=== PATIENT | female | born 1955 | race American Indian/Alaskan Native ===

== ENCOUNTER 2016-09-05 12:46 | Emergency (ER) | payer MEDICARE, MEDICAID ==
[2016-09-05 13:01] VITALS: BP 170/72
[2016-09-05] MEDS ORDERED: Sodium Chloride 0.9% 10 ML Syringe FLUSH PRN (13:20)
--- NOTE | 2016-09-05 14:25 | EDM.PDOC ---
{null, ED HPI GENERAL MEDICAL PROBLEM - General Chief Complaint: General Stated Complaint: FELL, HURT LEFT ARM Time Seen by Provider: 09/05/16 13:20 Source of Information: Reports: Patient History Limitations: Reports: No Limitations - History of Present Illness INITIAL COMMENTS - FREE TEXT/NARRATIVE: patient comes emergency Department today with her family with complaints of a fall. Approximately one week ago she twisted her right ankle which has been bothering her ever since. She was never seen for this right ankle injury. Today she was ambulating about the house her right ankle gave out and she fell landing on her left arm. She has pain from the left proximal wrist up to the proximal left humerus. There is no numbness or tingling. It hurts to move her arm. She denies any pain in her head neck or back. She denies any pain in her left shoulder. She does complain of chest pain that has been going on intermittently this morning. She has a rather extensive cardiac history. As well as a seizure disorder. She relates that she's been taking her medications appropriately over the last couple of days and does not remember what her blood sugars have been. She denies any shortness of breath fever chills or cough. Denies abdominal pain does complain of some nausea without vomiting. She complains of right ankle pain she denies any right pain to the right tib/fib region. RIght knee or right hip. Generalized Pain Score (Numeric/FACES): 10 - Related Data Allergies Allergy/AdvReac Type Severity Reaction Status Date / Time vancomycin Allergy Rash Verified 09/05/16 12:52 Home Meds: Home Meds Atenolol [Tenormin] 50 mg PO DAILY 11/16/13 [History] Gabapentin 600 mg PO TID 11/16/13 [History] Insulin Aspart [NovoLOG] 15 unit SQ TID 11/16/13 [History] Insulin Detemir [Levemir] 30 units SQ BEDTIME 11/16/13 [History] Venlafaxine HCl [Venlafaxine ER] 150 mg PO DAILY 11/16/13 [History] metFORMIN [Glucophage] 500 mg PO DAILY 11/16/13 [History] Omeprazole 20 mg PO DAILY 01/17/14 [History] Multivitamin [Multi-Vitamin Daily] 1 tab PO DAILY 03/29/14 [History] Bumetanide 1 mg PO BID 06/25/15 [History] Potassium Chloride [K-Tab ER] 40 meq PO BID 06/25/15 [History] oxyCODONE HCl [oxyCODONE] 15 mg PO TID PRN 06/25/15 [History] Aspirin [Halfprin] 1 tab PO DAILY 07/05/15 [History] Clopidogrel [Plavix] 1 tab PO DAILY 07/05/15 [History] Formoterol [Perforomist] 2 ml INH BID 07/05/15 [History] atorvaSTATin [Lipitor] 10 mg PO BEDTIME 07/05/15 [History] Albuterol [Ventolin HFA] 2 puff INH Q6H PRN 10/23/15 [History] Budesonide [Pulmicort] 0.5 mg NEB BIDRT 10/23/15 [History] Lisinopril 2.5 mg PO DAILY 03/23/16 [History] Amiodarone HCl [Amiodarone HCl] 200 mg PO ASDIRECTED 09/05/16 [History] Past Medical History HEENT History: Reports: Impaired Vision Cardiovascular History: Reports: Bacterial Endocarditis, Heart Failure, Heart Murmur, Heart Valve Replacement, High Cholesterol, Hypertension, NM, Pacemaker Other Cardiovascular History: Aortic valve endocarditis; CAD; s/p AVR; paroxysmal atrial fibrillation; essential hypertension; cardiac pacemaker in situ; tachy-angelique syndrome - all per 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 1 C/S Musculoskeletal History: Reports: Arthritis, Back Pain, Chronic, Osteoarthritis Other Musculoskeletal History: arthritis to spine, carpal tunnel to wrists Neurological History: Reports: Neuropathy, Peripheral, TIA Psychiatric History: Reports: Depression Endocrine/Metabolic History: Reports: Diabetes, Type II Hematologic History: Reports: Other (See Below) Other Hematologic History: hx bacteremia, hyperkalemia, hyponatremia Dermatologic History: Reports: Other (See Below) Other Dermatologic History: hx impetigo, and pressure sore to buttocks - Infectious Disease History Infectious Disease History: Reports: Chicken Pox, Measles, MRSA, TB - Past Surgical History Cardiovascular Surgical History: Reports: Pacer, Valve Replacement GI Surgical History: Reports: Appendectomy, Cholecystectomy Musculoskeletal Surgical History: Reports: Amputation, Other (See Below) Social & Family History - Family History Family Medical History: Noncontributory Cardiac: Reports: Hypertension Respiratory: Reports: COPD Endocrine/Metabolic: Reports: Diabetes, type II - Tobacco Use Smoking Status *Q: Current Every Day Smoker Years of Tobacco use: 25 Packs/Tins Daily: 0.5 Used Tobacco, but Quit: No Month Tobacco Last Used: may Second Hand Smoke Exposure: Yes - Caffeine Use Caffeine Use: Reports: Soda - Alcohol Use Days Per Week of Alcohol Use: 1 Number of Drinks Per Day: 1 Total Drinks Per Week: 1 - Recreational Drug Use Recreational Drug Use: No - Living Situation & Occupation Living situation: Reports: with Family Occupation: Disabled ED ROS GENERAL - Review of Systems Review Of Systems: ROS reveals no pertinent complaints other than HPI. ED EXAM, GENERAL - Physical Exam Exam: See Below Exam Limited By: No Limitations General Appearance: Alert, WD/WN, No Apparent Distress Ears: Normal External Exam, Normal Canal, Normal TMs Nose: Normal Inspection, Normal Mucosa, No Blood Throat/Mouth: Normal Inspection, Normal Lips, Normal Oropharynx Head: Atraumatic, Normocephalic Neck: Normal Inspection, Supple Respiratory/Chest: No Respiratory Distress, Lungs Clear, Normal Breath Sounds, No Accessory Muscle Use Cardiovascular: Normal Peripheral Pulses, Regular Rate, Rhythm, No Murmur GI/Abdominal: Normal Bowel Sounds, Soft, Non-Tender (Female) Exam: Deferred Rectal (Female) Exam: Deferred Back Exam: Normal Inspection Extremities: Pedal Edema (1+ right lower ankle. ), Other (tenderness from mid left humerus down to the left wrist. There is no bony deformity swelling crepitus bruising ecchymosis or breaks in the skin. CMS is intact entirety of the left arm.) Neurological: Alert, CN II-XII Intact, Normal Cognition, Normal Reflexes, No Motor/Sensory Deficits Skin Exam: Intact, Cool, Diaphoretic Lymphatic: No Adenopathy EKG INTERPRETATION EKG Date: 09/05/16 Time: 12:53 Rhythm: NSR Rate (beats/min): 60 [place]: normal P-wave: present QRS: LBBB ST-T: normal QT: normal Comparison: no change Course - Vital Signs Last Recorded V/S: Last Vital Signs Temp 35.8 C 05/20/17 12:52 Pulse 60 09/05/16 12:52 Resp 19 09/05/16 12:52 BP 170/72 H 09/05/16 12:52 Pulse Ox 95 09/05/16 12:52 - Orders/Labs/Meds Orders: Active Orders 24 hr Category Date Time Status EKG 12 Lead [EKG Documentation Completion] [] URGENT Care 09/05/16 13:20 Active Peripheral IV Care [RC] . DIRECTED Care 09/05/16 13:20 Active Peripheral IV Insertion Adult [OM.PC] Stat Oth 09/05/16 13:20 Ordered Labs: Laboratory Tests 09/05/16 09/05/16 09/05/16 Range/Units 13:28 13:28 13:28 WBC 8.0 (5.0-10.0) 10^3/uL RBC 4.27 (4.2-5.4) 10^6/uL Hgb 13.4 (12.0-16.0) g/dL Hct 40.6 (37.0-47.0) % MCV 95.1 (80-100) fL MCH 31.4 (27.0-34.0) pg MCHC 33.0 (33.0-35.0) g/dL Plt Count 216 (150-450) 10^3/uL Neut % (Auto) 69.5 (42.2-75.2) % Lymph % (Auto) 19.0 L (20.5-50.1) % [place] % (Auto) 10.0 H (2-8) % Eos % (Auto) 1.1 (1.0-3.0) % Baso % (Auto) 0.4 (0.0-1.0) % Sodium 128 L (135-145) mmol/L Potassium 4.8 (3.6-5.0) mmol/L Chloride 91 L (101-111) mmol/L Carbon Dioxide 27.0 (21.0-31.0) mmol/L Anion Gap 14.8 BUN 17 (7-18) mg/dL Creatinine 1.1 (0.6-1.3) mg/dL Est Cr Clr Drug Dosing 58.55 mL/min Estimated GFR (MDRD) 51 BUN/Creatinine Ratio 15.45 Glucose 269 H (74-105) mg/dL Calcium 8.7 (8.4-10.2) mg/dl Total Bilirubin 0.7 (0.2-1.0) mg/dL AST 20 (10-42) IU/L ALT 19 (10-60) IU/L Alkaline Phosphatase 96 (42-121) IU/L Troponin I 0.03 H* (0.00-0.02) ng/ml B-Natriuretic Peptide 548 H (0-100) pg/ml Total Protein 7.5 (6.7-8.2) g/dl Albumin 3.6 (3.2-5.5) g/dl Globulin 3.9 Albumin/Globulin Ratio 0.92 Meds: Medications Discontinued Medications Generic Name Dose Route Start Last Admin Trade Name Freq PRN Reason Stop Dose Admin Morphine Sulfate 4 mg 09/05/16 14:30 09/05/16 14:38 Morphine IVPUSH 09/05/16 14:31 4 mg ONETIME ONE Administration Sodium Chloride 10 ml 09/05/16 13:20 Saline Flush FLUSH ASDIRECTED PRN Keep Vein Open - Radiology Interpretation Free Text/Narrative:: per radiology. Chest x-ray opacity in the right base may represent atelectasis pneumonia. Left wrist x-ray no acute findings per radiology. Right ankle x-ray. Minimally displaced distal fibula fracture. Slight contour abnormality along the lateral cortex of the distal fibula. Left humerous. Mildly impacted humeral neck and head fracture of the left humerus. Humeral neck is mildly impacted into the humeral head. Left elbow no acute findings. - Re-Assessments/Exams Free Text/Narrative Re-Assessment/Exam: 09/05/16 following the return of the x-rays I explained to the patient that she has a proximal humeral neck/head impacted fracture. Her arm is placed in a sling. Is also identified that she had a distal nondisplaced right fibular fracture and a right leg was placed in an air splint. Subsequently the rest of her labs are unremarkable other than a mildly elevated troponin. Patient had taken aspirin 324 this morning. She does not have any chest pain at this time in the emergency department. She was given 4 mg of morphine with improvement of her left arm and right leg pain. With her other comorbid state and her elevated troponin I feel that evaluation at a tertiary care centers most appropriate at this time. I spoke with at [facility] in [place] and he accepted this patient into his care at [facility]. No new orders and refused any heparin at this time. the plan for transfer was explained to the patient she was comfortable with this and her questions were answered. Departure - Departure Time of Disposition: 14:20 Disposition: DC/Tfer to Acute Hospital 02 Clinical Impression: Elevated troponin Fx humeral neck Qualifiers: Encounter type: initial encounter Fracture type: closed Laterality: left Qualified Code(s): S42.212A - Unspecified displaced fracture of surgical neck of left humerus, initial encounter for closed fracture Closed right fibular fracture Qualifiers: Encounter type: initial encounter Fibula location: distal Fracture morphology: other fracture Qualified Code(s): S82.831A - Other fracture of upper and lower end of right fibula, initial encounter for closed fracture - Discharge Information Forms: ED Department Discharge ED Communication - ED Communication Date/Time Date: 09/05/16 (I called and spoke with DR. Chappell and relayed the elevated Troponin and HPI and ER course. He accepted the patient in transfer under his care. No heparin at this time. ) Time Called: 14:20 - My Orders Last 24 Hours: My Active Orders 09/05/16 13:20 EKG 12 Lead [EKG Documentation Completion] [RC] URGENT Peripheral IV Care [RC] . DIRECTED Peripheral IV Insertion Adult [OM.PC] Stat - Assessment/Plan Last 24 Hours: My Active Orders 09/05/16 13:20 EKG 12 Lead [EKG Documentation Completion] [RC] URGENT Peripheral IV Care [RC] . DIRECTED Peripheral IV Insertion Adult [OM.PC] Stat Assessment:: elevated troponin. Chest pain. Right distal fibula minimally displaced fracture. Left mildly impacted humeral neck and head fracture. Plan: Transfer to [facility] under the care of Dr. Chappell for further care and evaluation. }
[2016-09-05] MEDS ORDERED: Morphine 4 MG/ML Syringe IVPUSH ONE (14:30)
--- NOTE | 2016-09-08 11:02 | EKG ---
{null, 09/05/2016 - TORY CONTI - A 12-lead EKG shows normal sinus rhythm. Significant left bundle-branch block noted. No significant ST elevation or ST depression noted on this 12-lead EKG. Nonspecific ST-T changes noted on lead V2, V3. [facility] /[id number] }
== END 2016-09-05 15:00 ==
LOC: DL.ED 12:46
DX: S82.831A Other fracture of upper and lower end of right fibula, initial encounter for closed fracture (principal); S42.212A Unspecified displaced fracture of surgical neck of left humerus, initial encounter for closed fracture; R79.89 Other specified abnormal findings of blood chemistry; I11.0 Hypertensive heart disease with heart failure; I50.9 Heart failure, unspecified; E78.00 Pure hypercholesterolemia, unspecified; I25.2 Old myocardial infarction; J44.9 Chronic obstructive pulmonary disease, unspecified; Z86.73 Personal history of transient ischemic attack (TIA), and cerebral infarction without residual deficits; E11.21 Type 2 diabetes mellitus with diabetic nephropathy; I25.10 Atherosclerotic heart disease of native coronary artery without angina pectoris; K21.9 Gastro-esophageal reflux disease without esophagitis; M19.90 Unspecified osteoarthritis, unspecified site; F17.210 Nicotine dependence, cigarettes, uncomplicated; Z79.4 Long term (current) use of insulin; Z79.84 Long term (current) use of oral hypoglycemic drugs; Z79.899 Other long term (current) drug therapy; Z79.82 Long term (current) use of aspirin; Z90.49 Acquired absence of other specified parts of digestive tract; Z88.1 Allergy status to other antibiotic agents; W19.XXXA Unspecified fall, initial encounter
CPT/HCPCS: 36415; 71020; 73060; 73070; 73110; 73610; 80053; 83880; 84484; 85025; 93005; 96374; 99284; J2270; 93010

== ENCOUNTER 2016-12-16 16:02 | Observation (INO) | payer MEDICARE, MEDICAID ==
[2016-12-16] MEDS ORDERED: Sodium Chloride 0.9% 10 ML Syringe FLUSH PRN (16:18)
--- NOTE | 2016-12-16 16:36 | EDM.PDOC ---
<Gabriella Hammer - Last Filed: 12/16/16 17:52> ED HPI GENERAL MEDICAL PROBLEM - General Chief Complaint: Chest Pain Stated Complaint: IN BY AMBULANCE Time Seen by Provider: 12/16/16 16:28 Source of Information: Reports: Patient History Limitations: Reports: No Limitations - History of Present Illness INITIAL COMMENTS - FREE TEXT/NARRATIVE: 61 yo female presents with chest pain. States that when she is moving she has a pressure pain to her left mid chest that is non radiating. Was given 3 nitroglycerin with relief of pain per EMS. Also given ASA. Pt states that she is having neck pain that radiates down both shoulders. Bruising noted to left arm and face s/p fall 1 week ago. C/o shortness of breath intermittently. denies n/v/d. Onset: Today, Sudden Duration: Intermittent Location: Reports: Neck, Chest, Upper Extremity, Left, Upper Extremity, Right Quality: Reports: Pressure, Sharp, Stabbing Severity: Moderate Improves with: Reports: Medication (nitro) Worsens with: Reports: Movement Context: Reports: Activity Associated Symptoms: Reports: No Other Symptoms Treatments MANAGER FUND: Reports: Aspirin, Nitroglycerin Arm Pain Score (Numeric/FACES): 6 - Related Data Allergies Allergy/AdvReac Type Severity Reaction Status Date / Time vancomycin Allergy Rash Verified 12/16/16 16:18 Home Meds: Home Meds Atenolol [Tenormin] 50 mg PO DAILY 11/16/13 [History] Gabapentin 600 mg PO TID 11/16/13 [History] Insulin Aspart [NovoLOG] 15 unit SQ TID 11/16/13 [History] Insulin Detemir [Levemir] 30 units SQ BEDTIME 11/16/13 [History] Venlafaxine HCl [Venlafaxine ER] 150 mg PO DAILY 11/16/13 [History] metFORMIN [Glucophage] 500 mg PO DAILY 11/16/13 [History] Omeprazole 20 mg PO DAILY 01/17/14 [History] Multivitamin [Multi-Vitamin Daily] 1 tab PO DAILY 03/29/14 [History] Bumetanide 1 mg PO BID 06/25/15 [History] Potassium Chloride [K-Tab ER] 40 meq PO BID 06/25/15 [History] oxyCODONE HCl [oxyCODONE] 15 mg PO TID PRN 06/25/15 [History] Aspirin [Halfprin] 1 tab PO DAILY 07/05/15 [History] Clopidogrel [Plavix] 1 tab PO DAILY 07/05/15 [History] Formoterol [Perforomist] 2 ml INH BID 07/05/15 [History] atorvaSTATin [Lipitor] 10 mg PO BEDTIME 07/05/15 [History] Albuterol [Ventolin HFA] 2 puff INH Q6H PRN 10/23/15 [History] Budesonide [Pulmicort] 0.5 mg NEB BIDRT 10/23/15 [History] Lisinopril 2.5 mg PO DAILY 03/23/16 [History] Amiodarone HCl [Amiodarone HCl] 200 mg PO ASDIRECTED 09/05/16 [History] Past Medical History HEENT History: Reports: Impaired Vision Cardiovascular History: Reports: Bacterial Endocarditis, Heart Failure, Heart Murmur, Heart Valve Replacement, High Cholesterol, Hypertension, CT, Pacemaker Other Cardiovascular History: Aortic valve endocarditis; CAD; s/p AVR; paroxysmal atrial fibrillation; essential hypertension; cardiac pacemaker in situ; tachy-angelique syndrome - all per [facility] records Respiratory History: Reports: COPD, Intubation, Previous, SOB, Other (See Below) Other Respiratory History: hx hypoxemia Gastrointestinal History: Reports: Cholelithiasis, GERD Genitourinary History: Reports: Diabetic Nephropathy HORSER UP History: Reports: Other OB/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 1 C/S Musculoskeletal History: Reports: Arthritis, Back Pain, Chronic, Osteoarthritis Other Musculoskeletal History: arthritis to spine, carpal tunnel to wrists Neurological History: Reports: Neuropathy, Peripheral, TIA Psychiatric History: Reports: Depression Endocrine/Metabolic History: Reports: Diabetes, Type II Hematologic History: Reports: Other (See Below) Other Hematologic History: hx bacteremia, hyperkalemia, hyponatremia Dermatologic History: Reports: Other (See Below) Other Dermatologic History: hx impetigo, and pressure sore to buttocks - Infectious Disease History Infectious Disease History: Reports: Chicken Pox, Measles, MRSA, TB - Past Surgical History Cardiovascular Surgical History: Reports: Pacer, Valve Replacement GI Surgical History: Reports: Appendectomy, Cholecystectomy Musculoskeletal Surgical History: Reports: Amputation, Other (See Below) Social & Family History - Family History Family Medical History: Noncontributory Cardiac: Reports: Hypertension Respiratory: Reports: COPD Endocrine/Metabolic: Reports: Diabetes, type II - Tobacco Use Smoking Status *Q: Current Every Day Smoker Years of Tobacco use: 25 Packs/Tins Daily: 0.5 Used Tobacco, but Quit: No Month Tobacco Last Used: may Second Hand Smoke Exposure: Yes - Caffeine Use Caffeine Use: Reports: Soda - Alcohol Use Days Per Week of Alcohol Use: 1 Number of Drinks Per Day: 1 Total Drinks Per Week: 1 - Recreational Drug Use Recreational Drug Use: No - Living Situation & Occupation Living situation: Reports: with Family Occupation: Disabled ED ROS GENERAL - Review of Systems Review Of Systems: ROS reveals no pertinent complaints other than HPI. ED EXAM, GENERAL - Physical Exam Exam: See Below Exam Limited By: No Limitations General Appearance: Alert, WD/WN, No Apparent Distress Eye Exam: Bilateral Eye: Normal Inspection, PERRL Ears: Normal External Exam, Normal Canal, Hearing Grossly Normal, Other ( scarred ears bilaterally) Ear Exam: Bilateral Ear: TM Dull Nose: Normal Inspection, Normal Mucosa, No Blood Throat/Mouth: Normal Inspection, Normal Lips, Normal Teeth, Normal Gums, Normal Oropharynx, Normal Voice, No Airway Compromise Head: Atraumatic, Normocephalic Neck: Normal Inspection, Supple, Full Range of Motion, Tender Lateral Respiratory/Chest: No Respiratory Distress, Lungs Clear, Normal Breath Sounds, No Accessory Muscle Use, Chest Non-Tender Cardiovascular: Normal Peripheral Pulses, Regular Rate, Rhythm, No Edema, No Gallop, No JVD, No Murmur, No Rub GI/Abdominal: Normal Bowel Sounds, Soft, Non-Tender, No Organomegaly, No Distention, No Abnormal Bruit, No Mass Extremities: Normal Inspection, Non-Tender, No Pedal Edema, Normal Capillary Refill, Arm Pain, Limited Range of Motion (left arm due to pain) Neurological: Alert, Oriented, CN II-XII Intact, Normal Cognition, No Motor/ Sensory Deficits Skin Exam: Warm, Dry, Intact, No Rash, Ecchymosis (left face, left upper extremity) Course - Vital Signs Last Recorded V/S: Last Vital Signs Temp 37.1 C 12/17/16 00:48 Pulse 78 12/17/16 00:48 Resp 16 12/17/16 00:48 BP 150/80 H 12/17/16 00:48 Pulse Ox 97 12/17/16 00:48 - Orders/Labs/Meds Orders: Active Orders 24 hr Category Date Time Status Cardiac Monitoring [RC] . DIRECTED Care 12/16/16 16:18 Active EKG 12 Lead [EKG Documentation Completion] [RC] STAT Care 12/16/16 20:50 Active EKG Documentation Completion [RC] STAT Care 12/16/16 16:19 Active Sodium Chloride 0.9% [Saline Flush] Med 12/16/16 16:18 Active 10 ml FLUSH ASDIRECTED PRN Saline Lock Insert [OM.PC] Stat Oth 12/16/16 16:18 Ordered Medication Orders Sodium Chloride (Saline Flush) 10 ml FLUSH ASDIRECTED PRN PRN Reason: Keep Vein Open Last Admin: 12/16/16 17:48 Dose: 10 ml Labs: Laboratory Tests 12/16/16 12/16/16 12/16/16 Range/Units 16:35 16:35 16:35 WBC 6.1 (5.0-10.0) 10^3/uL RBC 5.11 (4.2-5.4) 10^6/uL Hgb 14.2 (12.0-16.0) g/dL Hct 44.1 (37.0-47.0) % MCV 86.3 (80-100) fL MCH 27.8 (27.0-34.0) pg MCHC 32.2 L (33.0-35.0) g/dL Plt Count 153 (150-450) 10^3/uL Neut % (Auto) 52.6 (42.2-75.2) % Lymph % (Auto) 35.8 (20.5-50.1) % [place] % (Auto) 9.7 H (2-8) % Eos % (Auto) 1.7 (1.0-3.0) % Baso % (Auto) 0.2 (0.0-1.0) % PT 10.2 (9.0-12.0) SEC INR 1.0 (0.9-1.2) Sodium 138 (135-145) mmol/L Potassium 4.7 (3.6-5.0) mmol/L Chloride 102 (101-111) mmol/L Carbon Dioxide 24.0 (21.0-31.0) mmol/L Anion Gap 16.7 BUN 24 H (7-18) mg/dL Creatinine 1.0 (0.6-1.3) mg/dL Est Cr Clr Drug Dosing 64.40 mL/min Estimated GFR (MDRD) 57 BUN/Creatinine Ratio 24.00 Glucose 236 H (74-105) mg/dL Calcium 9.3 (8.4-10.2) mg/dl Phosphorus 4.3 (2.5-4.6) mg/dL Magnesium 1.6 L (1.8-2.5) mg/dL Total Bilirubin 0.5 (0.2-1.0) mg/dL AST 25 (10-42) IU/L ALT 25 (10-60) IU/L Alkaline Phosphatase 125 H (42-121) IU/L Creatine Kinase (26-174) IU/L Creatine Kinase Index (0-2.4) % CK-MB (CK-2) (0.4-4.7) ng/mL Troponin I 0.04 H* (0.00-0.02) ng/ml B-Natriuretic Peptide 463 H (0-100) pg/ml Total Protein 7.3 (6.7-8.2) g/dl Albumin 3.7 (3.2-5.5) g/dl Globulin 3.6 Albumin/Globulin Ratio 1.03 12/16/16 12/16/16 12/17/16 Range/Units 16:35 20:15 00:28 WBC (5.0-10.0) 10^3/uL RBC (4.2-5.4) 10^6/uL Hgb (12.0-16.0) g/dL Hct (37.0-47.0) % MCV (80-100) fL MCH (27.0-34.0) pg MCHC (33.0-35.0) g/dL Plt Count (150-450) 10^3/uL Neut % (Auto) (42.2-75.2) % Lymph % (Auto) (20.5-50.1) % [place] % (Auto) (2-8) % Eos % (Auto) (1.0-3.0) % Baso % (Auto) (0.0-1.0) % PT (9.0-12.0) SEC INR (0.9-1.2) Sodium (135-145) mmol/L Potassium (3.6-5.0) mmol/L Chloride (101-111) mmol/L Carbon Dioxide (21.0-31.0) mmol/L Anion Gap BUN (7-18) mg/dL Creatinine (0.6-1.3) mg/dL Est Cr Clr Drug Dosing mL/min Estimated GFR (MDRD) BUN/Creatinine Ratio Glucose (74-105) mg/dL Calcium (8.4-10.2) mg/dl Phosphorus (2.5-4.6) mg/dL Magnesium (1.8-2.5) mg/dL Total Bilirubin (0.2-1.0) mg/dL AST (10-42) IU/L ALT (10-60) IU/L Alkaline Phosphatase (42-121) IU/L Creatine Kinase 36 (26-174) IU/L Creatine Kinase Index 6.4 H (0-2.4) % CK-MB (CK-2) 2.30 (0.4-4.7) ng/mL Troponin I 0.03 H* 0.03 H* (0.00-0.02) ng/ml B-Natriuretic Peptide (0-100) pg/ml Total Protein (6.7-8.2) g/dl Albumin (3.2-5.5) g/dl Globulin Albumin/Globulin Ratio Meds: Medications Generic Name Dose Route Start Last Admin Trade Name Freq PRN Reason Stop Dose Admin Sodium Chloride 10 ml 12/16/16 16:18 12/16/16 17:48 Saline Flush FLUSH 10 ml ASDIRECTED PRN Administration Keep Vein Open Discontinued Medications Generic Name Dose Route Start Last Admin Trade Name Freq PRN Reason Stop Dose Admin Insulin Human Regular 5 unit 12/16/16 17:07 12/16/16 17:45 Humulin R SUBCUT 12/16/16 17:08 4 units ONETIME ONE Administration Protocol Morphine Sulfate 4 mg 12/16/16 17:10 12/16/16 17:48 Morphine IVPUSH 12/16/16 17:11 4 mg ONETIME ONE Administration Ondansetron HCl 4 mg 12/16/16 17:10 12/16/16 17:46 Zofran IV 12/16/16 17:11 4 mg ONETIME ONE Administration - Re-Assessments/Exams Free Text/Narrative Re-Assessment/Exam: 12/16/16 17:52 troponin mildly elevated. Will repeat troponin in 4 hours. Departure - Departure Disposition: Refer to Observation Clinical Impression: Angina effort Forms: ED Department Discharge - My Orders Last 24 Hours: My Active Orders 12/16/16 20:50 EKG 12 Lead [EKG Documentation Completion] [RC] STAT - Assessment/Plan Last 24 Hours: My Active Orders 12/16/16 20:50 EKG 12 Lead [EKG Documentation Completion] [RC] STAT <Bjorn Casanova - Last Filed: 12/17/16 01:46> Course - Re-Assessments/Exams Free Text/Narrative Re-Assessment/Exam: 12/17/16 01:44 repeat trop x2 @ 0.03 pt remains pain free except for left should from prior injury. case discussed with Dr Apple who kindly admitted pt to observation. Departure - Departure Time of Disposition: 01:45 Condition: Fair
[2016-12-16] MEDS ORDERED: Insulin Regular, Human 100 Units/ML 3 ML Vial SUBCUT ONE (17:07)
[2016-12-16] MEDS ORDERED: Morphine 4 MG/ML Syringe IVPUSH ONE (17:10)
[2016-12-16] MEDS ORDERED: Ondansetron 4 MG/2 ML SDV IV ONE (17:10)
[2016-12-17] MEDS ORDERED: Albuterol 6.7 GM Inhaler INH PRN (02:12)
[2016-12-17] MEDS ORDERED: Sodium Chloride 0.9% 10 ML Syringe FLUSH PRN (02:16)
[2016-12-17] MEDS ORDERED: Acetaminophen 325 MG Tab PO PRN (02:16)
[2016-12-17] MEDS ORDERED: Zolpidem 5 MG Tab PO PRN (02:16)
--- NOTE | 2016-12-17 02:29 | PCM.HP ---
H&P History of Present Illness - General Date of Service: 12/17/16 Admit Problem/Dx: Admission Diagnosis/Problem Admission Diagnosis/Problem Chest pain Source of Information: Patient - History of Present Illness Initial Comments - Free Text/Narative: 61-year-old lady with a history of diabetes, hypertension, chronic pain syndrome. The patient fell a few days ago and developed significant bruising and pain the left side of the face and arm. Presented with an episode of chest pain that started when she was getting up and was walking. The pain was sharp, lasted about 10-15 minutes. Resolved after aspirin and nitroglycerin. The patient has no pain now. No shortness of breath. Arm Pain Score (Numeric/FACES): 6 - Related Data Allergies/Adverse Reactions: Allergies Allergy/AdvReac Type Severity Reaction Status Date / Time vancomycin Allergy Rash Verified 12/16/16 16:18 Home Medications: Home Meds Atenolol [Tenormin] 50 mg PO DAILY 11/16/13 [History] Gabapentin 600 mg PO TID 11/16/13 [History] Insulin Aspart [NovoLOG] 15 unit SQ TID 11/16/13 [History] Insulin Detemir [Levemir] 30 units SQ BEDTIME 11/16/13 [History] Venlafaxine HCl [Venlafaxine ER] 150 mg PO DAILY 11/16/13 [History] metFORMIN [Glucophage] 500 mg PO DAILY 11/16/13 [History] Omeprazole 20 mg PO DAILY 01/17/14 [History] Multivitamin [Multi-Vitamin Daily] 1 tab PO DAILY 03/29/14 [History] Bumetanide 1 mg PO BID 06/25/15 [History] Potassium Chloride [K-Tab ER] 40 meq PO BID 06/25/15 [History] oxyCODONE HCl [oxyCODONE] 15 mg PO TID PRN 06/25/15 [History] Aspirin [Halfprin] 1 tab PO DAILY 07/05/15 [History] Clopidogrel [Plavix] 1 tab PO DAILY 07/05/15 [History] Formoterol [Perforomist] 2 ml INH BID 07/05/15 [History] atorvaSTATin [Lipitor] 10 mg PO BEDTIME 07/05/15 [History] Albuterol [Ventolin HFA] 2 puff INH Q6H PRN 10/23/15 [History] Budesonide [Pulmicort] 0.5 mg NEB BIDRT 10/23/15 [History] Lisinopril 2.5 mg PO DAILY 03/23/16 [History] Amiodarone HCl [Amiodarone HCl] 200 mg PO ASDIRECTED 09/05/16 [History] Past Medical History HEENT History: Reports: Impaired Vision Other HEENT History: wears glasses Cardiovascular History: Reports: Bacterial Endocarditis, Heart Failure, Heart Murmur, Heart Valve Replacement, High Cholesterol, Hypertension, NC, Pacemaker Other Cardiovascular History: Aortic valve endocarditis; CAD; s/p AVR; paroxysmal atrial fibrillation; essential hypertension; cardiac pacemaker in situ; tachy-angelique syndrome - all per [facility] records Respiratory History: Reports: COPD, Intubation, Previous, SOB, Other (See Below) Other Respiratory History: hx hypoxemia Gastrointestinal History: Reports: Cholelithiasis, GERD Genitourinary History: Reports: Diabetic Nephropathy [employer] History: Reports: Other OB/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 1 C/S Musculoskeletal History: Reports: Arthritis, Back Pain, Chronic, Osteoarthritis Other Musculoskeletal History: arthritis to spine, carpal tunnel to wrists Neurological History: Reports: Neuropathy, Peripheral, TIA Psychiatric History: Reports: Depression Endocrine/Metabolic History: Reports: Diabetes, Type II Hematologic History: Reports: Other (See Below) Other Hematologic History: hx bacteremia, hyperkalemia, hyponatremia Oncologic (Cancer) History: Reports: None Dermatologic History: Reports: Other (See Below) Other Dermatologic History: hx impetigo, and pressure sore to buttocks - Infectious Disease History Infectious Disease History: Reports: Chicken Pox, Measles, MRSA, TB - Past Surgical History Cardiovascular Surgical History: Reports: Pacer, Valve Replacement GI Surgical History: Reports: Appendectomy, Cholecystectomy Musculoskeletal Surgical History: Reports: Amputation, Other (See Below) Social & Family History - Family History Family Medical History: Noncontributory Cardiac: Reports: Hypertension Respiratory: Reports: COPD Endocrine/Metabolic: Reports: Diabetes, type II - Tobacco Use Smoking Status *Q: Current Every Day Smoker Years of Tobacco use: 25 Packs/Tins Daily: 0.5 Used Tobacco, but Quit: No Month Tobacco Last Used: may Second Hand Smoke Exposure: Yes - Caffeine Use Caffeine Use: Reports: Soda - Alcohol Use Days Per Week of Alcohol Use: 1 Number of Drinks Per Day: 1 Total Drinks Per Week: 1 - Recreational Drug Use Recreational Drug Use: No - Living Situation & Occupation Living situation: Reports: with Family Occupation: Disabled H&P Review of Systems - Review of Systems: Review Of Systems: See Below General: Denies: Fever HEENT: Reports: Other (Left facial bruises) Pulmonary: Denies: Shortness of Breath Cardiovascular: Denies: Chest Pain (Resolved) Gastrointestinal: Denies: Abdominal Pain Musculoskeletal: Reports: Shoulder Pain (Left sided) Psychiatric: Denies: Confusion Exam - Exam Exam: See Below - Vital Signs Vital Signs: Last Vital Signs Temp 37.1 C 12/17/16 00:48 Pulse 78 12/17/16 00:48 Resp 16 12/17/16 00:48 BP 150/80 H 12/17/16 00:48 Pulse Ox 97 12/17/16 00:48 Weight: 95.708 kg - Exam General: Alert, Oriented HEENT: Other (Left-sided facial bruises) Neck: Supple Lungs: Clear to Auscultation Cardiovascular: Regular Rate, Regular Rhythm GI/Abdominal Exam: Normal Bowel Sounds, Soft, Non-Tender Extremities: No Pedal Edema Skin: Warm, Dry, Other (Left facial and upper arm bruises) Neuro Extensive - Mental Status: Alert, Oriented x3, Normal Mood/Affect Psychiatric: Alert, Normal Affect, Normal Mood - Patient Data Result Diagrams: 12/16/16 16:35 12/16/16 16:35 EKG INTERPRETATION EKG Interpretation Comments: Atrial paced rhythm *Q Meaningful Use (ADM) - VTE *Q VTE Criteria *Q: - Stroke *Q Stroke Criteria *Q: - AMI *Q AMI Criteria *Q: - Problem List (1) Chest pain SNOMED Code(s): 29406657 ICD Code: R07.9 - CHEST PAIN, UNSPECIFIED Status: Acute Current Visit: Yes (2) COPD, moderate SNOMED Code(s): 712303396 ICD Code: J44.9 - CHRONIC OBSTRUCTIVE PULMONARY DISEASE, UNSPECIFIED Status : Chronic Current Visit: No Onset Date: 06/25/15 (3) Diabetes mellitus type 2 SNOMED Code(s): 89065013 ICD Code: E11.9 - TYPE 2 DIABETES MELLITUS WITHOUT COMPLICATIONS Status: Chronic Priority: Medium Current Visit: No (4) Diabetic neuropathy SNOMED Code(s): 351568440 ICD Code: E11.40 - TYPE 2 DIABETES MELLITUS WITH DIABETIC NEUROPATHY, UNSP Status: Chronic Priority: Low Current Visit: No Problem List Initiated/Reviewed/Updated: Yes Orders Last 24hrs: Active Orders 24 hr Category Date Time Status Patient Status [ADT] Routine ADT 12/17/16 02:16 Ordered Antiembolic Devices [RC] PER UNIT ROUTINE Care 12/17/16 02:18 Ordered Glucose [Blood Glucose Check, Bedside] [RC] QIDACANDBED Care 12/17/16 02:12 Ordered Oxygen Therapy [RC] PRN Care 12/17/16 02:16 Ordered Peripheral IV Care [RC] . DIRECTED Care 12/17/16 02:18 Ordered Up With Assistance [RC] ASDIRECTED Care 12/17/16 02:16 Ordered VTE/DVT Education [RC] PER UNIT ROUTINE Care 12/17/16 02:16 Ordered Vital Signs [RC] Q4H Care 12/17/16 02:16 Ordered Consistent Carbohydrate Diet [DIET] Diet 12/17/16 Breakfast Ordered BASIC METABOLIC PANEL,BMP [CHEM] AM Lab 12/17/16 05:11 Ordered BASIC METABOLIC PANEL,BMP [CHEM] AM Lab 12/18/16 05:11 Ordered CBC WITH AUTO DIFF [HEME] AM Lab 12/17/16 05:11 Ordered CBC WITH AUTO DIFF [HEME] AM Lab 12/18/16 05:11 Ordered TROPONIN I [CHEM] AM Lab 12/17/16 05:11 Ordered Acetaminophen [Tylenol] Med 12/17/16 02:16 Ordered 650 mg PO Q4H PRN Albuterol [Proventil HFA] Med 12/17/16 02:12 Ordered 2 puff INH Q6H PRN Amiodarone [Cordarone] Med 12/17/16 09:00 Ordered 200 mg PO DAILY Aspirin [Halfprin] Med 12/17/16 09:00 Ordered 1 tab PO DAILY Atenolol [Tenormin] Med 12/17/16 09:00 Ordered 50 mg PO DAILY Budesonide [Pulmicort] Med 12/17/16 07:00 Ordered 0.5 mg NEB BIDRT Bumetanide [Bumex] Med 12/17/16 09:00 Ordered 1 mg PO BID Clopidogrel [Plavix] Med 12/17/16 09:00 Ordered 1 tab PO DAILY Formoterol [Perforomist] Med 12/17/16 09:00 Ordered 2 ml INH BID Gabapentin [Neurontin] Med 12/17/16 09:00 Ordered 600 mg PO TID Heparin Sodium Med 12/17/16 06:00 Ordered 5,000 units SUBCUT Q8HR Ibuprofen [Motrin] Med 12/17/16 02:16 Ordered 400 mg PO Q6H PRN Insulin Aspart [NovoLOG] Med 12/17/16 09:00 Ordered 15 unit SUBCUT TID Insulin Aspart [NovoLOG] Med 12/17/16 08:00 Ordered See Protocol SUBCUT TIDAC Insulin Detemir [Levemir] Med 12/17/16 21:00 Ordered 30 unit SUBCUT BEDTIME Lisinopril [Lisinopril] Med 12/17/16 09:00 Ordered 2.5 mg PO DAILY Magnesium Oxide Med 12/17/16 08:00 Ordered 250 mg PO BIDM Multivitamin [Multi-Vitamin Daily] Med 12/17/16 09:00 Ordered 1 tab PO DAILY Omeprazole Med 12/17/16 09:00 Ordered 20 mg PO DAILY Potassium Chloride [K-Tab ER] Med 12/17/16 09:00 Ordered 40 meq PO BID Sodium Chloride 0.9% [Saline Flush] Med 12/17/16 02:16 Ordered 10 ml FLUSH ASDIRECTED PRN Venlafaxine [Venlafaxine HCl ER] Med 12/17/16 09:00 Ordered 150 mg PO DAILY Zolpidem [Ambien] Med 12/17/16 02:16 Ordered 5 mg PO BEDTIME PRN atorvaSTATin [Lipitor] Med 12/17/16 21:00 Ordered 10 mg PO BEDTIME oxyCODONE HCl [oxyCODONE] Med 12/17/16 02:12 Ordered 15 mg PO Q6HR PRN Antiembolic Hose [OM.PC] Per Unit Routine Oth 12/17/16 02:17 Ordered Peripheral IV Insertion Adult [OM.PC] Routine Oth 12/17/16 02:16 Ordered Resuscitation Status Routine Resus Stat 12/17/16 02:16 Ordered Medication Orders Acetaminophen (Tylenol) 650 mg PO Q4H PRN PRN Reason: Pain (Mild 1-3)/fever Albuterol (Proventil Hfa) gm INH Q6H PRN PRN Reason: Wheezing Amiodarone HCl (Cordarone) 200 mg PO DAILY [facility] Aspirin (Halfprin) mg PO DAILY [facility] Atenolol (Tenormin) 50 mg PO DAILY [facility] Atorvastatin Calcium (Lipitor) 10 mg PO BEDTIME [facility] Budesonide (Pulmicort) 0.5 mg NEB BIDRT [facility] Bumetanide (Bumex) 1 mg PO BID [facility] Clopidogrel Bisulfate (Plavix) mg PO DAILY [facility] Gabapentin (Neurontin) 600 mg PO TID [facility] Heparin Sodium (Porcine) (Heparin Sodium) 5,000 units SUBCUT Q8HR [facility] Ibuprofen (Motrin) 400 mg PO Q6H PRN PRN Reason: Pain (mild 1-3) Insulin Aspart (Novolog) 0 unit SUBCUT TIDAC [facility]ITA PRN Reason: Protocol Insulin Aspart (Novolog) 15 unit SUBCUT TID [facility] Insulin Detemir (Levemir) 30 unit SUBCUT BEDTIME [facility] Magnesium Oxide (Magnesium Oxide) 250 mg PO BIDM [facility] Stop: 12/17/16 18:01 Non-Formulary Medication (Formoterol [Perforomist]) 2 ml INH BID [facility] Non-Formulary Medication (Lisinopril [Lisinopril]) 2.5 mg PO DAILY [facility] Non-Formulary Medication (Multivitamin [Multi-Vitamin Daily]) 1 tab PO DAILY [facility] Non-Formulary Medication (Oxycodone Hcl [Oxycodone]) 15 mg PO Q6HR PRN PRN Reason: Pain Non-Formulary Medication (Potassium Chloride [K-Tab Er]) 40 meq PO BID [facility] Omeprazole (Omeprazole) 20 mg PO DAILY [facility] Sodium Chloride (Saline Flush) 10 ml FLUSH ASDIRECTED PRN PRN Reason: Keep Vein Open Last Admin: 12/16/16 17:48 Dose: 10 ml Sodium Chloride (Saline Flush) 10 ml FLUSH ASDIRECTED PRN PRN Reason: Keep Vein Open Venlafaxine HCl (Venlafaxine Hcl Er) 150 mg PO DAILY [facility] Zolpidem Tartrate (Ambien) 5 mg PO BEDTIME PRN PRN Reason: Sleep Assessment/Plan Comment:: #1 chest pain The patients troponin is minimally elevated. She is on maximum medical therapy with aspirin, Plavix, beta lissy, statin. Well recheck another troponin in a few hours. Monitor on telemetry. Continue treatment for coronary artery disease. #2 fall With bruises on the face and left arm. The chest pain might relate to bruises and trauma as well. Continue pain medications including Neurontin and OxyContin. #3 diabetes Treat with Levemir and mealtime NovoLog combination. Follow blood sugars use supplemental insulin as needed #4 COPD No acute exacerbation Continue Pulmicort #5 history of aortic endocarditis status post aortic valve replacement, bioprosthetic valve Status post pacemaker placement November 2013 Tachy-bradycardia syndrome on amiodarone with paroxysmal atrial fibrillation No anticoagulation, recently 100% paced Last echocardiogram 2016 showed an ejection fraction of 50-55%, grade 2 diastolic dysfunction. Costume Director is Dr. Greenberg On his last note (10/19/2016)Dr. Greenberg was recommending to stop amiodarone #6 DVT prophylaxis will be with subcutaneous heparin
[2016-12-17] MEDS: oxyCODONE 5 MG Tab PO PRN ×2 (03:03→09:16)
[2016-12-17] MEDS: Ibuprofen 400 MG Tab PO PRN ×2 (06:20→12:03)
[2016-12-17] MEDS: Heparin Sodium 5,000 Units/ML Vial SUBCUT SCH ×2 (06:20→14:08)
[2016-12-17] MEDS ORDERED: Budesonide 0.5 MG/2 ML Neb Susp NEB SCH (07:00)
[2016-12-17] MEDS: Gabapentin 300 MG Cap PO SCH ×2 (08:41→14:07)
[2016-12-17] MEDS: Insulin Aspart 100 Units/ML 3 ML Pen SUBCUT SCH ×2 (08:48→12:10)
[2016-12-17] MEDS ORDERED: Omeprazole 20 MG Cap.CR PO SCH (09:00)
[2016-12-17] MEDS ORDERED: Insulin Aspart 100 Units/ML 3 ML Pen SUBCUT SCH ×2 (09:00→12:15)
[2016-12-17] MEDS ORDERED: Non-Formulary Medication 1 Each (Formoterol [Perforomist] 2 ML) INH SCH (09:00)
[2016-12-17] MEDS ORDERED: Atenolol 25 MG Tab PO SCH (09:00)
[2016-12-17] MEDS ORDERED: Potassium Chloride 10 MEQ Tab.ER PO SCH (09:00)
[2016-12-17] MEDS ORDERED: Multivitamins,Therapeutic Tab PO SCH (09:00)
[2016-12-17] MEDS ORDERED: Clopidogrel 75 MG Tab PO SCH (09:00)
[2016-12-17] MEDS ORDERED: Amiodarone 200 MG Tab PO SCH (09:00)
[2016-12-17] MEDS ORDERED: Bumetanide 1 MG Tab PO SCH (09:00)
[2016-12-17] MEDS ORDERED: Aspirin 81 MG Tab.EC PO SCH (09:00)
[2016-12-17] MEDS ORDERED: Venlafaxine 150 MG CAP.ER PO SCH (09:00)
[2016-12-17] MEDS ORDERED: Lisinopril 5 MG Tab PO SCH (09:00)
[2016-12-17 12:33] VITALS: BP 168/85
[2016-12-17] MEDS ORDERED: atorvaSTATin 10 MG Tab PO SCH (21:00)
[2016-12-17] MEDS ORDERED: Insulin Detemir 100 Units/ML 3 ML Pen SUBCUT SCH (21:00)
--- NOTE | 2016-12-22 07:20 | EKG ---
12/16/2016- TORY CONTI - DATE AND TIME OF EKG: Time: 1624 hours. This is the first of two 12-lead EKGs performed approximately 4 hours apart. First EKG shows a sinus rhythm with a ventricular rate of 66. There is a left bundle-branch block. No further comments are made. [facility] /[id number]
--- NOTE | 2016-12-22 07:23 | EKG ---
12/16/2016- TORY CONTI - This is the second of two 12-lead EKGs performed on this 61-year-old female. This EKG shows a sinus rhythm with a ventricular rate of 70. First-degree AV block. Intraventricular conduction defect. No acute changes. [facility] /[id number]
--- NOTE | 2017-02-15 08:47 | DISCH ---
FINAL DIAGNOSES: 1. Status post fall at home. 2. Bruising of left side of face and arm without underlying fractures. 3. Chest pain, resolved, no evidence for acute cardiac syndrome. 4. Type 2 diabetes by history. 5. Hypertension by history. 6. Pacemaker by history. 7. Past history of aortic endocarditis with bioprosthetic aortic valve replacement. BRIEF HISTORY OF PRESENT ILLNESS: Swati Valerio is a 61-year-old female, who presented to the Emergency Department complaining of pain in the left side of face and left arm. She states that she fell at home several days ago. She claims that there are holes in the floor where she is living. She fell in one of these holes and sustained these injuries. The patient was questioned several times regarding how these bruises came about, but her answers were always vague, and she insisted that these were from a fall. It should be noted that she has presented multiple times with multiple bruises. She also stated that she had some chest pain after the fall, which lasted about 10 to 15 minutes, resolved with the use of aspirin and nitroglycerin. She was evaluated in the Emergency Department and was admitted for further observation. PERTINENT LABS AND X-RAYS: A single-view chest x-ray was taken at the time of admission, showed no acute cardiopulmonary findings. There is a permanent pacemaker in place; wires appear intact. Two 12-lead EKGs were performed. The first EKG showed a normal sinus rhythm with a ventricular rate of 66, and a left bundle-branch block. The followup EKG, showed a sinus rhythm with a ventricular rate of 70, first-degree AV block, an intraventricular conduction defect, and no acute changes. Labs: CBC showed a hemoglobin and hematocrit of 14 and 44, normal white count and platelets. INR was 1.0. Chemistry showed normal electrolytes, BUN and creatinine of 24 and 1.0, with a GFR of 57. LFTs were unremarkable. Troponin on admission was 0.04. A total of four troponins were taken during this admission: 0.04, 0.03, 0.03, and 0.03. BNP was slightly elevated at 463. Blood sugars were monitored during the admission and ran between 179 and 236. HOSPITAL COURSE: Mrs. Valerio was admitted under observation. Her usual medications for her diabetes and COPD were continued. She does have chronic pain syndrome, and she was given her usual dose of oxycodone 15 mg every 6 hours p.r.n. for pain. Review of her clinical data showed that she remained hemodynamically stable with no further episodes of chest pain. She was taking adequate fluids. She was voiding and moving her bowels. She was tolerating her diet. On the day of discharge, she was seen in her room. She was seated comfortably. She voiced no concerns or complaints. I know Mrs. Valerio from previous admissions to the hospital and to the alf. She voiced no new concerns or complaints. She was eager to be discharged to home, and she felt that she needed no further care. PHYSICAL EXAMINATION: Vital Signs: Blood pressure 144/81, pulse 90, respiratory rate 20, oxygen saturation 99% on room air. She was afebrile. Weight 208 pounds, height 5 feet 9-1/2 inches. HEENT: Remarkable for extensive bruising over the left side of the face. The bruising appeared to be several days old, as it was dark purple/black in color. She again insisted this was done because she fell through a hole of the floor of her trailer. Neck: Supple, nontender. No adenopathy. No JVDs or bruits. ENT was otherwise clear. Chest: Showed clear bilateral breath sounds. Heart: Showed regular rate and rhythm. Abdomen: Obese, soft, benign. Extremities: Showed minimal lower extremity edema. She was moving all 4 limbs. Neurological: She was intact. IMPRESSION: A 61-year-old lady, who once again presents with bruising of the left upper extremity and face from a fall at home. She states that she feels well. She remained hemodynamically stable overnight, and will be discharged home. She will follow up with her usual care provider. DISCHARGE MEDICATIONS: See [facility] for complete dosing and schedule. Medications include: 1. Amiodarone. 2. Albuterol inhaler. 3. Pulmicort neb treatment. 4. Atenolol. 5. Aspirin. 6. Formoterol nebulizer treatment. 7. Plavix. 8. Bumetanide. 9. Levemir insulin at bedtime. 10.NovoLog insulin 3 times a day with meals. 11.Gabapentin. 12.Lisinopril. 13.Multivitamin. 14.Potassium chloride. 15.Omeprazole. 16.Metformin. 17.Atorvastatin. 18.Venlafaxine. 19.Oxycodone 15 mg t.i.d. p.r.n. ALLERGIES: Vancomycin. CONDITION AT THE TIME OF DISCHARGE: Hemodynamically and neurologically stable. CODE STATUS: Code status during this admission: Full code. [facility] /[id number] MTDD
== END 2016-12-17 14:25 | disposition home or self-care (01) ==
LOC: DL.ED 16:02 → DL.MS 12-17 01:54 → UNDOADMOB 12-17 01:54 → DL.MS 12-17 02:16 → EEVIPCON 12-17 02:16
PROVIDERS: ADMIT Internal Medicine; ATTEND Internal Medicine
DX: R07.9 Chest pain, unspecified (principal); I10 Essential (primary) hypertension; E11.42 Type 2 diabetes mellitus with diabetic polyneuropathy; J44.9 Chronic obstructive pulmonary disease, unspecified; E87.5 Hyperkalemia; E87.1 Hypo-osmolality and hyponatremia; F32.9 Major depressive disorder, single episode, unspecified; K21.9 Gastro-esophageal reflux disease without esophagitis; Z88.1 Allergy status to other antibiotic agents; Z79.82 Long term (current) use of aspirin; Z79.4 Long term (current) use of insulin; Z79.899 Other long term (current) drug therapy; Z95.0 Presence of cardiac pacemaker; Z95.2 Presence of prosthetic heart valve; Z90.49 Acquired absence of other specified parts of digestive tract; Z98.890 Other specified postprocedural states; F17.210 Nicotine dependence, cigarettes, uncomplicated; R06.02 Shortness of breath
CPT/HCPCS: 36415; 71010; 80048; 80053; 82550; 82553; 82962; 83735; 83880; 84100; 84484; 85025; 85610; 93005; 93010; 94640; 96372; 96374; 96375; 99284; 99285; A9270; G0378; J1644; J1815; J2270; J2405; J7050; 99236

== ENCOUNTER 2017-03-12 22:35 | Emergency (ER) | payer MEDICARE, MEDICAID ==
[2017-03-12 22:56] VITALS: BP 180/81
--- NOTE | 2017-03-12 23:03 | EDM.PDOC ---
ED HPI GENERAL MEDICAL PROBLEM - General Chief Complaint: Back Pain or Injury Stated Complaint: PAIN IN LEFT SIDE, THROUGH BACK [id number] Time Seen by Provider: 03/12/17 23:01 Source of Information: Reports: Patient History Limitations: Reports: No Limitations - History of Present Illness INITIAL COMMENTS - FREE TEXT/NARRATIVE: 2 weeks h/o left flank pain going to [facility]Q area. thinks had infection needing ABX. Left Flank Pain Score (Numeric/FACES): 10 Left Lower Abdomen Pain Score (Numeric/FACES): 10 - Related Data Allergies Allergy/AdvReac Type Severity Reaction Status Date / Time vancomycin Allergy Rash Verified 03/12/17 22:45 Home Meds: Home Meds Atenolol [Tenormin] 50 mg PO DAILY 11/16/13 [History] Gabapentin 600 mg PO TID 11/16/13 [History] Insulin Aspart [NovoLOG] 8 unit SQ TID 11/16/13 [History] Insulin Detemir [Levemir] 35 units SQ BEDTIME 11/16/13 [History] Venlafaxine HCl [Venlafaxine ER] 150 mg PO DAILY 11/16/13 [History] metFORMIN [Glucophage] 500 mg PO DAILY 11/16/13 [History] Omeprazole 20 mg PO DAILY 01/17/14 [History] Multivitamin [Multi-Vitamin Daily] 1 tab PO DAILY 03/29/14 [History] Bumetanide 1 mg PO BID 06/25/15 [History] Potassium Chloride [K-Tab ER] 40 meq PO BID 06/25/15 [History] oxyCODONE HCl [oxyCODONE] 20 mg PO TID PRN 06/25/15 [History] Aspirin [Halfprin] 1 tab PO DAILY 07/05/15 [History] Clopidogrel [Plavix] 1 tab PO DAILY 07/05/15 [History] Formoterol [Perforomist] 2 ml INH BID 07/05/15 [History] atorvaSTATin [Lipitor] 10 mg PO BEDTIME 07/05/15 [History] Albuterol [Ventolin HFA] 2 puff INH Q6H PRN 10/23/15 [History] Budesonide [Pulmicort] 0.5 mg NEB BIDRT 10/23/15 [History] Lisinopril 10 mg PO DAILY 03/23/16 [History] Lidocaine [Lidoderm] 1 each TP .Q24HR 03/12/17 [History] Sennosides/Docusate Sodium [Senna-Docusate Sodium] 1 tab PO BID 03/12/17 [ History] Past Medical History HEENT History: Reports: Impaired Vision Other HEENT History: wears glasses Cardiovascular History: Reports: Bacterial Endocarditis, Heart Failure, Heart Murmur, Heart Valve Replacement, High Cholesterol, Hypertension, [place], Pacemaker Other Cardiovascular History: Aortic valve endocarditis; CAD; s/p AVR; paroxysmal atrial fibrillation; essential hypertension; cardiac pacemaker in situ; tachy-angelique syndrome - all per [facility] Respiratory History: Reports: COPD, Intubation, Previous, SOB, Other (See Below) Other Respiratory History: hx hypoxemia Gastrointestinal History: Reports: Cholelithiasis, GERD Genitourinary History: Reports: Diabetic Nephropathy 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 1 C/S Musculoskeletal History: Reports: Arthritis, Back Pain, Chronic, Osteoarthritis Other Musculoskeletal History: arthritis to spine, carpal tunnel to wrists Neurological History: Reports: Neuropathy, Peripheral, TIA Psychiatric History: Reports: Depression Endocrine/Metabolic History: Reports: Diabetes, Type II Hematologic History: Reports: Other (See Below) Other Hematologic History: hx bacteremia, hyperkalemia, hyponatremia Oncologic (Cancer) History: Reports: None Dermatologic History: Reports: Other (See Below) Other Dermatologic History: hx impetigo, and pressure sore to buttocks - Infectious Disease History Infectious Disease History: Reports: Chicken Pox, Measles, MRSA, TB - Past Surgical History Cardiovascular Surgical History: Reports: Pacer, Valve Replacement GI Surgical History: Reports: Appendectomy, Cholecystectomy Musculoskeletal Surgical History: Reports: Amputation, Other (See Below) Social & Family History - Family History Family Medical History: Noncontributory Cardiac: Reports: Hypertension Respiratory: Reports: COPD Endocrine/Metabolic: Reports: Diabetes, type II - Tobacco Use Smoking Status *Q: Current Every Day Smoker Years of Tobacco use: 25 Packs/Tins Daily: 0.5 Used Tobacco, but Quit: No Month Tobacco Last Used: may Second Hand Smoke Exposure: Yes - Caffeine Use Caffeine Use: Reports: Soda - Alcohol Use Days Per Week of Alcohol Use: 1 Number of Drinks Per Day: 1 Total Drinks Per Week: 1 - Recreational Drug Use Recreational Drug Use: No - Living Situation & Occupation Living situation: Reports: with Family Occupation: Disabled ED ROS GENERAL - Review of Systems Review Of Systems: ROS reveals no pertinent complaints other than HPI. ED EXAM,LOWER BACK PAIN/INJURY - Physical Exam Exam: See Below Exam Limited By: No Limitations General Appearance: Alert, WD/WN, Mild Distress, Other (discomfort) Ears: Hearing Grossly Normal Throat/Mouth: Normal Voice, No Airway Compromise Head: Atraumatic Neck: Non-Tender, Full Range of Motion Respiratory/Chest: No Respiratory Distress Cardiovascular: Regular Rate, Rhythm GI/Abdominal: Soft, Non-Tender. No: Distended, Guarding, Rigid, Rebound Back Exam: CVA Tenderness (L) Neurological: Alert, No Motor/Sensory Deficits, Oriented x 3 Psychiatric: Flat Affect Skin Exam: Warm, Dry, Normal Color Lymphatic: No Adenopathy Course - Vital Signs Last Recorded V/S: Last Vital Signs Temp 36.1 C 03/12/17 22:53 Pulse 72 03/12/17 22:53 Resp 20 03/12/17 22:53 BP 180/81 H 03/12/17 22:53 Pulse Ox 100 03/12/17 22:53 - Orders/Labs/Meds Orders: Active Orders 24 hr Category Date Time Status Nitrofurantoin [place]/Macrocryst [Macrobid] Med 03/13/17 00:14 Once 100 mg PO ONETIME ONE Labs: Laboratory Tests 03/12/17 03/12/17 03/12/17 Range/Units 23:02 23:14 23:14 WBC 7.5 (5.0-10.0) 10^3/uL RBC 4.49 (4.2-5.4) 10^6/uL Hgb 13.9 (12.0-16.0) g/dL Hct 41.8 (37.0-47.0) % MCV 93.1 D (80-100) fL MCH 31.0 (27.0-34.0) pg MCHC 33.3 (33.0-35.0) g/dL Plt Count 189 (150-450) 10^3/uL Neut % (Auto) 61.4 (42.2-75.2) % Lymph % (Auto) 25.3 (20.5-50.1) % [place] % (Auto) 8.8 H (2-8) % Eos % (Auto) 4.0 H (1.0-3.0) % Baso % (Auto) 0.5 (0.0-1.0) % Sodium 139 (135-145) mmol/L Potassium 4.8 (3.6-5.0) mmol/L Chloride 102 (101-111) mmol/L Carbon Dioxide 26.0 (21.0-31.0) mmol/L Anion Gap 15.8 BUN 25 H (7-18) mg/dL Creatinine 1.2 (0.6-1.3) mg/dL Est Cr Clr Drug Dosing 52.75 mL/min Estimated GFR (MDRD) 46 BUN/Creatinine Ratio 20.83 Glucose 193 H (74-105) mg/dL Calcium 9.5 (8.4-10.2) mg/dl Total Bilirubin 0.4 (0.2-1.0) mg/dL AST 23 (10-42) IU/L ALT 23 (10-60) IU/L Alkaline Phosphatase 100 (42-121) IU/L Total Protein 7.8 (6.7-8.2) g/dl Albumin 4.0 (3.2-5.5) g/dl Globulin 3.8 Albumin/Globulin Ratio 1.05 Urine Color Light yellow (YELLOW) Urine Appearance Clear (CLEAR) Urine pH 5.5 (5.0-9.0) Ur Specific [place] 1.010 (1.005-1.030) Urine Protein 30 H (NEGATIVE) Urine Glucose (UA) Negative (NEGATIVE) Urine Ketones Negative (NEGATIVE) Urine Occult Blood Trace-lysed H (NEGATIVE) Urine Nitrite Negative (NEGATIVE) Urine Bilirubin Negative (NEGATIVE) Urine Urobilinogen 0.2 (0.2-1.0) mg/dL Ur Leukocyte Esterase Negative (NEGATIVE) Urine RBC 0-5 /HPF Urine WBC 0-5 (0-5/HPF) /HPF Ur Epithelial Cells Occasional /HPF Urine Bacteria Occasional (0-FEW/HPF) /HPF - Re-Assessments/Exams Free Text/Narrative Re-Assessment/Exam: 03/13/17 00:15 results discussed with pt. Departure - Departure Time of Disposition: 00:15 Disposition: Home, Self-Care 01 Condition: Good Clinical Impression: UTI (urinary tract infection) Qualifiers: Urinary tract infection type: acute cystitis Hematuria presence: without hematuria Qualified Code(s): N30.00 - Acute cystitis without hematuria - Discharge Information Instructions: Urinary Tract Infection, Adult, [id number] Forms: ED Department Discharge Additional Instructions: 1) drink lot of liquids 2) see family doctor Wednesday if not significantly better by then rx given; macrobid 100mg bid x 20 - My Orders Last 24 Hours: My Active Orders 03/13/17 00:14 Nitrofurantoin [place]/Macrocryst [Macrobid] 100 mg PO ONETIME ONE - Assessment/Plan Last 24 Hours: My Active Orders 03/13/17 00:14 Nitrofurantoin [place]/Macrocryst [Macrobid] 100 mg PO ONETIME ONE
[2017-03-13] MEDS ORDERED: Nitrofurantoin Monohydrate/Macrocrystalline 100 MG Cap PO ONE (00:14)
== END 2017-03-13 00:33 | disposition home or self-care (01) ==
LOC: DL.ED 22:35
DX: N30.00 Acute cystitis without hematuria (principal); I11.0 Hypertensive heart disease with heart failure; I50.9 Heart failure, unspecified; E11.21 Type 2 diabetes mellitus with diabetic nephropathy; F17.210 Nicotine dependence, cigarettes, uncomplicated; Z88.1 Allergy status to other antibiotic agents; Z79.899 Other long term (current) drug therapy; Z79.84 Long term (current) use of oral hypoglycemic drugs; Z79.82 Long term (current) use of aspirin
CPT/HCPCS: 36415; 80053; 81001; 85025; 99283; A9270

== ENCOUNTER 2017-04-29 16:12 | Emergency (ER) | payer MEDICARE, MEDICAID ==
--- NOTE | 2017-04-29 16:26 | EDM.PDOC ---
ED HPI GENERAL MEDICAL PROBLEM - General Chief Complaint: Lower Extremity Injury/Pain Stated Complaint: CAME BY AMBULANCE Time Seen by Provider: 04/29/17 17:05 Source of Information: Reports: Patient, RN, RN Notes Reviewed History Limitations: Reports: No Limitations - History of Present Illness INITIAL COMMENTS - FREE TEXT/NARRATIVE: Patient fell on right knee this morning. She felt as if her left leg gave out because of chronic pain in back. Patient is out of Percocet pain meds to control back pain. She was brought in by ambulance. Onset: Today Duration: Getting Worse Location: Reports: Lower Extremity, Right Quality: Reports: Ache Severity: Mild Improves with: Reports: None Worsens with: Reports: None Associated Symptoms: Reports: No Other Symptoms Right Knee Pain Score (Numeric/FACES): 7 - Related Data Allergies Allergy/AdvReac Type Severity Reaction Status Date / Time vancomycin Allergy Rash Verified 04/29/17 16:27 Home Meds: Home Meds Atenolol [Tenormin] 50 mg PO DAILY 11/16/13 [History] Gabapentin 600 mg PO TID 11/16/13 [History] Insulin Aspart [NovoLOG] 8 unit SQ TID 11/16/13 [History] Insulin Detemir [Levemir] 35 units SQ BEDTIME 11/16/13 [History] Venlafaxine HCl [Venlafaxine ER] 150 mg PO DAILY 11/16/13 [History] metFORMIN [Glucophage] 500 mg PO DAILY 11/16/13 [History] Omeprazole 20 mg PO DAILY 01/17/14 [History] Multivitamin [Multi-Vitamin Daily] 1 tab PO DAILY 03/29/14 [History] Bumetanide 1 mg PO BID 06/25/15 [History] Potassium Chloride [K-Tab ER] 40 meq PO BID 06/25/15 [History] oxyCODONE HCl [oxyCODONE] 20 mg PO TID PRN 06/25/15 [History] Aspirin [Halfprin] 1 tab PO DAILY 07/05/15 [History] Clopidogrel [Plavix] 1 tab PO DAILY 07/05/15 [History] Formoterol [Perforomist] 2 ml INH BID 07/05/15 [History] atorvaSTATin [Lipitor] 10 mg PO BEDTIME 07/05/15 [History] Albuterol [Ventolin HFA] 2 puff INH Q6H PRN 10/23/15 [History] Budesonide [Pulmicort] 0.5 mg NEB BIDRT 10/23/15 [History] Lisinopril 10 mg PO DAILY 03/23/16 [History] Past Medical History HEENT History: Reports: Impaired Vision Other HEENT History: wears glasses Cardiovascular History: Reports: Bacterial Endocarditis, Heart Failure, Heart Murmur, Heart Valve Replacement, High Cholesterol, Hypertension, [place], Pacemaker Other Cardiovascular History: Aortic valve endocarditis; CAD; s/p AVR; paroxysmal atrial fibrillation; essential hypertension; cardiac pacemaker in situ; tachy-angelique syndrome - all per [facility] records Respiratory History: Reports: COPD, Intubation, Previous, SOB, Other (See Below) Other Respiratory History: hx hypoxemia Gastrointestinal History: Reports: Cholelithiasis, GERD Genitourinary History: Reports: 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 1 C/S Musculoskeletal History: Reports: Arthritis, Back Pain, Chronic, Osteoarthritis Other Musculoskeletal History: arthritis to spine, carpal tunnel to wrists Neurological History: Reports: Neuropathy, Peripheral, TIA Psychiatric History: Reports: Depression Endocrine/Metabolic History: Reports: Diabetes, Type II Hematologic History: Reports: Other (See Below) Other Hematologic History: hx bacteremia, hyperkalemia, hyponatremia Oncologic (Cancer) History: Reports: None Dermatologic History: Reports: Other (See Below) Other Dermatologic History: hx impetigo, and pressure sore to buttocks - Infectious Disease History Infectious Disease History: Reports: Chicken Pox, Measles, MRSA, TB - Past Surgical History Cardiovascular Surgical History: Reports: Pacer, Valve Replacement GI Surgical History: Reports: Appendectomy, Cholecystectomy Musculoskeletal Surgical History: Reports: Amputation (left foot), Other (See Below) Social & Family History - Family History Family Medical History: Noncontributory Cardiac: Reports: Hypertension Respiratory: Reports: COPD Endocrine/Metabolic: Reports: Diabetes, type II - Tobacco Use Smoking Status *Q: Current Every Day Smoker Years of Tobacco use: 25 Packs/Tins Daily: 0.5 Used Tobacco, but Quit: No Month Tobacco Last Used: may Second Hand Smoke Exposure: Yes - Caffeine Use Caffeine Use: Reports: Soda - Alcohol Use Days Per Week of Alcohol Use: 1 Number of Drinks Per Day: 1 Total Drinks Per Week: 1 - Recreational Drug Use Recreational Drug Use: No - Living Situation & Occupation Living situation: Reports: with Family Occupation: Disabled Review of Systems - Review of Systems Review Of Systems: ROS reveals no pertinent complaints other than HPI. ED EXAM, GENERAL - Physical Exam Exam: See Below Exam Limited By: No Limitations General Appearance: Anxious (resting in bed.) Head: Atraumatic, Normocephalic Neck: Normal Inspection, Supple, Non-Tender, Full Range of Motion Respiratory/Chest: Lungs Clear (in all campos.). No: Rales, Rhonchi, Wheezing Cardiovascular: Normal Peripheral Pulses, Regular Rate, Rhythm (S1 and S2.), No Edema, No Gallop GI/Abdominal: Soft, Non-Tender, Other (bowel sounds hypoactive.) (Female) Exam: Deferred Rectal (Female) Exam: Deferred Back Exam: Normal Inspection, Other (tenderness with palpation over right iliac crest. ) Extremities: Leg Pain, Other (inconsistent response to passive range of motion and palpation. Pain elicited with palpation and range of motion on 1st inspection. Pain is not reproduced with repeated exams. ) Neurological: Alert, Oriented, CN II-XII Intact, Normal Cognition, Normal Gait, Normal Reflexes, No Motor/Sensory Deficits Psychiatric: Normal Affect, Normal Mood Skin Exam: Other (right knee abrasion 1cm x 1cm inferior to patella. Left knee has small bruises over patella. ) Course - Vital Signs Last Recorded V/S: Last Vital Signs Temp 35.8 C 04/29/17 16:17 Pulse 85 04/29/17 16:17 Resp 16 04/29/17 16:17 BP 195/85 H 04/29/17 16:17 Pulse Ox 98 04/29/17 16:17 - Orders/Labs/Meds Orders: Active Orders 24 hr Category Date Time Status Knee 3V Rt [CR] Urgent Exams 04/29/17 16:36 Taken Meds: Medications Discontinued Medications Generic Name Dose Route Start Last Admin Trade Name Samsonq PRN Reason Stop Dose Admin Bacitracin 1 dose 04/29/17 17:09 04/29/17 17:22 Bacitracin Oint 1 Gm TOP 04/29/17 17:10 1 dose ONETIME ONE Administration Oxycodone/Acetaminophen 2 tab 04/29/17 17:09 04/29/17 17:21 Percocet 325-5 Mg PO 04/29/17 17:10 2 tab ONETIME ONE Administration - Radiology Interpretation Free Text/Narrative:: Right knee x-ray: No acute fractures. See Rad report. Departure - Departure Time of Disposition: 17:22 Disposition: Home, Self-Care 01 Condition: Good Clinical Impression: Abrasion, right knee, initial encounter Right knee sprain Qualifiers: Encounter type: initial encounter Involved ligament of knee: unspecified ligament Qualified Code(s): S83.91XA - Sprain of unspecified site of right knee , initial encounter - Discharge Information Instructions: Knee Sprain, [id number], Abrasion, [id number] Forms: ED Department Discharge Additional Instructions: Rx: Bactroban Oint. 2% Rx: Tylenol No. 3 Follow up with your primary clinic for recheck and pain management. Activity as tolerated. - My Orders Last 24 Hours: My Active Orders 04/29/17 16:36 Knee 3V Rt [CR] Urgent - Assessment/Plan Last 24 Hours: My Active Orders 04/29/17 16:36 Knee 3V Rt [CR] Urgent
[2017-04-29 16:27] VITALS: BP 195/85
[2017-04-29] MEDS ORDERED: Acetaminophen/oxyCODONE 325-5 MG Tab PO ONE (17:09)
[2017-04-29] MEDS ORDERED: Bacitracin Oint 1 GM U/D Packet TOP ONE (17:09)
== END 2017-04-29 17:32 | disposition home or self-care (01) ==
LOC: DL.ED 16:12
DX: S83.91XA Sprain of unspecified site of right knee, initial encounter (principal); S80.02XA Contusion of left knee, initial encounter; E11.21 Type 2 diabetes mellitus with diabetic nephropathy; I11.0 Hypertensive heart disease with heart failure; I50.9 Heart failure, unspecified; E78.00 Pure hypercholesterolemia, unspecified; J44.9 Chronic obstructive pulmonary disease, unspecified; M19.90 Unspecified osteoarthritis, unspecified site; F17.210 Nicotine dependence, cigarettes, uncomplicated; Z79.4 Long term (current) use of insulin; Z79.899 Other long term (current) drug therapy; Z88.1 Allergy status to other antibiotic agents; W19.XXXA Unspecified fall, initial encounter
CPT/HCPCS: 73562; 99284; A9270; 99283

== ENCOUNTER 2017-06-17 20:40 | Emergency (ER) | payer MEDICARE, MEDICAID ==
[2017-06-17 20:47] VITALS: BP 156/72
[2017-06-17] MEDS ORDERED: HYDROmorphone 1 MG/ML Syringe SUBCUT ONE (21:04)
--- NOTE | 2017-06-17 23:11 | EDM.PDOC ---
ED HPI GENERAL MEDICAL PROBLEM - General Chief Complaint: Upper Extremity Injury/Pain Stated Complaint: BY AMBULANCE Time Seen by Provider: 06/17/17 20:40 Source of Information: Reports: Patient, EMS History Limitations: Reports: No Limitations - History of Present Illness INITIAL COMMENTS - FREE TEXT/NARRATIVE: ED with c/o severe pain to left ribs and left shoulder after tripping in kitchen over broom, required assistance up to bathroom. Increased pain to left side with movement. No loss of conscious, did not hit head. Arrives with shoulder immobilizer in [facility] Location: Reports: Chest (left lateral), Back (chronic), Upper Extremity, Left ( shoulder to wrist). Denies: Pelvis Quality: Reports: Ache Severity: Moderate Left Chest Pain Score (Numeric/FACES): 10 - Related Data Allergies Allergy/AdvReac Type Severity Reaction Status Date / Time vancomycin Allergy Rash Verified 06/17/17 20:41 Home Meds: Home Meds Atenolol [Tenormin] 50 mg PO DAILY 11/16/13 [History] Gabapentin 600 mg PO TID 11/16/13 [History] Insulin Aspart [NovoLOG] 8 unit SQ TID 11/16/13 [History] Insulin Detemir [Levemir] 35 units SQ BEDTIME 11/16/13 [History] Venlafaxine HCl [Venlafaxine ER] 150 mg PO DAILY 11/16/13 [History] metFORMIN [Glucophage] 500 mg PO DAILY 11/16/13 [History] Omeprazole 20 mg PO DAILY 01/17/14 [History] Multivitamin [Multi-Vitamin Daily] 1 tab PO DAILY 03/29/14 [History] Bumetanide 1 mg PO BID 06/25/15 [History] Potassium Chloride [K-Tab ER] 40 meq PO BID 06/25/15 [History] oxyCODONE HCl [oxyCODONE] 20 mg PO TID PRN 06/25/15 [History] Aspirin [Halfprin] 1 tab PO DAILY 07/05/15 [History] Clopidogrel [Plavix] 1 tab PO DAILY 07/05/15 [History] Formoterol [Perforomist] 2 ml INH BID 07/05/15 [History] atorvaSTATin [Lipitor] 10 mg PO BEDTIME 07/05/15 [History] Albuterol [Ventolin HFA] 2 puff INH Q6H PRN 10/23/15 [History] Budesonide [Pulmicort] 0.5 mg NEB BIDRT 10/23/15 [History] Lisinopril 10 mg PO DAILY 03/23/16 [History] Past Medical History HEENT History: Reports: Impaired Vision Other HEENT History: wears glasses Cardiovascular History: Reports: Bacterial Endocarditis, Heart Failure, Heart Murmur, Heart Valve Replacement, High Cholesterol, Hypertension, [place], Pacemaker Other Cardiovascular History: Aortic valve endocarditis; CAD; s/p AVR; paroxysmal atrial fibrillation; essential hypertension; cardiac pacemaker in situ; tachy-angelique syndrome - all per [facility] records Respiratory History: Reports: COPD, Intubation, Previous, SOB, Other (See Below) Other Respiratory History: hx hypoxemia Gastrointestinal History: Reports: Cholelithiasis, GERD Genitourinary History: Reports: 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 1 C/S Musculoskeletal History: Reports: Arthritis, Back Pain, Chronic, Osteoarthritis Other Musculoskeletal History: arthritis to spine, carpal tunnel to wrists Neurological History: Reports: Neuropathy, Peripheral, TIA Psychiatric History: Reports: Depression Endocrine/Metabolic History: Reports: Diabetes, Type II Hematologic History: Reports: Other (See Below) Other Hematologic History: hx bacteremia, hyperkalemia, hyponatremia Immunologic History: Reports: None Oncologic (Cancer) History: Reports: None Dermatologic History: Reports: Other (See Below) Other Dermatologic History: hx impetigo, and pressure sore to buttocks - Infectious Disease History Infectious Disease History: Reports: Chicken Pox, Measles, MRSA, TB - Past Surgical History Cardiovascular Surgical History: Reports: Pacer, Valve Replacement GI Surgical History: Reports: Appendectomy, Cholecystectomy Musculoskeletal Surgical History: Reports: Amputation, Other (See Below) Social & Family History - Family History Family Medical History: Noncontributory Cardiac: Reports: Hypertension Respiratory: Reports: COPD Endocrine/Metabolic: Reports: Diabetes, type II - Tobacco Use Smoking Status *Q: Light Tobacco Smoker Years of Tobacco use: 25 Packs/Tins Daily: 0.5 Used Tobacco, but Quit: No Month Tobacco Last Used: may Second Hand Smoke Exposure: Yes - Caffeine Use Caffeine Use: Reports: Soda - Alcohol Use Days Per Week of Alcohol Use: 1 Number of Drinks Per Day: 1 Total Drinks Per Week: 1 - Recreational Drug Use Recreational Drug Use: No - Living Situation & Occupation Living situation: Reports: with Family Occupation: Disabled Review of Systems - Review of Systems Review Of Systems: See Below Eyes: Reports: Glasses Ears: Reports: No Symptoms Nose: Reports: No Symptoms Mouth/Throat: Reports: No Symptoms Respiratory: Reports: Pleuritic Chest Pain Cardiovascular: Reports: No Symptoms GI/Abdominal: Reports: No Symptoms Genitourinary: Reports: No Symptoms Neurological: Reports: No Symptoms Psychiatric: Reports: No Symptoms ED EXAM, GENERAL - Physical Exam Exam: See Below Exam Limited By: No Limitations General Appearance: Alert, Mild Distress Eye Exam: Bilateral Eye: EOMI, PERRL Ears: Normal External Exam, Normal TMs Nose: Normal Inspection Throat/Mouth: Normal Inspection, Normal Oropharynx Head: Atraumatic, Normocephalic Respiratory/Chest: No Respiratory Distress, Lungs Clear, Normal Breath Sounds, Other (left lateral chest wall tenderness with palpation, no splinting noted. ) Cardiovascular: Normal Peripheral Pulses, Regular Rate, Rhythm GI/Abdominal: Normal Bowel Sounds, Soft Extremities: Arm Pain (left wrist), Limited Range of Motion (left arm). No: Normal Range of Motion, Joint Swelling Neurological: Alert, Oriented, Normal Cognition Psychiatric: Anxious Skin Exam: Warm, Dry, Intact, Normal Color Course - Vital Signs Last Recorded V/S: Last Vital Signs Temp 98.4 F 06/17/17 20:41 Pulse 84 06/17/17 20:41 Resp 20 06/17/17 20:41 BP 156/72 H 06/17/17 20:41 Pulse Ox 98 06/17/17 20:41 - Orders/Labs/Meds Orders: Active Orders 24 hr Category Date Time Status Glucose [Blood Glucose Check, Bedside] [RC] ONETIME Care 06/17/17 20:56 Active Labs: Laboratory Tests 06/17/17 06/17/17 06/17/17 Range/Units 21:02 21:02 21:02 WBC 10.4 H (5.0-10.0) 10^3/uL RBC 4.33 (4.2-5.4) 10^6/uL Hgb 13.4 (12.0-16.0) g/dL Hct 39.9 (37.0-47.0) % MCV 92.1 (80-100) fL MCH 30.9 (27.0-34.0) pg MCHC 33.6 (33.0-35.0) g/dL Plt Count 176 (150-450) 10^3/uL Neut % (Auto) 75.9 H (42.2-75.2) % Lymph % (Auto) 14.2 L (20.5-50.1) % [place] % (Auto) 8.9 H (2-8) % Eos % (Auto) 0.8 L (1.0-3.0) % Baso % (Auto) 0.2 (0.0-1.0) % Sodium 134 L (135-145) mmol/L Potassium 3.8 (3.6-5.0) mmol/L Chloride 100 L (101-111) mmol/L Carbon Dioxide 24.0 (21.0-31.0) mmol/L Anion Gap 13.8 BUN 21 H (7-18) mg/dL Creatinine 1.1 (0.6-1.3) mg/dL Est Cr Clr Drug Dosing 58.55 mL/min Estimated GFR (MDRD) 51 BUN/Creatinine Ratio 19.09 Glucose 150 H (74-105) mg/dL POC Glucose 154 H (70-105) mg/dl Calcium 8.7 (8.4-10.2) mg/dl Total Bilirubin 0.5 (0.2-1.0) mg/dL AST 21 (10-42) IU/L ALT 18 (10-60) IU/L Alkaline Phosphatase 91 (42-121) IU/L Total Protein 7.3 (6.7-8.2) g/dl Albumin 4.1 (3.2-5.5) g/dl Globulin 3.2 Albumin/Globulin Ratio 1.28 Meds: Medications Discontinued Medications Generic Name Dose Route Start Last Admin Trade Name Freq PRN Reason Stop Dose Admin Hydromorphone HCl 1 mg 06/17/17 21:04 06/17/17 21:11 Dilaudid SUBCUT 06/17/17 21:05 1 mg ONETIME ONE Administration - Re-Assessments/Exams Free Text/Narrative Re-Assessment/Exam: 06/18/17 06:16 patient wincing and moaning, informed of negative results of studies . Family in room, Patient almost immedialtely sitting up on edge of bed smiling , Discharged ambulatory with no sign of distress or guarding. Departure - Departure Time of Disposition: 23:08 Disposition: Home, Self-Care 01 Condition: Fair Clinical Impression: Generalized pain Fall in home Qualifiers: Encounter type: initial encounter Qualified Code(s): W19.XXXA - Unspecified fall, initial encounter - Discharge Information Instructions: Fall Prevention in the Home, [id number] Referrals: PCP,None [Primary Care Provider] - Forms: ED Department Discharge Additional Instructions: clear pathway at home to maintain independence continue home medications including same medications for chronic pain follow up in clinic for recheck tomorrow deep breathing exercises every hour while awake splint ribs with cough for comfort - My Orders Last 24 Hours: My Active Orders 06/17/17 20:56 Glucose [Blood Glucose Check, Bedside] [RC] ONETIME - Assessment/Plan Last 24 Hours: My Active Orders 06/17/17 20:56 Glucose [Blood Glucose Check, Bedside] [RC] ONETIME
== END 2017-06-17 23:19 | disposition home or self-care (01) ==
LOC: DL.ED 20:40
DX: M25.532 Pain in left wrist (principal); R07.89 Other chest pain; I11.0 Hypertensive heart disease with heart failure; I50.9 Heart failure, unspecified; E78.00 Pure hypercholesterolemia, unspecified; E11.42 Type 2 diabetes mellitus with diabetic polyneuropathy; F17.210 Nicotine dependence, cigarettes, uncomplicated; Z88.1 Allergy status to other antibiotic agents; Z79.899 Other long term (current) drug therapy; Z79.4 Long term (current) use of insulin; Z79.84 Long term (current) use of oral hypoglycemic drugs; W01.0XXA Fall on same level from slipping, tripping and stumbling without subsequent striking against object, initial encounter; Y92.000 Kitchen of unspecified non-institutional (private) residence as the place of occurrence of the external cause
CPT/HCPCS: 36415; 70450; 71250; 72125; 73060-LT; 73100-LT; 74176; 80053; 82962; 85025; 96372; 99283; 99284; J1170

== ENCOUNTER 2017-06-25 18:55 | Emergency (ER) | payer MEDICARE, MEDICAID ==
[2017-06-25 19:20] VITALS: BP 131/52
--- NOTE | 2017-06-25 21:36 | EDM.PDOC ---
ED HPI GENERAL MEDICAL PROBLEM - General Chief Complaint: Chest Pain Stated Complaint: BY AMBUALANCE Time Seen by Provider: 06/25/17 19:30 Source of Information: Reports: Patient, EMS History Limitations: Reports: No Limitations - History of Present Illness INITIAL COMMENTS - FREE TEXT/NARRATIVE: anterior chest pain ongoing one week since fall, pain worse with movement. Treatments BREAST TRIMMER: Reports: Aspirin, Nitroglycerin Left Anterior Chest Pain Score (Numeric/FACES): 6 - Related Data Allergies Allergy/AdvReac Type Severity Reaction Status Date / Time vancomycin Allergy Rash Verified 06/25/17 19:23 Home Meds: Home Meds Atenolol [Tenormin] 50 mg PO DAILY 11/16/13 [History] Gabapentin 600 mg PO TID 11/16/13 [History] Insulin Aspart [NovoLOG] 8 unit SQ TID 11/16/13 [History] Insulin Detemir [Levemir] 35 units SQ BEDTIME 11/16/13 [History] Venlafaxine HCl [Venlafaxine ER] 150 mg PO DAILY 11/16/13 [History] metFORMIN [Glucophage] 500 mg PO BID 11/16/13 [History] Omeprazole 20 mg PO DAILY 01/17/14 [History] Multivitamin [Multi-Vitamin Daily] 1 tab PO DAILY 03/29/14 [History] Bumetanide 1 mg PO BID 06/25/15 [History] Potassium Chloride [K-Tab ER] 40 meq PO DAILY 06/25/15 [History] oxyCODONE HCl [oxyCODONE] 20 mg PO TID PRN 06/25/15 [History] Aspirin [Halfprin] 1 tab PO DAILY 07/05/15 [History] Clopidogrel [Plavix] 1 tab PO DAILY 07/05/15 [History] Formoterol [Perforomist] 2 ml INH BID PRN 07/05/15 [History] atorvaSTATin [Lipitor] 10 mg PO BEDTIME 07/05/15 [History] Albuterol [Ventolin HFA] 2 puff INH Q6H PRN 10/23/15 [History] Budesonide [Pulmicort] 0.5 mg NEB BIDRT PRN 10/23/15 [History] Lisinopril 10 mg PO DAILY 03/23/16 [History] Past Medical History HEENT History: Reports: Impaired Vision Other HEENT History: wears glasses Cardiovascular History: Reports: Bacterial Endocarditis, Heart Failure, Heart Murmur, Heart Valve Replacement, High Cholesterol, Hypertension, OR, Pacemaker Other Cardiovascular History: Aortic valve endocarditis; CAD; s/p AVR; paroxysmal atrial fibrillation; essential hypertension; cardiac pacemaker in situ; tachy-angelique syndrome - all per [facility] records Respiratory History: Reports: COPD, Intubation, Previous, SOB, Other (See Below) Other Respiratory History: hx hypoxemia Gastrointestinal History: Reports: Cholelithiasis, GERD Genitourinary History: Reports: Diabetic Nephropathy 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 1 C/S Musculoskeletal History: Reports: Arthritis, Back Pain, Chronic, Osteoarthritis Other Musculoskeletal History: arthritis to spine, carpal tunnel to wrists Neurological History: Reports: Neuropathy, Peripheral, TIA Psychiatric History: Reports: Depression Endocrine/Metabolic History: Reports: Diabetes, Type II Hematologic History: Reports: Other (See Below) Other Hematologic History: hx bacteremia, hyperkalemia, hyponatremia Immunologic History: Reports: None Oncologic (Cancer) History: Reports: None Dermatologic History: Reports: Other (See Below) Other Dermatologic History: hx impetigo, and pressure sore to buttocks - Infectious Disease History Infectious Disease History: Reports: Chicken Pox, Measles, MRSA, TB - Past Surgical History Cardiovascular Surgical History: Reports: Pacer, Valve Replacement GI Surgical History: Reports: Appendectomy, Cholecystectomy Musculoskeletal Surgical History: Reports: Amputation, Other (See Below) Social & Family History - Family History Family Medical History: Noncontributory Cardiac: Reports: Hypertension Respiratory: Reports: COPD Endocrine/Metabolic: Reports: Diabetes, type II - Tobacco Use Smoking Status *Q: Current Every Day Smoker Years of Tobacco use: 26 Packs/Tins Daily: 10 Used Tobacco, but Quit: No Month Tobacco Last Used: may Second Hand Smoke Exposure: Yes - Caffeine Use Caffeine Use: Reports: Soda, Tea - Alcohol Use Days Per Week of Alcohol Use: 1 Number of Drinks Per Day: 1 Total Drinks Per Week: 1 Date of Last Drink: 06/24/17 - Recreational Drug Use Recreational Drug Use: No - Living Situation & Occupation Living situation: Reports: with Family Occupation: Disabled ED ROS GENERAL - Review of Systems Review Of Systems: See Below Constitutional: Reports: No Symptoms HEENT: Reports: No Symptoms ED EXAM, GENERAL - Physical Exam Exam: See Below Exam Limited By: No Limitations General Appearance: Alert, Anxious, Mild Distress Eye Exam: Bilateral Eye: EOMI Ears: Normal External Exam Ear Exam: Bilateral Ear: TM normal Nose: Normal Inspection Throat/Mouth: Normal Inspection Head: Atraumatic, Normocephalic Neck: Normal Inspection Respiratory/Chest: No Respiratory Distress, Lungs Clear, Decreased Breath Sounds (bases), Other (left anterior/lateral chest wall tenderness with palpation) Cardiovascular: Normal Peripheral Pulses, Regular Rate, Rhythm GI/Abdominal: Normal Bowel Sounds, Soft Back Exam: Normal Inspection, Full Range of Motion Extremities: Normal Inspection Neurological: Alert, Oriented, Normal Cognition Psychiatric: Anxious Skin Exam: Warm, Dry, Intact, Normal Color Course - Vital Signs Last Recorded V/S: Last Vital Signs Temp 97.8 F 06/25/17 19:08 Pulse 76 06/25/17 19:08 Resp 16 06/25/17 19:08 BP 131/52 L 06/25/17 19:08 Pulse Ox 100 06/25/17 19:08 - Orders/Labs/Meds Orders: Active Orders 24 hr Category Date Time Status EKG Documentation Completion [RC] URGENT Care 06/25/17 19:15 Active Labs: Laboratory Tests 06/25/17 06/25/17 06/25/17 Range/Units 19:25 19:25 19:25 WBC 7.3 (5.0-10.0) 10^3/uL RBC 4.20 (4.2-5.4) 10^6/uL Hgb 13.0 (12.0-16.0) g/dL Hct 38.4 (37.0-47.0) % MCV 91.4 (80-100) fL MCH 31.0 (27.0-34.0) pg MCHC 33.9 (33.0-35.0) g/dL Plt Count 219 (150-450) 10^3/uL Neut % (Auto) 60.5 (42.2-75.2) % Lymph % (Auto) 26.8 (20.5-50.1) % Amite % (Auto) 10.7 H (2-8) % Eos % (Auto) 1.9 (1.0-3.0) % Baso % (Auto) 0.1 (0.0-1.0) % Sodium 133 L (135-145) mmol/L Potassium 3.9 (3.6-5.0) mmol/L Chloride 100 L (101-111) mmol/L Carbon Dioxide 23.0 (21.0-31.0) mmol/L Anion Gap 13.9 BUN 20 H (7-18) mg/dL Creatinine 1.0 (0.6-1.3) mg/dL Est Cr Clr Drug Dosing 63.30 mL/min Estimated GFR (MDRD) 57 BUN/Creatinine Ratio 20.00 Glucose 206 H (74-105) mg/dL Calcium 8.8 (8.4-10.2) mg/dl Total Bilirubin 0.4 (0.2-1.0) mg/dL AST 17 (10-42) IU/L ALT 13 (10-60) IU/L Alkaline Phosphatase 101 (42-121) IU/L CK-MB (CK-2) 2.00 (0.4-4.7) ng/mL Troponin I 0.03 H* (0.00-0.02) ng/ml Total Protein 6.8 (6.7-8.2) g/dl Albumin 3.5 (3.2-5.5) g/dl Globulin 3.3 Albumin/Globulin Ratio 1.06 Amylase 35 (28-100) U/L Lipase 21 L (22-51) U/L Urine Color (YELLOW) Urine Appearance (CLEAR) Urine pH (5.0-9.0) Ur Specific Hunter (1.005-1.030) Urine Protein (NEGATIVE) Urine Glucose (UA) (NEGATIVE) Urine Ketones (NEGATIVE) Urine Occult Blood (NEGATIVE) Urine Nitrite (NEGATIVE) Urine Bilirubin (NEGATIVE) Urine Urobilinogen (0.2-1.0) mg/dL Ur Leukocyte Esterase (NEGATIVE) Urine RBC /HPF Urine WBC (0-5/HPF) /HPF Ur Epithelial Cells /HPF Urine Bacteria (0-FEW/HPF) /HPF Urine Opiates Screen (NEGATIVE) Ur Oxycodone Screen (NEGATIVE) Urine Methadone Screen (NEGATIVE) Ur Barbiturates Screen (NEGATIVE) U Tricyclic Antidepress (NEGATIVE) Ur Phencyclidine Scrn (NEGATIVE) Ur Amphetamine Screen (NEGATIVE) U Methamphetamines Scrn (NEGATIVE) Urine MDMA Screen (NEGATIVE) U Benzodiazepines Scrn (NEGATIVE) Urine Cocaine Screen (NEGATIVE) U Marijuana (THC) Screen (NEGATIVE) 06/25/17 06/25/17 Range/Units 19:47 19:47 WBC (5.0-10.0) 10^3/uL RBC (4.2-5.4) 10^6/uL Hgb (12.0-16.0) g/dL Hct (37.0-47.0) % MCV (80-100) fL MCH (27.0-34.0) pg MCHC (33.0-35.0) g/dL Plt Count (150-450) 10^3/uL Neut % (Auto) (42.2-75.2) % Lymph % (Auto) (20.5-50.1) % Amite % (Auto) (2-8) % Eos % (Auto) (1.0-3.0) % Baso % (Auto) (0.0-1.0) % Sodium (135-145) mmol/L Potassium (3.6-5.0) mmol/L Chloride (101-111) mmol/L Carbon Dioxide (21.0-31.0) mmol/L Anion Gap BUN (7-18) mg/dL Creatinine (0.6-1.3) mg/dL Est Cr Clr Drug Dosing mL/min Estimated GFR (MDRD) BUN/Creatinine Ratio Glucose (74-105) mg/dL Calcium (8.4-10.2) mg/dl Total Bilirubin (0.2-1.0) mg/dL AST (10-42) IU/L ALT (10-60) IU/L Alkaline Phosphatase (42-121) IU/L CK-MB (CK-2) (0.4-4.7) ng/mL Troponin I (0.00-0.02) ng/ml Total Protein (6.7-8.2) g/dl Albumin (3.2-5.5) g/dl Globulin Albumin/Globulin Ratio Amylase (28-100) U/L Lipase (22-51) U/L Urine Color Yellow (YELLOW) Urine Appearance Cloudy (CLEAR) Urine pH 5.0 (5.0-9.0) Ur Specific Hunter 1.020 (1.005-1.030) Urine Protein 100 H (NEGATIVE) Urine Glucose (UA) Negative (NEGATIVE) Urine Ketones Negative (NEGATIVE) Urine Occult Blood Negative (NEGATIVE) Urine Nitrite Negative (NEGATIVE) Urine Bilirubin Negative (NEGATIVE) Urine Urobilinogen 0.2 (0.2-1.0) mg/dL Ur Leukocyte Esterase Trace H (NEGATIVE) Urine RBC 0-5 /HPF Urine WBC 10-20 H (0-5/HPF) /HPF Ur Epithelial Cells Many H /HPF Urine Bacteria Many H (0-FEW/HPF) /HPF Urine Opiates Screen Negative (NEGATIVE) Ur Oxycodone Screen Negative (NEGATIVE) Urine Methadone Screen Negative (NEGATIVE) Ur Barbiturates Screen Negative (NEGATIVE) U Tricyclic Antidepress Positive H (NEGATIVE) Ur Phencyclidine Scrn Negative (NEGATIVE) Ur Amphetamine Screen Negative (NEGATIVE) U Methamphetamines Scrn Negative (NEGATIVE) Urine MDMA Screen Negative (NEGATIVE) U Benzodiazepines Scrn Negative (NEGATIVE) Urine Cocaine Screen Negative (NEGATIVE) U Marijuana (THC) Screen Negative (NEGATIVE) - Radiology Interpretation Free Text/Narrative:: CXR: Broad heart size Mediastinal contours are within normal limits. Bibasilar atelectasis or scarring. No focal infiltrate. No pneumothorax or free air. Visualized osseous structures are intact. Degenerative changes bilateral shoulders Departure - Departure Time of Disposition: 21:31 Disposition: Home, Self-Care 01 Condition: Good Clinical Impression: Chest wall pain, Hx of fall Instructions: Chest Wall Pain Referrals: PCP,None [Primary Care Provider] - Forms: ED Department Discharge Additional Instructions: Take medications as prescribed may use warm towel to chest area deep breathing exercises every hour while awake - My Orders Last 24 Hours: My Active Orders 06/25/17 19:15 EKG Documentation Completion [RC] URGENT - Assessment/Plan Last 24 Hours: My Active Orders 06/25/17 19:15 EKG Documentation Completion [RC] URGENT
== END 2017-06-25 21:47 | disposition home or self-care (01) ==
LOC: DL.ED 18:55
DX: R07.89 Other chest pain (principal); I11.0 Hypertensive heart disease with heart failure; I50.9 Heart failure, unspecified; E78.00 Pure hypercholesterolemia, unspecified; E11.21 Type 2 diabetes mellitus with diabetic nephropathy; E11.40 Type 2 diabetes mellitus with diabetic neuropathy, unspecified; F17.210 Nicotine dependence, cigarettes, uncomplicated; Z88.1 Allergy status to other antibiotic agents; Z79.4 Long term (current) use of insulin; Z79.84 Long term (current) use of oral hypoglycemic drugs; Z79.899 Other long term (current) drug therapy; Z79.82 Long term (current) use of aspirin; W19.XXXA Unspecified fall, initial encounter
CPT/HCPCS: 36415; 71045; 80053; 80305; 81001; 82150; 82553; 83690; 84484; 85025; 93005; 93010; 99285

== ENCOUNTER 2017-08-19 07:29 | Day surgery (SDC) | payer MEDICARE, MEDICAID ==
[~2017-08-19 07:29] MED LIST: Ampicillin 2 GM in Sodium Chloride 0.9% 100 ML IV ONE; Dextrose 5%-0.45% NaCl 1,000 ML IV SCH; Midazolam 1 MG/ML 2 ML SDV ONE; Sodium Chloride 0.9% 10 ML Syringe FLUSH PRN; fentaNYL 100 MCG/2 ML SDV ONE
[2017-08-19] MEDS ORDERED: fentaNYL 100 MCG/2 ML SDV IV ONE ×3 (07:30→08:15)
[2017-08-19] MEDS ORDERED: Midazolam 1 MG/ML 2 ML SDV IV ONE ×3 (07:30→08:16)
[2017-08-19] MEDS ORDERED: Dextrose 5%-0.45% NaCl 1,000 ML IV SCH (07:45)
[2017-08-19] MEDS ORDERED: Ampicillin 2 GM in Sodium Chloride 0.9% 100 ML IV ONE (08:15)
[2017-08-19] MEDS ORDERED: Sodium Chloride 0.9% 10 ML Syringe FLUSH ONE (08:15)
--- NOTE | 2017-08-19 09:42 | OR ---
DATE: 08/19/2017 PROCEDURES: Esophagogastroduodenoscopy, narrow-band imaging, magnification views, and multiple pinch biopsies. INSTRUMENT USED: GIF-H180 Olympus video panendoscope. PREMEDICATIONS: No oral topical anesthesia used. Fentanyl 100 mcg intravenous, Versed 1.5 mg intravenous. Nasal 2 L O2 cannula. The procedure was done under pulse oximetry, BP recording, and surveillance system monitor. INDICATION: The patient with previous gastric surgery with persistent high dysphagia unexplained and not responsive to medical measures, on PPI. DESCRIPTION OF PROCEDURE: Esophagogastroduodenoscopy is performed for detection of any active erosive lesions. Khan esophagus and/or malignancy also under consideration. Esophageal dilatations if indicated, endoscopic hemostasis therapy if needed. The scope was passed with ease. Adequate visualization of the esophagus was made from proximal to distal areas. No upper esophageal lesions identified. No distal esophageal stricture. No uphill or downhill esophageal varices. No Linda-Harp tear. No evidence of erosive esophagitis by [place] criteria. No esophageal polyp or tumor mass identified. Surgical deformity was noted in the proximal stomach with a sliding hiatal hernia. No proximal gastric varices noted. Gastric fundus examination by retroflexion showed no polypoid lesions. The tip of the scope was passed with ease through the surgically created loop. Visualized small bowel mucosa was normal. No gastric ulcer, malignant mass, or vascular ectasia identified. Duodenal bulb showed no ulcer. Visualized second part of the duodenum was unremarkable. Multiple pinch biopsies were taken from the gastric antrum and proximal body and sent for PyloriTek test for H. pylori and histopathology. White patchy area was noted in the proximal gastric body. NBI and magnification views were obtained. Photographs were taken. Multiple pinch biopsies were obtained and sent for histopathology. No bleeding was noted from any of the visualized areas at the completion of examination. Photographs were taken of the duodenal bulb, gastric antrum, fundus, area of surgical correction, as well as distal esophagus. IMPRESSION: 1. Status post gastric surgery. 2. Hiatal hernia. The patient tolerated the procedure well. [facility] /[id number]
[2017-08-19 10:50] VITALS: BP 166/69
--- NOTE | 2017-08-19 10:53 | LETTER ---
08/19/2017 Lu Lorenzo MD [facility] [address] [place] [address] RE: SWATI VALERIO CARMELITA : [address] Lorenzo: Ms. Swati Valerio had esophagogastroduodenoscopy done this morning and she tolerated the procedure well. I herewith send a copy of the endoscopy note and photographs for your review. She has been recommended to increase omeprazole to 20 mg p.o. b.i.d., response to be noted. Thank you. Sincerely, [facility] /[id number]
== END 2017-08-19 10:30 | disposition home or self-care (01) ==
LOC: DL.ENDO 07:29
PROVIDERS: ATTEND Internal Medicine Gastroenterology
DX: K29.50 Unspecified chronic gastritis without bleeding (principal); K44.9 Diaphragmatic hernia without obstruction or gangrene; Z98.84 Bariatric surgery status
CPT/HCPCS: 43239; 87077; J0290; J2250; J3010; J7042; J7050; 88305; 88342

== ENCOUNTER 2018-06-28 10:17 | Inpatient (IN) | payer MEDICARE, MEDICAID ==
[2018-06-28] MEDS ORDERED: Morphine 2 MG/ML Syringe IVPUSH PRN (17:41)
[2018-06-28] MEDS ORDERED: Magnesium Hydroxide 400 MG/5 ML Susp 30 ML Cup PO PRN (17:41)
[2018-06-28] MEDS ORDERED: Polyethylene Glycol 3350 Powder 17 GM Packet PO PRN (17:41)
[2018-06-28] MEDS ORDERED: Ondansetron 4 MG Tab.DIS PO PRN (17:41)
[2018-06-28] MEDS ORDERED: Nitroglycerin 0.4 MG Tab.SL SL PRN (17:45)
[2018-06-28] MEDS ORDERED: Albuterol 6.7 GM Inhaler INH PRN (17:45)
[2018-06-28] MEDS ORDERED: Ibuprofen 800 MG Tab PO PRN (17:45)
[2018-06-28] MEDS ORDERED: Budesonide 0.5 MG/2 ML Neb Susp NEB PRN (17:45)
[2018-06-28] MEDS ORDERED: 50% Dextrose in Water 50 ML Syringe IVPUSH PRN (17:49)
[2018-06-28] MEDS ORDERED: Insulin Lispro 100 Units/ML 3 ML Vial SUBCUT SCH (18:00)
[2018-06-28] MEDS: Potassium Chloride 10 MEQ Tab.ER PO SCH (19:15)
[2018-06-28] MEDS: Insulin Lispro 100 Units/ML 3 ML Vial SUBCUT SCH ×2 (19:16→21:35)
--- NOTE | 2018-06-28 20:39 | HP ---
CHIEF COMPLAINT: Left intertrochanteric femur fracture requiring swing bed for continued Physical Therapy, Occupational Therapy, and pain control. HISTORY OF PRESENTING ILLNESS: Mrs. 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 Initially was admitted to [facility] on 06/19/2018, after she had a fall at her home and was noted to have left hip fracture. The patient underwent left intertrochanteric femur fracture with subtrochanteric extension requiring left long gamma nail fixation. She had an estimated blood loss of 100 mL during the surgical procedure and she had the procedure under general anesthesia. Postprocedure, the patient continued to have pain and continued to have inability to ambulate, so she is requiring Physical Therapy and Occupational Therapy and pain control and hence to the swing bed. At this time, the patient complains of pain to the left hip. She grades the pain as 5 to 6/10 in intensity, aggravated on movement and ambulation, relieved partially with pain medication. Nonradiating type of pain, dull in nature to sharp in nature, not associated with any nausea or vomiting. Denies any chest pain. No shortness of breath. No abdominal pain. No fevers. No chills. The patient denied any history of chest pains on exertion. Mild dyspnea on exertion. No history of orthopnea or paroxysmal nocturnal dyspnea. The patient denied any history of hematemesis, hematochezia, or melenic stools. Normal bowel and bladder habits otherwise. REVIEW OF SYSTEMS: A complete review of system including skin, ear, nose, and throat, cardiovascular system, respiratory system, gastrointestinal system, genitourinary system, hematology, oncology, neurology, allergy, immunology, constitutional were all evaluated and were negative except for the above-said notes. PAST MEDICAL HISTORY: Significant for hypertension; hyperlipidemia; type 2 diabetes mellitus; diabetes complicated with nephropathy, neuropathy, vasculopathy; chronic obstructive pulmonary airway disease; chronic pain syndrome; history of arthritis; paresthesias. PAST SURGICAL HISTORY: Significant for transmetatarsal amputation, bronchoscopy, chest tube placement, cholecystectomy, upper endoscopy and colonoscopy, gastrostomy tube placement, laparotomy with appendicectomy, laparoscopic gastric bypass surgery in the past, partial hysterectomy, tracheostomy, and tube placement in the past. FAMILY HISTORY: Significant for diabetes, cerebrovascular accident, and esophageal cancer in her mother. Diabetes in her maternal grandmother. Cancer in her paternal grandmother. coronary artery disease in her maternal aunt. SOCIAL HISTORY: The patient had history of smoking tobacco and last attempt to quit was in February 2018. No history of alcohol intake. ALLERGIES: The patient noted to have allergies to vancomycin. HOME MEDICATIONS: Include: 1. Venlafaxine 37.5 mg daily. 2. Lidoderm transdermal patch daily. 3. Valcyte 1 tablet daily. 4. Albuterol inhalation 4 times a day as needed. 5. Renvela 800 mg 3 times a day. 6. Senokot 1 tablet twice a day. 7. Metolazone 2.5 mg daily. 8. Albuterol 2 puffs inhalation every 6 hours as needed. 9. Nitroglycerin 0.4 mg as needed. 10.Multivitamin 1 tablet daily. 11.Omeprazole 20 mg daily. 12.Potassium chloride 20 mEq twice a day. 13.Insulin Humalog 20 units subcu 3 times a day. 14.Levemir 20 units subcutaneous daily. 15.Ibuprofen 800 mg every 8 hours as needed. 16.Neurontin 300 mg 3 times a day. 17.Perforomist 2 mL inhalation twice a day as needed. 18.Flexeril 10 mg every 8 hours as needed. 19.Coreg 6.25 mg twice a day. 20.Lipitor 10 mg at bedtime. 21.Bumetanide 2 mg twice a day. 22.Pulmicort nebulizer twice a day as needed. 23.Aspirin 325 mg daily. 24.Eliquis 5 mg twice a day. 25.Tylenol Extra Strength 1000 mg every 8 hours as needed. PHYSICAL EXAMINATION: General: The patient is well oriented to time, place, and person. Follows commands spontaneously. Cardiovascular System: S1 and S2 heard with normal intensity. No gallops. Respiratory System: Clear to auscultation bilaterally. No wheeze. No crepitations. Abdomen: Soft. Bowel sounds positive. Nontender. No rigidity. Extremities: Mild edema bilateral lower extremities, more so to the left side. Neurology: No gross focal neurological deficit. LABORATORY DATA: Labs reviewed from [facility] shows sodium 134, potassium 4.4, chloride 99, bicarb 21, creatinine 2.2, blood glucose 494. Hemoglobin A1c was 6.6 from 06/27/2018. ASSESSMENT: 1. Left hip fracture status post left gamma nail fixation. 2. Chronic pain syndrome. 3. Hypertension. 4. Hyperlipidemia. 5. Type 2 diabetes mellitus. 6. Diabetes complicated with nephropathy and neuropathy. 7. Chronic obstructive pulmonary airway disease. 8. Paresthesias. PLAN: 1. Left hip fracture. The patient is status post left long gamma nail fixation on 06/20/2018. She continues to have pain in the postoperative period. We will have her on pain medications. Be cautious regarding opiate pain medications in this patient. We will have her on IV and oral pain medications. We will have her on Lidoderm transdermal patch. We will treat her symptomatically with hot and cold therapies. We will have Physical Therapy and Occupational Therapy evaluate and treat the patient. We will closely follow. Continue with Eliquis for DVT prophylaxis. 2. Hypertension. The patient's blood pressure seems to be in acceptable range. Continue with current treatment plan. We will try to avoid any hypotensive episodes. 3. Type 2 diabetes mellitus, uncontrolled. The patient was noted to have elevated blood sugars in [facility]. She is currently on insulin regimen, continue the same. Check her fingersticks with each meals. Have her on supplemental scale insulin as needed for additional coverage of her blood glucose. 4. Code status. The patient wants to be full code. [facility] /[id number] MTDD
[2018-06-28] MEDS: Bumetanide 1 MG Tab PO SCH (20:41)
[2018-06-28] MEDS: Acetaminophen/oxyCODONE 325-5 MG Tab PO PRN (20:42)
[2018-06-28] MEDS: atorvaSTATin 10 MG Tab PO SCH (20:42)
[2018-06-28] MEDS: Gabapentin 300 MG Cap PO SCH (20:42)
[2018-06-28] MEDS: Carvedilol 6.25 MG Tab PO SCH (20:47)
[2018-06-28] MEDS ORDERED: Albuterol 0.083% 2.5 MG/3 ML Neb Soln INH PRN (21:00)
[2018-06-28] MEDS ORDERED: Insulin Lispro 100 Units/ML 3 ML Vial SUBCUT ONE (21:34)
[2018-06-28] MEDS: Remove Patch-LIDODERM TRDERM SCH (22:01)
[2018-06-28] MEDS: Acetaminophen 500 MG Tab PO SCH (22:15)
[2018-06-28] MEDS: SEVELAMER CARBONATE 800 MG PO SCH (22:15)
[2018-06-28] MEDS: APIXABAN 5 MG PO SCH (22:15)
[2018-06-29] MEDS: Acetaminophen 500 MG Tab PO SCH ×3 (05:38→21:02)
[2018-06-29] MEDS: Omeprazole 20 MG Cap.CR PO SCH (05:38)
[2018-06-29] MEDS: Acetaminophen/oxyCODONE 325-5 MG Tab PO PRN (05:39)
[2018-06-29 07:08] LABS: ANION GAP 17.4
[2018-06-29] MEDS ORDERED: Metolazone 2.5 MG Tab PO SCH (09:00)
[2018-06-29] MEDS ORDERED: Insulin Glarg,Human.Rec.Analog 100 UNIT/ML ML SUBCUT SCH (09:00)
[2018-06-29] MEDS: Insulin Lispro 100 Units/ML 3 ML Vial SUBCUT SCH ×7 (09:11→21:27)
[2018-06-29] MEDS: Venlafaxine 37.5 MG Cap.ER PO SCH (09:13)
[2018-06-29] MEDS: Aspirin 325 MG Tab.EC PO SCH (09:13)
[2018-06-29] MEDS: Bumetanide 1 MG Tab PO SCH ×2 (09:13→21:02)
[2018-06-29] MEDS: Carvedilol 6.25 MG Tab PO SCH ×2 (09:14→21:05)
[2018-06-29] MEDS: Potassium Chloride 10 MEQ Tab.ER PO SCH (09:14)
[2018-06-29] MEDS: Multivitamins, Therapeutic with Minerals Tab PO SCH (09:14)
[2018-06-29] MEDS: Lidocaine 5% 700 MG Patch TRDERM SCH (09:15)
[2018-06-29] MEDS: Gabapentin 300 MG Cap PO SCH ×3 (09:15→21:02)
[2018-06-29] MEDS: SEVELAMER CARBONATE 800 MG PO SCH ×3 (09:17→17:32)
[2018-06-29] MEDS: APIXABAN 5 MG PO SCH ×2 (09:18→21:11)
[2018-06-29] MEDS: FORMOTEROL INH PRN (10:02)
[2018-06-29] MEDS ORDERED: Insulin Glarg,Human.Rec.Analog 100 UNIT/ML ML SUBCUT ONE (10:30)
[2018-06-29] MEDS: oxyCODONE 5 MG Tab PO PRN (15:57)
[2018-06-29] MEDS: Morphine 2 MG/ML Syringe IVPUSH PRN (18:44)
[2018-06-29] MEDS: atorvaSTATin 10 MG Tab PO SCH (21:05)
[2018-06-29] MEDS: Remove Patch-LIDODERM TRDERM SCH (21:11)
[2018-06-30] MEDS: Omeprazole 20 MG Cap.CR PO SCH (06:31)
[2018-06-30] MEDS: Acetaminophen 500 MG Tab PO SCH ×3 (06:32→21:05)
[2018-06-30] MEDS: Lidocaine 5% 700 MG Patch TRDERM SCH ×2 (09:00→09:18)
[2018-06-30] MEDS: FORMOTEROL INH PRN (09:07)
[2018-06-30] MEDS: Insulin Lispro 100 Units/ML 3 ML Vial SUBCUT SCH ×7 (09:16→22:02)
[2018-06-30] MEDS: Insulin Glarg,Human.Rec.Analog 100 UNIT/ML ML SUBCUT SCH (09:17)
[2018-06-30] MEDS: Bumetanide 1 MG Tab PO SCH ×2 (09:19→21:02)
[2018-06-30] MEDS: Potassium Chloride 10 MEQ Tab.ER PO SCH (09:21)
[2018-06-30] MEDS: Multivitamins, Therapeutic with Minerals Tab PO SCH (09:21)
[2018-06-30] MEDS: Venlafaxine 37.5 MG Cap.ER PO SCH (09:21)
[2018-06-30] MEDS: Aspirin 325 MG Tab.EC PO SCH (09:23)
[2018-06-30] MEDS: Gabapentin 300 MG Cap PO SCH ×3 (09:23→21:02)
[2018-06-30] MEDS: Carvedilol 6.25 MG Tab PO SCH ×2 (09:24→21:06)
[2018-06-30] MEDS: SEVELAMER CARBONATE 800 MG PO SCH ×3 (09:26→19:48)
[2018-06-30] MEDS: APIXABAN 5 MG PO SCH ×2 (09:27→21:12)
[2018-06-30] MEDS: Morphine 2 MG/ML Syringe IVPUSH PRN ×4 (09:51→20:08)
[2018-06-30] MEDS: oxyCODONE 5 MG Tab PO PRN (12:33)
[2018-06-30] MEDS: Cyclobenzaprine 10 MG Tab PO PRN (12:33)
--- NOTE | 2018-06-30 16:18 | CT ---
Clinical history 62-year-old afebrile female complaining of extreme (severe) postoperative pain left lower extremity (surgery performed on 21 June 2018). TECHNIQUE: Volume acquisition of data unenhanced CT scan of the upper left lower extremity (hip femur and thigh) obtained without IV contrast while patient was lying supine on the Siemens multi slice scanner [place], [place]. All data archived in the PACS system for storage, reformatting axial/sagittal/coronal planes and study. Interpretation: Long intramedullary orthopedic shanice anchored by proximal "nail" and 2 horizontally placed screws, distally, that is stabilizing a proximal left femoral shaft fracture. Note: No hip dislocation however the proximal left femur is tipped backward with a sharp saberlike fragment overlapping and projecting, anteriorly, into the soft tissues at the fracture site. Significance? *Scattered collections of air (postop? Compound fracture?).....present in the soft tissues immediately lateral to the fracture mid thigh. No soft tissue hematoma or abscess. No abnormal inflammatory periostitis. No other foreign bodies in the soft tissues. Arteriovascular calcifications identified in the soft tissues of the groin and thigh proximal left lower extremity. No left hip fracture or joint dislocation.
--- NOTE | 2018-06-30 17:08 | PCM.SN ---
- Free Text/Narrative Note: Patient complained of increasing pain in the left hip. She is afebrile, not tachycardic and not features of sepsis. Xray and CT of the left hip was done. I called Dr. Hanks and discussed the findings with him He recommended monitoring for now, pain control and outpatient follow up in the Ortho clinic next week.
[2018-06-30] MEDS: atorvaSTATin 10 MG Tab PO SCH (21:05)
[2018-06-30] MEDS: Remove Patch-LIDODERM TRDERM SCH (21:15)
[2018-07-01] MEDS: Acetaminophen 500 MG Tab PO SCH ×3 (07:04→21:52)
[2018-07-01] MEDS: Omeprazole 20 MG Cap.CR PO SCH (07:05)
[2018-07-01] MEDS: Potassium Chloride 10 MEQ Tab.ER PO SCH (08:15)
[2018-07-01] MEDS: Multivitamins, Therapeutic with Minerals Tab PO SCH (08:16)
[2018-07-01] MEDS: oxyCODONE 5 MG Tab PO PRN ×2 (08:17→21:54)
[2018-07-01] MEDS: Carvedilol 6.25 MG Tab PO SCH ×2 (08:17→17:09)
[2018-07-01] MEDS: Gabapentin 300 MG Cap PO SCH ×3 (08:17→20:49)
[2018-07-01] MEDS: Venlafaxine 37.5 MG Cap.ER PO SCH (08:18)
[2018-07-01] MEDS: APIXABAN 5 MG PO SCH ×2 (08:19→20:47)
[2018-07-01] MEDS: Bumetanide 1 MG Tab PO SCH ×2 (08:19→20:47)
[2018-07-01] MEDS: SEVELAMER CARBONATE 800 MG PO SCH ×3 (08:20→17:47)
[2018-07-01] MEDS: Insulin Glarg,Human.Rec.Analog 100 UNIT/ML ML SUBCUT SCH (08:21)
[2018-07-01] MEDS: Insulin Lispro 100 Units/ML 3 ML Vial SUBCUT SCH ×7 (08:22→20:48)
[2018-07-01] MEDS: Aspirin 325 MG Tab.EC PO SCH (08:23)
[2018-07-01] MEDS: Lidocaine 5% 700 MG Patch TRDERM SCH (08:23)
[2018-07-01] MEDS: Morphine 2 MG/ML Syringe IVPUSH PRN ×2 (11:40→16:24)
[2018-07-01] MEDS: traMADol 50 MG Tab PO SCH ×2 (11:43→17:09)
[2018-07-01] MEDS: atorvaSTATin 10 MG Tab PO SCH (20:48)
[2018-07-01] MEDS: Remove Patch-LIDODERM TRDERM SCH (20:49)
[2018-07-02] MEDS: traMADol 50 MG Tab PO SCH ×5 (00:03→23:46)
[2018-07-02] MEDS: Omeprazole 20 MG Cap.CR PO SCH (06:00)
[2018-07-02] MEDS: Acetaminophen 500 MG Tab PO SCH ×3 (06:01→22:05)
[2018-07-02] MEDS: APIXABAN 5 MG PO SCH ×2 (08:48→20:46)
[2018-07-02] MEDS: Bumetanide 1 MG Tab PO SCH ×2 (08:49→20:46)
[2018-07-02] MEDS: SEVELAMER CARBONATE 800 MG PO SCH ×3 (08:49→17:37)
[2018-07-02] MEDS: Multivitamins, Therapeutic with Minerals Tab PO SCH (08:50)
[2018-07-02] MEDS: Potassium Chloride 10 MEQ Tab.ER PO SCH (08:50)
[2018-07-02] MEDS: Carvedilol 6.25 MG Tab PO SCH ×2 (08:50→17:38)
[2018-07-02] MEDS: Venlafaxine 37.5 MG Cap.ER PO SCH (08:50)
[2018-07-02] MEDS: Gabapentin 300 MG Cap PO SCH ×3 (08:50→20:47)
[2018-07-02] MEDS: Aspirin 325 MG Tab.EC PO SCH (08:50)
[2018-07-02] MEDS: Lidocaine 5% 700 MG Patch TRDERM SCH (08:51)
[2018-07-02] MEDS: Insulin Glarg,Human.Rec.Analog 100 UNIT/ML ML SUBCUT SCH (08:53)
[2018-07-02] MEDS: Insulin Lispro 100 Units/ML 3 ML Vial SUBCUT SCH ×7 (08:54→20:51)
[2018-07-02] MEDS: Remove Patch-LIDODERM TRDERM SCH (20:47)
[2018-07-02] MEDS: atorvaSTATin 10 MG Tab PO SCH (20:47)
[2018-07-03] MEDS: Acetaminophen 500 MG Tab PO SCH ×4 (06:00→21:14)
[2018-07-03] MEDS: Omeprazole 20 MG Cap.CR PO SCH (06:00)
[2018-07-03] MEDS: traMADol 50 MG Tab PO SCH ×3 (06:02→18:00)
[2018-07-03] MEDS: Carvedilol 6.25 MG Tab PO SCH ×2 (08:30→18:00)
[2018-07-03] MEDS: Bumetanide 1 MG Tab PO SCH ×2 (08:30→20:49)
[2018-07-03] MEDS: Multivitamins, Therapeutic with Minerals Tab PO SCH (08:31)
[2018-07-03] MEDS: Gabapentin 300 MG Cap PO SCH ×3 (08:31→20:49)
[2018-07-03] MEDS: Potassium Chloride 10 MEQ Tab.ER PO SCH (08:31)
[2018-07-03] MEDS: Venlafaxine 37.5 MG Cap.ER PO SCH (08:31)
[2018-07-03] MEDS: Aspirin 325 MG Tab.EC PO SCH (08:31)
[2018-07-03] MEDS: APIXABAN 5 MG PO SCH ×2 (08:32→20:49)
[2018-07-03] MEDS: Insulin Glarg,Human.Rec.Analog 100 UNIT/ML ML SUBCUT SCH (08:34)
[2018-07-03] MEDS: Insulin Lispro 100 Units/ML 3 ML Vial SUBCUT SCH ×7 (08:35→20:51)
[2018-07-03] MEDS: Lidocaine 5% 700 MG Patch TRDERM SCH (08:38)
[2018-07-03] MEDS: atorvaSTATin 10 MG Tab PO SCH (20:48)
[2018-07-03] MEDS: oxyCODONE 5 MG Tab PO PRN (21:02)
[2018-07-03] MEDS: Remove Patch-LIDODERM TRDERM SCH (21:14)
[2018-07-04] MEDS: traMADol 50 MG Tab PO SCH ×4 (01:21→17:29)
[2018-07-04] MEDS: Omeprazole 20 MG Cap.CR PO SCH (05:35)
[2018-07-04] MEDS: Acetaminophen 500 MG Tab PO SCH ×3 (05:35→21:21)
[2018-07-04] MEDS: Insulin Lispro 100 Units/ML 3 ML Vial SUBCUT SCH ×7 (08:09→21:22)
[2018-07-04] MEDS: Venlafaxine 37.5 MG Cap.ER PO SCH (08:11)
[2018-07-04] MEDS: Carvedilol 6.25 MG Tab PO SCH ×2 (08:11→17:29)
[2018-07-04] MEDS: Bumetanide 1 MG Tab PO SCH ×2 (08:11→21:21)
[2018-07-04] MEDS: Gabapentin 300 MG Cap PO SCH ×3 (08:12→21:21)
[2018-07-04] MEDS: Potassium Chloride 10 MEQ Tab.ER PO SCH (08:12)
[2018-07-04] MEDS: Multivitamins, Therapeutic with Minerals Tab PO SCH (08:12)
[2018-07-04] MEDS: APIXABAN 5 MG PO SCH ×2 (08:15→21:23)
[2018-07-04] MEDS: Aspirin 325 MG Tab.EC PO SCH (08:16)
[2018-07-04] MEDS: Insulin Glarg,Human.Rec.Analog 100 UNIT/ML ML SUBCUT SCH (08:18)
[2018-07-04] MEDS: Lidocaine 5% 700 MG Patch TRDERM SCH (09:48)
[2018-07-04] MEDS: oxyCODONE 5 MG Tab PO PRN (09:49)
[2018-07-04] MEDS: Docusate Sodium 100 MG Cap PO PRN ×2 (09:50→21:21)
--- NOTE | 2018-07-04 12:15 | PN ---
DATE: 07/01/[address] Sai Hanks, Orthopedics at [facility], regarding Swati's ongoing complaint of pain to the left leg. Swati fell on 06/21/2018 and sustained comminuted left inter and subtrochanteric hip fractures. She was transferred to [facility] and underwent placement of a Gamma nail. She returned to Swing-Bed to work with Physical and Occupational Therapy. Since her return to Swing-Bed, she has been reluctant to participate with therapy and has been refusing. Nursing staff states it is difficult to even get her out of bed. She screams quite a bit. Based on these complaints, a CT scan of the left femur was obtained yesterday and shows no hip dislocation. It does show the fragments from the fractures with hardware in place. There is no tissue hematoma or abscess. No inflammatory periostitis. Dr. Hanks did see the images and spoke with Dr. Churchill. I called Dr. Hanks this morning and we re-discussed the case and the pain issues. Dr. Hanks did not feel that the pain was related to any postsurgical issues. He agreed to see Swati on Wednesday, 07/04, by Telemedicine in [place] to address these issues. Swati was also told that if she really cannot participate in therapy and begin to progress in her ambulation, weightbearing, that we will need to look for SNF placement. She has been at [facility] in [place] before, although a bed is not available at this time. She reportedly had no objection to going back to the [facility], but we continued to encourage her to participate and begin ambulating. One of her daughters was here today and apparently was very medina with her mother about getting up and out of bed and getting going. We will see what this leads to. It should also be noted that when she was at the [facility] in the recent past, also for fractures, Swati did not participate in active therapy. We did make minor adjustment in her pain medications today. We added tramadol 50 mg every 6 hours scheduled. We will also add a K-pad on warm mode. She already has orders for p.r.n. oxycodone as well as p.r.n. IV morphine sulfate. Review of her MAR shows that she is taking intermittent doses of both. No other changes are made in her care today. She will see Dr. Hanks by Telemedicine on Wednesday. [facility] /[id number] MTDSavage
[2018-07-04] MEDS: Cyclobenzaprine 10 MG Tab PO PRN (16:18)
[2018-07-04] MEDS: atorvaSTATin 10 MG Tab PO SCH (21:21)
[2018-07-04] MEDS: Remove Patch-LIDODERM TRDERM SCH (21:23)
[2018-07-05] MEDS: traMADol 50 MG Tab PO SCH ×3 (01:05→13:11)
[2018-07-05] MEDS: Acetaminophen 500 MG Tab PO SCH ×3 (06:04→21:11)
[2018-07-05] MEDS: Omeprazole 20 MG Cap.CR PO SCH (06:04)
[2018-07-05] MEDS: Insulin Lispro 100 Units/ML 3 ML Vial SUBCUT SCH ×7 (08:26→21:21)
--- NOTE | 2018-07-05 08:30 | CR ---
Clinical history: 62-year-old female complaining of severe postoperative pain left lower extremity (open orthopedic correction proximal left femur fracture 21 June [address] CT exam and June revealed "sharp fragment overlapping and projecting anteriorly in sagittal plane with small collections of air in the soft tissues... no abscess or inflammatory periostitis". Interpretation: 3 AP and 3 crosstable lateral views of the left femur confirm satisfactory apposition and anatomic alignment of the spiral proximal femoral fracture on AP projection, however, on lateral projection sharp proximal fragment projecting anteriorly into the soft tissues. Significance? Satisfactory midline position of the intramedullary shanice anchored proximally by nail in the left femoral neck and head (2 horizontally placed screws anchoring the intramedullary shanice distally in the left femur. No acute new fracture of the left femur and no dislocation of the left hip or knee joints. No inflammatory periostitis.
[2018-07-05] MEDS: Venlafaxine 37.5 MG Cap.ER PO SCH (08:43)
[2018-07-05] MEDS: Multivitamins, Therapeutic with Minerals Tab PO SCH (08:43)
[2018-07-05] MEDS: Aspirin 325 MG Tab.EC PO SCH (08:43)
[2018-07-05] MEDS: Bumetanide 1 MG Tab PO SCH ×2 (08:43→21:11)
[2018-07-05] MEDS: Potassium Chloride 10 MEQ Tab.ER PO SCH (08:44)
[2018-07-05] MEDS: Gabapentin 300 MG Cap PO SCH ×3 (08:44→21:11)
[2018-07-05] MEDS: Carvedilol 6.25 MG Tab PO SCH ×2 (08:44→17:34)
[2018-07-05] MEDS: Insulin Glarg,Human.Rec.Analog 100 UNIT/ML ML SUBCUT SCH (08:45)
[2018-07-05] MEDS: APIXABAN 5 MG PO SCH ×2 (08:48→21:09)
[2018-07-05] MEDS: Lidocaine 5% 700 MG Patch TRDERM SCH (08:48)
[2018-07-05] MEDS: oxyCODONE 5 MG Tab PO PRN ×2 (10:29→19:05)
[2018-07-05] MEDS: atorvaSTATin 10 MG Tab PO SCH (21:11)
[2018-07-05] MEDS: Remove Patch-LIDODERM TRDERM SCH (21:14)
[2018-07-06] MEDS: Acetaminophen 500 MG Tab PO SCH ×3 (05:53→21:23)
[2018-07-06] MEDS: Omeprazole 20 MG Cap.CR PO SCH (05:53)
[2018-07-06] MEDS: oxyCODONE 5 MG Tab PO PRN ×2 (05:54→14:25)
[2018-07-06] MEDS: Multivitamins, Therapeutic with Minerals Tab PO SCH (09:15)
[2018-07-06] MEDS: Venlafaxine 37.5 MG Cap.ER PO SCH (09:15)
[2018-07-06] MEDS: Gabapentin 300 MG Cap PO SCH ×3 (09:15→21:23)
[2018-07-06] MEDS: Bumetanide 1 MG Tab PO SCH ×2 (09:15→21:23)
[2018-07-06] MEDS: Potassium Chloride 10 MEQ Tab.ER PO SCH (09:16)
[2018-07-06] MEDS: Insulin Glarg,Human.Rec.Analog 100 UNIT/ML ML SUBCUT SCH (09:28)
[2018-07-06] MEDS: Insulin Lispro 100 Units/ML 3 ML Vial SUBCUT SCH ×7 (09:29→21:37)
[2018-07-06] MEDS: traMADol 50 MG Tab PO PRN ×2 (09:30→21:33)
[2018-07-06] MEDS: Lidocaine 5% 700 MG Patch TRDERM SCH (09:31)
[2018-07-06] MEDS: Carvedilol 6.25 MG Tab PO SCH ×2 (09:32→18:04)
[2018-07-06] MEDS: Aspirin 325 MG Tab.EC PO SCH (09:32)
[2018-07-06] MEDS: APIXABAN 5 MG PO SCH ×2 (12:53→21:20)
[2018-07-06] MEDS: atorvaSTATin 10 MG Tab PO SCH (21:22)
[2018-07-06] MEDS: Remove Patch-LIDODERM TRDERM SCH (21:41)
[2018-07-07] MEDS: Omeprazole 20 MG Cap.CR PO SCH (05:56)
[2018-07-07] MEDS: Acetaminophen 500 MG Tab PO SCH (05:57)
[2018-07-07] MEDS: oxyCODONE 5 MG Tab PO PRN (06:00)
[2018-07-07] MEDS: APIXABAN 5 MG PO SCH ×2 (09:11→20:45)
[2018-07-07] MEDS: Potassium Chloride 10 MEQ Tab.ER PO SCH (09:12)
[2018-07-07] MEDS: Bumetanide 1 MG Tab PO SCH ×2 (09:13→20:47)
[2018-07-07] MEDS: Multivitamins, Therapeutic with Minerals Tab PO SCH (09:14)
[2018-07-07] MEDS: Venlafaxine 37.5 MG Cap.ER PO SCH (09:14)
[2018-07-07] MEDS: Carvedilol 6.25 MG Tab PO SCH ×2 (09:17→17:04)
[2018-07-07] MEDS: Gabapentin 300 MG Cap PO SCH ×3 (09:17→20:48)
[2018-07-07] MEDS: Aspirin 325 MG Tab.EC PO SCH (09:18)
[2018-07-07] MEDS: Lidocaine 5% 700 MG Patch TRDERM SCH (09:19)
[2018-07-07] MEDS: Insulin Lispro 100 Units/ML 3 ML Vial SUBCUT SCH ×7 (09:20→21:06)
[2018-07-07] MEDS: Insulin Glarg,Human.Rec.Analog 100 UNIT/ML ML SUBCUT SCH (09:22)
--- NOTE | 2018-07-07 10:57 | PCM.PN ---
- General Info Date of Service: 07/07/18 Subjective Update: Seen at bedside today. No acute overnight event. Functional Status: Reports: Pain Controlled - Review of Systems General: Reports: No Symptoms HEENT: Reports: No Symptoms Pulmonary: Reports: No Symptoms Cardiovascular: Reports: No Symptoms Gastrointestinal: Reports: No Symptoms Genitourinary: Reports: No Symptoms Musculoskeletal: Reports: No Symptoms Skin: Reports: No Symptoms Neurological: Reports: No Symptoms Psychiatric: Reports: No Symptoms - Patient Data Vitals - Most Recent: Last Vital Signs Temp 98.3 F 07/07/18 08:00 Pulse 64 07/07/18 09:17 Resp 18 07/07/18 08:00 BP 151/62 H 07/07/18 09:17 Pulse Ox 96 07/07/18 08:00 Weight - Most Recent: 214 lb I&O - Last 24 Hours: Intake & Output 07/06/18 07/07/18 07/07/18 22:59 06:59 14:59 Intake Total 720 700 Balance 720 700 Lab Results Last 24 Hours: Laboratory Results - last 24 hr 07/06/18 07/06/18 07/06/18 Range/Units 11:21 16:27 20:11 POC Glucose 201 H 93 149 H (70-105) mg/dl 07/07/18 Range/Units 08:02 POC Glucose 128 H (70-105) mg/dl Med Orders - Current: Current Medications Acetaminophen (Tylenol Extra Strength) 1,000 mg PO Q8HR [facility] Last Admin: 07/07/18 05:57 Dose: 1,000 mg Albuterol (Proventil Neb Soln) 2.5 mg INH QIDRT PRN PRN Reason: Shortness of Breath Albuterol (Proventil Hfa) 0 gm INH Q6H PRN PRN Reason: Wheezing Aspirin (Ecotrin) 325 mg PO DAILY [facility] Last Admin: 07/07/18 09:18 Dose: 325 mg Atorvastatin Calcium (Lipitor) 10 mg PO BEDTIME [facility] Last Admin: 07/06/18 21:22 Dose: 10 mg Budesonide (Pulmicort) 0.5 mg NEB BID PRN PRN Reason: Shortness of Breath Bumetanide (Bumex) 2 mg PO BID [facility] Last Admin: 07/07/18 09:13 Dose: 2 mg Carvedilol (Coreg) 6.25 mg PO BIDMEALS [facility] Last Admin: 07/07/18 09:17 Dose: 6.25 mg Dextrose/Water (Dextrose 50% In Water) 50 ml IVPUSH ONETIME PRN PRN Reason: Hypoglycemia Docusate Sodium (Colace) 100 mg PO BID PRN PRN Reason: Constipation Last Admin: 07/04/18 21:21 Dose: 100 mg Gabapentin (Neurontin) 300 mg PO TID [facility] Last Admin: 07/07/18 09:17 Dose: 300 mg Insulin Glargine (Lantus) 40 unit SUBCUT DAILY [facility] Last Admin: 07/07/18 09:22 Dose: 40 units Insulin Human Lispro (Humalog) 0 unit SUBCUT QIDACANDBED [facility]; Protocol Last Admin: 07/07/18 09:26 Dose: Not Given Insulin Human Lispro (Humalog) 15 unit SUBCUT TIDAC [facility] Last Admin: 07/07/18 09:20 Dose: 15 units Lidocaine (Lidoderm 5%) 700 mg TRDERM DAILY [facility] Last Admin: 07/07/18 09:19 Dose: 700 mg Magnesium Hydroxide (Milk Of Magnesia) 30 ml PO Q12H PRN PRN Reason: Constipation Miscellaneous Information (Remove Patch) 1 ea TRDERM BEDTIME [facility] Last Admin: 07/06/18 21:41 Dose: Not Given Multivitamins/Minerals (Vitamins And Minerals) 1 tab PO DAILY [facility] Last Admin: 07/07/18 09:14 Dose: 1 tab Nitroglycerin (Nitrostat) 0.4 mg SL ASDIRECTED PRN PRN Reason: ANGINA Apixaban [Eliquis] 5 (Mg Tab Own Med) 5 mg PO BID [facility] Last Admin: 07/07/18 09:11 Dose: 5 mg Formoterol [ Perforomist] 2 Ml Own Med 2 ml INH BID PRN PRN Reason: Shortness of Breath Last Admin: 06/30/18 09:07 Dose: 2 ml (Sevelamer Carbonate [Renvela] 1,600 Mg) Own Med 1,600 mg PO TIDMEALS [facility] Last Admin: 07/07/18 09:12 Dose: 1,600 mg Omeprazole (Omeprazole) 20 mg PO ACBREAKFAST [facility] Last Admin: 07/07/18 05:56 Dose: 20 mg Ondansetron HCl (Zofran Odt) 4 mg PO Q4H PRN PRN Reason: nausea, able to take PO Last Admin: 06/30/18 09:51 Dose: 4 mg Oxycodone HCl (Oxycodone) 5 mg PO Q8HR PRN PRN Reason: Pain (severe 7-10) Last Admin: 07/07/18 06:00 Dose: 5 mg Polyethylene Glycol (Miralax) 17 gm PO DAILY PRN PRN Reason: Constipation Potassium Chloride (Klor-Con 10) 20 meq PO DAILY [facility] Last Admin: 07/07/18 09:12 Dose: 20 meq Senna/Docusate Sodium (Senna Plus) 1 tab PO BID [facility] Last Admin: 07/07/18 09:15 Dose: 1 tab Tramadol HCl (Ultram) 50 mg PO Q6HR PRN PRN Reason: Pain (moderate 4-6) Last Admin: 07/06/18 21:33 Dose: 50 mg Valsartan (Diovan) 80 mg PO DAILY [facility] Last Admin: 07/07/18 09:15 Dose: 80 mg Venlafaxine HCl (Effexor Xr) 37.5 mg PO DAILY [facility] Last Admin: 07/07/18 09:14 Dose: 37.5 mg Discontinued Medications Carvedilol (Coreg) 6.25 mg PO BID [facility] Last Admin: 07/01/18 08:17 Dose: 6.25 mg Cyclobenzaprine HCl (Flexeril) 10 mg PO Q8HR PRN PRN Reason: Spasms Last Admin: 07/04/18 16:18 Dose: 10 mg Ibuprofen (Motrin) 800 mg PO Q8HR PRN PRN Reason: Pain Influenza Virus Vaccine (Fluzone Quad [id number] Syringe) 60 mcg IM .ONCE ONE Stop: 06/28/18 19:01 Last Admin: 06/28/18 20:29 Dose: Not Given Insulin Glargine (Lantus) 20 unit SUBCUT DAILY [facility] Last Admin: 06/29/18 09:12 Dose: 20 unit Insulin Glargine (Lantus) 20 unit SUBCUT ONETIME ONE Stop: 06/29/18 10:31 Last Admin: 06/29/18 12:18 Dose: 20 unit Insulin Human Lispro (Humalog) 20 unit SUBCUT TIDAC [facility] Last Admin: 07/03/18 12:31 Dose: 20 units Insulin Human Lispro (Humalog) 15 unit SUBCUT ONETIME ONE Stop: 06/28/18 21:35 Last Admin: 06/28/18 22:13 Dose: 15 units Metolazone (Zaroxolyn) 2.5 mg PO DAILY [facility] Last Admin: 06/29/18 09:14 Dose: 2.5 mg Morphine Sulfate (Morphine) 2 mg IVPUSH Q2H PRN PRN Reason: Pain (severe 7-10) Last Admin: 06/29/18 09:32 Dose: 2 mg Morphine Sulfate (Morphine) 2 mg IVPUSH Q4HR PRN PRN Reason: Pain (severe 7-10) Last Admin: 07/01/18 16:24 Dose: 2 mg Sevelamer Carb [ Renvela] 800 Mg Tab Own Med 800 mg PO TIDMEALS [facility] Last Admin: 07/02/18 17:37 Dose: 800 mg Oxycodone/Acetaminophen (Percocet 325-5 Mg) 1 tab PO Q4H PRN PRN Reason: Pain (moderate 4-6) Last Admin: 06/29/18 05:39 Dose: 1 tab Potassium Chloride (Klor-Con 10) 20 meq PO BIDMEALS [facility] Last Admin: 06/29/18 09:14 Dose: 20 meq Tramadol HCl (Ultram) 50 mg PO Q6H [facility] Last Admin: 07/05/18 13:11 Dose: 50 mg - Exam General: Alert, Oriented HEENT: Pupils Equal, Pupils Reactive, EOMI, Mucous Membr. Moist/[place] Neck: Supple Lungs: Clear to Auscultation, Normal Respiratory Effort Cardiovascular: Regular Rate, Regular Rhythm GI/Abdominal Exam: Normal Bowel Sounds, Soft, Non-Tender, No Organomegaly, No Distention, No Abnormal Bruit, No Mass, Pelvis Stable (Female) Exam: Normal External Exam, Normal Speculum Exam, Normal Bimanual Exam Back Exam: Normal Inspection, Full Range of Motion Extremities: Normal Inspection, Normal Range of Motion, Non-Tender, No Pedal Edema, Normal Capillary Refill Skin: Warm, Dry, Intact Wound/Incisions: Healing Well Neurological: No New Focal Deficit Psy/Mental Status: Alert, Normal Affect, Normal Mood - Problem List & Annotations (1) Intertrochanteric fracture, hip SNOMED Code(s): 832236413 Code(s): S72.143A - DISPLACED INTERTROCHANTERIC FRACTURE OF UNSP FEMUR, INIT Status: Acute Current Visit: No (2) COPD, moderate SNOMED Code(s): 796912483 Code(s): J44.9 - CHRONIC OBSTRUCTIVE PULMONARY DISEASE, UNSPECIFIED Status : Chronic Current Visit: No Onset Date: 06/25/15 (3) Diabetes mellitus type 2 SNOMED Code(s): 70139916 Code(s): E11.9 - TYPE 2 DIABETES MELLITUS WITHOUT COMPLICATIONS Status: Chronic Priority: Medium Current Visit: No - Problem List Review Problem List Initiated/Reviewed/Updated: Yes - Plan Plan:: S/p Left hip fracture repair with gamma nail. Continue PT/OT. Review by ortho via telemedicine on 07/05. Recommendation, continue conservative management with pain control with oxycodone, tramadol and Tylenol
[2018-07-07] MEDS: Acetaminophen 325 MG Tab PO SCH ×2 (14:12→21:53)
[2018-07-07] MEDS: oxyCODONE 5 MG Tab PO SCH ×2 (14:13→21:52)
[2018-07-07] MEDS: traMADol 50 MG Tab PO PRN (17:17)
[2018-07-07] MEDS: atorvaSTATin 10 MG Tab PO SCH (20:47)
[2018-07-07] MEDS: Remove Patch-LIDODERM TRDERM SCH (20:49)
[2018-07-08] MEDS: Acetaminophen 325 MG Tab PO SCH ×3 (06:06→22:39)
[2018-07-08] MEDS: oxyCODONE 5 MG Tab PO SCH ×3 (06:11→22:38)
[2018-07-08] MEDS: Omeprazole 20 MG Cap.CR PO SCH (06:12)
[2018-07-08] MEDS: Insulin Lispro 100 Units/ML 3 ML Vial SUBCUT SCH ×6 (08:49→17:24)
[2018-07-08] MEDS: APIXABAN 5 MG PO SCH ×2 (08:51→22:35)
[2018-07-08] MEDS: Bumetanide 1 MG Tab PO SCH ×2 (08:57→13:37)
[2018-07-08] MEDS: Multivitamins, Therapeutic with Minerals Tab PO SCH (08:58)
[2018-07-08] MEDS: Gabapentin 300 MG Cap PO SCH ×3 (08:58→22:36)
[2018-07-08] MEDS: Potassium Chloride 10 MEQ Tab.ER PO SCH (08:58)
[2018-07-08] MEDS: Carvedilol 6.25 MG Tab PO SCH ×2 (08:59→17:25)
[2018-07-08] MEDS: Venlafaxine 37.5 MG Cap.ER PO SCH (08:59)
[2018-07-08] MEDS: Aspirin 325 MG Tab.EC PO SCH (09:00)
[2018-07-08] MEDS: Insulin Glarg,Human.Rec.Analog 100 UNIT/ML ML SUBCUT SCH (09:01)
[2018-07-08] MEDS: Lidocaine 5% 700 MG Patch TRDERM SCH (09:03)
[2018-07-08] MEDS: traMADol 50 MG Tab PO PRN (18:18)
[2018-07-08] MEDS: NOVOLOG SS SUBCUT SCH (22:32)
[2018-07-08] MEDS: atorvaSTATin 10 MG Tab PO SCH (22:35)
[2018-07-08] MEDS: Remove Patch-LIDODERM TRDERM SCH (22:37)
[2018-07-09] MEDS: Acetaminophen 325 MG Tab PO SCH ×3 (05:10→21:40)
[2018-07-09] MEDS: Omeprazole 20 MG Cap.CR PO SCH (05:10)
[2018-07-09] MEDS: oxyCODONE 5 MG Tab PO SCH ×3 (05:11→21:39)
[2018-07-09] MEDS: NOVOLOG SS SUBCUT SCH ×4 (08:47→21:42)
[2018-07-09] MEDS: NOVOLOG FLEXPEN **OWN MED SUBCUT SCH ×3 (09:05→17:31)
[2018-07-09] MEDS: LEVEMIR SUBCUT SCH (09:06)
[2018-07-09] MEDS: Carvedilol 6.25 MG Tab PO SCH ×2 (09:14→17:29)
[2018-07-09] MEDS: Multivitamins, Therapeutic with Minerals Tab PO SCH (09:15)
[2018-07-09] MEDS: Potassium Chloride 10 MEQ Tab.ER PO SCH (09:16)
[2018-07-09] MEDS: Gabapentin 300 MG Cap PO SCH ×3 (09:16→21:38)
[2018-07-09] MEDS: Bumetanide 1 MG Tab PO SCH ×2 (09:16→13:01)
[2018-07-09] MEDS: APIXABAN 5 MG PO SCH ×2 (09:19→21:37)
[2018-07-09] MEDS: Aspirin 325 MG Tab.EC PO SCH (09:19)
[2018-07-09] MEDS: Venlafaxine 37.5 MG Cap.ER PO SCH (09:24)
[2018-07-09] MEDS: Lidocaine 5% 700 MG Patch TRDERM SCH (09:26)
[2018-07-09] MEDS: traMADol 50 MG Tab PO PRN (17:46)
[2018-07-09] MEDS: atorvaSTATin 10 MG Tab PO SCH (21:38)
[2018-07-09] MEDS: Remove Patch-LIDODERM TRDERM SCH (21:38)
[2018-07-10] MEDS: oxyCODONE 5 MG Tab PO SCH ×3 (05:42→22:17)
[2018-07-10] MEDS: Omeprazole 20 MG Cap.CR PO SCH (05:42)
[2018-07-10] MEDS: Acetaminophen 325 MG Tab PO SCH ×3 (05:43→22:20)
[2018-07-10] MEDS: NOVOLOG FLEXPEN **OWN MED SUBCUT SCH ×3 (08:41→17:27)
[2018-07-10] MEDS: LEVEMIR SUBCUT SCH (08:42)
[2018-07-10] MEDS: NOVOLOG SS SUBCUT SCH ×4 (08:42→21:03)
[2018-07-10] MEDS: Carvedilol 6.25 MG Tab PO SCH ×2 (10:37→17:30)
[2018-07-10] MEDS: Bumetanide 1 MG Tab PO SCH ×2 (10:38→13:24)
[2018-07-10] MEDS: APIXABAN 5 MG PO SCH ×2 (10:38→21:02)
[2018-07-10] MEDS: Aspirin 325 MG Tab.EC PO SCH (10:38)
[2018-07-10] MEDS: Venlafaxine 37.5 MG Cap.ER PO SCH (10:39)
[2018-07-10] MEDS: Potassium Chloride 10 MEQ Tab.ER PO SCH (10:39)
[2018-07-10] MEDS: Gabapentin 300 MG Cap PO SCH ×3 (10:39→21:02)
[2018-07-10] MEDS: Lidocaine 5% 700 MG Patch TRDERM SCH (10:39)
[2018-07-10] MEDS: Multivitamins, Therapeutic with Minerals Tab PO SCH (10:39)
[2018-07-10] MEDS: traMADol 50 MG Tab PO PRN (17:31)
[2018-07-10] MEDS: atorvaSTATin 10 MG Tab PO SCH (21:02)
[2018-07-10] MEDS: Remove Patch-LIDODERM TRDERM SCH (21:04)
[2018-07-11] MEDS: Omeprazole 20 MG Cap.CR PO SCH (06:17)
[2018-07-11] MEDS: oxyCODONE 5 MG Tab PO SCH ×3 (06:17→21:12)
[2018-07-11] MEDS: Acetaminophen 325 MG Tab PO SCH ×3 (06:19→21:12)
[2018-07-11] MEDS: NOVOLOG SS SUBCUT SCH ×4 (07:57→21:02)
[2018-07-11] MEDS: Lidocaine 5% 700 MG Patch TRDERM SCH (07:59)
[2018-07-11] MEDS: Potassium Chloride 10 MEQ Tab.ER PO SCH (08:01)
[2018-07-11] MEDS: Bumetanide 1 MG Tab PO SCH ×2 (08:01→14:01)
[2018-07-11] MEDS: Carvedilol 6.25 MG Tab PO SCH ×2 (08:02→17:19)
[2018-07-11] MEDS: Venlafaxine 37.5 MG Cap.ER PO SCH (08:03)
[2018-07-11] MEDS: Aspirin 325 MG Tab.EC PO SCH (08:04)
[2018-07-11] MEDS: Multivitamins, Therapeutic with Minerals Tab PO SCH (08:04)
[2018-07-11] MEDS: Gabapentin 300 MG Cap PO SCH ×3 (08:04→21:06)
[2018-07-11] MEDS: NOVOLOG FLEXPEN **OWN MED SUBCUT SCH ×3 (08:12→17:15)
[2018-07-11] MEDS: traMADol 50 MG Tab PO PRN ×2 (09:04→17:25)
[2018-07-11] MEDS: APIXABAN 5 MG PO SCH ×2 (09:06→21:07)
[2018-07-11] MEDS: LEVEMIR SUBCUT SCH (09:24)
[2018-07-11] MEDS: atorvaSTATin 10 MG Tab PO SCH (21:06)
[2018-07-11] MEDS: Remove Patch-LIDODERM TRDERM SCH (21:09)
[2018-07-12] MEDS: traMADol 50 MG Tab PO PRN (02:57)
[2018-07-12] MEDS: Omeprazole 20 MG Cap.CR PO SCH (06:09)
[2018-07-12] MEDS: Acetaminophen 325 MG Tab PO SCH ×3 (06:09→23:07)
[2018-07-12] MEDS: oxyCODONE 5 MG Tab PO SCH ×3 (06:10→23:04)
[2018-07-12] MEDS: Venlafaxine 37.5 MG Cap.ER PO SCH (09:00)
[2018-07-12] MEDS: Bumetanide 1 MG Tab PO SCH ×2 (09:00→14:01)
[2018-07-12] MEDS: Gabapentin 300 MG Cap PO SCH ×3 (09:01→22:57)
[2018-07-12] MEDS: Multivitamins, Therapeutic with Minerals Tab PO SCH (09:01)
[2018-07-12] MEDS: Carvedilol 6.25 MG Tab PO SCH ×2 (09:01→17:26)
[2018-07-12] MEDS: Potassium Chloride 10 MEQ Tab.ER PO SCH (09:01)
[2018-07-12] MEDS: Aspirin 325 MG Tab.EC PO SCH (09:01)
[2018-07-12] MEDS: LEVEMIR SUBCUT SCH (09:02)
[2018-07-12] MEDS: NOVOLOG FLEXPEN **OWN MED SUBCUT SCH ×3 (09:03→17:28)
[2018-07-12] MEDS: NOVOLOG SS SUBCUT SCH ×4 (09:03→23:04)
[2018-07-12] MEDS: APIXABAN 5 MG PO SCH ×2 (09:04→22:57)
[2018-07-12] MEDS: Lidocaine 5% 700 MG Patch TRDERM SCH (10:18)
--- NOTE | 2018-07-12 11:05 | PCM.PN ---
- General Info Date of Service: 07/12/18 Subjective Update: Seen at bedside today. C/o increasing pain to the left hip. Redness noted around surgical scar on the lateral aspect of the left knee. No fever or chills. Functional Status: Reports: Pain Controlled - Review of Systems General: Reports: No Symptoms HEENT: Reports: No Symptoms Pulmonary: Reports: No Symptoms Cardiovascular: Reports: No Symptoms Gastrointestinal: Reports: No Symptoms Genitourinary: Reports: No Symptoms Musculoskeletal: Reports: No Symptoms Skin: Reports: No Symptoms Neurological: Reports: No Symptoms Psychiatric: Reports: No Symptoms - Patient Data Vitals - Most Recent: Last Vital Signs Temp 97.9 F 07/12/18 07:49 Pulse 85 07/12/18 09:01 Resp 20 07/12/18 07:49 BP 159/57 H 07/12/18 09:01 Pulse Ox 95 07/12/18 07:49 Weight - Most Recent: 214 lb I&O - Last 24 Hours: Intake & Output 07/11/18 07/12/18 07/12/18 22:59 06:59 14:59 Intake Total 400 260 Balance 400 260 Lab Results Last 24 Hours: Laboratory Results - last 24 hr 07/11/18 07/11/18 07/11/18 Range/Units 11:22 17:05 20:55 POC Glucose 206 H 89 148 H (70-105) mg/dl 07/12/18 Range/Units 07:26 POC Glucose 158 H (70-105) mg/dl Med Orders - Current: Current Medications Acetaminophen (Tylenol) 650 mg PO Q8HR [facility] Last Admin: 07/12/18 06:09 Dose: 650 mg Albuterol (Proventil Neb Soln) 2.5 mg INH QIDRT PRN PRN Reason: Shortness of Breath Albuterol (Proventil Hfa) 0 gm INH Q6H PRN PRN Reason: Wheezing Aspirin (Ecotrin) 325 mg PO DAILY [facility] Last Admin: 07/12/18 09:01 Dose: 325 mg Atorvastatin Calcium (Lipitor) 10 mg PO BEDTIME [facility] Last Admin: 07/11/18 21:06 Dose: 10 mg Budesonide (Pulmicort) 0.5 mg NEB BID PRN PRN Reason: Shortness of Breath Bumetanide (Bumex) 2 mg PO 0900,1400 [facility] Last Admin: 07/12/18 09:00 Dose: 2 mg Carvedilol (Coreg) 6.25 mg PO BIDMEALS [facility] Last Admin: 07/12/18 09:01 Dose: 6.25 mg Dextrose/Water (Dextrose 50% In Water) 50 ml IVPUSH ONETIME PRN PRN Reason: Hypoglycemia Docusate Sodium (Colace) 100 mg PO BID PRN PRN Reason: Constipation Last Admin: 07/04/18 21:21 Dose: 100 mg Gabapentin (Neurontin) 300 mg PO TID [facility] Last Admin: 07/12/18 09:01 Dose: 300 mg Lidocaine (Lidoderm 5%) 700 mg TRDERM DAILY [facility] Last Admin: 07/12/18 10:18 Dose: Not Given Magnesium Hydroxide (Milk Of Magnesia) 30 ml PO Q12H PRN PRN Reason: Constipation Miscellaneous Information (Remove Patch) 1 ea TRDERM BEDTIME [facility] Last Admin: 07/11/18 21:09 Dose: 1 ea Multivitamins/Minerals (Vitamins And Minerals) 1 tab PO DAILY [facility] Last Admin: 07/12/18 09:01 Dose: 1 tab Nitroglycerin (Nitrostat) 0.4 mg SL ASDIRECTED PRN PRN Reason: ANGINA Apixaban [Eliquis] 5 (Mg Tab Own Med) 5 mg PO BID [facility] Last Admin: 07/12/18 09:04 Dose: 5 mg Formoterol [ Perforomist] 2 Ml Own Med 2 ml INH BID PRN PRN Reason: Shortness of Breath Last Admin: 06/30/18 09:07 Dose: 2 ml (Sevelamer Carbonate [Renvela] 1,600 Mg) Own Med 1,600 mg PO TIDMEALS [facility] Last Admin: 07/12/18 09:05 Dose: 1,600 mg Levemir Flextouch (Own Med) 0 each SUBCUT DAILY [facility] Last Admin: 07/12/18 09:02 Dose: 1 each Novolog Flexpen (Own Med) 0 each SUBCUT TIDAC [facility] Last Admin: 07/12/18 09:03 Dose: 1 each Novolog Flexpen Ss (Own Med) 0 each SUBCUT QIDACANDBED [facility] Last Admin: 07/12/18 09:03 Dose: 1 each Omeprazole (Omeprazole) 20 mg PO ACBREAKFAST [facility] Last Admin: 07/12/18 06:09 Dose: 20 mg Ondansetron HCl (Zofran Odt) 4 mg PO Q4H PRN PRN Reason: nausea, able to take PO Last Admin: 06/30/18 09:51 Dose: 4 mg Oxycodone HCl (Oxycodone) 5 mg PO Q8HR [facility] Last Admin: 07/12/18 06:10 Dose: 5 mg Polyethylene Glycol (Miralax) 17 gm PO DAILY PRN PRN Reason: Constipation Potassium Chloride (Klor-Con 10) 20 meq PO DAILY [facility] Last Admin: 07/12/18 09:01 Dose: 20 meq Senna/Docusate Sodium (Senna Plus) 1 tab PO BID [facility] Last Admin: 07/12/18 09:02 Dose: 1 tab Tramadol HCl (Ultram) 50 mg PO Q6HR PRN PRN Reason: Pain (moderate 4-6) Last Admin: 07/12/18 02:57 Dose: 50 mg Valsartan (Diovan) 80 mg PO DAILY [facility] Last Admin: 07/12/18 09:00 Dose: 80 mg Venlafaxine HCl (Effexor Xr) 37.5 mg PO DAILY [facility] Last Admin: 07/12/18 09:00 Dose: 37.5 mg Discontinued Medications Acetaminophen (Tylenol Extra Strength) 1,000 mg PO Q8HR [facility] Last Admin: 07/07/18 05:57 Dose: 1,000 mg Bumetanide (Bumex) 2 mg PO BID [facility] Last Admin: 07/07/18 20:47 Dose: 2 mg Carvedilol (Coreg) 6.25 mg PO BID [facility] Last Admin: 07/01/18 08:17 Dose: 6.25 mg Cyclobenzaprine HCl (Flexeril) 10 mg PO Q8HR PRN PRN Reason: Spasms Last Admin: 07/04/18 16:18 Dose: 10 mg Ibuprofen (Motrin) 800 mg PO Q8HR PRN PRN Reason: Pain Influenza Virus Vaccine (Fluzone Quad [id number] Syringe) 60 mcg IM .ONCE ONE Stop: 06/28/18 19:01 Last Admin: 06/28/18 20:29 Dose: Not Given Insulin Glargine (Lantus) 20 unit SUBCUT DAILY [facility] Last Admin: 06/29/18 09:12 Dose: 20 unit Insulin Glargine (Lantus) 40 unit SUBCUT DAILY [facility] Last Admin: 07/08/18 09:01 Dose: 40 units Insulin Glargine (Lantus) 20 unit SUBCUT ONETIME ONE Stop: 06/29/18 10:31 Last Admin: 06/29/18 12:18 Dose: 20 unit Insulin Human Lispro (Humalog) 20 unit SUBCUT TIDAC [facility] Last Admin: 07/03/18 12:31 Dose: 20 units Insulin Human Lispro (Humalog) 0 unit SUBCUT QIDACANDBED [facility]; Protocol Last Admin: 07/08/18 16:57 Dose: Not Given Insulin Human Lispro (Humalog) 15 unit SUBCUT ONETIME ONE Stop: 06/28/18 21:35 Last Admin: 06/28/18 22:13 Dose: 15 units Insulin Human Lispro (Humalog) 15 unit SUBCUT TIDAC [facility] Last Admin: 07/08/18 17:24 Dose: 15 units Metolazone (Zaroxolyn) 2.5 mg PO DAILY [facility] Last Admin: 06/29/18 09:14 Dose: 2.5 mg Morphine Sulfate (Morphine) 2 mg IVPUSH Q2H PRN PRN Reason: Pain (severe 7-10) Last Admin: 06/29/18 09:32 Dose: 2 mg Morphine Sulfate (Morphine) 2 mg IVPUSH Q4HR PRN PRN Reason: Pain (severe 7-10) Last Admin: 07/01/18 16:24 Dose: 2 mg Sevelamer Carb [ Renvela] 800 Mg Tab Own Med 800 mg PO TIDMEALS [facility] Last Admin: 07/02/18 17:37 Dose: 800 mg Oxycodone HCl (Oxycodone) 5 mg PO Q8HR PRN PRN Reason: Pain (severe 7-10) Last Admin: 07/07/18 06:00 Dose: 5 mg Oxycodone/Acetaminophen (Percocet 325-5 Mg) 1 tab PO Q4H PRN PRN Reason: Pain (moderate 4-6) Last Admin: 06/29/18 05:39 Dose: 1 tab Potassium Chloride (Klor-Con 10) 20 meq PO BIDMEALS [facility] Last Admin: 06/29/18 09:14 Dose: 20 meq Tramadol HCl (Ultram) 50 mg PO Q6H [facility] Last Admin: 07/05/18 13:11 Dose: 50 mg - Exam Quality Assessment: DVT Prophylaxis General: Alert, Oriented HEENT: Pupils Equal, Pupils Reactive, EOMI, Mucous Membr. Moist/[place] Neck: Supple Lungs: Clear to Auscultation, Normal Respiratory Effort Cardiovascular: Regular Rate, Regular Rhythm GI/Abdominal Exam: Normal Bowel Sounds, Soft, Non-Tender, No Organomegaly, No Distention, No Abnormal Bruit, No Mass, Pelvis Stable (Female) Exam: Normal External Exam, Normal Speculum Exam, Normal Bimanual Exam Back Exam: Normal Inspection, Full Range of Motion Extremities: Normal Inspection, Normal Range of Motion, Non-Tender, No Pedal Edema, Normal Capillary Refill Skin: Warm, Dry, Intact Wound/Incisions: Healing Well Neurological: No New Focal Deficit Psy/Mental Status: Alert, Normal Affect, Normal Mood - Problem List & Annotations (1) Intertrochanteric fracture, hip SNOMED Code(s): 096642397 Code(s): S72.143A - DISPLACED INTERTROCHANTERIC FRACTURE OF UNSP FEMUR, INIT Status: Acute Current Visit: No (2) COPD, moderate SNOMED Code(s): 906145742 Code(s): J44.9 - CHRONIC OBSTRUCTIVE PULMONARY DISEASE, UNSPECIFIED Status : Chronic Current Visit: No Onset Date: 06/25/15 (3) Diabetes mellitus type 2 SNOMED Code(s): 94136858 Code(s): E11.9 - TYPE 2 DIABETES MELLITUS WITHOUT COMPLICATIONS Status: Chronic Priority: Medium Current Visit: No - Problem List Review Problem List Initiated/Reviewed/Updated: Yes - Plan Plan:: Cellulitis to lateral aspect of left knee. Will start her on Keflex today. S/p Left hip fracture repair with gamma nail. Continue PT/OT Review by ortho via telemedicine on 07/05. Recommendation, continue conservative management with pain control with oxycodone, tramadol and Tylenol
[2018-07-12] MEDS: Cephalexin 500 MG Cap PO SCH ×2 (14:01→22:57)
[2018-07-12] MEDS: atorvaSTATin 10 MG Tab PO SCH (22:56)
[2018-07-12] MEDS: Remove Patch-LIDODERM TRDERM SCH (23:07)
[2018-07-13] MEDS: traMADol 50 MG Tab PO PRN ×4 (01:17→23:39)
[2018-07-13] MEDS: Cephalexin 500 MG Cap PO SCH ×3 (06:41→21:27)
[2018-07-13] MEDS: Omeprazole 20 MG Cap.CR PO SCH (06:41)
[2018-07-13] MEDS: Acetaminophen 325 MG Tab PO SCH ×3 (06:42→21:29)
[2018-07-13] MEDS: oxyCODONE 5 MG Tab PO SCH ×3 (06:42→21:28)
[2018-07-13] MEDS: NOVOLOG SS SUBCUT SCH ×4 (09:03→21:22)
[2018-07-13] MEDS: Multivitamins, Therapeutic with Minerals Tab PO SCH (09:12)
[2018-07-13] MEDS: Venlafaxine 37.5 MG Cap.ER PO SCH (09:12)
[2018-07-13] MEDS: Bumetanide 1 MG Tab PO SCH ×2 (09:13→14:40)
[2018-07-13] MEDS: Potassium Chloride 10 MEQ Tab.ER PO SCH (09:13)
[2018-07-13] MEDS: Gabapentin 300 MG Cap PO SCH ×3 (09:13→21:27)
[2018-07-13] MEDS: Aspirin 325 MG Tab.EC PO SCH (09:14)
[2018-07-13] MEDS: APIXABAN 5 MG PO SCH ×2 (09:15→21:26)
[2018-07-13] MEDS: NOVOLOG FLEXPEN **OWN MED SUBCUT SCH ×3 (09:15→17:23)
[2018-07-13] MEDS: LEVEMIR SUBCUT SCH (09:16)
[2018-07-13] MEDS: Lidocaine 5% 700 MG Patch TRDERM SCH (09:17)
[2018-07-13] MEDS: Carvedilol 6.25 MG Tab PO SCH ×2 (09:21→17:21)
[2018-07-13] MEDS: atorvaSTATin 10 MG Tab PO SCH (21:27)
[2018-07-13] MEDS: Remove Patch-LIDODERM TRDERM SCH (21:30)
[2018-07-14] MEDS: Cephalexin 500 MG Cap PO SCH ×3 (06:30→21:58)
[2018-07-14] MEDS: Omeprazole 20 MG Cap.CR PO SCH (06:30)
[2018-07-14] MEDS: Acetaminophen 325 MG Tab PO SCH ×3 (06:30→21:59)
[2018-07-14] MEDS: oxyCODONE 5 MG Tab PO SCH ×3 (06:31→22:00)
[2018-07-14] MEDS: NOVOLOG FLEXPEN **OWN MED SUBCUT SCH ×3 (08:26→17:29)
[2018-07-14] MEDS: NOVOLOG SS SUBCUT SCH ×4 (08:27→22:01)
[2018-07-14] MEDS: APIXABAN 5 MG PO SCH ×2 (08:32→22:02)
[2018-07-14] MEDS: Bumetanide 1 MG Tab PO SCH ×2 (08:34→14:05)
[2018-07-14] MEDS: Gabapentin 300 MG Cap PO SCH ×3 (08:34→21:59)
[2018-07-14] MEDS: Multivitamins, Therapeutic with Minerals Tab PO SCH (08:34)
[2018-07-14] MEDS: Potassium Chloride 10 MEQ Tab.ER PO SCH (08:34)
[2018-07-14] MEDS: Carvedilol 6.25 MG Tab PO SCH ×2 (08:35→17:28)
[2018-07-14] MEDS: Venlafaxine 37.5 MG Cap.ER PO SCH (08:36)
[2018-07-14] MEDS: traMADol 50 MG Tab PO PRN (08:36)
[2018-07-14] MEDS: Aspirin 325 MG Tab.EC PO SCH (08:36)
[2018-07-14] MEDS: Lidocaine 5% 700 MG Patch TRDERM SCH (08:38)
[2018-07-14] MEDS: LEVEMIR SUBCUT SCH (08:38)
[2018-07-14] MEDS: atorvaSTATin 10 MG Tab PO SCH (21:59)
[2018-07-14] MEDS: Remove Patch-LIDODERM TRDERM SCH (22:02)
[2018-07-15] MEDS: traMADol 50 MG Tab PO PRN ×2 (01:03→12:03)
[2018-07-15] MEDS: Cephalexin 500 MG Cap PO SCH ×2 (06:03→13:02)
[2018-07-15] MEDS: Omeprazole 20 MG Cap.CR PO SCH (06:03)
[2018-07-15] MEDS: oxyCODONE 5 MG Tab PO SCH ×2 (06:04→13:02)
[2018-07-15] MEDS: Acetaminophen 325 MG Tab PO SCH ×2 (06:05→13:02)
[2018-07-15] MEDS: LEVEMIR SUBCUT SCH (08:33)
[2018-07-15] MEDS: NOVOLOG FLEXPEN **OWN MED SUBCUT SCH ×2 (08:36→11:57)
[2018-07-15] MEDS: Multivitamins, Therapeutic with Minerals Tab PO SCH (08:56)
[2018-07-15] MEDS: Bumetanide 1 MG Tab PO SCH ×2 (08:56→13:02)
[2018-07-15] MEDS: Venlafaxine 37.5 MG Cap.ER PO SCH (08:56)
[2018-07-15] MEDS: Carvedilol 6.25 MG Tab PO SCH (08:57)
[2018-07-15] MEDS: Gabapentin 300 MG Cap PO SCH ×2 (08:58→13:02)
[2018-07-15] MEDS: Potassium Chloride 10 MEQ Tab.ER PO SCH (08:58)
[2018-07-15] MEDS: APIXABAN 5 MG PO SCH (08:59)
[2018-07-15] MEDS: Lidocaine 5% 700 MG Patch TRDERM SCH (09:00)
[2018-07-15] MEDS: Aspirin 325 MG Tab.EC PO SCH (09:00)
[2018-07-15] MEDS: NOVOLOG SS SUBCUT SCH ×2 (09:11→11:58)
--- NOTE | 2018-07-15 12:00 | PCM.DCSUM1 ---
Discharge Summary - Hospital Course Free Text/Narrative:: Swati Valerio is a 62-year old female with medical history significant fro HTN, HLP, DM II complicated with neuropathy, nephropathy, and vasculopathy, COPD , PAF on chronic anticoagulation with Eliquis, cellulitis, transmetatarsal amputation of the left foot, and chronic tobacco use who was admitted to [facility] for physical therapy after undergoing left long gamma nail fixation for left intertrochanteric femur fracture with subtroncanteric extension. Patient has been tolerating therapies. She was noted to have cellulitis of the left lateral knee around the surgical scar on 07/12. On 07/05, she was noted to have pathology of the surgical sites and was reviewed by orthopedic surgery via telemedicine, at which time conservative management was recommended. Today, patient has purulent drainage from the surgical site at the hip and the left lateral knee. She is being referred to orthopedic surgery for further review and management. Diagnosis: Stroke: No - Discharge Data Discharge Date: 07/15/18 Discharge Disposition: Refer to Observation Condition: Good - Discharge Diagnosis/Problem(s) (1) Diabetes mellitus type 2 SNOMED Code(s): 27031165 ICD Code: E11.9 - TYPE 2 DIABETES MELLITUS WITHOUT COMPLICATIONS Status: Chronic Priority: Medium Current Visit: No (2) Diabetic neuropathy SNOMED Code(s): 032828004 ICD Code: E11.40 - TYPE 2 DIABETES MELLITUS WITH DIABETIC NEUROPATHY, UNSP Status: Chronic Priority: Low Current Visit: No (3) Heart failure SNOMED Code(s): 47881074 ICD Code: I50.9 - HEART FAILURE, UNSPECIFIED Status: Chronic Priority: High Current Visit: No Qualifiers: Heart failure type: diastolic Heart failure chronicity: acute on chronic Qualified Code(s): I50.33 - Acute on chronic diastolic (congestive) heart failure (4) COPD, moderate SNOMED Code(s): 128273084 ICD Code: J44.9 - CHRONIC OBSTRUCTIVE PULMONARY DISEASE, UNSPECIFIED Status : Chronic Current Visit: No Onset Date: 06/25/15 (5) Fall in home SNOMED Code(s): 72890307 ICD Code: W19.XXXA - UNSPECIFIED FALL, INITIAL ENCOUNTER; Y92.009 - UNSP PLACE IN UNSP NON-[facility] (PRIVATE[facility] RESIDENCE PLACE Status: Acute Current Visit: No Qualifiers: Encounter type: initial encounter Qualified Code(s): W19.XXXA - Unspecified fall, initial encounter; Y92.009 - Unspecified place in unspecified non-institutional (private) residence as the place of occurrence of the external cause; Y92.009 - Unspecified place in unspecified non-institutional ( private) residence as the place of occurrence of the external cause (6) Intertrochanteric fracture, hip SNOMED Code(s): 083976872 ICD Code: S72.143A - DISPLACED INTERTROCHANTERIC FRACTURE OF UNSP FEMUR, INIT Status: Acute Current Visit: No - Patient Summary/Data Consults: Consultations 06/28/18 17:41 OT Evaluation and Treatment [CONS] Routine PT Evaluation and Treatment [CONS] Routine - Discharge Plan *PRESCRIPTION DRUG MONITORING PROGRAM REVIEWED*: Not Applicable *COPY OF PRESCRIPTION DRUG MONITORING REPORT IN PATIENT XOCHILT: Not Applicable Home Medications: Home Meds Gabapentin 300 mg PO TID 11/16/13 [History] Insulin Detemir [Levemir] 20 units SQ DAILY 11/16/13 [History] Venlafaxine HCl [Venlafaxine ER] 37.5 mg PO DAILY 11/16/13 [History] Omeprazole 20 mg PO DAILY 01/17/14 [History] Multivitamin [Multi-Vitamin Daily] 1 tab PO DAILY 03/29/14 [History] Bumetanide 2 mg PO BID 06/25/15 [History] Potassium Chloride [K-Tab ER] 20 meq PO BID 06/25/15 [History] Formoterol [Perforomist] 2 ml INH BID PRN 07/05/15 [History] atorvaSTATin [Lipitor] 10 mg PO BEDTIME 07/05/15 [History] Albuterol [Ventolin HFA] 2 puff INH Q6H PRN 10/23/15 [History] Budesonide [Pulmicort] 0.5 mg NEB BID PRN 10/23/15 [History] Albuterol [Proventil Neb Soln] 1 vial INH QID PRN 08/12/17 [History] Lidocaine [Lidocaine 5% Paraben-Free] 1 patch PO Q24H 08/12/17 [History] Nitroglycerin [Nitrostat] 0.4 mg PO ASDIRECTED PRN 08/12/17 [History] Acetaminophen [Tylenol Extra Strength] 1,000 mg PO Q8HR 06/28/18 [History] Apixaban [Eliquis] 5 mg PO BID 06/28/18 [History] Aspirin [Aspirin EC] 325 mg PO DAILY 06/28/18 [History] Carvedilol [Coreg] 6.25 mg PO BID 06/28/18 [History] Cyclobenzaprine [Flexeril] 10 mg PO Q8HR PRN 06/28/18 [History] Ibuprofen 800 mg PO Q8HR PRN 06/28/18 [History] Insulin Lispro [Humalog] 20 units SQ TID 06/28/18 [History] Sennosides/Docusate Sodium [Senna-S] 1 tab PO BID 06/28/18 [History] Sevelamer Carbonate [Renvela] 1,600 mg PO TID 06/28/18 [History] Valsartan 0.5 tab PO DAILY 06/28/18 [History] metOLazone [Metolazone] 2.5 mg PO DAILY 06/28/18 [History] Polyethylene Glycol 3350 [MiraLAX] 17 gm PO DAILY PRN packet 07/15/18 [Rx] oxyCODONE 5 mg PO Q8HR tablet 07/15/18 [Rx] traMADol [Ultram] 50 mg PO Q6HR PRN tablet 07/15/18 [Rx] Oxygen Therapy Mode: Room Air - Discharge Summary/Plan Comment DC Time >30 min.: Yes - General Info Date of Service: 07/15/18 Admission Dx/Problem (Free Text: Admitted to swing bed for PT/OT after undergoing Left long gamma nail Subjective Update: Seen at bedside today. C/o increasing pain to the left hip. Purulent discharge noted from left lateral hip and left lateral knee surgical sites. Denies fever or chills. - Review of Systems General: Reports: No Symptoms Pulmonary: Reports: No Symptoms Cardiovascular: Reports: No Symptoms Gastrointestinal: Reports: No Symptoms Genitourinary: Reports: No Symptoms Musculoskeletal: Reports: Joint Pain Skin: Reports: No Symptoms Neurological: Reports: No Symptoms Psychiatric: Reports: No Symptoms - Patient Data Vitals - Most Recent: Last Vital Signs Temp 98.6 F 07/15/18 08:00 Pulse 65 07/15/18 08:57 Resp 20 07/15/18 08:00 BP 148/48 H 07/15/18 08:58 Pulse Ox 96 07/15/18 08:00 Weight - Most Recent: 221 lb 3.2 oz I&O - Last 24 hours: Intake & Output 07/14/18 07/15/18 07/15/18 22:59 06:59 14:59 Intake Total 1240 50 Balance 1240 50 Lab Results - Last 24 hrs: Laboratory Results - last 24 hr 07/14/18 07/14/18 07/14/18 Range/Units 11:56 17:02 21:08 POC Glucose 156 H 122 H 192 H (70-105) mg/dl 07/15/18 07/15/18 Range/Units 07:35 10:55 POC Glucose 150 H 204 H (70-105) mg/dl Med Orders - Current: Current Medications Acetaminophen (Tylenol) 650 mg PO Q8HR [facility] Last Admin: 07/15/18 06:05 Dose: 650 mg Albuterol (Proventil Neb Soln) 2.5 mg INH QIDRT PRN PRN Reason: Shortness of Breath Albuterol (Proventil Hfa) 0 gm INH Q6H PRN PRN Reason: Wheezing Aspirin (Ecotrin) 325 mg PO DAILY [facility] Last Admin: 07/15/18 09:00 Dose: 325 mg Atorvastatin Calcium (Lipitor) 10 mg PO BEDTIME [facility] Last Admin: 07/14/18 21:59 Dose: 10 mg Budesonide (Pulmicort) 0.5 mg NEB BID PRN PRN Reason: Shortness of Breath Bumetanide (Bumex) 2 mg PO 0900,1400 [facility] Last Admin: 07/15/18 08:56 Dose: 2 mg Carvedilol (Coreg) 6.25 mg PO BIDMEALS [facility] Last Admin: 07/15/18 08:57 Dose: 6.25 mg Cephalexin (Keflex) 500 mg PO Q8HR [facility] Stop: 07/17/18 14:01 Last Admin: 07/15/18 06:03 Dose: 500 mg Dextrose/Water (Dextrose 50% In Water) 50 ml IVPUSH ONETIME PRN PRN Reason: Hypoglycemia Docusate Sodium (Colace) 100 mg PO BID PRN PRN Reason: Constipation Last Admin: 07/04/18 21:21 Dose: 100 mg Gabapentin (Neurontin) 300 mg PO TID [facility] Last Admin: 07/15/18 08:58 Dose: 300 mg Lidocaine (Lidoderm 5%) 700 mg TRDERM DAILY [facility] Last Admin: 07/14/18 08:38 Dose: 700 mg Magnesium Hydroxide (Milk Of Magnesia) 30 ml PO Q12H PRN PRN Reason: Constipation Miscellaneous Information (Remove Patch) 1 ea TRDERM BEDTIME [facility] Last Admin: 07/14/18 22:02 Dose: 1 ea Multivitamins/Minerals (Vitamins And Minerals) 1 tab PO DAILY [facility] Last Admin: 07/15/18 08:56 Dose: 1 tab Nitroglycerin (Nitrostat) 0.4 mg SL ASDIRECTED PRN PRN Reason: ANGINA Apixaban [Eliquis] 5 (Mg Tab Own Med) 5 mg PO BID [facility] Last Admin: 07/15/18 08:59 Dose: 5 mg Formoterol [ Perforomist] 2 Ml Own Med 2 ml INH BID PRN PRN Reason: Shortness of Breath Last Admin: 06/30/18 09:07 Dose: 2 ml (Sevelamer Carbonate [Renvela] 1,600 Mg) Own Med 1,600 mg PO TIDMEALS [facility] Last Admin: 07/15/18 09:00 Dose: 1,600 mg Levemir Flextouch (Own Med) 0 each SUBCUT DAILY [facility] Last Admin: 07/15/18 08:33 Dose: 1 each Novolog Flexpen (Own Med) 0 each SUBCUT TIDAC [facility] Last Admin: 07/15/18 08:36 Dose: 2 each Novolog Flexpen Ss (Own Med) 0 each SUBCUT QIDACANDBED [facility] Last Admin: 07/15/18 09:11 Dose: 2 each Omeprazole (Omeprazole) 20 mg PO ACBREAKFAST [facility] Last Admin: 07/15/18 06:03 Dose: 20 mg Ondansetron HCl (Zofran Odt) 4 mg PO Q4H PRN PRN Reason: nausea, able to take PO Last Admin: 06/30/18 09:51 Dose: 4 mg Oxycodone HCl (Oxycodone) 5 mg PO Q8HR [facility] Last Admin: 07/15/18 06:04 Dose: 5 mg Polyethylene Glycol (Miralax) 17 gm PO DAILY PRN PRN Reason: Constipation Potassium Chloride (Klor-Con 10) 20 meq PO DAILY [facility] Last Admin: 07/15/18 08:58 Dose: 20 meq Senna/Docusate Sodium (Senna Plus) 1 tab PO BID [facility] Last Admin: 07/15/18 08:56 Dose: 1 tab Tramadol HCl (Ultram) 50 mg PO Q6HR PRN PRN Reason: Pain (moderate 4-6) Last Admin: 07/15/18 01:03 Dose: 50 mg Valsartan (Diovan) 80 mg PO DAILY [facility] Last Admin: 07/15/18 08:58 Dose: 80 mg Venlafaxine HCl (Effexor Xr) 37.5 mg PO DAILY [facility] Last Admin: 07/15/18 08:56 Dose: 37.5 mg Discontinued Medications Acetaminophen (Tylenol Extra Strength) 1,000 mg PO Q8HR [facility] Last Admin: 07/07/18 05:57 Dose: 1,000 mg Bumetanide (Bumex) 2 mg PO BID [facility] Last Admin: 07/07/18 20:47 Dose: 2 mg Carvedilol (Coreg) 6.25 mg PO BID [facility] Last Admin: 07/01/18 08:17 Dose: 6.25 mg Cyclobenzaprine HCl (Flexeril) 10 mg PO Q8HR PRN PRN Reason: Spasms Last Admin: 07/04/18 16:18 Dose: 10 mg Ibuprofen (Motrin) 800 mg PO Q8HR PRN PRN Reason: Pain Influenza Virus Vaccine (Fluzone Quad [id number] Syringe) 60 mcg IM .ONCE ONE Stop: 06/28/18 19:01 Last Admin: 06/28/18 20:29 Dose: Not Given Insulin Glargine (Lantus) 20 unit SUBCUT DAILY [facility] Last Admin: 06/29/18 09:12 Dose: 20 unit Insulin Glargine (Lantus) 40 unit SUBCUT DAILY [facility] Last Admin: 07/08/18 09:01 Dose: 40 units Insulin Glargine (Lantus) 20 unit SUBCUT ONETIME ONE Stop: 06/29/18 10:31 Last Admin: 06/29/18 12:18 Dose: 20 unit Insulin Human Lispro (Humalog) 20 unit SUBCUT TIDAC [facility] Last Admin: 07/03/18 12:31 Dose: 20 units Insulin Human Lispro (Humalog) 0 unit SUBCUT QIDACANDBED [facility]; Protocol Last Admin: 07/08/18 16:57 Dose: Not Given Insulin Human Lispro (Humalog) 15 unit SUBCUT ONETIME ONE Stop: 06/28/18 21:35 Last Admin: 06/28/18 22:13 Dose: 15 units Insulin Human Lispro (Humalog) 15 unit SUBCUT TIDAC [facility] Last Admin: 07/08/18 17:24 Dose: 15 units Metolazone (Zaroxolyn) 2.5 mg PO DAILY [facility] Last Admin: 06/29/18 09:14 Dose: 2.5 mg Morphine Sulfate (Morphine) 2 mg IVPUSH Q2H PRN PRN Reason: Pain (severe 7-10) Last Admin: 06/29/18 09:32 Dose: 2 mg Morphine Sulfate (Morphine) 2 mg IVPUSH Q4HR PRN PRN Reason: Pain (severe 7-10) Last Admin: 07/01/18 16:24 Dose: 2 mg Sevelamer Carb [ Renvela] 800 Mg Tab Own Med 800 mg PO TIDMEALS [facility] Last Admin: 07/02/18 17:37 Dose: 800 mg Oxycodone HCl (Oxycodone) 5 mg PO Q8HR PRN PRN Reason: Pain (severe 7-10) Last Admin: 07/07/18 06:00 Dose: 5 mg Oxycodone/Acetaminophen (Percocet 325-5 Mg) 1 tab PO Q4H PRN PRN Reason: Pain (moderate 4-6) Last Admin: 06/29/18 05:39 Dose: 1 tab Potassium Chloride (Klor-Con 10) 20 meq PO BIDMEALS [facility] Last Admin: 06/29/18 09:14 Dose: 20 meq Tramadol HCl (Ultram) 50 mg PO Q6H [facility] Last Admin: 07/05/18 13:11 Dose: 50 mg - Exam General: Reports: Alert, Oriented HEENT: Reports: Pupils Equal, Pupils Reactive, EOMI Lungs: Reports: Clear to Auscultation, Normal Respiratory Effort Cardiovascular: Reports: Regular Rate, Regular Rhythm GI/Abdominal Exam: Normal Bowel Sounds, Soft, Non-Tender Extremities: Normal Inspection, Redness (Purulent discharge from left lateral hip and left lateral knee surgical sites. Tender to palpation. Probable abscess of the left lateral hip.) Wound/Incisions: Reports: Drainage (Purulent discharge from left lateral hip and left lateral knee surgical sites. Tender to palpation. Probable abscess of the left lateral hip.) Neurological: Reports: No New Focal Deficit Psy/Mental Status: Reports: Alert, Normal Affect, Normal Mood
[2018-07-15 12:52] VITALS: BP 151/56
== END 2018-07-15 13:10 | disposition still patient (30) | DRG 559 ==
LOC: DL.MS 15:13 → UNDOADMIN 15:13 → DL.MS 17:42
PROVIDERS: ADMIT Internal Medicine; ATTEND Internal Medicine
PROC: F08Z4ZZ Home Management Treatment (ICD-10-PCS; 2018-06-29)
PROC: F07Z5ZZ Bed Mobility Treatment (ICD-10-PCS; principal; 2018-06-30)
PROC: F07M6ZZ Therapeutic Exercise Treatment of Musculoskeletal System - Whole Body (ICD-10-PCS; 2018-06-30)
PROC: F07Z9ZZ Gait Training/Functional Ambulation Treatment (ICD-10-PCS; 2018-06-30)
PROC: F07Z8ZZ Transfer Training Treatment (ICD-10-PCS; 2018-06-30)
DX: Z47.89 Encounter for other orthopedic aftercare (principal); I50.33 Acute on chronic diastolic (congestive) heart failure; L03.116 Cellulitis of left lower limb; T81.41XA Infection following a procedure, superficial incisional surgical site, initial encounter; E11.42 Type 2 diabetes mellitus with diabetic polyneuropathy; E11.21 Type 2 diabetes mellitus with diabetic nephropathy; E78.5 Hyperlipidemia, unspecified; J44.9 Chronic obstructive pulmonary disease, unspecified; I48.0 Paroxysmal atrial fibrillation; F17.200 Nicotine dependence, unspecified, uncomplicated; I11.0 Hypertensive heart disease with heart failure; G89.4 Chronic pain syndrome; M19.90 Unspecified osteoarthritis, unspecified site; Z79.01 Long term (current) use of anticoagulants; Z89.432 Acquired absence of left foot; Z90.49 Acquired absence of other specified parts of digestive tract; Z90.710 Acquired absence of both cervix and uterus; Z79.4 Long term (current) use of insulin; Z79.82 Long term (current) use of aspirin; Z79.899 Other long term (current) drug therapy
CPT/HCPCS: 36415; 73700-LT; 80048; 82962; 83735; 84100; 85027; 94640; 97110-GO; 97116-GP; 97163-GP; 97167-GO; 97530-GO; 97530-GP; 97535-GO; A9270-GY; J1815; J1815-GY; J2270

== ENCOUNTER 2018-09-14 16:38 | Observation (INO) | payer MEDICARE, MEDICAID ==
[2018-09-14] MEDS: Sodium Chloride 0.9% 10 ML Syringe FLUSH PRN (17:23)
[2018-09-14 17:26] LABS: ANION GAP 15.6; CHLORIDE,CL 100 mmol/L (101-111); SODIUM,NA 135 mmol/L (135-145)
[2018-09-14] MEDS ORDERED: Acetaminophen 325 MG Tab PO PRN (18:15)
[2018-09-14] MEDS ORDERED: Levofloxacin/Dextrose 5%-Water 750 MG in Premix Bag 1 BAG IV SCH (18:15)
[2018-09-14] MEDS ORDERED: Sodium Chloride 0.9% 1,000 ML IV SCH (18:15)
[2018-09-14] MEDS ORDERED: Nitroglycerin 0.4 MG Tab.SL SL PRN (18:21)
[2018-09-14] MEDS ORDERED: Polyethylene Glycol 3350 Powder 17 GM Packet PO PRN (18:21)
[2018-09-14] MEDS ORDERED: Albuterol 6.7 GM Inhaler INH PRN (18:21)
[2018-09-14] MEDS ORDERED: Cyclobenzaprine 10 MG Tab PO PRN (18:21)
[2018-09-14] MEDS ORDERED: Albuterol 0.083% 2.5 MG/3 ML Neb Soln INH PRN (18:21)
[2018-09-14] MEDS ORDERED: Venlafaxine 150 MG CAP.ER PO SCH (18:30)
[2018-09-14] MEDS ORDERED: Enoxaparin 40 MG/0.4 ML Syringe SUBCUT SCH (18:30)
--- NOTE | 2018-09-14 18:36 | PCM.HP ---
H&P History of Present Illness - General Date of Service: 09/14/18 Admit Problem/Dx: Admission Diagnosis/Problem Admission Diagnosis/Problem Weakness Source of Information: Patient - History of Present Illness Initial Comments - Free Text/Narative: The patient is a 63-year-old female with complex medical history including diabetes mellitus, chronic kidney disease, hypertension, atrial fibrillation on chronic anticoagulations. The patient presented to the emergency room with complaint of weakness that started yesterday. Describes it as severe. She also has associated nausea and generalized body malaise. Denies having chest pain at this point. Does have cough which has been going on for couple of days. The cough is mostly unproductive. Has not had fever. Does sometimes have shortness of breath. Patient also complains of generalized aches and pains which is increased compared to her baseline. She does have chronic pain syndrome. Has not had fever or chills. Denies dysuria or frequency or micturition Back Pain Score (Numeric/FACES): 10 - Related Data Allergies/Adverse Reactions: Allergies Allergy/AdvReac Type Severity Reaction Status Date / Time vancomycin Allergy Rash Verified 06/28/18 13:18 Home Medications: Home Meds Gabapentin 300 mg PO TID 11/16/13 [History] Insulin Detemir [Levemir] 20 units SQ DAILY 11/16/13 [History] Venlafaxine HCl [Venlafaxine ER] 37.5 mg PO DAILY 11/16/13 [History] Omeprazole 20 mg PO DAILY 01/17/14 [History] Multivitamin [Multi-Vitamin Daily] 1 tab PO DAILY 03/29/14 [History] Bumetanide 2 mg PO DAILY 06/25/15 [History] Potassium Chloride [K-Tab ER] 20 meq PO BID 06/25/15 [History] Formoterol [Perforomist] 2 ml INH BID PRN 07/05/15 [History] atorvaSTATin [Lipitor] 10 mg PO BEDTIME 07/05/15 [History] Albuterol [Ventolin HFA] 2 puff INH Q6H PRN 10/23/15 [History] Budesonide [Pulmicort] 0.5 mg NEB BID PRN 10/23/15 [History] Albuterol [Proventil Neb Soln] 1 vial INH QID PRN 08/12/17 [History] Lidocaine [Lidocaine 5% Paraben-Free] 1 patch PO Q24H 08/12/17 [History] Nitroglycerin [Nitrostat] 0.4 mg PO ASDIRECTED PRN 08/12/17 [History] Acetaminophen [Tylenol Extra Strength] 1,000 mg PO Q8HR 06/28/18 [History] Apixaban [Eliquis] 5 mg PO BID 06/28/18 [History] Aspirin [Aspirin EC] 325 mg PO DAILY 06/28/18 [History] Carvedilol [Coreg] 12.5 mg PO BID 06/28/18 [History] Cyclobenzaprine [Flexeril] 10 mg PO Q8HR PRN 06/28/18 [History] Ibuprofen 800 mg PO Q8HR PRN 06/28/18 [History] Insulin Lispro [Humalog] 10 units SQ TID 06/28/18 [History] Sennosides/Docusate Sodium [Senna-S] 1 tab PO BID 06/28/18 [History] Sevelamer Carbonate [Renvela] 1,600 mg PO TID 06/28/18 [History] Valsartan 160 mg PO DAILY 06/28/18 [History] metOLazone [Metolazone] 2.5 mg PO DAILY 06/28/18 [History] Polyethylene Glycol 3350 [MiraLAX] 17 gm PO DAILY PRN packet 07/15/18 [Rx] oxyCODONE 5 mg PO Q8HR tablet 07/15/18 [Rx] traMADol [Ultram] 50 mg PO Q6HR PRN tablet 07/15/18 [Rx] Past Medical History HEENT History: Reports: Impaired Vision Other HEENT History: wears glasses Cardiovascular History: Reports: Afib, Bacterial Endocarditis, CAD, Heart Failure, Heart Murmur, Heart Valve Replacement, High Cholesterol, Hypertension, DE, Pacemaker, Other (See Below) Other Cardiovascular History: Aortic valve endocarditis; CAD; s/p AVR; paroxysmal atrial fibrillation; essential hypertension; cardiac pacemaker in situ; tachy-angelique syndrome - all per [facility] records Respiratory History: Reports: COPD, Intubation, Previous, Pneumonia, Recurrent, SOB, Other (See Below) Other Respiratory History: hx hypoxemia Gastrointestinal History: Reports: Cholelithiasis, GERD Genitourinary History: Reports: Chronic Renal Insuffiency, Diabetic Nephropathy , Other (See Below) Other Genitourinary History: STAGE III CKD 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 1 C/S Musculoskeletal History: Reports: Arthritis, Back Pain, Chronic, Fracture, Osteoarthritis Other Musculoskeletal History: arthritis to spine, carpal tunnel to wrists. HX OF PROXIMAL HUMERS FRACTURE RIGHT Neurological History: Reports: Neuropathy, Diabetic, TIA, Other (See Below) Other Neuro History: CHRONIC PAIN SYNDROME Psychiatric History: Reports: Depression Endocrine/Metabolic History: Reports: Diabetes, Type II, Obesity/BMI 30+ Hematologic History: Reports: Other (See Below) Other Hematologic History: hx bacteremia, hyperkalemia, hyponatremia Immunologic History: Reports: None Oncologic (Cancer) History: Reports: None Dermatologic History: Reports: Other (See Below) Other Dermatologic History: hx impetigo, and pressure sore to buttocks - Infectious Disease History Infectious Disease History: Reports: Chicken Pox, Measles, MRSA, TB - Past Surgical History HEENT Surgical History: Reports: Tonsillectomy Cardiovascular Surgical History: Reports: Coronary Artery Bypass, Pacer, Valve Replacement Other Cardiovascular Surgeries/Procedures: Pacemaker placed 11/10/2013 Respiratory Surgical History: Reports: Other (See Below) Other Respiratory Surgeries/Procedures: BRONCHOSCOPY GI Surgical History: Reports: Appendectomy, Cholecystectomy, Colonoscopy Female Surgical History: Reports: Hysterectomy Endocrine Surgical History: Reports: None Neurological Surgical History: Reports: None Musculoskeletal Surgical History: Reports: Amputation, Other (See Below) Other Musculoskeletal Surgeries/Procedures:: left 1/2 foot. Social & Family History - Family History Family Medical History: Noncontributory Cardiac: Reports: Hypertension Respiratory: Reports: COPD Endocrine/Metabolic: Reports: Diabetes, type II - Tobacco Use Smoking Status *Q: Current Every Day Smoker Years of Tobacco use: 40 Packs/Tins Daily: 0.5 Used Tobacco, but Quit: Yes Month/Year Tobacco Last Used: 05 - Caffeine Use Caffeine Use: Reports: Coffee - Recreational Drug Use Recreational Drug Use: No - Living Situation & Occupation Living situation: Reports: with Family Occupation: Disabled H&P Review of Systems - Review of Systems: Review Of Systems: See Below General: Reports: Malaise, Weakness HEENT: Reports: No Symptoms Pulmonary: Reports: No Symptoms Cardiovascular: Reports: No Symptoms Gastrointestinal: Reports: Nausea Genitourinary: Reports: No Symptoms Musculoskeletal: Reports: No Symptoms Skin: Reports: No Symptoms Neurological: Reports: Weakness Hematologic/Lymphatic: Reports: No Symptoms Immunologic: Reports: No Symptoms Exam - Exam Exam: See Below - Vital Signs Vital Signs: Last Vital Signs Temp 37.0 C 09/14/18 16:41 Pulse 87 09/14/18 16:41 Resp 15 09/14/18 16:41 BP 125/57 L 09/14/18 16:48 Pulse Ox 96 09/14/18 16:41 Weight: 106.594 kg - Exam General: Alert, Oriented, Cooperative Lungs: Clear to Auscultation, Normal Respiratory Effort Cardiovascular: Regular Rate, Regular Rhythm GI/Abdominal Exam: Normal Bowel Sounds, Soft, Non-Tender, No Organomegaly, No Distention, No Abnormal Bruit, No Mass, Pelvis Stable Extremities: Normal Range of Motion, Non-Tender, No Pedal Edema, Normal Capillary Refill, Other (Status post amputation left lower extremity) Skin: Warm, Dry, Intact - Patient Data Lab Results Last 24 hrs: Laboratory Results - last 24 hr 09/14/18 09/14/18 09/14/18 Range/Units 16:49 16:49 16:49 WBC 6.6 (5.0-10.0) 10^3/uL RBC 4.52 (4.2-5.4) 10^6/uL Hgb 13.3 D (12.0-16.0) g/dL Hct 40.0 (37.0-47.0) % MCV 88.5 D (80-100) fL MCH 29.4 (27.0-34.0) pg MCHC 33.3 (33.0-35.0) g/dL Plt Count 170 D (150-450) 10^3/uL Neut % (Auto) 67.4 (42.2-75.2) % Lymph % (Auto) 22.3 (20.5-50.1) % Slope % (Auto) 8.6 H (2-8) % Eos % (Auto) 1.2 (1.0-3.0) % Baso % (Auto) 0.5 (0.0-1.0) % ESR (0-20) mm/hr PT (9.0-12.0) SEC INR (0.9-1.2) Sodium 135 (135-145) mmol/L Potassium 3.6 (3.6-5.0) mmol/L Chloride 100 L (101-111) mmol/L Carbon Dioxide 23.0 (21.0-31.0) mmol/L Anion Gap 15.6 BUN 39 H D (7-18) mg/dL Creatinine 1.2 (0.6-1.3) mg/dL Est Cr Clr Drug Dosing 51.45 mL/min Estimated GFR (MDRD) 46 BUN/Creatinine Ratio 32.50 Glucose 149 H (74-105) mg/dL Calcium 9.1 (8.4-10.2) mg/dl Total Bilirubin 0.6 (0.2-1.0) mg/dL AST 37 (10-42) IU/L ALT 32 (10-60) IU/L Alkaline Phosphatase 110 (42-121) IU/L Troponin I 0.05 H* (0.00-0.02) ng/ml C-Reactive Protein 0.6 (0.0-1.3) mg/dL B-Natriuretic Peptide 546 H (0-100) pg/ml Total Protein 7.8 (6.7-8.2) g/dl Albumin 3.9 (3.2-5.5) g/dl Globulin 3.9 Albumin/Globulin Ratio 1.00 Ethyl Alcohol < 5 mg/dL 09/14/18 09/14/18 Range/Units 16:49 16:49 WBC (5.0-10.0) 10^3/uL RBC (4.2-5.4) 10^6/uL Hgb (12.0-16.0) g/dL Hct (37.0-47.0) % MCV (80-100) fL MCH (27.0-34.0) pg MCHC (33.0-35.0) g/dL Plt Count (150-450) 10^3/uL Neut % (Auto) (42.2-75.2) % Lymph % (Auto) (20.5-50.1) % Slope % (Auto) (2-8) % Eos % (Auto) (1.0-3.0) % Baso % (Auto) (0.0-1.0) % ESR 21 H (0-20) mm/hr PT 10.1 (9.0-12.0) SEC INR 1.0 (0.9-1.2) Sodium (135-145) mmol/L Potassium (3.6-5.0) mmol/L Chloride (101-111) mmol/L Carbon Dioxide (21.0-31.0) mmol/L Anion Gap BUN (7-18) mg/dL Creatinine (0.6-1.3) mg/dL Est Cr Clr Drug Dosing mL/min Estimated GFR (MDRD) BUN/Creatinine Ratio Glucose (74-105) mg/dL Calcium (8.4-10.2) mg/dl Total Bilirubin (0.2-1.0) mg/dL AST (10-42) IU/L ALT (10-60) IU/L Alkaline Phosphatase (42-121) IU/L Troponin I (0.00-0.02) ng/ml C-Reactive Protein (0.0-1.3) mg/dL B-Natriuretic Peptide (0-100) pg/ml Total Protein (6.7-8.2) g/dl Albumin (3.2-5.5) g/dl Globulin Albumin/Globulin Ratio Ethyl Alcohol mg/dL Result Diagrams: 09/14/18 16:49 09/14/18 16:49 Problem List Initiated/Reviewed/Updated: Yes Orders Last 24hrs: Active Orders 24 hr Category Date Time Status Patient Status [ADT] Routine ADT 09/14/18 18:15 Ordered Blood Glucose Check, Bedside [RC] QIDACANDBED Care 09/14/18 18:26 Ordered Cardiac Monitoring [RC] CONTINUOUS Care 09/14/18 18:17 Ordered EKG Documentation Completion [RC] STAT Care 09/14/18 16:46 Active Intake and Output [RC] QSHIFT Care 09/14/18 18:17 Ordered Oxygen Therapy [RC] PRN Care 09/14/18 18:15 Ordered Peripheral IV Care [RC] . DIRECTED Care 09/14/18 16:47 Active Up ad [place] [RC] ASDIRECTED Care 09/14/18 18:15 Ordered VTE/DVT Education [RC] PER UNIT ROUTINE Care 09/14/18 18:15 Ordered Vital Signs [RC] Q4H Care 09/14/18 18:15 Ordered PT Evaluation and Treatment [CONS] Routine Cons 09/14/18 18:15 Ordered Consistent Carbohydrate Diet [DIET] Diet 09/14/18 Dinner Ordered CULTURE SPUTUM + SMEAR [RM] Stat Lab 09/14/18 18:15 Ordered DRUG SCREEN URINE BIORAD [URCHEM] Stat Lab 09/14/18 16:47 Ordered TROPONIN I [CHEM] Q6H Lab 09/14/18 18:15 Ordered TROPONIN I [CHEM] Q6H Lab 09/15/18 00:15 Ordered UA RFX NA AND CULT IF INDIC [URIN] Stat Lab 09/14/18 16:47 Ordered Acetaminophen [Tylenol] Med 09/14/18 18:15 Ordered 650 mg PO Q4H PRN Albuterol Med 09/14/18 18:21 Ordered 1 vial INH QID PRN Albuterol [Proventil HFA] Med 09/14/18 18:21 Ordered 2 puff INH Q6H PRN Apixaban [Eliquis] Med 09/14/18 21:00 Ordered 5 mg PO BID Aspirin [Ecotrin] Med 09/15/18 09:00 Ordered 325 mg PO DAILY Carvedilol [Coreg] Med 09/14/18 21:00 Ordered 12.5 mg PO BID Cyclobenzaprine [Flexeril] Med 09/14/18 18:21 Ordered 10 mg PO Q8HR PRN Formoterol [Perforomist] Med 09/14/18 18:21 Ordered 2 ml INH BID PRN Gabapentin [Neurontin] Med 09/14/18 21:00 Ordered 300 mg PO TID Insulin Detemir [Levemir] Med 09/14/18 18:30 Ordered 20 units SQ DAILY Insulin Lispro Med 09/14/18 21:00 Ordered 10 units SQ TID Levofloxacin/Dextrose 5%-Water [Levaquin in D5W 750 MG/ Med 09/14/18 18:15 Ordered 150 ML] 750 mg Premix Bag 1 bag IV Q24H Lidocaine 5% [Lidoderm 5%] Med 09/14/18 18:30 Ordered 1 patch TOP Q24H Morphine Med 09/14/18 18:15 Ordered 2 mg IVPUSH Q2H PRN Nitroglycerin [Nitrostat] Med 09/14/18 18:21 Ordered 0.4 mg SL ASDIRECTED PRN Omeprazole Med 09/14/18 18:30 Ordered 20 mg PO DAILY Ondansetron [Zofran] Med 09/14/18 18:15 Ordered 4 mg IVPUSH Q6H PRN Polyethylene Glycol 3350 [MiraLAX] Med 09/14/18 18:21 Ordered 17 gm PO DAILY PRN Potassium Chloride [K-Tab ER] Med 09/14/18 21:00 Ordered 20 meq PO BID Sodium Chloride 0.9% [Normal Saline] 1,000 ml Med 09/14/18 18:15 Ordered IV ASDIRECTED Sodium Chloride 0.9% [Saline Flush] Med 09/14/18 16:46 Active 10 ml FLUSH ASDIRECTED PRN Valsartan [Valsartan] Med 09/15/18 09:00 Ordered 160 mg PO DAILY Venlafaxine [Venlafaxine HCl ER] Med 09/14/18 18:30 Ordered 37.5 mg PO DAILY atorvaSTATin [Lipitor] Med 09/14/18 21:00 Ordered 10 mg PO BEDTIME oxyCODONE Med 09/14/18 22:00 Ordered 5 mg PO Q8HR Peripheral IV Insertion Adult [OM.PC] Stat Oth 09/14/18 16:46 Ordered Resuscitation Status Routine Resus Stat 09/14/18 18:15 Ordered Medication Orders Acetaminophen (Tylenol) 650 mg PO Q4H PRN PRN Reason: Pain (Mild 1-3)/fever Albuterol (Proventil Hfa) gm INH Q6H PRN PRN Reason: Wheezing Aspirin (Ecotrin) 325 mg PO DAILY MARGARITA Atorvastatin Calcium (Lipitor) 10 mg PO BEDTIME MARGARITA Carvedilol (Coreg) 12.5 mg PO BID MARGARITA Cyclobenzaprine HCl (Flexeril) 10 mg PO Q8HR PRN PRN Reason: Spasms Gabapentin (Neurontin) 300 mg PO TID MARGARITA Levofloxacin/Dextrose 750 mg/ (Premix) 150 mls @ 100 mls/hr IV Q24H MRAGARITA Sodium Chloride (Normal Saline) 1,000 mls @ 100 mls/hr IV ASDIRECTED MARGARITA Lidocaine (Lidoderm 5%) mg TOP Q24H MARGARITA Morphine Sulfate (Morphine) 2 mg IVPUSH Q2H PRN PRN Reason: Pain (severe 7-10) Nitroglycerin (Nitrostat) 0.4 mg SL ASDIRECTED PRN PRN Reason: ANGINA Non-Formulary Medication (Albuterol) 1 vial INH QID PRN PRN Reason: SHORTNESS OF BREATH Non-Formulary Medication (Apixaban [Eliquis]) 5 mg PO BID [facility] Non-Formulary Medication (Formoterol [Perforomist]) 2 ml INH BID PRN PRN Reason: Shortness of Breath Non-Formulary Medication (Insulin Detemir [Levemir]) 20 units SQ DAILY MARGARITA Non-Formulary Medication (Insulin Lispro) 10 units SQ TID [facility] Non-Formulary Medication (Potassium Chloride [K-Tab Er]) 20 meq PO BID [facility] Non-Formulary Medication (Valsartan [Valsartan]) 160 mg PO DAILY MARGARITA Omeprazole (Omeprazole) 20 mg PO DAILY [facility] Ondansetron HCl (Zofran) 4 mg IVPUSH Q6H PRN PRN Reason: Nausea/Vomiting Oxycodone HCl (Oxycodone) 5 mg PO Q8HR MARGARITA Polyethylene Glycol (Miralax) 17 gm PO DAILY PRN PRN Reason: Constipation Sodium Chloride (Saline Flush) 10 ml FLUSH ASDIRECTED PRN PRN Reason: Keep Vein Open Last Admin: 09/14/18 17:23 Dose: 10 ml Venlafaxine HCl (Venlafaxine Hcl Er) 37.5 mg PO DAILY [facility] Assessment/Plan Comment:: Assessment/plan: #. Generalized weakness/aches and pains The cause of this is not obvious It could be due to acute viral illness. Has not had fever. Does have mild cough that is mostly unproductive Chest x-ray does not show an obvious infiltrate #. Acute bronchitis versus early pneumonia Again, chest x-ray does not show infiltrate White cell count is normal She does have mild cough and sometimes has been short of breath #. Diabetes mellitus type 2 On insulin therapy #. Atrial fibrillation/chronic anticoagulation Patient has been on apixaban #. Chronic pain syndrome #. History of aortic valve endocarditis Patient is status post previous aortic valve replacement #. Chronic kidney disease stage III Serum creatinine is at her baseline Plan: Admit patient to medical floor Obtain troponin every 62 Monitor blood sugar before meals and at bedtime Intravenous fluid for rehydration Hold diuretics for now Consult physical therapy Send sputum for Gram stain and cultures Empiric antibiotics for possible early pneumonia. Start patient on levofloxacin
[2018-09-14] MEDS: Insulin Glarg,Human.Rec.Analog 100 Unit/ML SUBCUT SCH (19:59)
[2018-09-14] MEDS: atorvaSTATin 10 MG Tab PO SCH (21:54)
[2018-09-14] MEDS: Carvedilol 6.25 MG Tab PO SCH (21:54)
[2018-09-14] MEDS: Gabapentin 300 MG Cap PO SCH (21:54)
[2018-09-14] MEDS: oxyCODONE 5 MG Tab PO SCH (21:55)
[2018-09-14] MEDS: Potassium Chloride 10 MEQ Tab.ER PO SCH (21:55)
[2018-09-15] MEDS: Morphine 2 MG/ML Syringe IVPUSH PRN ×2 (05:04→11:06)
[2018-09-15] MEDS: Omeprazole 20 MG Cap.CR PO SCH (06:12)
[2018-09-15] MEDS: oxyCODONE 5 MG Tab PO SCH ×3 (06:12→22:35)
[2018-09-15] MEDS: Insulin Lispro 100 Units/ML 3 ML Vial SUBCUT SCH ×3 (08:37→17:10)
[2018-09-15] MEDS: Insulin Glarg,Human.Rec.Analog 100 Unit/ML SUBCUT SCH (08:45)
[2018-09-15] MEDS: Carvedilol 6.25 MG Tab PO SCH ×2 (08:46→22:32)
[2018-09-15] MEDS: Gabapentin 300 MG Cap PO SCH ×3 (08:46→22:32)
[2018-09-15] MEDS: Venlafaxine 37.5 MG Cap.ER PO SCH (08:46)
[2018-09-15] MEDS: Aspirin 325 MG Tab.EC PO SCH (08:46)
[2018-09-15] MEDS: Potassium Chloride 10 MEQ Tab.ER PO SCH ×2 (08:47→22:32)
[2018-09-15] MEDS: Ondansetron 4 MG/2 ML SDV IVPUSH PRN (11:07)
[2018-09-15] MEDS: APIXABAN 5 MG PO SCH ×3 (12:28→22:31)
[2018-09-15] MEDS: Levofloxacin 250 MG Tab PO SCH (12:40)
[2018-09-15] MEDS: LIDOCAINE TOP SCH (12:42)
--- NOTE | 2018-09-15 12:43 | PCM.PN ---
- General Info Date of Service: 09/15/18 Admission Dx/Problem (Free Text): Admission Diagnosis/Problem Admission Diagnosis/Problem Weakness Functional Status: Reports: Pain Controlled - Review of Systems General: Reports: Weakness HEENT: Reports: No Symptoms Pulmonary: Reports: No Symptoms Cardiovascular: Reports: No Symptoms Gastrointestinal: Reports: Abdominal Pain Genitourinary: Reports: No Symptoms Musculoskeletal: Reports: Shoulder Pain Skin: Reports: No Symptoms Neurological: Reports: No Symptoms Psychiatric: Reports: Agitation - Patient Data Vitals - Most Recent: Last Vital Signs Temp 96.8 F 09/15/18 08:41 Pulse 65 09/15/18 08:46 Resp 20 09/15/18 08:41 BP 161/61 H 09/15/18 08:46 Pulse Ox 99 09/15/18 08:41 Weight - Most Recent: 205 lb 4 oz I&O - Last 24 Hours: Intake & Output 09/14/18 09/15/18 09/15/18 22:59 06:59 14:59 Intake Total 2024 Output Total 1050 700 Balance 975 -700 Lab Results Last 24 Hours: Laboratory Results - last 24 hr 09/14/18 09/14/18 09/14/18 Range/Units 16:49 16:49 16:49 WBC 6.6 (5.0-10.0) 10^3/uL RBC 4.52 (4.2-5.4) 10^6/uL Hgb 13.3 D (12.0-16.0) g/dL Hct 40.0 (37.0-47.0) % MCV 88.5 D (80-100) fL MCH 29.4 (27.0-34.0) pg MCHC 33.3 (33.0-35.0) g/dL Plt Count 170 D (150-450) 10^3/uL Neut % (Auto) 67.4 (42.2-75.2) % Lymph % (Auto) 22.3 (20.5-50.1) % [place] % (Auto) 8.6 H (2-8) % Eos % (Auto) 1.2 (1.0-3.0) % Baso % (Auto) 0.5 (0.0-1.0) % ESR (0-20) mm/hr PT (9.0-12.0) SEC INR (0.9-1.2) Sodium 135 (135-145) mmol/L Potassium 3.6 (3.6-5.0) mmol/L Chloride 100 L (101-111) mmol/L Carbon Dioxide 23.0 (21.0-31.0) mmol/L Anion Gap 15.6 BUN 39 H D (7-18) mg/dL Creatinine 1.2 (0.6-1.3) mg/dL Est Cr Clr Drug Dosing 51.45 mL/min Estimated GFR (MDRD) 46 BUN/Creatinine Ratio 32.50 Glucose 149 H (74-105) mg/dL POC Glucose (70-105) mg/dl Calcium 9.1 (8.4-10.2) mg/dl Total Bilirubin 0.6 (0.2-1.0) mg/dL AST 37 (10-42) IU/L ALT 32 (10-60) IU/L Alkaline Phosphatase 110 (42-121) IU/L Troponin I 0.05 H* (0.00-0.02) ng/ml C-Reactive Protein 0.6 (0.0-1.3) mg/dL B-Natriuretic Peptide 546 H (0-100) pg/ml Total Protein 7.8 (6.7-8.2) g/dl Albumin 3.9 (3.2-5.5) g/dl Globulin 3.9 Albumin/Globulin Ratio 1.00 Urine Color (YELLOW) Urine Appearance (CLEAR) Urine pH (5.0-9.0) Ur Specific [place] (1.005-1.030) Urine Protein (NEGATIVE) Urine Glucose (UA) (NEGATIVE) Urine Ketones (NEGATIVE) Urine Occult Blood (NEGATIVE) Urine Nitrite (NEGATIVE) Urine Bilirubin (NEGATIVE) Urine Urobilinogen (0.2-1.0) mg/dL Ur Leukocyte Esterase (NEGATIVE) Urine RBC /HPF Urine WBC (0-5/HPF) /HPF Ur Epithelial Cells (NOT SEEN) /HPF Amorphous Sediment (NOT SEEN) /HPF Urine Bacteria (0-FEW/HPF) /HPF Urine Mucus (NOT SEEN) /LPF Urine Opiates Screen (NEGATIVE) Ur Oxycodone Screen (NEGATIVE) Urine Methadone Screen (NEGATIVE) Ur Barbiturates Screen (NEGATIVE) U Tricyclic Antidepress (NEGATIVE) Ur Phencyclidine Scrn (NEGATIVE) Ur Amphetamine Screen (NEGATIVE) U Methamphetamines Scrn (NEGATIVE) Urine MDMA Screen (NEGATIVE) U Benzodiazepines Scrn (NEGATIVE) Urine Cocaine Screen (NEGATIVE) U Marijuana (THC) Screen (NEGATIVE) Ethyl Alcohol < 5 mg/dL 09/14/18 09/14/18 09/14/18 Range/Units 16:49 16:49 18:47 WBC (5.0-10.0) 10^3/uL RBC (4.2-5.4) 10^6/uL Hgb (12.0-16.0) g/dL Hct (37.0-47.0) % MCV (80-100) fL MCH (27.0-34.0) pg MCHC (33.0-35.0) g/dL Plt Count (150-450) 10^3/uL Neut % (Auto) (42.2-75.2) % Lymph % (Auto) (20.5-50.1) % [place]cd[place] % (Auto) (2-8) % Eos % (Auto) (1.0-3.0) % Baso % (Auto) (0.0-1.0) % ESR 21 H (0-20) mm/hr PT 10.1 (9.0-12.0) SEC INR 1.0 (0.9-1.2) Sodium (135-145) mmol/L Potassium (3.6-5.0) mmol/L Chloride (101-111) mmol/L Carbon Dioxide (21.0-31.0) mmol/L Anion Gap BUN (7-18) mg/dL Creatinine (0.6-1.3) mg/dL Est Cr Clr Drug Dosing mL/min Estimated GFR (MDRD) BUN/Creatinine Ratio Glucose (74-105) mg/dL POC Glucose (70-105) mg/dl Calcium (8.4-10.2) mg/dl Total Bilirubin (0.2-1.0) mg/dL AST (10-42) IU/L ALT (10-60) IU/L Alkaline Phosphatase (42-121) IU/L Troponin I 0.05 H* (0.00-0.02) ng/ml C-Reactive Protein (0.0-1.3) mg/dL B-Natriuretic Peptide (0-100) pg/ml Total Protein (6.7-8.2) g/dl Albumin (3.2-5.5) g/dl Globulin Albumin/Globulin Ratio Urine Color (YELLOW) Urine Appearance (CLEAR) Urine pH (5.0-9.0) Ur Specific [place] (1.005-1.030) Urine Protein (NEGATIVE) Urine Glucose (UA) (NEGATIVE) Urine Ketones (NEGATIVE) Urine Occult Blood (NEGATIVE) Urine Nitrite (NEGATIVE) Urine Bilirubin (NEGATIVE) Urine Urobilinogen (0.2-1.0) mg/dL Ur Leukocyte Esterase (NEGATIVE) Urine RBC /HPF Urine WBC (0-5/HPF) /HPF Ur Epithelial Cells (NOT SEEN) /HPF Amorphous Sediment (NOT SEEN) /HPF Urine Bacteria (0-FEW/HPF) /HPF Urine Mucus (NOT SEEN) /LPF Urine Opiates Screen (NEGATIVE) Ur Oxycodone Screen (NEGATIVE) Urine Methadone Screen (NEGATIVE) Ur Barbiturates Screen (NEGATIVE) U Tricyclic Antidepress (NEGATIVE) Ur Phencyclidine Scrn (NEGATIVE) Ur Amphetamine Screen (NEGATIVE) U Methamphetamines Scrn (NEGATIVE) Urine MDMA Screen (NEGATIVE) U Benzodiazepines Scrn (NEGATIVE) Urine Cocaine Screen (NEGATIVE) U Marijuana (THC) Screen (NEGATIVE) Ethyl Alcohol mg/dL 09/14/18 09/14/18 09/15/18 Range/Units 19:30 19:30 00:20 WBC (5.0-10.0) 10^3/uL RBC (4.2-5.4) 10^6/uL Hgb (12.0-16.0) g/dL Hct (37.0-47.0) % MCV (80-100) fL MCH (27.0-34.0) pg MCHC (33.0-35.0) g/dL Plt Count (150-450) 10^3/uL Neut % (Auto) (42.2-75.2) % Lymph % (Auto) (20.5-50.1) % [place]ough % (Auto) (2-8) % Eos % (Auto) (1.0-3.0) % Baso % (Auto) (0.0-1.0) % ESR (0-20) mm/hr PT (9.0-12.0) SEC INR (0.9-1.2) Sodium (135-145) mmol/L Potassium (3.6-5.0) mmol/L Chloride (101-111) mmol/L Carbon Dioxide (21.0-31.0) mmol/L Anion Gap BUN (7-18) mg/dL Creatinine (0.6-1.3) mg/dL Est Cr Clr Drug Dosing mL/min Estimated GFR (MDRD) BUN/Creatinine Ratio Glucose (74-105) mg/dL POC Glucose (70-105) mg/dl Calcium (8.4-10.2) mg/dl Total Bilirubin (0.2-1.0) mg/dL AST (10-42) IU/L ALT (10-60) IU/L Alkaline Phosphatase (42-121) IU/L Troponin I 0.05 H* (0.00-0.02) ng/ml C-Reactive Protein (0.0-1.3) mg/dL B-Natriuretic Peptide (0-100) pg/ml Total Protein (6.7-8.2) g/dl Albumin (3.2-5.5) g/dl Globulin Albumin/Globulin Ratio Urine Color Yellow (YELLOW) Urine Appearance Slightly cloudy (CLEAR) Urine pH 5.0 (5.0-9.0) Ur Specific [place] 1.015 (1.005-1.030) Urine Protein 100 H (NEGATIVE) Urine Glucose (UA) Negative (NEGATIVE) Urine Ketones Negative (NEGATIVE) Urine Occult Blood Trace-lysed H (NEGATIVE) Urine Nitrite Negative (NEGATIVE) Urine Bilirubin Negative (NEGATIVE) Urine Urobilinogen 0.2 (0.2-1.0) mg/dL Ur Leukocyte Esterase Trace H (NEGATIVE) Urine RBC 0-5 /HPF Urine WBC 0-5 (0-5/HPF) /HPF Ur Epithelial Cells Rare (NOT SEEN) /HPF Amorphous Sediment Rare (NOT SEEN) /HPF Urine Bacteria Rare (0-FEW/HPF) /HPF Urine Mucus Rare (NOT SEEN) /LPF Urine Opiates Screen Negative (NEGATIVE) Ur Oxycodone Screen Negative (NEGATIVE) Urine Methadone Screen Negative (NEGATIVE) Ur Barbiturates Screen Negative (NEGATIVE) U Tricyclic Antidepress Negative (NEGATIVE) Ur Phencyclidine Scrn Negative (NEGATIVE) Ur Amphetamine Screen Negative (NEGATIVE) U Methamphetamines Scrn Negative (NEGATIVE) Urine MDMA Screen Negative (NEGATIVE) U Benzodiazepines Scrn Negative (NEGATIVE) Urine Cocaine Screen Negative (NEGATIVE) U Marijuana (THC) Screen Negative (NEGATIVE) Ethyl Alcohol mg/dL 05/30/19 05/30/19 Range/Units 08:13 11:14 WBC (5.0-10.0) 10^3/uL RBC (4.2-5.4) 10^6/uL Hgb (12.0-16.0) g/dL Hct (37.0-47.0) % MCV (80-100) fL MCH (27.0-34.0) pg MCHC (33.0-35.0) g/dL Plt Count (150-450) 10^3/uL Neut % (Auto) (42.2-75.2) % Lymph % (Auto) (20.5-50.1) % Mcdonough % (Auto) (2-8) % Eos % (Auto) (1.0-3.0) % Baso % (Auto) (0.0-1.0) % ESR (0-20) mm/hr PT (9.0-12.0) SEC INR (0.9-1.2) Sodium (135-145) mmol/L Potassium (3.6-5.0) mmol/L Chloride (101-111) mmol/L Carbon Dioxide (21.0-31.0) mmol/L Anion Gap BUN (7-18) mg/dL Creatinine (0.6-1.3) mg/dL Est Cr Clr Drug Dosing mL/min Estimated GFR (MDRD) BUN/Creatinine Ratio Glucose (74-105) mg/dL POC Glucose 94 142 H (70-105) mg/dl Calcium (8.4-10.2) mg/dl Total Bilirubin (0.2-1.0) mg/dL AST (10-42) IU/L ALT (10-60) IU/L Alkaline Phosphatase (42-121) IU/L Troponin I (0.00-0.02) ng/ml C-Reactive Protein (0.0-1.3) mg/dL B-Natriuretic Peptide (0-100) pg/ml Total Protein (6.7-8.2) g/dl Albumin (3.2-5.5) g/dl Globulin Albumin/Globulin Ratio Urine Color (YELLOW) Urine Appearance (CLEAR) Urine pH (5.0-9.0) Ur Specific [place] (1.005-1.030) Urine Protein (NEGATIVE) Urine Glucose (UA) (NEGATIVE) Urine Ketones (NEGATIVE) Urine Occult Blood (NEGATIVE) Urine Nitrite (NEGATIVE) Urine Bilirubin (NEGATIVE) Urine Urobilinogen (0.2-1.0) mg/dL Ur Leukocyte Esterase (NEGATIVE) Urine RBC /HPF Urine WBC (0-5/HPF) /HPF Ur Epithelial Cells (NOT SEEN) /HPF Amorphous Sediment (NOT SEEN) /HPF Urine Bacteria (0-FEW/HPF) /HPF Urine Mucus (NOT SEEN) /LPF Urine Opiates Screen (NEGATIVE) Ur Oxycodone Screen (NEGATIVE) Urine Methadone Screen (NEGATIVE) Ur Barbiturates Screen (NEGATIVE) U Tricyclic Antidepress (NEGATIVE) Ur Phencyclidine Scrn (NEGATIVE) Ur Amphetamine Screen (NEGATIVE) U Methamphetamines Scrn (NEGATIVE) Urine MDMA Screen (NEGATIVE) U Benzodiazepines Scrn (NEGATIVE) Urine Cocaine Screen (NEGATIVE) U Marijuana (THC) Screen (NEGATIVE) Ethyl Alcohol mg/dL Med Orders - Current: Current Medications Acetaminophen (Tylenol) 650 mg PO Q4H PRN PRN Reason: Pain (Mild 1-3)/fever Albuterol (Proventil Hfa) 0 gm INH Q6H PRN PRN Reason: Wheezing Albuterol (Proventil Neb Soln) 2.5 mg INH QID PRN PRN Reason: SHORTNESS OF BREATH Aspirin (Ecotrin) 325 mg PO DAILY [facility] Last Admin: 09/15/18 08:46 Dose: 325 mg Atorvastatin Calcium (Lipitor) 10 mg PO BEDTIME [facility] Last Admin: 09/14/18 21:54 Dose: 10 mg Carvedilol (Coreg) 12.5 mg PO BID [facility] Last Admin: 09/15/18 08:46 Dose: 12.5 mg Cyclobenzaprine HCl (Flexeril) 10 mg PO Q8HR PRN PRN Reason: Spasms Gabapentin (Neurontin) 300 mg PO TID [facility] Last Admin: 09/15/18 08:46 Dose: 300 mg Insulin Glargine (Lantus) 20 unit SUBCUT DAILY [facility] Last Admin: 09/15/18 08:45 Dose: 20 units Insulin Human Lispro (Humalog) 10 unit SUBCUT TIDMEALS [facility] Last Admin: 09/15/18 08:37 Dose: Not Given Levofloxacin (Levaquin) 750 mg PO Q24H [facility] Lidocaine (Lidoderm 5%) 0 mg TOP DAILY@0900 [facility] Miscellaneous Information (Remove Patch) 0 ea TRDERM BEDTIME [facility] Nitroglycerin (Nitrostat) 0.4 mg SL ASDIRECTED PRN PRN Reason: ANGINA Apixaban [Eliquis] 5 (Mg Tab Own Med) 0 mg PO BID [facility] Last Admin: 09/15/18 12:28 Dose: Not Given Formoterol [ Perforomist] 2 Ml Neb Own Med 0 ml INH BIDRT [facility] Omeprazole (Omeprazole) 20 mg PO ACBRK [facility] Last Admin: 09/15/18 06:12 Dose: 20 mg Ondansetron HCl (Zofran) 4 mg IVPUSH Q6H PRN PRN Reason: Nausea/Vomiting Last Admin: 09/15/18 11:07 Dose: 4 mg Oxycodone HCl (Oxycodone) 5 mg PO Q8HR [facility] Last Admin: 09/15/18 06:12 Dose: 5 mg Polyethylene Glycol (Miralax) 17 gm PO DAILY PRN PRN Reason: Constipation Potassium Chloride (Klor-Con 10) 20 meq PO BID [facility] Last Admin: 09/15/18 08:47 Dose: 20 meq Sodium Chloride (Saline Flush) 10 ml FLUSH ASDIRECTED PRN PRN Reason: Keep Vein Open Last Admin: 09/14/18 17:23 Dose: 10 ml Valsartan (Diovan) 160 mg PO DAILY [facility] Last Admin: 09/15/18 08:46 Dose: 160 mg Venlafaxine HCl (Effexor Xr) 37.5 mg PO WITHBREAKFAST [facility] Last Admin: 09/15/18 08:46 Dose: 37.5 mg Discontinued Medications Enoxaparin Sodium (Lovenox) 40 mg SUBCUT DAILY [facility] Levofloxacin/Dextrose 750 mg/ (Premix) 150 mls @ 100 mls/hr IV Q24H [facility] Last Admin: 09/14/18 19:58 Dose: 100 mls/hr Sodium Chloride (Normal Saline) 1,000 mls @ 100 mls/hr IV ASDIRECTED [facility] Last Admin: 09/14/18 19:58 Dose: 100 mls/hr Morphine Sulfate (Morphine) 2 mg IVPUSH Q2H PRN PRN Reason: Pain (severe 7-10) Last Admin: 09/15/18 11:06 Dose: 2 mg - Exam General: Alert, Oriented HEENT: Pupils Equal, Pupils Reactive, Mucous Membr. Moist/[place] Neck: Supple Lungs: Clear to Auscultation, Normal Respiratory Effort Cardiovascular: Regular Rate, Regular Rhythm GI/Abdominal Exam: Normal Bowel Sounds, Soft, Tender Extremities: Normal Inspection, No Pedal Edema, Other (Right shoulder tenderness ) Skin: Warm, Dry, Intact Neurological: No New Focal Deficit Psy/Mental Status: Alert, Normal Affect, Normal Mood - Problem List & Annotations (1) Abdominal pain SNOMED Code(s): 37084875 Code(s): R10.9 - UNSPECIFIED ABDOMINAL PAIN Status: Acute Priority: High Current Visit: No Onset Date: 10/23/15 Qualifiers: Abdominal location: left lower quadrant Qualified Code(s): R10.32 - Left lower quadrant pain - Problem List Review Problem List Initiated/Reviewed/Updated: Yes - My Orders Last 24 Hours: My Active Orders 09/15/18 12:00 levoFLOXacin [Levaquin] 750 mg PO Q24H 09/15/18 12:20 TROPONIN I [CHEM] Routine - Plan Plan:: Assessment/plan: #. Generalized weakness/aches and pains The cause of this is not obvious It could be due to acute viral illness. Has not had fever. Does have mild cough that is mostly unproductive Chest x-ray does not show an obvious infiltrate #. Acute bronchitis versus early pneumonia Again, chest x-ray does not show infiltrate White cell count is normal She does have mild cough and sometimes has been short of breath #. Diabetes mellitus type 2 On insulin therapy #. Atrial fibrillation/chronic anticoagulation Patient has been on apixaban #. Chronic pain syndrome #. History of aortic valve endocarditis Patient is status post previous aortic valve replacement #. Chronic kidney disease stage III Serum creatinine is at her baseline Plan: Admit patient to medical floor Repeat troponin x1, if unchanged or trending down, will pursue outpatient stress test. Monitor blood sugar before meals and at bedtime Discontinue IV fluids Hold diuretics for now Continue physical therapy Send sputum for Gram stain and cultures Empiric antibiotics for possible early pneumonia. Continue patient on levofloxacin, changed to oral
[2018-09-15] MEDS: FORMOTEROL INH SCH (18:14)
[2018-09-15] MEDS: atorvaSTATin 10 MG Tab PO SCH (22:33)
[2018-09-16] MEDS: Omeprazole 20 MG Cap.CR PO SCH (06:34)
[2018-09-16] MEDS: oxyCODONE 5 MG Tab PO SCH (06:34)
[2018-09-16] MEDS: FORMOTEROL INH SCH (07:36)
[2018-09-16 08:07] VITALS: BP 182/72; PULSE 79
[2018-09-16] MEDS: Carvedilol 6.25 MG Tab PO SCH (09:13)
[2018-09-16] MEDS: Potassium Chloride 10 MEQ Tab.ER PO SCH (09:13)
[2018-09-16] MEDS: Gabapentin 300 MG Cap PO SCH (09:14)
[2018-09-16] MEDS: Aspirin 325 MG Tab.EC PO SCH (09:14)
[2018-09-16] MEDS: Insulin Glarg,Human.Rec.Analog 100 Unit/ML SUBCUT SCH (09:16)
[2018-09-16] MEDS: APIXABAN 5 MG PO SCH (09:16)
[2018-09-16] MEDS: Insulin Lispro 100 Units/ML 3 ML Vial SUBCUT SCH ×2 (09:17→12:30)
[2018-09-16] MEDS: LIDOCAINE TOP SCH (09:18)
[2018-09-16] MEDS: Ondansetron 4 MG/2 ML SDV IVPUSH PRN (09:27)
[2018-09-16] MEDS: Sodium Chloride 0.9% 10 ML Syringe FLUSH PRN (09:28)
[2018-09-16] MEDS: Venlafaxine 37.5 MG Cap.ER PO SCH (09:30)
--- NOTE | 2018-09-16 11:18 | PCM.DCSUM1 ---
Discharge Summary - Hospital Course Free Text/Narrative:: Patient presented with generalized weakness and body aches. Was found to have infiltrate on CXR concerning for pneumonia. She was started on Levaquin IV. She was transitioned to oral and did well on room air. She reported nausea which responded to Zofran. She was discharged home to complete Levaquin for total fo 7 days of antibiotics. Diagnosis: Stroke: No - Discharge Data Discharge Date: 09/16/18 Discharge Disposition: Home, Self-Care 01 Condition: Stable - Discharge Diagnosis/Problem(s) (1) Abdominal pain SNOMED Code(s): 03733377 ICD Code: R10.9 - UNSPECIFIED ABDOMINAL PAIN Status: Acute Priority: High Current Visit: No Onset Date: 10/23/15 Qualifiers: Abdominal location: left lower quadrant Qualified Code(s): R10.32 - Left lower quadrant pain - Patient Summary/Data Consults: Consultations 09/14/18 18:15 PT Evaluation and Treatment [CONS] Routine - Discharge Plan *PRESCRIPTION DRUG MONITORING PROGRAM REVIEWED*: No *COPY OF PRESCRIPTION DRUG MONITORING REPORT IN PATIENT XOCHILT: Not Applicable Prescriptions/Med Rec: levoFLOXacin [Levaquin] 750 mg PO Q24H 5 Days tablet Ondansetron [Zofran ODT] 4 mg PO Q6H PRN #6 tab.dis PRN Reason: Nausea Home Medications: Home Meds Insulin Detemir [Levemir] 20 units SQ DAILY 11/16/13 [History] Venlafaxine HCl [Venlafaxine ER] 37.5 mg PO DAILY 11/16/13 [History] Omeprazole 20 mg PO DAILY 01/17/14 [History] Multivitamin [Multi-Vitamin Daily] 1 tab PO DAILY 03/29/14 [History] Potassium Chloride [K-Tab ER] 20 meq PO BID 06/25/15 [History] Formoterol [Perforomist] 2 ml INH BID 07/05/15 [History] atorvaSTATin [Lipitor] 10 mg PO BEDTIME 07/05/15 [History] Budesonide [Pulmicort] 0.5 mg NEB BID PRN 10/23/15 [History] Lidocaine [Lidocaine 5% Paraben-Free] 3 patch TOP Q12HR PRN 08/12/17 [History] Nitroglycerin [Nitrostat] 0.4 mg PO ASDIRECTED PRN 08/12/17 [History] Acetaminophen [Tylenol Extra Strength] 1,000 mg PO Q8HR PRN 06/28/18 [History] Apixaban [Eliquis] 5 mg PO BID 06/28/18 [History] Aspirin [Aspirin EC] 325 mg PO DAILY 06/28/18 [History] Carvedilol [Coreg] 12.5 mg PO BID 06/28/18 [History] Cyclobenzaprine [Flexeril] 10 mg PO Q8HR PRN 06/28/18 [History] Ibuprofen 800 mg PO Q8HR PRN 06/28/18 [History] Sennosides/Docusate Sodium [Senna-S] 1 tab PO BID PRN 06/28/18 [History] Sevelamer Carbonate [Renvela] 1,600 mg PO TIDMEALS 06/28/18 [History] Valsartan 160 mg PO DAILY 06/28/18 [History] metOLazone [Metolazone] 2.5 mg PO DAILY 06/28/18 [History] Polyethylene Glycol 3350 [MiraLAX] 17 gm PO DAILY PRN packet 07/15/18 [Rx] oxyCODONE 5 mg PO Q8HR tablet 07/15/18 [Rx] traMADol [Ultram] 50 mg PO Q6HR PRN tablet 07/15/18 [Rx] Albuterol Sulfate 3 ml INH QID PRN 09/15/18 [History] Albuterol Sulfate [Proair Hfa] 2 puff INH Q6H PRN 09/15/18 [History] Bumetanide 2 mg PO DAILY 09/15/18 [History] Gabapentin [Neurontin] 300 mg PO TID 09/15/18 [History] Insulin Aspart [NovoLOG] 0 - 16 unit SQ TIDMEALS 09/15/18 [History] NIFEdipine [Nifedipine ER] 30 mg PO DAILY 09/15/18 [History] Ondansetron [Zofran ODT] 4 mg PO Q6H PRN #6 tab.dis 09/16/18 [Rx] levoFLOXacin [Levaquin] 750 mg PO Q24H 5 Days tablet 09/16/18 [Rx] Oxygen Therapy Mode: Room Air Patient Handouts: Nausea, Adult, [id number], Levofloxacin tablets Referrals: Carla Morgan NP [Ordering Only Provider] - - Discharge Summary/Plan Comment DC Time >30 min.: Yes - General Info Date of Service: 09/16/18 Admission Dx/Problem (Free Text: Admission Diagnosis/Problem Admission Diagnosis/Problem Weakness Subjective Update: No acute events overnight. Reports that she is doing okay. States that she still has nausea but improved with Zofran. Otherwise no fevers, chills, chest pain, shortness of breath, vomiting, d/c, or any acute issues. - Review of Systems Systems Review Comment: As per subjective above. - Patient Data Vitals - Most Recent: Last Vital Signs Temp 98.5 F 09/16/18 08:00 Pulse 79 09/16/18 09:13 Resp 16 09/16/18 08:00 BP 182/72 H 09/16/18 09:14 Pulse Ox 98 09/16/18 08:00 Weight - Most Recent: 206 lb 2 oz I&O - Last 24 hours: Intake & Output 09/15/18 09/16/18 09/16/18 22:59 06:59 14:59 Intake Total 435 260 Balance 435 260 Lab Results - Last 24 hrs: Laboratory Results - last 24 hr 09/15/18 09/15/18 09/15/18 Range/Units 11:14 12:20 16:47 POC Glucose 142 H 151 H (70-105) mg/dl Troponin I 0.05 H* (0.00-0.02) ng/ml 09/15/18 09/16/18 Range/Units 20:49 07:53 POC Glucose 141 H 125 H (70-105) mg/dl Troponin I (0.00-0.02) ng/ml NA Results - Last 24 hrs: Microbiology 09/14/18 19:30 Urine Culture - Preliminary Urine, Voided MIXED POSITIVE [facility] DAY 1 Med Orders - Current: Current Medications Acetaminophen (Tylenol) 650 mg PO Q4H PRN PRN Reason: Pain (Mild 1-3)/fever Albuterol (Proventil Hfa) 0 gm INH Q6H PRN PRN Reason: Wheezing Albuterol (Proventil Neb Soln) 2.5 mg INH QID PRN PRN Reason: SHORTNESS OF BREATH Aspirin (Ecotrin) 325 mg PO DAILY [facility] Last Admin: 09/16/18 09:14 Dose: 325 mg Atorvastatin Calcium (Lipitor) 10 mg PO BEDTIME [facility] Last Admin: 09/15/18 22:33 Dose: 10 mg Carvedilol (Coreg) 12.5 mg PO BID [facility] Last Admin: 09/16/18 09:13 Dose: 12.5 mg Cyclobenzaprine HCl (Flexeril) 10 mg PO Q8HR PRN PRN Reason: Spasms Gabapentin (Neurontin) 300 mg PO TID [facility] Last Admin: 09/16/18 09:14 Dose: 300 mg Insulin Glargine (Lantus) 20 unit SUBCUT DAILY [facility] Last Admin: 09/16/18 09:16 Dose: 20 units Insulin Human Lispro (Humalog) 10 unit SUBCUT TIDMEALS [facility] Last Admin: 09/16/18 09:17 Dose: 10 units Levofloxacin (Levaquin) 750 mg PO Q24H [facility] Last Admin: 09/15/18 12:40 Dose: 750 mg Lidocaine (Lidoderm 5%) 0 mg TOP DAILY@0900 [facility] Last Admin: 09/16/18 09:18 Dose: 700 mg Miscellaneous Information (Remove Patch) 0 ea TRDERM BEDTIME [facility] Last Admin: 09/15/18 22:34 Dose: Not Given Nitroglycerin (Nitrostat) 0.4 mg SL ASDIRECTED PRN PRN Reason: ANGINA Apixaban [Eliquis] 5 (Mg Tab Own Med) 0 mg PO BID [facility] Last Admin: 09/16/18 09:16 Dose: 1 mg Formoterol [ Perforomist] 2 Ml Neb Own Med 0 ml INH BIDRT [facility] Last Admin: 09/16/18 07:36 Dose: 2 ml Omeprazole (Omeprazole) 20 mg PO ACBRK [facility] Last Admin: 09/16/18 06:34 Dose: 20 mg Ondansetron HCl (Zofran) 4 mg IVPUSH Q6H PRN PRN Reason: Nausea/Vomiting Last Admin: 09/16/18 09:27 Dose: 4 mg Oxycodone HCl (Oxycodone) 5 mg PO Q8HR [facility] Last Admin: 09/16/18 06:34 Dose: 5 mg Polyethylene Glycol (Miralax) 17 gm PO DAILY PRN PRN Reason: Constipation Potassium Chloride (Klor-Con 10) 20 meq PO BID [facility] Last Admin: 09/16/18 09:13 Dose: 20 meq Sodium Chloride (Saline Flush) 10 ml FLUSH ASDIRECTED PRN PRN Reason: Keep Vein Open Last Admin: 09/16/18 09:28 Dose: 10 ml Valsartan (Diovan) 160 mg PO DAILY [facility] Last Admin: 09/16/18 09:14 Dose: 160 mg Venlafaxine HCl (Effexor Xr) 37.5 mg PO WITHBREAKFAST [facility] Last Admin: 09/15/18 08:46 Dose: 37.5 mg Discontinued Medications Enoxaparin Sodium (Lovenox) 40 mg SUBCUT DAILY [facility] Levofloxacin/Dextrose 750 mg/ (Premix) 150 mls @ 100 mls/hr IV Q24H [facility] Last Admin: 09/14/18 19:58 Dose: 100 mls/hr Sodium Chloride (Normal Saline) 1,000 mls @ 100 mls/hr IV ASDIRECTED [facility] Last Admin: 09/14/18 19:58 Dose: 100 mls/hr Morphine Sulfate (Morphine) 2 mg IVPUSH Q2H PRN PRN Reason: Pain (severe 7-10) Last Admin: 09/15/18 11:06 Dose: 2 mg - Exam General: Reports: Alert, Oriented, Cooperative, No Acute Distress HEENT: Reports: Pupils Equal, Pupils Reactive, Mucous Membr. Moist/Iantha Neck: Reports: Supple Lungs: Reports: Clear to Auscultation, Normal Respiratory Effort Cardiovascular: Reports: Regular Rate, Regular Rhythm GI/Abdominal Exam: Normal Bowel Sounds, Soft, Non-Tender Extremities: Normal Inspection, No Pedal Edema, Arm Pain Skin: Reports: Warm, Dry, Intact Neurological: Reports: No New Focal Deficit, Sensation Intact Psy/Mental Status: Reports: Alert, Normal Affect
[2018-09-16] MEDS: Levofloxacin 250 MG Tab PO SCH (12:33)
--- NOTE | 2018-09-21 03:41 | EDM.PDOC ---
Scribed by Jodie Black 09/14/18 [id number] for Emily Marshall NP ED HPI GENERAL MEDICAL PROBLEM - General Chief Complaint: General Stated Complaint: AMBULNACE Time Seen by Provider: 09/14/18 17:01 Source of Information: Reports: Patient, EMS, EMS Notes Reviewed, RN, RN Notes Reviewed History Limitations: Reports: No Limitations - History of Present Illness INITIAL COMMENTS - FREE TEXT/NARRATIVE: Patient presents to ER per [facility] with complaint of dizziness, headache and weakness. Her generalized chronic pain is worse. She has had shortness of breath and nausea. No chest pain, vomiting, diarrhea, fever or chills. 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, IV/IO Back Pain Score (Numeric/FACES): 10 - Related Data Allergies Allergy/AdvReac Type Severity Reaction Status Date / Time vancomycin Allergy Rash Verified 09/14/18 18:45 Home Meds: Home Meds Insulin Detemir [Levemir] 20 units SQ DAILY 11/16/13 [History] Venlafaxine HCl [Venlafaxine ER] 37.5 mg PO DAILY 11/16/13 [History] Omeprazole 20 mg PO DAILY 01/17/14 [History] Multivitamin [Multi-Vitamin Daily] 1 tab PO DAILY 03/29/14 [History] Potassium Chloride [K-Tab ER] 20 meq PO BID 06/25/15 [History] Formoterol [Perforomist] 2 ml INH BID 07/05/15 [History] atorvaSTATin [Lipitor] 10 mg PO BEDTIME 07/05/15 [History] Budesonide [Pulmicort] 0.5 mg NEB BID PRN 10/23/15 [History] Lidocaine [Lidocaine 5% Paraben-Free] 3 patch TOP Q12HR PRN 08/12/17 [History] Nitroglycerin [Nitrostat] 0.4 mg PO ASDIRECTED PRN 08/12/17 [History] Acetaminophen [Tylenol Extra Strength] 1,000 mg PO Q8HR PRN 06/28/18 [History] Apixaban [Eliquis] 5 mg PO BID 06/28/18 [History] Aspirin [Aspirin EC] 325 mg PO DAILY 06/28/18 [History] Carvedilol [Coreg] 12.5 mg PO BID 06/28/18 [History] Cyclobenzaprine [Flexeril] 10 mg PO Q8HR PRN 06/28/18 [History] Ibuprofen 800 mg PO Q8HR PRN 06/28/18 [History] Sennosides/Docusate Sodium [Senna-S] 1 tab PO BID PRN 06/28/18 [History] Sevelamer Carbonate [Renvela] 1,600 mg PO TIDMEALS 06/28/18 [History] Valsartan 160 mg PO DAILY 06/28/18 [History] metOLazone [Metolazone] 2.5 mg PO DAILY 06/28/18 [History] Polyethylene Glycol 3350 [MiraLAX] 17 gm PO DAILY PRN packet 07/15/18 [Rx] oxyCODONE 5 mg PO Q8HR tablet 07/15/18 [Rx] traMADol [Ultram] 50 mg PO Q6HR PRN tablet 07/15/18 [Rx] Albuterol Sulfate 3 ml INH QID PRN 09/15/18 [History] Albuterol Sulfate [Proair Hfa] 2 puff INH Q6H PRN 09/15/18 [History] Bumetanide 2 mg PO DAILY 09/15/18 [History] Gabapentin [Neurontin] 300 mg PO TID 09/15/18 [History] Insulin Aspart [NovoLOG] 0 - 16 unit SQ TIDMEALS 09/15/18 [History] NIFEdipine [Nifedipine ER] 30 mg PO DAILY 09/15/18 [History] Ondansetron [Zofran ODT] 4 mg PO Q6H PRN #6 tab.dis 09/16/18 [Rx] levoFLOXacin [Levaquin] 750 mg PO Q24H 5 Days tablet 09/16/18 [Rx] Past Medical History HEENT History: Reports: Impaired Vision Other HEENT History: wears glasses Cardiovascular History: Reports: Afib, Bacterial Endocarditis, CAD, Heart Failure, Heart Murmur, Heart Valve Replacement, High Cholesterol, Hypertension, [place], Pacemaker, Other (See Below) Other Cardiovascular History: Aortic valve endocarditis; CAD; s/p AVR; paroxysmal atrial fibrillation; essential hypertension; cardiac pacemaker in situ; tachy-angelique syndrome - all per [facility] records Respiratory History: Reports: COPD, Intubation, Previous, Pneumonia, Recurrent, SOB, Other (See Below) Other Respiratory History: hx hypoxemia Gastrointestinal History: Reports: Cholelithiasis, GERD Genitourinary History: Reports: Chronic Renal Insuffiency, Diabetic Nephropathy , Other (See Below) Other Genitourinary History: STAGE III CKD MASS SPEC History: Reports: Other MASS SPEC 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 1 C/S Musculoskeletal History: Reports: Arthritis, Back Pain, Chronic, Fracture, Osteoarthritis Other Musculoskeletal History: arthritis to spine, carpal tunnel to wrists. HX OF PROXIMAL HUMERS FRACTURE RIGHT Neurological History: Reports: Neuropathy, Diabetic, TIA, Other (See Below) Other Neuro History: CHRONIC PAIN SYNDROME Psychiatric History: Reports: Depression Endocrine/Metabolic History: Reports: Diabetes, Type II, Obesity/BMI 30+ Hematologic History: Reports: Other (See Below) Other Hematologic History: hx bacteremia, hyperkalemia, hyponatremia Immunologic History: Reports: None Oncologic (Cancer) History: Reports: None Dermatologic History: Reports: Other (See Below) Other Dermatologic History: hx impetigo, and pressure sore to buttocks - Infectious Disease History Infectious Disease History: Reports: Chicken Pox, Measles, MRSA, TB - Past Surgical History HEENT Surgical History: Reports: Tonsillectomy Cardiovascular Surgical History: Reports: Coronary Artery Bypass, Pacer, Valve Replacement Other Cardiovascular Surgeries/Procedures: Pacemaker placed 11/10/2013 Respiratory Surgical History: Reports: Other (See Below) Other Respiratory Surgeries/Procedures: BRONCHOSCOPY GI Surgical History: Reports: Appendectomy, Cholecystectomy, Colonoscopy Female Surgical History: Reports: Hysterectomy Endocrine Surgical History: Reports: None Neurological Surgical History: Reports: None Musculoskeletal Surgical History: Reports: Amputation, Other (See Below) Other Musculoskeletal Surgeries/Procedures:: left 1/2 foot. Social & Family History - Family History Family Medical History: Noncontributory Cardiac: Reports: Hypertension Respiratory: Reports: COPD Endocrine/Metabolic: Reports: Diabetes, type II - Tobacco Use Smoking Status *Q: Current Every Day Smoker Years of Tobacco use: 40 Packs/Tins Daily: 0.5 Used Tobacco, but Quit: Yes Month/Year Tobacco Last Used: 05 - Caffeine Use Caffeine Use: Reports: Coffee - Recreational Drug Use Recreational Drug Use: No - Living Situation & Occupation Living situation: Reports: with Family Occupation: Disabled ED ROS GENERAL - Review of Systems Review Of Systems: ROS reveals no pertinent complaints other than HPI. ED EXAM, GENERAL - Physical Exam Exam: See Below Exam Limited By: No Limitations General Appearance: Other (disheveled) Eye Exam: Bilateral Eye: EOMI, Normal Inspection, PERRL Ears: Normal External Exam, Normal Canal, Hearing Grossly Normal, Normal TMs Nose: Normal Inspection, Normal Mucosa, No Blood Throat/Mouth: Normal Inspection, Normal Lips, Normal Teeth, Normal Gums, Normal Oropharynx, Normal Voice, No Airway Compromise Head: Atraumatic, Normocephalic Neck: Normal Inspection, Supple, Non-Tender, Full Range of Motion Respiratory/Chest: Crackles (throughout) Cardiovascular: Other (murmur regular) GI/Abdominal: Normal Bowel Sounds, Soft, Non-Tender, No Organomegaly, No Distention, No Abnormal Bruit, No Mass (Female) Exam: Deferred Rectal (Female) Exam: Deferred Back Exam: Normal Inspection, Full Range of Motion, NT Extremities: Other (generalized weakness) Neurological: Alert, Oriented, CN II-XII Intact, Normal Cognition, Normal Gait, Normal Reflexes, No Motor/Sensory Deficits Psychiatric: Anxious, Tearful Skin Exam: Warm, Dry, Intact, Normal Color, No Rash Lymphatic: No Adenopathy Course - Vital Signs Last Recorded V/S: Last Vital Signs Temp 98.5 F 09/16/18 08:00 Pulse 79 09/16/18 09:13 Resp 16 09/16/18 08:00 BP 182/72 H 09/16/18 09:14 Pulse Ox 98 09/16/18 08:00 - Orders/Labs/Meds Labs: Laboratory Tests 09/14/18 09/14/18 09/14/18 Range/Units 16:49 16:49 16:49 WBC 6.6 (5.0-10.0) 10^3/uL RBC 4.52 (4.2-5.4) 10^6/uL Hgb 13.3 D (12.0-16.0) g/dL Hct 40.0 (37.0-47.0) % MCV 88.5 D (80-100) fL MCH 29.4 (27.0-34.0) pg MCHC 33.3 (33.0-35.0) g/dL Plt Count 170 D (150-450) 10^3/uL Neut % (Auto) 67.4 (42.2-75.2) % Lymph % (Auto) 22.3 (20.5-50.1) % Laurens % (Auto) 8.6 H (2-8) % Eos % (Auto) 1.2 (1.0-3.0) % Baso % (Auto) 0.5 (0.0-1.0) % ESR (0-20) mm/hr PT (9.0-12.0) SEC INR (0.9-1.2) Sodium 135 (135-145) mmol/L Potassium 3.6 (3.6-5.0) mmol/L Chloride 100 L (101-111) mmol/L Carbon Dioxide 23.0 (21.0-31.0) mmol/L Anion Gap 15.6 BUN 39 H D (7-18) mg/dL Creatinine 1.2 (0.6-1.3) mg/dL Est Cr Clr Drug Dosing 51.45 mL/min Estimated GFR (MDRD) 46 BUN/Creatinine Ratio 32.50 Glucose 149 H (74-105) mg/dL Calcium 9.1 (8.4-10.2) mg/dl Total Bilirubin 0.6 (0.2-1.0) mg/dL AST 37 (10-42) IU/L ALT 32 (10-60) IU/L Alkaline Phosphatase 110 (42-121) IU/L Troponin I 0.05 H* (0.00-0.02) ng/ml C-Reactive Protein 0.6 (0.0-1.3) mg/dL B-Natriuretic Peptide 546 H (0-100) pg/ml Total Protein 7.8 (6.7-8.2) g/dl Albumin 3.9 (3.2-5.5) g/dl Globulin 3.9 Albumin/Globulin Ratio 1.00 Ethyl Alcohol < 5 mg/dL 09/14/18 09/14/18 Range/Units 16:49 16:49 WBC (5.0-10.0) 10^3/uL RBC (4.2-5.4) 10^6/uL Hgb (12.0-16.0) g/dL Hct (37.0-47.0) % MCV (80-100) fL MCH (27.0-34.0) pg MCHC (33.0-35.0) g/dL Plt Count (150-450) 10^3/uL Neut % (Auto) (42.2-75.2) % Lymph % (Auto) (20.5-50.1) % Laurens % (Auto) (2-8) % Eos % (Auto) (1.0-3.0) % Baso % (Auto) (0.0-1.0) % ESR 21 H (0-20) mm/hr PT 10.1 (9.0-12.0) SEC INR 1.0 (0.9-1.2) Sodium (135-145) mmol/L Potassium (3.6-5.0) mmol/L Chloride (101-111) mmol/L Carbon Dioxide (21.0-31.0) mmol/L Anion Gap BUN (7-18) mg/dL Creatinine (0.6-1.3) mg/dL Est Cr Clr Drug Dosing mL/min Estimated GFR (MDRD) BUN/Creatinine Ratio Glucose (74-105) mg/dL Calcium (8.4-10.2) mg/dl Total Bilirubin (0.2-1.0) mg/dL AST (10-42) IU/L ALT (10-60) IU/L Alkaline Phosphatase (42-121) IU/L Troponin I (0.00-0.02) ng/ml C-Reactive Protein (0.0-1.3) mg/dL B-Natriuretic Peptide (0-100) pg/ml Total Protein (6.7-8.2) g/dl Albumin (3.2-5.5) g/dl Globulin Albumin/Globulin Ratio Ethyl Alcohol mg/dL Meds: Medications Discontinued Medications Generic Name Dose Route Start Last Admin Trade Name Freq PRN Reason Stop Dose Admin Acetaminophen 650 mg 09/14/18 18:15 Tylenol PO Q4H PRN Pain (Mild 1-3)/fever Albuterol 0 gm 09/14/18 18:21 Proventil Hfa INH Q6H PRN Wheezing Albuterol 2.5 mg 09/14/18 18:21 Proventil Neb Soln INH QID PRN SHORTNESS OF BREATH Aspirin 325 mg 09/15/18 09:00 09/16/18 09:14 Ecotrin PO 325 mg DAILY MARGARITA Administration Atorvastatin Calcium 10 mg 09/14/18 21:00 09/15/18 22:33 Lipitor PO 10 mg BEDTIME MARGARITA Administration Carvedilol 12.5 mg 09/14/18 21:00 09/16/18 09:13 Coreg PO 12.5 mg BID MARGARITA Administration Cyclobenzaprine HCl 10 mg 09/14/18 18:21 Flexeril PO Q8HR PRN Spasms Enoxaparin Sodium 40 mg 09/14/18 18:30 Lovenox SUBCUT DAILY [facility] Gabapentin 300 mg 09/14/18 21:00 09/16/18 09:14 Neurontin PO 300 mg TID MARGARITA Administration Levofloxacin/Dextrose 750 mg/ 150 mls @ 100 mls/hr 09/14/18 18:15 09/14/18 19 :58 Premix IV 100 mls/hr Q24H MARGARITA Administration Sodium Chloride 1,000 mls @ 100 mls/hr 09/14/18 18:15 09/14/18 19:58 Normal Saline IV 100 mls/hr ASDIRECTED MARGARITA Administration Insulin Glargine 20 unit 09/14/18 18:30 09/16/18 09:16 Lantus SUBCUT 20 units DAILY [facility] Administration Insulin Human Lispro 10 unit 09/15/18 08:00 09/16/18 12:30 Humalog SUBCUT 10 units TIDMEALS MARGARITA Administration Levofloxacin 750 mg 09/15/18 12:00 09/16/18 12:33 Levaquin PO 750 mg Q24H MARGARITA Administration Lidocaine 0 mg 09/15/18 12:00 09/16/18 09:18 Lidoderm 5% TOP 700 mg DAILY@0900 MARGARITA Administration Miscellaneous Information 0 ea 09/15/18 21:00 09/15/18 22:34 Remove Patch TRDERM Not Given BEDTIME [facility] Morphine Sulfate 2 mg 09/14/18 18:15 09/15/18 11:06 Morphine IVPUSH 2 mg Q2H PRN Administration Pain (severe 7-10) Nitroglycerin 0.4 mg 09/14/18 18:21 Nitrostat SL ASDIRECTED PRN ANGINA Apixaban [Eliquis] 5 0 mg 09/14/18 21:00 09/16/18 09:16 Mg Tab Own Med PO 1 mg BID MARGARITA Administration Formoterol [ 0 ml 09/15/18 18:00 09/16/18 07:36 Perforomist] 2 Ml INH 2 ml Neb Own Med BIDRT MARGARITA Administration Omeprazole 20 mg 09/15/18 06:00 09/16/18 06:34 Omeprazole PO 20 mg ACBRK MARGARITA Administration Ondansetron HCl 4 mg 09/14/18 18:15 09/16/18 09:27 Zofran IVPUSH 4 mg Q6H PRN Administration Nausea/Vomiting Oxycodone HCl 5 mg 09/14/18 22:00 09/16/18 06:34 Oxycodone PO 5 mg Q8HR MARGARITA Administration Polyethylene Glycol 17 gm 09/14/18 18:21 Miralax PO DAILY PRN Constipation Potassium Chloride 20 meq 09/14/18 21:00 09/16/18 09:13 Klor-Con 10 PO 20 meq BID MARGARITA Administration Sodium Chloride 10 ml 09/14/18 16:46 09/16/18 09:28 Saline Flush FLUSH 10 ml ASDIRECTED PRN Administration Keep Vein Open Valsartan 160 mg 09/15/18 09:00 09/16/18 09:14 Diovan PO 160 mg DAILY MRAGARITA Administration Venlafaxine HCl 37.5 mg 09/15/18 08:00 09/16/18 09:30 Effexor Xr PO 37.5 mg WITHBREAKFAST MARGARITA Administration - Radiology Interpretation Free Text/Narrative:: Chest xray: FINDINGS: Tubes, catheters and devices: A pacemaker device is present, and its leads are in appropriate position. Lungs: Nonspecific bibasilar consolidation is present, consistent with atelectasis, edema, or pneumonia. Pleural space: Small right pleural effusion. No pneumothorax. Heart/Mediastinum: The heart demonstrates mild diffuse enlargement. Diaphragm: There is nonspecific elevation of the right hemidiaphragm. Bones/joints: There are sternal wires consistent with previous sternotomy incision. Chronic changes in the proximal right humerus noted. IMPRESSION: 1. The heart demonstrates mild diffuse enlargement. 2. Nonspecific bibasilar consolidation is present, consistent with atelectasis, edema, or pneumonia. See rad report - Re-Assessments/Exams Free Text/Narrative Re-Assessment/Exam: 09/21/18 03:[address] Martinez who agreed to accept the patient for observation Departure - Departure Time of Disposition: 19:00 Disposition: Refer to Observation Condition: Fair Clinical Impression: Pneumonia Qualifiers: Pneumonia type: due to unspecified organism Laterality: right Lung location: lower lobe of lung Qualified Code(s): J18.9 - Pneumonia, unspecified organism - Discharge Information *PRESCRIPTION DRUG MONITORING PROGRAM REVIEWED*: No *COPY OF PRESCRIPTION DRUG MONITORING REPORT IN PATIENT XOCHILT: No I have read and agree with the documentation that has been completed regarding this visit. By signing this record, I attest that the documentation was completed in my physical presence and is an accurate record of the encounter.
== END 2018-09-16 13:30 | disposition home or self-care (01) ==
LOC: DL.ED 16:38 → DL.MS 18:15 → EEVIPCON 18:15
PROVIDERS: ADMIT Hospitalist; ATTEND Internal Medicine
DX: R53.1 Weakness (principal); R10.32 Left lower quadrant pain; R11.0 Nausea; I13.0 Hypertensive heart and chronic kidney disease with heart failure and stage 1 through stage 4 chronic kidney disease, or unspecified chronic kidney disease; E11.22 Type 2 diabetes mellitus with diabetic chronic kidney disease; I50.9 Heart failure, unspecified; N18.3 Chronic kidney disease, stage 3 (moderate); I25.10 Atherosclerotic heart disease of native coronary artery without angina pectoris; I48.0 Paroxysmal atrial fibrillation; I25.2 Old myocardial infarction; E11.21 Type 2 diabetes mellitus with diabetic nephropathy; J44.9 Chronic obstructive pulmonary disease, unspecified; F17.200 Nicotine dependence, unspecified, uncomplicated; G89.4 Chronic pain syndrome; Z88.1 Allergy status to other antibiotic agents; Z95.0 Presence of cardiac pacemaker; Z95.2 Presence of prosthetic heart valve; Z79.01 Long term (current) use of anticoagulants; Z79.4 Long term (current) use of insulin; Z79.82 Long term (current) use of aspirin; Z79.899 Other long term (current) drug therapy
CPT/HCPCS: 36415; 71045; 80053; 80305; 81001; 82962; 83880; 84484; 85025; 85610; 85651; 86140; 87086; 93005; 94640; 96361; 96365; 96375; 96376; 97161; 99217; 99218; 99225; 99284; 99285; A4217; A9270; G0378; G0480; J1815; J1956; J2270; J2405; J7030

== ENCOUNTER 2019-02-07 18:31 | Emergency (ER) | payer MEDICARE, MEDICAID ==
[2019-02-07] MEDS: traMADol 50 MG Tab PO ONE (20:28)
[2019-02-07 20:55] LABS: ANION GAP 16.3
--- NOTE | 2019-02-07 22:40 | EDM.PDOC ---
ED HPI GENERAL MEDICAL PROBLEM - General Chief Complaint: General Stated Complaint: PAIN THROUGHOUT BODY Time Seen by Provider: 02/07/19 20:25 Source of Information: Reports: Patient, Family, RN, RN Notes Reviewed History Limitations: Reports: No Limitations - History of Present Illness INITIAL COMMENTS - FREE TEXT/NARRATIVE: Swati is a 63 year old female whoc present to the ER generalized pain. States her pain has been getting worst in the past one week and she was scheduled to see her PCP but she forgot about the appointment. She states she had has multiple surgeries (right shoulder, back and abdomen) and she was taken off her pain medications. She states she has Neurontin 600 mg TID daily and it does not help.She rates pain as a 10/10 and and described it as throbbing. She denies any recent injury, fall or trauma. Patient has a significant PMH. She also has a gangrene second right toe. She states she does not know her toe was black. Denies fever or chills at home. Generalized Pain Score (Numeric/FACES): 10 - Related Data Allergies Allergy/AdvReac Type Severity Reaction Status Date / Time vancomycin Allergy Rash Verified 09/14/18 18:45 Home Meds: Home Meds Insulin Detemir [Levemir] 20 units SQ DAILY 11/16/13 [History] Venlafaxine HCl [Venlafaxine ER] 37.5 mg PO DAILY 11/16/13 [History] Omeprazole 20 mg PO DAILY 01/17/14 [History] Multivitamin [Multi-Vitamin Daily] 1 tab PO DAILY 03/29/14 [History] Potassium Chloride [K-Tab ER] 20 meq PO BID 06/25/15 [History] Formoterol [Perforomist] 2 ml INH BID 07/05/15 [History] atorvaSTATin [Lipitor] 10 mg PO BEDTIME 07/05/15 [History] Budesonide [Pulmicort] 0.5 mg NEB BID PRN 10/23/15 [History] Lidocaine [Lidocaine 5% Paraben-Free] 3 patch TOP Q12HR PRN 08/12/17 [History] Nitroglycerin [Nitrostat] 0.4 mg PO ASDIRECTED PRN 08/12/17 [History] Acetaminophen [Tylenol Extra Strength] 1,000 mg PO Q8HR PRN 06/28/18 [History] Apixaban [Eliquis] 5 mg PO BID 06/28/18 [History] Aspirin [Aspirin EC] 325 mg PO DAILY 06/28/18 [History] Carvedilol [Coreg] 12.5 mg PO BID 06/28/18 [History] Cyclobenzaprine [Flexeril] 10 mg PO Q8HR PRN 06/28/18 [History] Ibuprofen 800 mg PO Q8HR PRN 06/28/18 [History] Sennosides/Docusate Sodium [Senna-S] 1 tab PO BID PRN 06/28/18 [History] Sevelamer Carbonate [Renvela] 1,600 mg PO TIDMEALS 06/28/18 [History] Valsartan 160 mg PO DAILY 06/28/18 [History] metOLazone [Metolazone] 2.5 mg PO DAILY 06/28/18 [History] Polyethylene Glycol 3350 [MiraLAX] 17 gm PO DAILY PRN packet 07/15/18 [Rx] oxyCODONE 5 mg PO Q8HR tablet 07/15/18 [Rx] traMADol [Ultram] 50 mg PO Q6HR PRN tablet 07/15/18 [Rx] Albuterol Sulfate 3 ml INH QID PRN 09/15/18 [History] Albuterol Sulfate [Proair Hfa] 2 puff INH Q6H PRN 09/15/18 [History] Bumetanide 2 mg PO DAILY 09/15/18 [History] Gabapentin [Neurontin] 300 mg PO TID 09/15/18 [History] Insulin Aspart [NovoLOG] 0 - 16 unit SQ TIDMEALS 09/15/18 [History] NIFEdipine [Nifedipine ER] 30 mg PO DAILY 09/15/18 [History] Ondansetron [Zofran ODT] 4 mg PO Q6H PRN #6 tab.dis 09/16/18 [Rx] levoFLOXacin [Levaquin] 750 mg PO Q24H 5 Days tablet 09/16/18 [Rx] Past Medical History HEENT History: Reports: Impaired Vision Other HEENT History: wears glasses Cardiovascular History: Reports: Afib, Bacterial Endocarditis, CAD, Heart Failure, Heart Murmur, Heart Valve Replacement, High Cholesterol, Hypertension, [place], Pacemaker, Other (See Below) Other Cardiovascular History: Aortic valve endocarditis; CAD; s/p AVR; paroxysmal atrial fibrillation; essential hypertension; cardiac pacemaker in situ; tachy-angelique syndrome - all per [facility] Respiratory History: Reports: COPD, Intubation, Previous, Pneumonia, Recurrent, SOB, Other (See Below) Other Respiratory History: hx hypoxemia Gastrointestinal History: Reports: Cholelithiasis, GERD Genitourinary History: Reports: Chronic Renal Insuffiency, Diabetic Nephropathy , Other (See Below) Other Genitourinary History: STAGE III CKD 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 1 C/S Musculoskeletal History: Reports: Arthritis, Back Pain, Chronic, Fracture, Osteoarthritis Other Musculoskeletal History: arthritis to spine, carpal tunnel to wrists. HX OF PROXIMAL HUMERS FRACTURE RIGHT Neurological History: Reports: Neuropathy, Diabetic, TIA, Other (See Below) Other Neuro History: CHRONIC PAIN SYNDROME Psychiatric History: Reports: Depression Endocrine/Metabolic History: Reports: Diabetes, Type II, Obesity/BMI 30+ Hematologic History: Reports: Other (See Below) Other Hematologic History: hx bacteremia, hyperkalemia, hyponatremia Immunologic History: Reports: None Oncologic (Cancer) History: Reports: None Dermatologic History: Reports: Other (See Below) Other Dermatologic History: hx impetigo, and pressure sore to buttocks - Infectious Disease History Infectious Disease History: Reports: Chicken Pox, Measles, MRSA, TB - Past Surgical History HEENT Surgical History: Reports: Tonsillectomy Cardiovascular Surgical History: Reports: Coronary Artery Bypass, Pacer, Valve Replacement Other Cardiovascular Surgeries/Procedures: Pacemaker placed 11/10/2013 Respiratory Surgical History: Reports: Other (See Below) Other Respiratory Surgeries/Procedures: BRONCHOSCOPY GI Surgical History: Reports: Appendectomy, Cholecystectomy, Colonoscopy Female Surgical History: Reports: Hysterectomy Endocrine Surgical History: Reports: None Neurological Surgical History: Reports: None Musculoskeletal Surgical History: Reports: Amputation, Other (See Below) Other Musculoskeletal Surgeries/Procedures:: left 1/2 foot. Social & Family History - Family History Family Medical History: Noncontributory Cardiac: Reports: Hypertension Respiratory: Reports: COPD Endocrine/Metabolic: Reports: Diabetes, type II - Tobacco Use Smoking Status *Q: Current Every Day Smoker Years of Tobacco use: 30 Packs/Tins Daily: 0.5 - Caffeine Use Caffeine Use: Reports: Tea Caffeine Use Comment: "a lot" - Recreational Drug Use Recreational Drug Use: No - Living Situation & Occupation Living situation: Reports: with Family Occupation: Disabled ED ROS GENERAL - Review of Systems Review Of Systems: ROS reveals no pertinent complaints other than HPI. Constitutional: Reports: Malaise ED EXAM, GENERAL - Physical Exam Exam: See Below Exam Limited By: No Limitations General Appearance: Alert, WD/WN, No Apparent Distress Eye Exam: Bilateral Eye: Normal Inspection, PERRL Ears: Normal External Exam, Normal Canal, Hearing Grossly Normal, Normal TMs Nose: Normal Inspection, Normal Mucosa, No Blood Throat/Mouth: Normal Inspection, Normal Lips, Normal Teeth, Normal Gums, Normal Oropharynx, Normal Voice, No Airway Compromise Head: Atraumatic, Normocephalic Neck: Normal Inspection, Supple, Non-Tender, Full Range of Motion Respiratory/Chest: No Respiratory Distress, Lungs Clear, Normal Breath Sounds, No Accessory Muscle Use, Chest Non-Tender Cardiovascular: Normal Peripheral Pulses, Regular Rate, Rhythm, No Edema, No Gallop, No JVD, No Murmur, No Rub Peripheral Pulses: 3+: Posterior Tibial (L), Posterior Tibial (R), Dorsalis Pedis (L), Dorsalis Pedis (R) GI/Abdominal: Normal Bowel Sounds, Soft, Non-Tender, No Organomegaly, No Distention, No Abnormal Bruit, No Mass Extremities: No Pedal Edema, Other (Eschar tissue noted on the right second with mild erytherma. ) Neurological: Alert, Oriented, CN II-XII Intact, Normal Cognition, Normal Gait, Normal Reflexes, No Motor/Sensory Deficits Psychiatric: Anxious, Tearful Skin Exam: Warm, Dry, Intact, Normal Color, No Rash Lymphatic: No Adenopathy Course - Vital Signs Last Recorded V/S: Last Vital Signs Temp 97.0 F 02/08/19 07:43 Pulse 66 02/08/19 07:43 Resp 20 02/08/19 07:43 BP 124/49 L 02/08/19 07:43 Pulse Ox 82 L 02/08/19 07:43 - Orders/Labs/Meds Labs: Laboratory Tests 02/07/19 02/07/19 02/07/19 Range/Units 20:29 20:29 20:41 WBC 6.3 (5.0-10.0) 10^3/uL RBC 3.47 L (4.2-5.4) 10^6/uL Hgb 10.7 L D (12.0-16.0) g/dL Hct 31.7 L (37.0-47.0) % MCV 91.4 (80-100) fL MCH 30.8 (27.0-34.0) pg MCHC 33.8 (33.0-35.0) g/dL Plt Count 140 L (150-450) 10^3/uL Neut % (Auto) 89.0 H (42.2-75.2) % Lymph % (Auto) 6.2 L (20.5-50.1) % [place] % (Auto) 4.6 (2-8) % Eos % (Auto) 0.0 L (1.0-3.0) % Baso % (Auto) 0.2 (0.0-1.0) % Sodium 127 L (135-145) mmol/L Potassium 3.3 L (3.6-5.0) mmol/L Chloride 92 L (101-111) mmol/L Carbon Dioxide 22.0 (21.0-31.0) mmol/L Anion Gap 16.3 BUN 33 H (7-18) mg/dL Creatinine 1.7 H (0.6-1.3) mg/dL Est Cr Clr Drug Dosing 37.58 mL/min Estimated GFR (MDRD) 31 Glucose 312 H (74-105) mg/dL Calcium 8.4 (8.4-10.2) mg/dl Urine Color Yellow (YELLOW) Urine Appearance Slightly cloudy (CLEAR) Urine pH 5.5 (5.0-9.0) Ur Specific [place] 1.020 (1.005-1.030) Urine Protein >=300 H (NEGATIVE) Urine Glucose (UA) Negative (NEGATIVE) Urine Ketones Negative (NEGATIVE) Urine Occult Blood Small H (NEGATIVE) Urine Nitrite Negative (NEGATIVE) Urine Bilirubin Negative (NEGATIVE) Urine Urobilinogen 0.2 (0.2-1.0) mg/dL Ur Leukocyte Esterase Negative (NEGATIVE) Urine RBC 10-20 H /HPF Urine WBC 0-5 (0-5/HPF) /HPF Ur Epithelial Cells Rare (NOT SEEN) /HPF Amorphous Sediment Few (NOT SEEN) /HPF Urine Bacteria Rare (0-FEW/HPF) /HPF Urine Mucus Few H (NOT SEEN) /LPF Urine Opiates Screen (NEGATIVE) Ur Oxycodone Screen (NEGATIVE) Urine Methadone Screen (NEGATIVE) Ur Barbiturates Screen (NEGATIVE) U Tricyclic Antidepress (NEGATIVE) Ur Phencyclidine Scrn (NEGATIVE) Ur Amphetamine Screen (NEGATIVE) U Methamphetamines Scrn (NEGATIVE) Urine MDMA Screen (NEGATIVE) U Benzodiazepines Scrn (NEGATIVE) Urine Cocaine Screen (NEGATIVE) U Marijuana (THC) Screen (NEGATIVE) 02/07/19 Range/Units 20:42 WBC (5.0-10.0) 10^3/uL RBC (4.2-5.4) 10^6/uL Hgb (12.0-16.0) g/dL Hct (37.0-47.0) % MCV (80-100) fL MCH (27.0-34.0) pg MCHC (33.0-35.0) g/dL Plt Count (150-450) 10^3/uL Neut % (Auto) (42.2-75.2) % Lymph % (Auto) (20.5-50.1) % [place] % (Auto) (2-8) % Eos % (Auto) (1.0-3.0) % Baso % (Auto) (0.0-1.0) % Sodium (135-145) mmol/L Potassium (3.6-5.0) mmol/L Chloride (101-111) mmol/L Carbon Dioxide (21.0-31.0) mmol/L Anion Gap BUN (7-18) mg/dL Creatinine (0.6-1.3) mg/dL Est Cr Clr Drug Dosing mL/min Estimated GFR (MDRD) Glucose (74-105) mg/dL Calcium (8.4-10.2) mg/dl Urine Color (YELLOW) Urine Appearance (CLEAR) Urine pH (5.0-9.0) Ur Specific [place] (1.005-1.030) Urine Protein (NEGATIVE) Urine Glucose (UA) (NEGATIVE) Urine Ketones (NEGATIVE) Urine Occult Blood (NEGATIVE) Urine Nitrite (NEGATIVE) Urine Bilirubin (NEGATIVE) Urine Urobilinogen (0.2-1.0) mg/dL Ur Leukocyte Esterase (NEGATIVE) Urine RBC /HPF Urine WBC (0-5/HPF) /HPF Ur Epithelial Cells (NOT SEEN) /HPF Amorphous Sediment (NOT SEEN) /HPF Urine Bacteria (0-FEW/HPF) /HPF Urine Mucus (NOT SEEN) /LPF Urine Opiates Screen Negative (NEGATIVE) Ur Oxycodone Screen Negative (NEGATIVE) Urine Methadone Screen Negative (NEGATIVE) Ur Barbiturates Screen Negative (NEGATIVE) U Tricyclic Antidepress Negative (NEGATIVE) Ur Phencyclidine Scrn Negative (NEGATIVE) Ur Amphetamine Screen Negative (NEGATIVE) U Methamphetamines Scrn Negative (NEGATIVE) Urine MDMA Screen Negative (NEGATIVE) U Benzodiazepines Scrn Negative (NEGATIVE) Urine Cocaine Screen Negative (NEGATIVE) U Marijuana (THC) Screen Negative (NEGATIVE) Meds: Medications Discontinued Medications Generic Name Dose Route Start Last Admin Trade Name Freq PRN Reason Stop Dose Admin Piperacillin Sod/Tazobactam 100 mls @ 200 mls/hr 02/07/19 22:16 02/07/19 23: 11 Sod 3.375 gm/ Sodium Chloride IV 02/07/19 22:45 200 mls/hr ONETIME ONE Administration Tramadol HCl 100 mg 02/07/19 20:21 02/07/19 20:28 Ultram PO 02/07/19 20:22 100 mg ONETIME ONE Administration Departure - Departure Time of Disposition: 07:45 Disposition: DC/Tfer to Acute Hospital 02 Condition: Fair Clinical Impression: Hypokalemia, Hyponatremia Diabetic ulcer of toe Qualifiers: Diabetes mellitus type: type 2 Laterality: right Non-pressure ulcer stage: unspecified non-pressure ulcer stage Qualified Code(s): E11.621 - Type 2 diabetes mellitus with foot ulcer; L97.519 - Non-pressure chronic ulcer of other part of right foot with unspecified severity Anemia Qualifiers: Anemia type: unspecified type Qualified Code(s): D64.9 - Anemia, unspecified - Discharge Information Referrals: PCP,Unobtain [Primary Care Provider] - Forms: Interfacility Transfer EMTALA Care Plan Goals: Labs results reviewed with patient. Reviewed case with Dr. Doherty at [facility] who accepted patient for transfer. Zosyn 3.375 mg administered. 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
[2019-02-07] MEDS: Piperacillin/Tazobactam 3.375 GM in Sodium Chloride 0.9% 100 ML IV ONE (23:11)
[2019-02-08 07:45] VITALS: BP 124/49; PULSE 66
== END 2019-02-08 07:42 ==
LOC: DL.ED 18:31
DX: E11.621 Type 2 diabetes mellitus with foot ulcer (principal); L97.519 Non-pressure chronic ulcer of other part of right foot with unspecified severity; E87.6 Hypokalemia; E87.1 Hypo-osmolality and hyponatremia; D64.9 Anemia, unspecified; E11.22 Type 2 diabetes mellitus with diabetic chronic kidney disease; I13.0 Hypertensive heart and chronic kidney disease with heart failure and stage 1 through stage 4 chronic kidney disease, or unspecified chronic kidney disease; N18.3 Chronic kidney disease, stage 3 (moderate); I50.9 Heart failure, unspecified; F17.210 Nicotine dependence, cigarettes, uncomplicated; E66.9 Obesity, unspecified; K21.9 Gastro-esophageal reflux disease without esophagitis; E78.00 Pure hypercholesterolemia, unspecified; J44.9 Chronic obstructive pulmonary disease, unspecified; I25.2 Old myocardial infarction; Z79.899 Other long term (current) drug therapy; Z79.82 Long term (current) use of aspirin; Z79.4 Long term (current) use of insulin; Z79.51 Long term (current) use of inhaled steroids; Z88.1 Allergy status to other antibiotic agents; Z68.30 Body mass index [BMI] 30.0-30.9, adult
CPT/HCPCS: 36415; 80048; 80305-QW; 81001; 85025; 96365; 99283-25; A9270-GY; J2543; J7050

== ENCOUNTER 2019-02-22 00:08 | Emergency (ER) | payer MEDICARE, MEDICAID ==
[2019-02-22 00:52] VITALS: BP 146/79; PULSE 68
[2019-02-22] MEDS ORDERED: DAPTOmycin 600 MG in Sodium Chloride 0.9% 50 ML IV ONE (01:24)
[2019-02-22 01:45] LABS: ANION GAP 11.8; CHLORIDE,CL 103 mmol/L (101-111); SODIUM,NA 136 mmol/L (135-145)
--- NOTE | 2019-02-22 02:36 | EDM.PDOC ---
ED HPI GENERAL MEDICAL PROBLEM - General Chief Complaint: Lower Extremity Injury/Pain Stated Complaint: PORT IS BLOODY AND AMPUTATED TOE AREA HURTS Time Seen by Provider: 02/22/19 00:20 Source of Information: Reports: Patient, RN History Limitations: Reports: No Limitations - History of Present Illness INITIAL COMMENTS - FREE TEXT/NARRATIVE: ED per w/c with c/o pain to PICC site. Recently placed 2 days ago and has been painful since. Bleeding under dressing with some increase since start of line. Was to have OP IV antibiotic today for osteomyelitis but ride did not show up. Recent amputation of 2nd toe on right foot 8 days ago. Right Foot Pain Score (Numeric/FACES): 8 - Related Data Allergies Allergy/AdvReac Type Severity Reaction Status Date / Time vancomycin Allergy Swelling Verified 02/22/19 00:18 Home Meds: Home Meds Insulin Detemir [Levemir] 20 units SQ DAILY 11/16/13 [History] Venlafaxine HCl [Venlafaxine ER] 37.5 mg PO DAILY 11/16/13 [History] Omeprazole 20 mg PO DAILY 01/17/14 [History] Multivitamin [Multi-Vitamin Daily] 1 tab PO DAILY 03/29/14 [History] Potassium Chloride [K-Tab ER] 20 meq PO BID 06/25/15 [History] Formoterol [Perforomist] 2 ml INH BID 07/05/15 [History] atorvaSTATin [Lipitor] 10 mg PO BEDTIME 07/05/15 [History] Budesonide [Pulmicort] 0.5 mg NEB BID PRN 10/23/15 [History] Lidocaine [Lidocaine 5% Paraben-Free] 3 patch TOP Q12HR PRN 08/12/17 [History] Nitroglycerin [Nitrostat] 0.4 mg PO ASDIRECTED PRN 08/12/17 [History] Acetaminophen [Tylenol Extra Strength] 1,000 mg PO Q8HR PRN 06/28/18 [History] Apixaban [Eliquis] 5 mg PO BID 06/28/18 [History] Aspirin [Aspirin EC] 325 mg PO DAILY 06/28/18 [History] Carvedilol [Coreg] 12.5 mg PO BID 06/28/18 [History] Cyclobenzaprine [Flexeril] 10 mg PO Q8HR PRN 06/28/18 [History] Ibuprofen 800 mg PO Q8HR PRN 06/28/18 [History] Sennosides/Docusate Sodium [Senna-S] 1 tab PO BID PRN 06/28/18 [History] Sevelamer Carbonate [Renvela] 1,600 mg PO TIDMEALS 06/28/18 [History] Valsartan 160 mg PO DAILY 06/28/18 [History] metOLazone [Metolazone] 2.5 mg PO DAILY 06/28/18 [History] Polyethylene Glycol 3350 [MiraLAX] 17 gm PO DAILY PRN packet 07/15/18 [Rx] oxyCODONE 5 mg PO Q8HR tablet 07/15/18 [Rx] traMADol [Ultram] 50 mg PO Q6HR PRN tablet 07/15/18 [Rx] Albuterol Sulfate 3 ml INH QID PRN 09/15/18 [History] Albuterol Sulfate [Proair Hfa] 2 puff INH Q6H PRN 09/15/18 [History] Bumetanide 2 mg PO DAILY 09/15/18 [History] Gabapentin [Neurontin] 300 mg PO TID 09/15/18 [History] Insulin Aspart [NovoLOG] 0 - 16 unit SQ TIDMEALS 09/15/18 [History] NIFEdipine [Nifedipine ER] 30 mg PO DAILY 09/15/18 [History] Ondansetron [Zofran ODT] 4 mg PO Q6H PRN #6 tab.dis 09/16/18 [Rx] levoFLOXacin [Levaquin] 750 mg PO Q24H 5 Days tablet 09/16/18 [Rx] Past Medical History HEENT History: Reports: Impaired Vision Other HEENT History: wears glasses Cardiovascular History: Reports: Afib, Bacterial Endocarditis, CAD, Heart Failure, Heart Murmur, Heart Valve Replacement, High Cholesterol, Hypertension, [place], Pacemaker, Other (See Below) Other Cardiovascular History: Aortic valve endocarditis; CAD; s/p AVR; paroxysmal atrial fibrillation; essential hypertension; cardiac pacemaker in situ; tachy-angelique syndrome - all per 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 1 C/S Musculoskeletal History: Reports: Arthritis, Back Pain, Chronic, Fracture, Osteoarthritis Other Musculoskeletal History: arthritis to spine, carpal tunnel to wrists. HX OF PROXIMAL HUMERS FRACTURE RIGHT Neurological History: Reports: Neuropathy, Diabetic, TIA, Other (See Below) Other Neuro History: CHRONIC PAIN SYNDROME Psychiatric History: Reports: Depression Endocrine/Metabolic History: Reports: Diabetes, Type II, Obesity/BMI 30+ Hematologic History: Reports: Other (See Below) Other Hematologic History: hx bacteremia, hyperkalemia, hyponatremia Immunologic History: Reports: None Oncologic (Cancer) History: Reports: None Dermatologic History: Reports: Other (See Below) Other Dermatologic History: hx impetigo, and pressure sore to buttocks - Infectious Disease History Infectious Disease History: Reports: Chicken Pox, Measles, MRSA, TB - Past Surgical History HEENT Surgical History: Reports: Tonsillectomy Cardiovascular Surgical History: Reports: Coronary Artery Bypass, Pacer, Valve Replacement Other Cardiovascular Surgeries/Procedures: Pacemaker placed 11/10/2013 Respiratory Surgical History: Reports: Other (See Below) Other Respiratory Surgeries/Procedures: BRONCHOSCOPY GI Surgical History: Reports: Appendectomy, Cholecystectomy, Colonoscopy Female Surgical History: Reports: Hysterectomy Endocrine Surgical History: Reports: None Neurological Surgical History: Reports: None Musculoskeletal Surgical History: Reports: Amputation, Other (See Below) Other Musculoskeletal Surgeries/Procedures:: left 1/2 foot. Distal portion of 2nd digit on right foot. Social & Family History - Family History Family Medical History: Noncontributory Cardiac: Reports: Hypertension Respiratory: Reports: COPD Endocrine/Metabolic: Reports: Diabetes, type II - Tobacco Use Smoking Status *Q: Current Some Day Smoker Years of Tobacco use: 30 Packs/Tins Daily: 0.5 - Caffeine Use Caffeine Use: Reports: Tea Caffeine Use Comment: Pt reports daily tea intake. - Recreational Drug Use Recreational Drug Use: No - Living Situation & Occupation Living situation: Reports: with Family Occupation: Disabled Review of Systems - Review of Systems Review Of Systems: ROS reveals no pertinent complaints other than HPI. ED EXAM, GENERAL - Physical Exam Exam: See Below Exam Limited By: No Limitations General Appearance: Alert, No Apparent Distress Eye Exam: Bilateral Eye: EOMI Ears: Normal External Exam Nose: Normal Inspection Throat/Mouth: Normal Inspection Head: Atraumatic, Normocephalic Neck: Normal Inspection Respiratory/Chest: No Respiratory Distress, Lungs Clear, Normal Breath Sounds Cardiovascular: Normal Peripheral Pulses, Regular Rate, Rhythm GI/Abdominal: Normal Bowel Sounds Extremities: Other (recent surgical amputation of right 2nd toe. Sutures intact. No drainage. ) Neurological: Alert, Oriented Skin Exam: Warm, Dry, Pallor, Other (PICC line left upper inner arm, Dressing intact scant blood under dressing. No redness or swelling. ) Course - Vital Signs Last Recorded V/S: Last Vital Signs Temp 98.4 F 02/22/19 00:19 Pulse 68 02/22/19 00:30 Resp 22 H 02/22/19 00:30 BP 146/79 H 02/22/19 00:30 Pulse Ox 94 L 02/22/19 00:30 - Orders/Labs/Meds Orders: Active Orders 24 hr Category Date Time Status Communication Order [RC] ROUTINE Care 02/22/19 01:56 Active Labs: Laboratory Tests 02/22/19 02/22/19 02/22/19 Range/Units 01:19 01:19 01:19 WBC 9.1 (5.0-10.0) 10^3/uL RBC 3.01 L (4.2-5.4) 10^6/uL Hgb 8.9 L D (12.0-16.0) g/dL Hct 28.2 L (37.0-47.0) % MCV 93.7 (80-100) fL MCH 29.6 (27.0-34.0) pg MCHC 31.6 L (33.0-35.0) g/dL Plt Count 238 D (150-450) 10^3/uL Neut % (Auto) 62.5 (42.2-75.2) % Lymph % (Auto) 17.3 L (20.5-50.1) % [place] % (Auto) 8.5 H (2-8) % Eos % (Auto) 11.0 H (1.0-3.0) % Baso % (Auto) 0.7 (0.0-1.0) % Add Manual Diff Yes Neutrophils % (Manual) 73 (42-75) % Lymphocytes % (Manual) 10 L (20-50) % Monocytes % (Manual) 8 (2-8) % Eosinophils % (Manual) 9 H (1-3) % Sodium 136 (135-145) mmol/L Potassium 3.8 (3.6-5.0) mmol/L Chloride 103 (101-111) mmol/L Carbon Dioxide 25.0 (21.0-31.0) mmol/L Anion Gap 11.8 BUN 30 H (7-18) mg/dL Creatinine 1.3 (0.6-1.3) mg/dL Est Cr Clr Drug Dosing 49.14 mL/min Estimated GFR (MDRD) 42 BUN/Creatinine Ratio 23.07 Glucose 132 H (74-105) mg/dL Lactic Acid 1.0 (0.5-2.2) mmol/L Calcium 8.5 (8.4-10.2) mg/dl Total Bilirubin 0.6 (0.2-1.0) mg/dL AST 14 (10-42) IU/L ALT < 5 L (10-60) IU/L Alkaline Phosphatase 75 (42-121) IU/L Total Protein 6.8 (6.7-8.2) g/dl Albumin 2.9 L (3.2-5.5) g/dl Globulin 3.9 Albumin/Globulin Ratio 0.74 Meds: Medications Discontinued Medications Generic Name Dose Route Start Last Admin Trade Name Freq PRN Reason Stop Dose Admin Daptomycin 600 mg/ Sodium 50 mls @ 100 mls/hr 02/22/19 01:24 02/22/19 01:46 Chloride IV 02/22/19 01:53 100 mls/hr ONETIME ONE Administration Departure - Departure Time of Disposition: 02:37 Disposition: Home, Self-Care 01 Condition: Good Clinical Impression: IDDM (insulin dependent diabetes mellitus) Osteomyelitis Qualifiers: Osteomyelitis type: unspecified type Osteomyelitis location: other site Qualified Code(s): M86.9 - Osteomyelitis, unspecified - Discharge Information *PRESCRIPTION DRUG MONITORING PROGRAM REVIEWED*: No *COPY OF PRESCRIPTION DRUG MONITORING REPORT IN PATIENT XOCHILT: No Instructions: Bone and Joint Infections, Adult Referrals: PCP,None [Primary Care Provider] - Forms: ED Department Discharge Additional Instructions: Continue home medications IV antibiotic as ordered. Wednesday dose at 7pm then resume previous schedule - My Orders Last 24 Hours: My Active Orders 02/22/19 01:56 Communication Order [RC] ROUTINE - Assessment/Plan Last 24 Hours: My Active Orders 02/22/19 01:56 Communication Order [RC] ROUTINE
== END 2019-02-22 02:51 | disposition home or self-care (01) ==
LOC: DL.ED 00:08
DX: E11.22 Type 2 diabetes mellitus with diabetic chronic kidney disease (principal); I12.9 Hypertensive chronic kidney disease with stage 1 through stage 4 chronic kidney disease, or unspecified chronic kidney disease; N18.3 Chronic kidney disease, stage 3 (moderate); M86.9 Osteomyelitis, unspecified; I25.10 Atherosclerotic heart disease of native coronary artery without angina pectoris; E78.00 Pure hypercholesterolemia, unspecified; I25.2 Old myocardial infarction; I48.0 Paroxysmal atrial fibrillation; J44.9 Chronic obstructive pulmonary disease, unspecified; K21.9 Gastro-esophageal reflux disease without esophagitis; E11.40 Type 2 diabetes mellitus with diabetic neuropathy, unspecified; F32.9 Major depressive disorder, single episode, unspecified; F17.210 Nicotine dependence, cigarettes, uncomplicated; E66.9 Obesity, unspecified; Z68.30 Body mass index [BMI] 30.0-30.9, adult; Z88.1 Allergy status to other antibiotic agents; Z79.01 Long term (current) use of anticoagulants; Z95.2 Presence of prosthetic heart valve; Z95.0 Presence of cardiac pacemaker; Z86.73 Personal history of transient ischemic attack (TIA), and cerebral infarction without residual deficits; Z79.4 Long term (current) use of insulin; Z79.899 Other long term (current) drug therapy; Z79.51 Long term (current) use of inhaled steroids; Z79.82 Long term (current) use of aspirin; I96 Gangrene, not elsewhere classified; I38 Endocarditis, valve unspecified
CPT/HCPCS: 36415; 80053; 83605; 85025; 96365; 99283; J0878; J7050

== ENCOUNTER 2019-05-18 14:01 | Observation (INO) | payer MEDICARE, MEDICAID ==
[2019-05-18] MEDS ORDERED: Ondansetron 4 MG/2 ML SDV IV ONE (14:12)
[2019-05-18] MEDS ORDERED: HYDROmorphone 1 MG/ML Syringe IVPUSH ONE ×2 (14:12→16:06)
[2019-05-18] MEDS: Sodium Chloride 0.9% 10 ML Syringe FLUSH PRN ×2 (14:17→14:22)
--- NOTE | 2019-05-18 14:22 | EDM.PDOC ---
ED HPI GENERAL MEDICAL PROBLEM - General Chief Complaint: Lower Extremity Injury/Pain Stated Complaint: AMBULANCE Time Seen by Provider: 05/18/19 14:05 Source of Information: Reports: Patient, EMS, Old Records, RN, RN Notes Reviewed History Limitations: Reports: No Limitations - History of Present Illness INITIAL COMMENTS - FREE TEXT/NARRATIVE: Pt arrives to ER from home by ambulance with c/o pain to the left elbow, left hip/pelvis sustained within the past 2 hours from a ground level fall. Pt states she tripped on her sock and fell to the floor. She had just fallen when her daughter found her and called 911. Denies hitting her head or face, LOC, neck pain, or any other injury. Pt is diabetic, s/p left forefoot amputation, and has a history of chronic non-healing skin ulcers. Pt rates the hip pain 10/ 10. Nothing alleviates the pain. Movement and palpation aggravate the pain. Onset: Today, Sudden Duration: Constant Location: Reports: Pelvis, Upper Extremity, Left, Lower Extremity, Left Quality: Reports: Ache Severity: Severe Context: Reports: Other (Ground level fall) Associated Symptoms: Reports: No Other Symptoms Left Hip Pain Score (Numeric/FACES): 8 - Related Data Allergies Allergy/AdvReac Type Severity Reaction Status Date / Time vancomycin Allergy Swelling Verified 05/18/19 14:12 Home Meds: Home Meds Insulin Detemir [Levemir] 25 units SQ DAILY 11/16/13 [History] Omeprazole 20 mg PO DAILY 01/17/14 [History] Multivitamin [Multi-Vitamin Daily] 1 tab PO DAILY 03/29/14 [History] Potassium Chloride [K-Tab ER] 20 meq PO BID 06/25/15 [History] Formoterol [Perforomist] 2 ml INH BID 07/05/15 [History] atorvaSTATin [Lipitor] 10 mg PO BEDTIME 07/05/15 [History] Budesonide [Pulmicort] 0.5 mg NEB BID PRN 10/23/15 [History] Nitroglycerin [Nitrostat] 0.4 mg PO ASDIRECTED PRN 08/12/17 [History] Acetaminophen [Tylenol Extra Strength] 1,000 mg PO Q8HR PRN 06/28/18 [History] Apixaban [Eliquis] 5 mg PO BID 06/28/18 [History] Aspirin [Aspirin EC] 325 mg PO DAILY 06/28/18 [History] Sennosides/Docusate Sodium [Senna-S] 1 tab PO BID PRN 06/28/18 [History] metOLazone [Metolazone] 2.5 mg PO Q48H 06/28/18 [History] polyethylene glycoL 3350 [MiraLAX] 17 gm PO DAILY PRN packet 07/15/18 [Rx] Albuterol Sulfate 3 ml INH QID PRN 09/15/18 [History] Albuterol Sulfate [Proair Hfa] 2 puff INH Q6H PRN 09/15/18 [History] Bumetanide 2 mg PO DAILY 09/15/18 [History] Insulin Aspart [NovoLOG] 0 - 16 unit SQ TIDMEALS 09/15/18 [History] NIFEdipine [Nifedipine ER] 30 mg PO DAILY 09/15/18 [History] Cyclobenzaprine [Flexeril] 10 mg PO TID PRN 03/09/19 [History] Docusate Sodium [Colace] 100 mg PO BID PRN 03/09/19 [History] Gabapentin [Neurontin] 400 mg PO TID 03/09/19 [History] Lidocaine [Lidoderm] 3 patch TRDERM .Q24HR 03/09/19 [History] Nicotine [Nicotine Patch] 14 mg TRDERM DAILY 03/09/19 [History] Sevelamer Carbonate [Renvela] 800 mg PO TIDMEALS 03/09/19 [History] Venlafaxine [Effexor XR] 150 mg PO DAILY 03/09/19 [History] carvediloL [Carvedilol] 6.25 mg PO BID 03/09/19 [History] Past Medical History HEENT History: Reports: Impaired Vision Other HEENT History: wears glasses Cardiovascular History: Reports: Afib, Bacterial Endocarditis, CAD, Heart Failure, Heart Murmur, Heart Valve Replacement, High Cholesterol, Hypertension, ID, Pacemaker, Other (See Below) Other Cardiovascular History: Aortic valve endocarditis; CAD; s/p AVR; paroxysmal atrial fibrillation; essential hypertension; cardiac pacemaker in situ; tachy-angelique syndrome - all per [facility] records Respiratory History: Reports: COPD, Intubation, Previous, Pneumonia, Recurrent, SOB, Other (See Below) Other Respiratory History: hx hypoxemia Gastrointestinal History: Reports: Cholelithiasis, GERD Genitourinary History: Reports: Chronic Renal Insuffiency, Diabetic Nephropathy , Other (See Below) Other Genitourinary History: STAGE III CKD 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 1 C/S Musculoskeletal History: Reports: Arthritis, Back Pain, Chronic, Fracture, Osteoarthritis Other Musculoskeletal History: arthritis to spine, carpal tunnel to wrists. HX OF PROXIMAL HUMERS FRACTURE RIGHT Neurological History: Reports: Neuropathy, Diabetic, TIA, Other (See Below) Other Neuro History: CHRONIC PAIN SYNDROME Psychiatric History: Reports: Depression Endocrine/Metabolic History: Reports: Diabetes, Type II, Obesity/BMI 30+ Hematologic History: Reports: Other (See Below) Other Hematologic History: hx bacteremia, hyperkalemia, hyponatremia Immunologic History: Reports: None Oncologic (Cancer) History: Reports: None Dermatologic History: Reports: Other (See Below) Other Dermatologic History: hx impetigo, and pressure sore to buttocks - Infectious Disease History Infectious Disease History: Reports: None - Past Surgical History HEENT Surgical History: Reports: Tonsillectomy Cardiovascular Surgical History: Reports: Coronary Artery Bypass, Pacer, Valve Replacement Other Cardiovascular Surgeries/Procedures: Pacemaker placed 11/10/2013 Respiratory Surgical History: Reports: Other (See Below) Other Respiratory Surgeries/Procedures: BRONCHOSCOPY GI Surgical History: Reports: Appendectomy, Cholecystectomy, Colonoscopy Female Surgical History: Reports: Hysterectomy Endocrine Surgical History: Reports: None Neurological Surgical History: Reports: None Musculoskeletal Surgical History: Reports: Amputation, Hip Replacement, Other ( See Below) Other Musculoskeletal Surgeries/Procedures:: left 1/2 foot. Distal portion of 2nd digit on right foot. Social & Family History - Family History Family Medical History: Noncontributory Cardiac: Reports: Hypertension Respiratory: Reports: COPD Endocrine/Metabolic: Reports: Diabetes, type II - Tobacco Use Smoking Status *Q: Current Some Day Smoker Years of Tobacco use: 30 Packs/Tins Daily: 0.5 - Caffeine Use Caffeine Use: Reports: None, Tea Caffeine Use Comment: Pt reports daily tea intake. - Recreational Drug Use Recreational Drug Use: No - Living Situation & Occupation Living situation: Reports: with Family Occupation: Disabled Review of Systems - Review of Systems Review Of Systems: Comprehensive ROS is negative, except as noted in HPI. ED EXAM, GENERAL - Physical Exam Exam: See Below Exam Limited By: No Limitations General Appearance: Alert, Moderate Distress (due to pain) Eye Exam: Bilateral Eye: Normal Fundi Ears: Normal External Exam Nose: Normal Inspection, No Blood Throat/Mouth: Normal Inspection, Normal Lips, Normal Voice, No Airway Compromise Head: Atraumatic, Normocephalic Neck: Normal Inspection, Supple, Non-Tender, Full Range of Motion Respiratory/Chest: No Respiratory Distress, Lungs Clear, No Accessory Muscle Use , Chest Non-Tender, Decreased Breath Sounds Cardiovascular: Normal Peripheral Pulses, Regular Rate, Rhythm, No Edema GI/Abdominal: Normal Bowel Sounds, Soft, Non-Tender, No Organomegaly, No Distention, No Abnormal Bruit, No Mass Back Exam: Normal Inspection, Full Range of Motion. No: Vertebral Tenderness Extremities: No Pedal Edema, Limited Range of Motion (Left elbow and left hip with no visible bruising, swelling, or deformity, and skin is intact.), Other ( Chronic left forefoot amputation.). No: Joint Swelling Neurological: Alert, Oriented, CN II-XII Intact, Normal Cognition, No Motor/ Sensory Deficits Psychiatric: Anxious, Tearful Skin Exam: Warm, Dry, Normal Color Course - Vital Signs Last Recorded V/S: Last Vital Signs Temp 97.9 F 05/18/19 14:01 Pulse 97 05/18/19 14:01 Resp 20 05/18/19 14:01 BP 157/69 H 05/18/19 14:01 Pulse Ox 96 05/18/19 14:01 - Orders/Labs/Meds Orders: Active Orders 24 hr Category Date Time Status Peripheral IV Care [RC] . DIRECTED Care 05/18/19 14:13 Active Elbow Min 3V Lt [CR] Stat Exams 05/18/19 14:13 Taken Hip Min 2V or 3V w Pelvis Lt [CR] Stat Exams 05/18/19 14:14 Taken Sodium Chloride 0.9% [Saline Flush] Med 05/18/19 14:12 Active 10 ml FLUSH ASDIRECTED PRN Peripheral IV Insertion Adult [OM.PC] Stat Oth 05/18/19 14:12 Ordered Medication Orders Sodium Chloride (Saline Flush) 10 ml FLUSH ASDIRECTED PRN PRN Reason: Keep Vein Open Last Admin: 05/18/19 14:22 Dose: 10 ml Admin: 05/18/19 14:17 Dose: 10 ml Meds: Medications Generic Name Dose Route Start Last Admin Trade Name Freq PRN Reason Stop Dose Admin Sodium Chloride 10 ml 05/18/19 14:12 05/18/19 14:22 Saline Flush FLUSH 10 ml ASDIRECTED PRN Administration Keep Vein Open Discontinued Medications Generic Name Dose Route Start Last Admin Trade Name Freq PRN Reason Stop Dose Admin Hydromorphone HCl 1 mg 05/18/19 14:12 05/18/19 14:21 Dilaudid IVPUSH 05/18/19 14:13 1 mg ONETIME ONE Administration Ondansetron HCl 4 mg 05/18/19 14:12 05/18/19 14:21 Zofran IV 05/18/19 14:13 4 mg ONETIME ONE Administration - Radiology Interpretation Free Text/Narrative:: [facility] Final Radiology Report Call: [phone] assistance Online chat: [email or web address] Name: TORY CONTI Age: 63Years F Date: 05/18/2019 SSN: -- : 1955 Study: XR HIP 2 VIEW INCL AP PELVIS BILAT Requesting Physician: DEDE SAHA Images: 6 Addl Studies: Provided Clinical History: Contrast: Contrast Medium: Contrast Amount: Contrast Method: CONFIDENTIALITY STATEMENT This report is intended only for use by the referring physician, and only in accordance with law. If you received this in error, call [phone]. Page 1 of 1 PROCEDURE INFORMATION: Exam: XR Bilateral Hips with Pelvis when Performed Exam date and time: 05/18/2019 2:33 PM Age: 63 years old Clinical indication: Injury or trauma; Fall; Initial encounter; Blunt trauma ( contusions or hematomas); Left; Hip; Prior surgery TECHNIQUE: Imaging protocol: XR bilateral hips with pelvis when performed. Views: 2 views. COMPARISON: No relevant prior studies available. FINDINGS: Bones/joints: There is moderate diffuse osteopenia. There is no evidence of acute fracture. Soft tissues: The intramedullary shanice and compression skin are in place as expected. The old fracture deformity of the proximal femoral shaft is again demonstrated. No soft tissue swelling is identified. Vasculature: The vasculature demonstrates diffuse moderate atherosclerotic calcification. IMPRESSION: No acute abnormality. Thank you for allowing us to participate in the care of your patient. Dictated and Authenticated by: Victor Manuel Lizama MD 05/18/2019 2:58 PM Central Time ( & [place]) [facility] Final Radiology Report Call: [phone] assistance Online chat: [email or web address] Name: TORY CONTI Age: 63Years F Date: 05/18/2019 SSN: -- : 1955 Study: XR ELBOW COMPLETE MIN OF 3 VIEWS LEFT Requesting Physician: DEDE SAHA Images: 2 Addl Studies: Provided Clinical History: Contrast: Contrast Medium: Contrast Amount: Contrast Method: CONFIDENTIALITY STATEMENT This report is intended only for use by the referring physician, and only in accordance with law. If you received this in error, call [phone]. Page 1 of 1 PROCEDURE INFORMATION: Exam: XR Left Elbow Exam date and time: 05/18/2019 2:40 PM Age: 63 years old Clinical indication: Injury or trauma; Fall; Initial encounter; Blunt trauma ( contusions or hematomas; Elbow; Left TECHNIQUE: Imaging protocol: XR Left elbow. Views: 3 or more views. COMPARISON: No relevant prior studies available. FINDINGS: Bones/joints: The alignment of the joints is anatomic and the joint spaces are maintained. There is no evidence of acute fracture. There is no evidence of a joint effusion. Soft tissues: No soft tissue swelling is identified. No radiopaque foreign bodies are identified. IMPRESSION: Normal elbow. Thank you for allowing us to participate in the care of your patient. Dictated and Authenticated by: Victor Manuel Lizama MD 05/18/2019 3:00 PM Central Time ([place] & [place]) - Re-Assessments/Exams Free Text/Narrative Re-Assessment/Exam: 05/18/19 15:14 Pt able to get up and ambulate with a walker. She states she has a walker at home, but wasn't using it when she fell. Departure - Departure Time of Disposition: 15:14 Disposition: Home, Self-Care 01 Condition: Fair Clinical Impression: Left elbow contusion Qualifiers: Encounter type: initial encounter Qualified Code(s): S50.02XA - Contusion of left elbow, initial encounter Contusion of left hip Qualifiers: Encounter type: initial encounter Qualified Code(s): S70.02XA - Contusion of left hip, initial encounter Fall as cause of accidental injury at home as place of occurrence Qualifiers: Encounter type: initial encounter Qualified Code(s): W19.XXXA - Unspecified fall, initial encounter; Y92.009 - Unspecified place in unspecified non- institutional (private) residence as the place of occurrence of the external cause - Discharge Information *PRESCRIPTION DRUG MONITORING PROGRAM REVIEWED*: No *COPY OF PRESCRIPTION DRUG MONITORING REPORT IN PATIENT XOCHILT: No Instructions: Hip Pain, Elbow Contusion, Fall Prevention in the Home, Adult, [id number] Forms: ED Department Discharge Additional Instructions: Rx: Oxycodone APAP 5mg/325mg Use a walker to help prevent falls. Follow up in clinic next week for recheck. Sepsis Event Note - Evaluation Sepsis Screening Result: No Definite Risk - Focused Exam Vital Signs: Vital Signs Temp Pulse Resp BP Pulse Ox 05/18/19 14:01 97.9 F 97 20 157/69 H 96 Date Exam was Performed: 05/18/19 Time Exam was Performed: 15:14 - My Orders Last 24 Hours: My Active Orders 05/18/19 14:12 Sodium Chloride 0.9% [Saline Flush] 10 ml FLUSH ASDIRECTED PRN Peripheral IV Insertion Adult [OM.PC] Stat 05/18/19 14:13 Peripheral IV Care [RC] . DIRECTED Elbow Min 3V Lt [CR] Stat 05/18/19 14:14 Hip Min 2V or 3V w Pelvis Lt [CR] Stat - Assessment/Plan Last 24 Hours: My Active Orders 05/18/19 14:12 Sodium Chloride 0.9% [Saline Flush] 10 ml FLUSH ASDIRECTED PRN Peripheral IV Insertion Adult [OM.PC] Stat 05/18/19 14:13 Peripheral IV Care [RC] . DIRECTED Elbow Min 3V Lt [CR] Stat 05/18/19 14:14 Hip Min 2V or 3V w Pelvis Lt [CR] Stat
[2019-05-18] MEDS ORDERED: Albuterol 0.083% 2.5 MG/3 ML Neb Soln INH PRN (17:49)
[2019-05-18] MEDS ORDERED: Nitroglycerin 0.4 MG Tab.SL SL PRN (17:49)
[2019-05-18] MEDS ORDERED: Budesonide 0.5 MG/2 ML Neb Susp NEB PRN (17:49)
[2019-05-18] MEDS ORDERED: Docusate Sodium 100 MG Cap PO PRN (17:49)
[2019-05-18] MEDS ORDERED: Polyethylene Glycol 3350 Powder 17 GM Packet PO PRN (17:49)
[2019-05-18] MEDS ORDERED: Albuterol 6.7 GM Inhaler INH PRN (17:49)
[2019-05-18] MEDS ORDERED: 50% Dextrose in Water 50 ML Syringe IVPUSH PRN (18:03)
[2019-05-18] MEDS ORDERED: Ondansetron 4 MG Tab.DIS PO PRN (18:03)
[2019-05-18] MEDS ORDERED: Sodium Chloride 0.9% 10 ML Syringe FLUSH PRN (18:03)
[2019-05-18] MEDS ORDERED: Insulin Lispro 100 Units/ML 3 ML Vial SUBCUT SCH (18:15)
--- NOTE | 2019-05-18 18:16 | PCM.HP ---
H&P History of Present Illness - General Date of Service: 05/18/19 Admit Problem/Dx: Admission Diagnosis/Problem Admission Diagnosis/Problem Hip injury Source of Information: Patient History Limitations: Reports: No Limitations - History of Present Illness Initial Comments - Free Text/Narative: Swati Valerio is a 63F with a medical history of diastolic CHF, infective endocarditis s/p AVR with [place] Trifecta valve, Atrial fibrillation s/p permanent pacemaker, hypertension, diabetes type 2, COPD, depression, dyslipidemia, left foot TMA, right 2nd toe amputation, CKD who presented from home after a fall. Patient was walking to her door this afternoon to respond to what she though was a someone when she tripped on the sock of her left foot and fell on the ground with her left side. She did not loose consciousness or hit her head. She could not get up by herself and waited 1.5 hrs for her daughter and her boyfriend to come get her up. She complains of pain in her left hip and side rated at 10/10. Pain is worse with movement and relieved with rest. EMS was called and patient was brought to the ED. Her vitals were within normal limits. Her blood sugar was 280. X ray of her left elbow and bilateral hips/pelvis did not show any fractures or acute findings. Patient lives alone. She insisted on going home, however, when she tried but could not get herself up from the wheelchair, she agreed to be admitted for pain control. Left Hip Pain Score (Numeric/FACES): 8 - Related Data Allergies/Adverse Reactions: Allergies Allergy/AdvReac Type Severity Reaction Status Date / Time vancomycin Allergy Swelling Verified 05/18/19 18:06 Home Medications: Home Meds Insulin Detemir [Levemir] 20 units SQ DAILY 11/16/13 [History] Omeprazole 20 mg PO DAILY 01/17/14 [History] Multivitamin [Multi-Vitamin Daily] 1 tab PO DAILY 03/29/14 [History] Potassium Chloride [K-Tab ER] 10 meq PO BID 06/25/15 [History] Formoterol [Perforomist] 2 ml INH BID 07/05/15 [History] atorvaSTATin [Lipitor] 10 mg PO BEDTIME 07/05/15 [History] Budesonide [Pulmicort] 0.5 mg NEB BID PRN 10/23/15 [History] Nitroglycerin [Nitrostat] 0.4 mg PO ASDIRECTED PRN 08/12/17 [History] Acetaminophen [Tylenol Extra Strength] 1,000 mg PO Q8HR PRN 06/28/18 [History] Apixaban [Eliquis] 5 mg PO BID 06/28/18 [History] Aspirin [Aspirin EC] 325 mg PO DAILY 06/28/18 [History] Sennosides/Docusate Sodium [Senna-S] 1 tab PO BID PRN 06/28/18 [History] metOLazone [Metolazone] 2.5 mg PO Q48H 06/28/18 [History] polyethylene glycoL 3350 [MiraLAX] 17 gm PO DAILY PRN packet 07/15/18 [Rx] Albuterol Sulfate [Proair Hfa] 2 puff INH Q6H PRN 09/15/18 [History] Bumetanide 2 mg PO DAILY 09/15/18 [History] Insulin Aspart [NovoLOG] 0 - 16 unit SQ TIDMEALS 09/15/18 [History] NIFEdipine [Nifedipine ER] 30 mg PO DAILY 09/15/18 [History] Cyclobenzaprine [Flexeril] 10 mg PO TID PRN 03/09/19 [History] Docusate Sodium [Colace] 100 mg PO BID PRN 03/09/19 [History] Gabapentin [Neurontin] 400 mg PO TID 03/09/19 [History] Sevelamer Carbonate [Renvela] 1,600 mg PO TIDMEALS 03/09/19 [History] Venlafaxine [Effexor XR] 37.5 mg PO DAILY 03/09/19 [History] carvediloL [Carvedilol] 25 mg PO BID 03/09/19 [History] Spironolactone [Aldactone] 25 mg PO DAILY 05/18/19 [History] Past Medical History HEENT History: Reports: Impaired Vision Other HEENT History: wears glasses Cardiovascular History: Reports: Afib, Bacterial Endocarditis, CAD, Heart Failure, Heart Murmur, Heart Valve Replacement, High Cholesterol, Hypertension, CA, Pacemaker, Other (See Below) Other Cardiovascular History: Aortic valve endocarditis; CAD; s/p AVR; paroxysmal atrial fibrillation; essential hypertension; cardiac pacemaker in situ; tachy-angelique syndrome - all per [facility] records Respiratory History: Reports: COPD, Intubation, Previous, Pneumonia, Recurrent, SOB, Other (See Below) Other Respiratory History: hx hypoxemia Gastrointestinal History: Reports: Cholelithiasis, GERD Genitourinary History: Reports: Chronic Renal Insuffiency, Diabetic Nephropathy , Other (See Below) Other Genitourinary History: STAGE III CKD MONOTYPER History: Reports: Other OB/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 1 C/S Musculoskeletal History: Reports: Arthritis, Back Pain, Chronic, Fracture, Osteoarthritis Other Musculoskeletal History: arthritis to spine, carpal tunnel to wrists. HX OF PROXIMAL HUMERS FRACTURE RIGHT Neurological History: Reports: Neuropathy, Diabetic, TIA, Other (See Below) Other Neuro History: CHRONIC PAIN SYNDROME Psychiatric History: Reports: Depression Endocrine/Metabolic History: Reports: Diabetes, Type II, Obesity/BMI 30+ Hematologic History: Reports: Other (See Below) Other Hematologic History: hx bacteremia, hyperkalemia, hyponatremia Immunologic History: Reports: None Oncologic (Cancer) History: Reports: None Dermatologic History: Reports: Other (See Below) Other Dermatologic History: hx impetigo, and pressure sore to buttocks - Infectious Disease History Infectious Disease History: Reports: None - Past Surgical History HEENT Surgical History: Reports: Tonsillectomy Cardiovascular Surgical History: Reports: Coronary Artery Bypass, Pacer, Valve Replacement Other Cardiovascular Surgeries/Procedures: Pacemaker placed 11/10/2013 Respiratory Surgical History: Reports: Other (See Below) Other Respiratory Surgeries/Procedures: BRONCHOSCOPY GI Surgical History: Reports: Appendectomy, Cholecystectomy, Colonoscopy Female Surgical History: Reports: Hysterectomy Endocrine Surgical History: Reports: None Neurological Surgical History: Reports: None Musculoskeletal Surgical History: Reports: Amputation, Hip Replacement, Other ( See Below) Other Musculoskeletal Surgeries/Procedures:: left 1/2 foot. Distal portion of 2nd digit on right foot. Social & Family History - Family History Family Medical History: Noncontributory Cardiac: Reports: Hypertension Respiratory: Reports: COPD Endocrine/Metabolic: Reports: Diabetes, type II - Tobacco Use Smoking Status *Q: Current Some Day Smoker Years of Tobacco use: 30 Packs/Tins Daily: 0.5 - Caffeine Use Caffeine Use: Reports: None, Tea Caffeine Use Comment: Pt reports daily tea intake. - Recreational Drug Use Recreational Drug Use: No - Living Situation & Occupation Living situation: Reports: with Family Occupation: Disabled H&P Review of Systems - Review of Systems: Review Of Systems: See Below General: Reports: No Symptoms HEENT: Reports: No Symptoms Pulmonary: Reports: No Symptoms Cardiovascular: Reports: No Symptoms Gastrointestinal: Reports: No Symptoms Genitourinary: Reports: No Symptoms Musculoskeletal: Reports: Leg Pain (Left hip and left side pain), Joint Pain Skin: Reports: No Symptoms Psychiatric: Reports: No Symptoms Neurological: Reports: No Symptoms Hematologic/Lymphatic: Reports: No Symptoms Exam - Exam Exam: See Below - Vital Signs Vital Signs: Last Vital Signs Temp 97.9 F 05/18/19 14:01 Pulse 97 05/18/19 14:01 Resp 20 05/18/19 14:01 BP 157/69 H 05/18/19 14:01 Pulse Ox 96 05/18/19 14:01 Weight: 210 lb 4.8 oz - Exam General: Alert, Oriented, 4 HEENT: PERRLA, Hearing Intact, Mucosa Moist & [place], Nares Patent, Normal Nasal Septum, Posterior Pharynx Clear, Conjunctiva Clear, EOMI, EACs Clear, TMs Clear Neck: Supple, Trachea Midline, 2 Lungs: Clear to Auscultation, Normal Respiratory Effort Cardiovascular: Regular Rate, Regular Rhythm GI/Abdominal Exam: Normal Bowel Sounds, Soft, Non-Tender, No Organomegaly, No Distention, No Abnormal Bruit, No Mass, Pelvis Stable (Female) Exam: Deferred Rectal (Female) Exam: Deferred Back Exam: Normal Inspection, Full Range of Motion, Paraspinal Tenderness, Other (Left side and low back pain) Extremities: Normal Range of Motion, No Pedal Edema, Other (Left foot TMA and right 2nd toe amputation) Skin: Warm, Dry, Intact Neurological: Cranial Nerves Intact, Reflexes Equal Bilateral Neuro Extensive - Mental Status: Alert, Oriented x3, Normal Mood/Affect, Normal Cognition Neuro Extensive - Motor, Sensory, Reflexes: CN II-XII Intact, Normal Gait, Normal Reflexes Psychiatric: Alert, Normal Affect, Normal Mood - Patient Data Lab Results Last 24 hrs: Laboratory Results - last 24 hr 05/18/19 Range/Units 18:01 POC Glucose 210 H (70-105) mg/dl Problem List Initiated/Reviewed/Updated: Yes Orders Last 24hrs: Active Orders 24 hr Category Date Time Status Admission Status [Patient Status] [ADT] Routine ADT 05/18/19 17:12 Active Patient Status [ADT] Routine ADT 05/18/19 18:03 Ordered Bedrest Bathroom Privileges [RC] ASDIRECTED Care 05/18/19 18:03 Ordered Blood Glucose Check, Bedside [RC] QIDACANDBED Care 05/18/19 18:03 Ordered Communication Order [RC] Per Unit Routine Care 05/18/19 18:10 Ordered Diabetes Education [RC] Click to Edit Care 05/18/19 18:06 Ordered Intake and Output [RC] QSHIFT Care 05/18/19 18:06 Ordered Notify Provider Vital Signs [RC] ASDIRECTED Care 05/18/19 18:06 Ordered Oxygen Therapy [RC] PRN Care 05/18/19 18:03 Ordered Peripheral IV Care [RC] . DIRECTED Care 05/18/19 18:11 Ordered Peripheral IV Care [RC] 09,21 Care 05/18/19 14:13 Active Up With Assistance [RC] ASDIRECTED Care 05/18/19 18:03 Ordered VTE/DVT Education [RC] PER UNIT ROUTINE Care 05/18/19 18:03 Ordered Vital Signs [RC] Q8H Care 05/18/19 18:03 Ordered Consistent Carbohydrate Diet [DIET] Diet 05/18/19 Dinner Ordered Acetaminophen [Tylenol Extra Strength] Med 05/18/19 17:49 Ordered 1,000 mg PO Q8HR PRN Albuterol [Proventil HFA] Med 05/18/19 17:49 Ordered DOSE gm INH Q6H PRN Albuterol [Proventil Neb Soln] Med 05/18/19 17:49 Ordered 2.5 mg INH QID PRN Apixaban [Eliquis] Med 05/18/19 21:00 Ordered 5 mg PO BID Aspirin [Ecotrin] Med 05/19/19 09:00 Ordered 325 mg PO DAILY Budesonide [Pulmicort] Med 05/18/19 17:49 Ordered 0.5 mg NEB BID PRN Bumetanide [Bumetanide] Med 05/19/19 09:00 Ordered 2 mg PO DAILY Cyclobenzaprine [Flexeril] Med 05/18/19 17:49 Ordered 10 mg PO TID PRN Dextrose 50% in Water Med 05/18/19 18:03 Ordered 50 ml IVPUSH ONETIME PRN Docusate Sodium [Colace] Med 05/18/19 17:49 Ordered 100 mg PO BID PRN Docusate Sodium/Sennosides [Senna Plus] Med 05/18/19 17:49 Ordered 1 tab PO BID PRN Formoterol [Perforomist] Med 05/18/19 21:00 Ordered 2 ml INH BID Gabapentin Med 05/18/19 21:00 Ordered 400 mg PO TID Insulin Aspart [NovoLOG] Med 05/19/19 08:00 Ordered 10 unit SQ TIDMEALS Insulin Detemir [Levemir] Med 05/19/19 09:00 Ordered 25 units SQ DAILY Insulin Lispro [HumaLOG] Med 05/18/19 18:15 Ordered See Protocol SUBCUT ASDIRECTED Lidocaine 5% [Lidoderm 5%] Med 05/18/19 18:00 Ordered DOSE mg TRDERM .Q24HR Morphine Med 05/18/19 18:03 Ordered 2 mg IVPUSH Q2H PRN Multivitamin [Multi-Vitamin Daily] Med 05/19/19 09:00 Ordered 1 tab PO DAILY NIFEdipine [Nifedipine ER] Med 05/19/19 09:00 Ordered 30 mg PO DAILY Nicotine [Habitrol] Med 05/19/19 09:00 Ordered 14 mg TRDERM DAILY Nitroglycerin [Nitrostat] Med 05/18/19 17:49 Ordered 0.4 mg SL ASDIRECTED PRN Omeprazole Med 05/19/19 09:00 Ordered 20 mg PO DAILY Ondansetron [Zofran ODT] Med 05/18/19 18:03 Ordered 4 mg PO Q6H PRN Potassium Chloride [K-Tab ER] Med 05/18/19 21:00 Ordered 10 meq PO BID Sevelamer Carbonate [Renvela] Med 05/19/19 08:00 Ordered 800 mg PO TIDMEALS Sodium Chloride 0.9% [Saline Flush] Med 05/18/19 14:12 Active 10 ml FLUSH ASDIRECTED PRN Sodium Chloride 0.9% [Saline Flush] Med 05/18/19 18:03 Ordered 10 ml FLUSH ASDIRECTED PRN Spironolactone [Aldactone] Med 05/19/19 09:00 Ordered 25 mg PO DAILY Venlafaxine [Venlafaxine HCl ER] Med 05/19/19 09:00 Ordered 150 mg PO DAILY Zolpidem [Ambien] Med 05/18/19 18:03 Ordered 5 mg PO BEDTIME PRN atorvaSTATin [Lipitor] Med 05/18/19 21:00 Ordered 10 mg PO BEDTIME carvediloL [Coreg] Med 05/18/19 21:00 Ordered 6.25 mg PO BID metOLazone [Zaroxolyn] Med 05/18/19 18:00 Ordered 2.5 mg PO Q48H polyethylene glycoL 3350 [MiraLAX] Med 05/18/19 17:49 Ordered 17 gm PO DAILY PRN Glucose Management Sub Q Reflex [OM.PC] Click To Edit Oth 05/18/19 18:03 Ordered Peripheral IV Insertion Adult [OM.PC] Routine Oth 05/18/19 18:03 Ordered Peripheral IV Insertion Adult [OM.PC] Stat Ot 05/18/19 14:12 Ordered Saline Lock Insert [OM.PC] Routine Ot 05/18/19 18:03 Ordered Resuscitation Status Routine Resus Stat 05/18/19 18:03 Ordered Medication Orders Acetaminophen (Tylenol Extra Strength) 1,000 mg PO Q8HR PRN PRN Reason: Pain/Fever Albuterol (Proventil Neb Soln) 2.5 mg INH QID PRN PRN Reason: Shortness of Breath Albuterol (Proventil Hfa) gm INH Q6H PRN PRN Reason: Wheezing Apixaban (Eliquis) 5 mg PO BID MARGARITA Aspirin (Ecotrin) 325 mg PO DAILY MARGARITA Atorvastatin Calcium (Lipitor) 10 mg PO BEDTIME MARGARITA Budesonide (Pulmicort) 0.5 mg NEB BID PRN PRN Reason: Shortness of Breath Carvedilol (Coreg) 6.25 mg PO BID MARGARITA Cyclobenzaprine HCl (Flexeril) 10 mg PO TID PRN PRN Reason: Muscle Spasm Docusate Sodium (Colace) 100 mg PO BID PRN PRN Reason: Constipation Lidocaine (Lidoderm 5%) mg TRDERM .Q24HR MARGARITA Metolazone (Zaroxolyn) 2.5 mg PO Q48H MARGARITA Nicotine (Habitrol) 14 mg TRDERM DAILY MARGARITA Nitroglycerin (Nitrostat) 0.4 mg SL ASDIRECTED PRN PRN Reason: ANGINA Non-Formulary Medication (Bumetanide [Bumetanide]) 2 mg PO DAILY MARGARITA Non-Formulary Medication (Formoterol [Perforomist]) 2 ml INH BID MARGARITA Non-Formulary Medication (Gabapentin) 400 mg PO TID MARGARITA Non-Formulary Medication (Insulin Aspart [Novolog]) 10 unit SQ TIDMEALS MARGARITA Non-Formulary Medication (Insulin Detemir [Levemir]) 25 units SQ DAILY MARGARITA Non-Formulary Medication (Multivitamin [Multi-Vitamin Daily]) 1 tab PO DAILY MARGARITA Non-Formulary Medication (Nifedipine [Nifedipine Er]) 30 mg PO DAILY MARGARITA Non-Formulary Medication (Potassium Chloride [K-Tab Er]) 10 meq PO BID MARGARITA Non-Formulary Medication (Sevelamer Carbonate [Renvela]) 800 mg PO TIDMEALS MARGARITA Omeprazole (Omeprazole) 20 mg PO DAILY MARGARITA Polyethylene Glycol (Miralax) 17 gm PO DAILY PRN PRN Reason: Constipation Senna/Docusate Sodium (Senna Plus) 1 tab PO BID PRN PRN Reason: Constipation Sodium Chloride (Saline Flush) 10 ml FLUSH ASDIRECTED PRN PRN Reason: Keep Vein Open Last Admin: 05/18/19 14:22 Dose: 10 ml Admin: 05/18/19 14:17 Dose: 10 ml Spironolactone (Aldactone) 25 mg PO DAILY MARGARITA Venlafaxine HCl (Venlafaxine Hcl Er) 150 mg PO DAILY [facility] Assessment/Plan Comment:: Intractable left hip pain Low back pain Mechanical fall Patient had a fall today and developed worsening pain of her left hip, low back and left side. XR of left elbow and bilateral hips/pelvis did not show any fractures. Patient likely has musculoskeletal pain from the trauma of fall - Morphine 2mg 2H PRN - Resume other home pain regimen Chronic diastolic CHF - Resume home Carvedilol, bumex, potassium and metolazone H/o infective endocarditis s/p AVR with [place] Trifecta valve - No acute concerns Atrial fibrillation s/p permanent pacemaker - Resume home Eliquis - Resume home carvedilol Hypertension - Resume home spironolactone and carvedilol Diabetes type 2 - Resume home insulin regimen Detemir 25 units QD, Novolog 10 units TID) - QID BG checks - Hypoglycemia protocol - SSI COPD - Resume home inhalers and nebs Depression -Resume home Venlafaxine Dyslipidemia - Resume home Atorvastatin CKD - Has been stable. No acute concerns.
[2019-05-18] MEDS: Morphine 2 MG/ML Syringe IVPUSH PRN (19:50)
[2019-05-18] MEDS ORDERED: Lidocaine 5% 700 MG Patch TRDERM SCH (20:00)
[2019-05-18] MEDS: Metolazone 2.5 MG Tab PO SCH (20:16)
[2019-05-18] MEDS ORDERED: Carvedilol 6.25 MG Tab PO SCH (21:00)
[2019-05-18] MEDS ORDERED: Gabapentin 400 MG Cap PO SCH (21:00)
[2019-05-18] MEDS: Insulin Lispro 100 Units/ML 3 ML Vial SUBCUT SCH ×2 (21:10→21:11)
[2019-05-18] MEDS: Gabapentin 400 MG Cap PO SCH (21:14)
[2019-05-18] MEDS: Apixaban 5 MG Tab PO SCH (21:14)
[2019-05-18] MEDS: Potassium Chloride 10 MEQ Tab.ER PO SCH (21:14)
[2019-05-18] MEDS: Zolpidem 5 MG Tab PO PRN (21:15)
[2019-05-18] MEDS: atorvaSTATin 10 MG Tab PO SCH (21:15)
[2019-05-19] MEDS: Morphine 2 MG/ML Syringe IVPUSH PRN ×2 (02:39→17:36)
[2019-05-19] MEDS: Omeprazole 20 MG Cap.CR PO SCH (05:52)
[2019-05-19] MEDS ORDERED: Non-Formulary Medication 1 Each (Insulin Aspart [Novolog] 10 UNIT) SQ SCH (08:00)
[2019-05-19] MEDS: Insulin Lispro 100 Units/ML 3 ML Vial SUBCUT SCH ×8 (08:40→22:58)
[2019-05-19] MEDS: Multivitamins,Therapeutic Tab PO SCH (08:42)
[2019-05-19] MEDS: NIFEdipine 30 MG Tab.ER PO SCH (08:42)
[2019-05-19] MEDS: Gabapentin 400 MG Cap PO SCH ×4 (08:43→22:54)
[2019-05-19] MEDS: Carvedilol 25 MG Tab PO SCH ×2 (08:43→17:28)
[2019-05-19] MEDS: Apixaban 5 MG Tab PO SCH ×2 (08:43→22:54)
[2019-05-19] MEDS: Aspirin 325 MG Tab.EC PO SCH (08:43)
[2019-05-19] MEDS: Bumetanide 1 MG Tab PO SCH (08:44)
[2019-05-19] MEDS: Potassium Chloride 10 MEQ Tab.ER PO SCH ×2 (08:44→22:55)
[2019-05-19] MEDS: Acetaminophen 500 MG Tab PO PRN (08:44)
[2019-05-19] MEDS: Spironolactone 25 MG Tab PO SCH (08:44)
[2019-05-19] MEDS ORDERED: Nicotine 21 MG/24 Hr Patch TRDERM SCH (09:00)
[2019-05-19] MEDS ORDERED: Venlafaxine 150 MG CAP.ER PO SCH (09:00)
[2019-05-19] MEDS: Insulin Glarg,Human.Rec.Analog 100 Unit/ML SUBCUT SCH (09:12)
--- NOTE | 2019-05-19 10:06 | PCM.PN ---
- General Info Date of Service: 05/19/19 Admission Dx/Problem (Free Text): Admission Diagnosis/Problem Admission Diagnosis/Problem Hip injury Subjective Update: Patient seen and examined today. Left flank and hip pain same as yesterday. Also complaining of burning with urination. Afebrile overnight. Functional Status: Reports: Pain Controlled - Review of Systems General: Reports: No Symptoms HEENT: Reports: No Symptoms Pulmonary: Reports: No Symptoms Cardiovascular: Reports: No Symptoms Gastrointestinal: Reports: No Symptoms Genitourinary: Reports: Burning Musculoskeletal: Reports: Back Pain, Leg Pain Skin: Reports: No Symptoms Neurological: Reports: No Symptoms Psychiatric: Reports: No Symptoms - Patient Data Vitals - Most Recent: Last Vital Signs Temp 98.7 F 05/19/19 08:10 Pulse 62 05/19/19 08:43 Resp 18 05/19/19 08:10 BP 158/66 H 05/19/19 08:43 Pulse Ox 91 L 05/19/19 08:10 Weight - Most Recent: 200 lb 14.4 oz I&O - Last 24 Hours: Intake & Output 05/18/19 05/19/19 05/19/19 22:59 06:59 14:59 Intake Total 200 120 Output Total 350 Balance -150 120 Lab Results Last 24 Hours: Laboratory Results - last 24 hr 05/18/19 05/18/19 05/19/19 Range/Units 18:01 21:02 02:35 POC Glucose 210 H 208 H 111 H (70-105) mg/dl 05/19/19 Range/Units 07:55 POC Glucose 167 H (70-105) mg/dl Med Orders - Current: Current Medications Acetaminophen (Tylenol Extra Strength) 1,000 mg PO Q8HR PRN PRN Reason: Pain/Fever Last Admin: 05/19/19 08:44 Dose: 1,000 mg Albuterol (Proventil Neb Soln) 2.5 mg INH QID PRN PRN Reason: Shortness of Breath Albuterol (Proventil Hfa) 0 gm INH Q6H PRN PRN Reason: Wheezing Apixaban (Eliquis) 5 mg PO BID [facility] Last Admin: 05/19/19 08:43 Dose: 5 mg Aspirin (Ecotrin) 325 mg PO DAILY [facility] Last Admin: 05/19/19 08:43 Dose: 325 mg Atorvastatin Calcium (Lipitor) 10 mg PO BEDTIME [facility] Last Admin: 05/18/19 21:15 Dose: 10 mg Budesonide (Pulmicort) 0.5 mg NEB BID PRN PRN Reason: Shortness of Breath Bumetanide (Bumex) 2 mg PO DAILY [facility] Last Admin: 05/19/19 08:44 Dose: 2 mg Carvedilol (Coreg) 25 mg PO BIDMEALS [facility] Last Admin: 05/19/19 08:43 Dose: 25 mg Cyclobenzaprine HCl (Flexeril) 10 mg PO TID PRN PRN Reason: Muscle Spasm Dextrose/Water (Dextrose 50% In Water) 50 ml IVPUSH ONETIME PRN PRN Reason: Hypoglycemia Docusate Sodium (Colace) 100 mg PO BID PRN PRN Reason: Constipation Gabapentin (Neurontin) 800 mg PO TID [facility] Last Admin: 05/19/19 08:43 Dose: 800 mg Influenza Virus Vaccine (Pharmacy To Dose - Influenza Vaccine) 1 each IM ONETIME ONE Stop: 05/18/19 18:27 Insulin Glargine (Lantus) 25 unit SUBCUT DAILY [facility] Last Admin: 05/19/19 09:12 Dose: 25 units Insulin Human Lispro (Humalog) 10 unit SUBCUT QIDACANDBED [facility] Last Admin: 05/19/19 08:40 Dose: 10 units Insulin Human Lispro (Humalog) 0 unit SUBCUT WITHMEALSANDBED [facility]; Protocol Last Admin: 05/19/19 08:41 Dose: 1 units Metolazone (Zaroxolyn) 2.5 mg PO Q48H [facility] Last Admin: 05/18/19 20:16 Dose: 2.5 mg Miscellaneous Information (Remove Patch) 1 ea TRDERM Q24H [facility] Last Admin: 05/18/19 19:15 Dose: Not Given Morphine Sulfate (Morphine) 2 mg IVPUSH Q2H PRN PRN Reason: Pain (severe 7-10) Last Admin: 05/19/19 02:39 Dose: 2 mg Multivitamins (Thera) 1 each PO DAILY [facility] Last Admin: 05/19/19 08:42 Dose: 1 each Nicotine (Habitrol) 14 mg TRDERM DAILY [facility] Last Admin: 05/19/19 09:44 Dose: Not Given Nifedipine (Procardia Xl) 30 mg PO DAILY [facility] Last Admin: 05/19/19 08:42 Dose: 30 mg Nitroglycerin (Nitrostat) 0.4 mg SL ASDIRECTED PRN PRN Reason: ANGINA Non-Formulary Medication (Formoterol [Perforomist]) 2 ml INH BID [facility] Non-Formulary Medication (Sevelamer Carbonate [Renvela]) 800 mg PO TIDMEALS [facility] Omeprazole (Omeprazole) 20 mg PO ACBREAKFAST [facility] Last Admin: 05/19/19 05:52 Dose: 20 mg Ondansetron HCl (Zofran Odt) 4 mg PO Q6H PRN PRN Reason: nausea, able to take PO Polyethylene Glycol (Miralax) 17 gm PO DAILY PRN PRN Reason: Constipation Potassium Chloride (Klor-Con 10) 10 meq PO BID [facility] Last Admin: 05/19/19 08:44 Dose: 10 meq Senna/Docusate Sodium (Senna Plus) 1 tab PO BID PRN PRN Reason: Constipation Sodium Chloride (Saline Flush) 10 ml FLUSH ASDIRECTED PRN PRN Reason: Keep Vein Open Last Admin: 05/18/19 14:22 Dose: 10 ml Spironolactone (Aldactone) 25 mg PO DAILY [facility] Last Admin: 05/19/19 08:44 Dose: 25 mg Venlafaxine HCl (Venlafaxine Hcl Er) 150 mg PO DAILY [facility] Zolpidem Tartrate (Ambien) 5 mg PO BEDTIME PRN PRN Reason: Sleep Last Admin: 05/18/19 21:15 Dose: 5 mg Discontinued Medications Carvedilol (Coreg) 6.25 mg PO BID [facility] Gabapentin (Neurontin) 400 mg PO TID [facility] Hydromorphone HCl (Dilaudid) 1 mg IVPUSH ONETIME ONE Stop: 05/18/19 14:13 Last Admin: 05/18/19 14:21 Dose: 1 mg Hydromorphone HCl (Dilaudid) 1 mg IVPUSH ONETIME ONE Stop: 05/18/19 16:07 Last Admin: 05/18/19 16:34 Dose: 1 mg Insulin Human Lispro (Humalog) 0 unit SUBCUT ASDIRECTED [facility]; Protocol Lidocaine (Lidoderm 5%) 0 mg TRDERM Q24H [facility] Last Admin: 05/18/19 20:42 Dose: Not Given Non-Formulary Medication (Insulin Aspart [Novolog]) 10 unit SQ TIDMEALS [facility] Ondansetron HCl (Zofran) 4 mg IV ONETIME ONE Stop: 05/18/19 14:13 Last Admin: 05/18/19 14:21 Dose: 4 mg Sodium Chloride (Saline Flush) 10 ml FLUSH ASDIRECTED PRN PRN Reason: Keep Vein Open - Exam General: Alert, Oriented HEENT: Pupils Equal, Pupils Reactive, EOMI, Mucous Membr. Moist/[place] Neck: Supple Lungs: Clear to Auscultation, Normal Respiratory Effort Cardiovascular: Regular Rate, Regular Rhythm GI/Abdominal Exam: Normal Bowel Sounds, Soft, Non-Tender, No Organomegaly, No Distention, No Abnormal Bruit, No Mass, Pelvis Stable (Female) Exam: Deferred Back Exam: Normal Inspection, Full Range of Motion Extremities: Normal Range of Motion, No Pedal Edema Skin: Warm, Dry, Intact Wound/Incisions: Healing Well Neurological: No New Focal Deficit Psy/Mental Status: Alert, Normal Affect, Normal Mood Sepsis Event Note - Evaluation Sepsis Screening Result: No Definite Risk - Focused Exam Vital Signs: Vital Signs Temp Pulse Pulse Resp BP BP Pulse Ox 05/19/19 08:43 62 158/66 H 05/19/19 08:42 158/66 H 05/19/19 08:10 98.7 F 62 18 158/66 H 91 L Date Exam was Performed: 05/19/19 Time Exam was Performed: 12:20 - Problem List Review Problem List Initiated/Reviewed/Updated: Yes - My Orders Last 24 Hours: My Active Orders 05/18/19 17:49 Acetaminophen [Tylenol Extra Strength] 1,000 mg PO Q8HR PRN Albuterol [Proventil HFA] 0 gm INH Q6H PRN Albuterol [Proventil Neb Soln] 2.5 mg INH QID PRN Budesonide [Pulmicort] 0.5 mg NEB BID PRN Cyclobenzaprine [Flexeril] 10 mg PO TID PRN Docusate Sodium [Colace] 100 mg PO BID PRN Docusate Sodium/Sennosides [Senna Plus] 1 tab PO BID PRN Nitroglycerin [Nitrostat] 0.4 mg SL ASDIRECTED PRN polyethylene glycoL 3350 [MiraLAX] 17 gm PO DAILY PRN 05/18/19 18:03 Patient Status [ADT] Routine Bedrest Bathroom Privileges [RC] ASDIRECTED Blood Glucose Check, Bedside [RC] QIDACANDBED Oxygen Therapy [RC] PRN Up With Assistance [RC] ASDIRECTED VTE/DVT Education [RC] PER UNIT ROUTINE Vital Signs [RC] Q8H Dextrose 50% in Water 50 ml IVPUSH ONETIME PRN Morphine 2 mg IVPUSH Q2H PRN Ondansetron [Zofran ODT] 4 mg PO Q6H PRN Zolpidem [Ambien] 5 mg PO BEDTIME PRN Glucose Management Sub Q Reflex [OM.PC] Click To Edit Saline Lock Insert [OM.PC] Routine Resuscitation Status Routine 05/18/19 18:06 Diabetes Education [RC] Click to Edit Intake and Output [RC] QSHIFT Notify Provider Vital Signs [RC] ASDIRECTED 05/18/19 18:10 Communication Order [RC] Per Unit Routine 05/18/19 18:26 Influenza Vaccine Charge [RC] .DISCHARGE Pharmacy to Dose - InFluenza V [Pharmacy to Dose - InFluenza Vaccine] 1 each IM ONETIME ONE 05/18/19 19:00 metOLazone [Zaroxolyn] 2.5 mg PO Q48H 05/18/19 19:08 PT Evaluation and Treatment [CONS] Routine 05/18/19 19:09 OT Evaluation and Treatment [CONS] Routine 05/18/19 19:15 Remove Patch 1 ea TRDERM Q24H 05/18/19 21:00 Apixaban [Eliquis] 5 mg PO BID Formoterol [Perforomist] 2 ml INH BID Gabapentin [Neurontin] 800 mg PO TID Insulin Lispro [HumaLOG] 10 unit SUBCUT QIDACANDBED Insulin Lispro [HumaLOG] See Protocol SUBCUT WITHMEALSANDBED Potassium Chloride [Klor-Con 10] 10 meq PO BID atorvaSTATin [Lipitor] 10 mg PO BEDTIME 05/18/19 Dinner Consistent Carbohydrate Diet [DIET] 05/19/19 06:00 Omeprazole 20 mg PO ACBREAKFAST 05/19/19 08:00 Sevelamer Carbonate [Renvela] 800 mg PO TIDMEALS carvediloL [Coreg] 25 mg PO BIDMEALS 05/19/19 09:00 Aspirin [Ecotrin] 325 mg PO DAILY Bumetanide [Bumex] 2 mg PO DAILY Insulin Glarg,Human.Rec.Analog [LantUS] 25 unit SUBCUT DAILY Multivitamins,Therapeutic [Thera] 1 each PO DAILY NIFEdipine [Procardia XL] 30 mg PO DAILY Nicotine [Habitrol] 14 mg TRDERM DAILY Spironolactone [Aldactone] 25 mg PO DAILY Venlafaxine [Venlafaxine HCl ER] 150 mg PO DAILY 05/19/19 09:55 URINALYSIS W/MICROSCOPIC [UA W/MICROSCOPIC] [URIN] Routine - Plan Plan:: Intractable left hip pain Low back pain Mechanical fall Patient had a fall and developed worsening pain of her left hip, low back and left side. XR of left elbow and bilateral hips/pelvis did not show any fractures. Patient likely has musculoskeletal pain from the trauma of fall - Continue morphine 2mg 2H PRN - Continue other home pain regimen Dysuria Complaining of burning sensation with urination. 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 No acute concerns.
[2019-05-19] MEDS: Cyclobenzaprine 10 MG Tab PO PRN ×2 (12:22→23:00)
[2019-05-19] MEDS: Non-Formulary Medication 1 Each (Formoterol [Perforomist] 2 ML) INH SCH ×2 (14:52→14:53)
[2019-05-19] MEDS: SEVELAMER CARBONATE 800 MG PO SCH (14:52)
[2019-05-19] MEDS: atorvaSTATin 10 MG Tab PO SCH (22:54)
[2019-05-19] MEDS: Zolpidem 5 MG Tab PO PRN (23:00)
[2019-05-19] MEDS: Sodium Chloride 0.9% 10 ML Syringe FLUSH PRN (23:14)
[2019-05-20] MEDS: Omeprazole 20 MG Cap.CR PO SCH (06:34)
[2019-05-20] MEDS: Insulin Lispro 100 Units/ML 3 ML Vial SUBCUT SCH ×8 (09:29→23:06)
[2019-05-20] MEDS: NIFEdipine 30 MG Tab.ER PO SCH (09:31)
[2019-05-20] MEDS: Bumetanide 1 MG Tab PO SCH (09:31)
[2019-05-20] MEDS: Spironolactone 25 MG Tab PO SCH (09:31)
[2019-05-20] MEDS: Apixaban 5 MG Tab PO SCH ×2 (09:31→22:35)
[2019-05-20] MEDS: Carvedilol 25 MG Tab PO SCH ×2 (09:32→17:25)
[2019-05-20] MEDS: Multivitamins,Therapeutic Tab PO SCH (09:32)
[2019-05-20] MEDS: Potassium Chloride 10 MEQ Tab.ER PO SCH ×2 (09:32→22:35)
[2019-05-20] MEDS: Gabapentin 400 MG Cap PO SCH ×3 (09:32→22:35)
[2019-05-20] MEDS: Aspirin 325 MG Tab.EC PO SCH (09:33)
[2019-05-20] MEDS: Nicotine 14 MG/24 Hr Patch TRDERM SCH (09:33)
[2019-05-20] MEDS: Acetaminophen 500 MG Tab PO PRN ×2 (09:35→17:47)
[2019-05-20] MEDS: Cyclobenzaprine 10 MG Tab PO PRN ×2 (09:36→22:48)
[2019-05-20] MEDS: Insulin Glarg,Human.Rec.Analog 100 Unit/ML SUBCUT SCH (09:36)
[2019-05-20 10:39] LABS: ANION GAP 15.9
--- NOTE | 2019-05-20 20:20 | PCM.DCSUM1 ---
Discharge Summary - Hospital Course Free Text/Narrative:: Swati Valerio is a 63F with a medical history of diastolic CHF, infective endocarditis s/p AVR with [place] Trifecta valve, Atrial fibrillation s/p permanent pacemaker, hypertension, diabetes type 2, COPD, depression, dyslipidemia, left foot TMA, right 2nd toe amputation, CKD who presented from home after a mechanical fall. She complained of pain in her left hip and side. X ray of her left elbow and bilateral hips/pelvis did not show any fractures or acute findings. Patient's pain was managed with medications, PT and OT. 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 Atrial fibrillation s/p permanent pacemaker Hypertension Diabetes type 2 COPD Depression Dyslipidemia CKD - Discharge Data Discharge Date: 05/20/19 Discharge Disposition: Home, Self-Care 01 Condition: Good - Referral to Home Health Primary Care Physician: PCP None - Patient Summary/Data Consults: Consultations 05/18/19 19:08 PT Evaluation and Treatment [CONS] Routine 05/18/19 19:09 OT Evaluation and Treatment [CONS] Routine - Discharge Plan *PRESCRIPTION DRUG MONITORING PROGRAM REVIEWED*: Yes *COPY OF PRESCRIPTION DRUG MONITORING REPORT IN PATIENT XOCHILT: Yes Prescriptions/Med Rec: Nicotine [Habitrol] 14 mg TRDERM DAILY #7 patch Home Medications: Home Meds Insulin Detemir [Levemir] 25 units SQ DAILY 11/16/13 [History] Omeprazole 20 mg PO DAILY 01/17/14 [History] Multivitamin [Multi-Vitamin Daily] 1 tab PO DAILY 03/29/14 [History] Potassium Chloride [K-Tab ER] 10 meq PO BID 06/25/15 [History] Formoterol [Perforomist] 2 ml INH BID 07/05/15 [History] atorvaSTATin [Lipitor] 10 mg PO BEDTIME 07/05/15 [History] Budesonide [Pulmicort] 0.5 mg NEB BID PRN 10/23/15 [History] Nitroglycerin [Nitrostat] 0.4 mg PO ASDIRECTED PRN 08/12/17 [History] Acetaminophen [Tylenol Extra Strength] 1,000 mg PO Q8HR PRN 06/28/18 [History] Apixaban [Eliquis] 5 mg PO BID 06/28/18 [History] Aspirin [Aspirin EC] 325 mg PO DAILY 06/28/18 [History] Sennosides/Docusate Sodium [Senna-S] 1 tab PO BID PRN 06/28/18 [History] metOLazone [Metolazone] 2.5 mg PO Q48H 06/28/18 [History] polyethylene glycoL 3350 [MiraLAX] 17 gm PO DAILY PRN packet 07/15/18 [Rx] Albuterol Sulfate [Proair Hfa] 2 puff INH Q6H PRN 09/15/18 [History] Bumetanide 2 mg PO DAILY 09/15/18 [History] Insulin Aspart [NovoLOG] 0 - 16 unit SQ TIDMEALS 09/15/18 [History] NIFEdipine [Nifedipine ER] 30 mg PO DAILY 09/15/18 [History] Cyclobenzaprine [Flexeril] 10 mg PO TID PRN 03/09/19 [History] Docusate Sodium [Colace] 100 mg PO BID PRN 03/09/19 [History] Gabapentin [Neurontin] 800 mg PO TID 03/09/19 [History] Sevelamer Carbonate [Renvela] 1,600 mg PO TIDMEALS 03/09/19 [History] Venlafaxine [Effexor XR] 100 mg PO DAILY 03/09/19 [History] carvediloL [Carvedilol] 25 mg PO BID 03/09/19 [History] Spironolactone [Aldactone] 25 mg PO DAILY 05/18/19 [History] Gabapentin [Neurontin] 800 mg PO TID cap 05/20/19 [Rx] Nicotine [Habitrol] 14 mg TRDERM DAILY #7 patch 05/20/19 [Rx] Spironolactone [Aldactone] 25 mg PO DAILY tablet 05/20/19 [Rx] Venlafaxine [Effexor] 100 mg PO BEDTIME tablet 05/20/19 [Rx] carvediloL [Coreg] 25 mg PO BIDMEALS tablet 05/20/19 [Rx] Patient Handouts: Fall Prevention in the Home, Adult, [id number], Hip Pain, Elbow Contusion Forms: ED Department Discharge Referrals: PCP,None [Primary Care Provider] - - Discharge Summary/Plan Comment DC Time >30 min.: No - General Info Date of Service: 05/20/19 Admission Dx/Problem (Free Text: Admission Diagnosis/Problem Admission Diagnosis/Problem Hip injury Functional Status: Reports: Pain Controlled - Review of Systems General: Reports: No Symptoms HEENT: Reports: No Symptoms Pulmonary: Reports: No Symptoms Cardiovascular: Reports: No Symptoms Gastrointestinal: Reports: No Symptoms Genitourinary: Reports: No Symptoms Musculoskeletal: Reports: No Symptoms Skin: Reports: No Symptoms Neurological: Reports: No Symptoms Psychiatric: Reports: No Symptoms - Patient Data Vitals - Most Recent: Last Vital Signs Temp 98.2 F 05/20/19 16:00 Pulse 80 05/20/19 17:25 Resp 18 05/20/19 16:00 BP 142/60 H 05/20/19 17:25 Pulse Ox 95 05/20/19 18:00 Weight - Most Recent: 207 lb 6.4 oz I&O - Last 24 hours: Intake & Output 05/20/19 05/20/19 05/20/19 06:59 14:59 22:59 Intake Total 550 520 740 Output Total 600 Balance 550 520 140 Lab Results - Last 24 hrs: Laboratory Results - last 24 hr 05/19/19 05/20/19 05/20/19 Range/Units 20:59 08:06 10:10 WBC 6.8 (5.0-10.0) 10^3/uL RBC 3.93 L (4.2-5.4) 10^6/uL Hgb 11.0 L (12.0-16.0) g/dL Hct 33.4 L (37.0-47.0) % MCV 85.0 D (80-100) fL MCH 28.0 (27.0-34.0) pg MCHC 32.9 L (33.0-35.0) g/dL Plt Count 151 D (150-450) 10^3/uL Sodium (135-145) mmol/L Potassium (3.6-5.0) mmol/L Chloride (101-111) mmol/L Carbon Dioxide (21.0-31.0) mmol/L Anion Gap BUN (7-18) mg/dL Creatinine (0.6-1.3) mg/dL Est Cr Clr Drug Dosing mL/min Estimated GFR (MDRD) BUN/Creatinine Ratio Glucose (74-105) mg/dL POC Glucose 160 H 226 H (70-105) mg/dl Calcium (8.4-10.2) mg/dl Total Bilirubin (0.2-1.0) mg/dL AST (10-42) IU/L ALT (10-60) IU/L Alkaline Phosphatase (42-121) IU/L Total Protein (6.7-8.2) g/dl Albumin (3.2-5.5) g/dl Globulin Albumin/Globulin Ratio 05/20/19 05/20/19 05/20/19 Range/Units 10:10 11:51 17:08 WBC (5.0-10.0) 10^3/uL RBC (4.2-5.4) 10^6/uL Hgb (12.0-16.0) g/dL Hct (37.0-47.0) % MCV (80-100) fL MCH (27.0-34.0) pg MCHC (33.0-35.0) g/dL Plt Count (150-450) 10^3/uL Sodium 129 L (135-145) mmol/L Potassium 3.9 (3.6-5.0) mmol/L Chloride 96 L (101-111) mmol/L Carbon Dioxide 21.0 (21.0-31.0) mmol/L Anion Gap 15.9 BUN 44 H (7-18) mg/dL Creatinine 1.6 H (0.6-1.3) mg/dL Est Cr Clr Drug Dosing 39.93 mL/min Estimated GFR (MDRD) 33 BUN/Creatinine Ratio 27.50 Glucose 336 H (74-105) mg/dL POC Glucose 199 H 231 H (70-105) mg/dl Calcium 8.7 (8.4-10.2) mg/dl Total Bilirubin 0.7 (0.2-1.0) mg/dL AST 19 (10-42) IU/L ALT 18 (10-60) IU/L Alkaline Phosphatase 119 (42-121) IU/L Total Protein 7.5 (6.7-8.2) g/dl Albumin 3.6 (3.2-5.5) g/dl Globulin 3.9 Albumin/Globulin Ratio 0.92 Med Orders - Current: Current Medications Acetaminophen (Tylenol Extra Strength) 1,000 mg PO Q8HR PRN PRN Reason: Pain/Fever Last Admin: 05/20/19 17:47 Dose: 1,000 mg Albuterol (Proventil Neb Soln) 2.5 mg INH QID PRN PRN Reason: Shortness of Breath Albuterol (Proventil Hfa) 0 gm INH Q6H PRN PRN Reason: Wheezing Apixaban (Eliquis) 5 mg PO BID [facility] Last Admin: 05/20/19 09:31 Dose: 5 mg Aspirin (Ecotrin) 325 mg PO DAILY [facility] Last Admin: 05/20/19 09:33 Dose: 325 mg Atorvastatin Calcium (Lipitor) 10 mg PO BEDTIME [facility] Last Admin: 05/19/19 22:54 Dose: 10 mg Budesonide (Pulmicort) 0.5 mg NEB BID PRN PRN Reason: Shortness of Breath Bumetanide (Bumex) 2 mg PO DAILY [facility] Last Admin: 05/20/19 09:31 Dose: 2 mg Carvedilol (Coreg) 25 mg PO BIDMEALS [facility] Last Admin: 05/20/19 17:25 Dose: 25 mg Cyclobenzaprine HCl (Flexeril) 10 mg PO TID PRN PRN Reason: Muscle Spasm Last Admin: 05/20/19 09:36 Dose: 10 mg Dextrose/Water (Dextrose 50% In Water) 50 ml IVPUSH ONETIME PRN PRN Reason: Hypoglycemia Docusate Sodium (Colace) 100 mg PO BID PRN PRN Reason: Constipation Last Admin: 05/19/19 12:22 Dose: 100 mg Gabapentin (Neurontin) 800 mg PO TID [facility] Last Admin: 05/20/19 14:47 Dose: 800 mg Influenza Virus Vaccine (Pharmacy To Dose - Influenza Vaccine) 1 each IM ONETIME ONE Stop: 05/18/19 18:27 Insulin Glargine (Lantus) 25 unit SUBCUT DAILY [facility] Last Admin: 05/20/19 09:36 Dose: 25 units Insulin Human Lispro (Humalog) 10 unit SUBCUT QIDACANDBED [facility] Last Admin: 05/20/19 17:24 Dose: 10 units Insulin Human Lispro (Humalog) 0 unit SUBCUT WITHMEALSANDBED [facility]; Protocol Last Admin: 05/20/19 17:25 Dose: 2 units Metolazone (Zaroxolyn) 2.5 mg PO Q48H [facility] Last Admin: 05/18/19 20:16 Dose: 2.5 mg Miscellaneous Information (Remove Patch) 1 ea TRDERM Q24H [facility] Last Admin: 05/19/19 18:29 Dose: Not Given Morphine Sulfate (Morphine) 2 mg IVPUSH Q2H PRN PRN Reason: Pain (severe 7-10) Last Admin: 05/19/19 17:36 Dose: 2 mg Multivitamins (Thera) 1 each PO DAILY [facility] Last Admin: 05/20/19 09:32 Dose: 1 each Nicotine (Habitrol) 14 mg TRDERM DAILY [facility] Last Admin: 05/20/19 09:33 Dose: Not Given Nifedipine (Procardia Xl) 30 mg PO DAILY [facility] Last Admin: 05/20/19 09:31 Dose: 30 mg Nitroglycerin (Nitrostat) 0.4 mg SL ASDIRECTED PRN PRN Reason: ANGINA Omeprazole (Omeprazole) 20 mg PO ACBREAKFAST [facility] Last Admin: 05/20/19 06:34 Dose: 20 mg Ondansetron HCl (Zofran Odt) 4 mg PO Q6H PRN PRN Reason: nausea, able to take PO Polyethylene Glycol (Miralax) 17 gm PO DAILY PRN PRN Reason: Constipation Potassium Chloride (Klor-Con 10) 10 meq PO BID [facility] Last Admin: 05/20/19 09:32 Dose: 10 meq Senna/Docusate Sodium (Senna Plus) 1 tab PO BID PRN PRN Reason: Constipation Last Admin: 05/19/19 22:55 Dose: 1 tab Sodium Chloride (Saline Flush) 10 ml FLUSH ASDIRECTED PRN PRN Reason: Keep Vein Open Last Admin: 05/19/19 23:14 Dose: 10 ml Spironolactone (Aldactone) 25 mg PO DAILY [facility] Last Admin: 05/20/19 09:31 Dose: 25 mg Venlafaxine HCl (Effexor) 100 mg PO BEDTIME [facility] Last Admin: 05/19/19 22:55 Dose: 100 mg Zolpidem Tartrate (Ambien) 5 mg PO BEDTIME PRN PRN Reason: Sleep Last Admin: 05/19/19 23:00 Dose: 5 mg Discontinued Medications Carvedilol (Coreg) 6.25 mg PO BID [facility] Gabapentin (Neurontin) 400 mg PO TID [facility] Gabapentin (Neurontin) 800 mg PO TID [facility] Last Admin: 05/19/19 15:33 Dose: Not Given Hydromorphone HCl (Dilaudid) 1 mg IVPUSH ONETIME ONE Stop: 05/18/19 14:13 Last Admin: 05/18/19 14:21 Dose: 1 mg Hydromorphone HCl (Dilaudid) 1 mg IVPUSH ONETIME ONE Stop: 05/18/19 16:07 Last Admin: 05/18/19 16:34 Dose: 1 mg Insulin Human Lispro (Humalog) 0 unit SUBCUT ASDIRECTED [facility]; Protocol Lidocaine (Lidoderm 5%) 0 mg TRDERM Q24H [facility] Last Admin: 05/18/19 20:42 Dose: Not Given Nicotine (Habitrol) 14 mg TRDERM DAILY [facility] Last Admin: 05/19/19 09:44 Dose: Not Given Non-Formulary Medication (Formoterol [Perforomist]) 2 ml INH BID [facility] Last Admin: 05/19/19 14:53 Dose: Not Given Non-Formulary Medication (Insulin Aspart [Novolog]) 10 unit SQ TIDMEALS [facility] Non-Formulary Medication (Sevelamer Carbonate [Renvela]) 800 mg PO TIDMEALS [facility] Last Admin: 05/19/19 14:52 Dose: Not Given Ondansetron HCl (Zofran) 4 mg IV ONETIME ONE Stop: 05/18/19 14:13 Last Admin: 05/18/19 14:21 Dose: 4 mg Sodium Chloride (Saline Flush) 10 ml FLUSH ASDIRECTED PRN PRN Reason: Keep Vein Open Venlafaxine HCl (Venlafaxine Hcl Er) 150 mg PO DAILY [facility] Last Admin: 05/19/19 14:52 Dose: Not Given - Exam General: Reports: Alert, Oriented HEENT: Reports: Pupils Equal, Pupils Reactive, EOMI, Mucous Membr. Moist/[place] Neck: Reports: Supple Lungs: Reports: Clear to Auscultation, Normal Respiratory Effort Cardiovascular: Reports: Regular Rate, Regular Rhythm GI/Abdominal Exam: Normal Bowel Sounds, Soft, Non-Tender, No Organomegaly, No Distention, No Abnormal Bruit, No Mass, Pelvis Stable (Female) Exam: Deferred Rectal (Female) Exam: Deferred Back Exam: Reports: Normal Inspection, Full Range of Motion Extremities: Normal Range of Motion, Non-Tender, No Pedal Edema, Normal Capillary Refill Skin: Reports: Warm, Dry, Intact Wound/Incisions: Reports: Healing Well Neurological: Reports: No New Focal Deficit Psy/Mental Status: Reports: Alert, Normal Affect, Normal Mood
[2019-05-20] MEDS: atorvaSTATin 10 MG Tab PO SCH (22:35)
[2019-05-20] MEDS: Metolazone 2.5 MG Tab PO SCH (22:48)
[2019-05-20] MEDS: Zolpidem 5 MG Tab PO PRN (22:49)
[2019-05-21] MEDS: Omeprazole 20 MG Cap.CR PO SCH (06:09)
[2019-05-21 08:18] VITALS: BP 179/59; PULSE 63
[2019-05-21] MEDS: Insulin Lispro 100 Units/ML 3 ML Vial SUBCUT SCH ×4 (08:46→12:38)
[2019-05-21] MEDS: Bumetanide 1 MG Tab PO SCH (08:48)
[2019-05-21] MEDS: Gabapentin 400 MG Cap PO SCH (08:48)
[2019-05-21] MEDS: Multivitamins,Therapeutic Tab PO SCH (08:48)
[2019-05-21] MEDS: Spironolactone 25 MG Tab PO SCH (08:49)
[2019-05-21] MEDS: Aspirin 325 MG Tab.EC PO SCH (08:49)
[2019-05-21] MEDS: Carvedilol 25 MG Tab PO SCH (08:49)
[2019-05-21] MEDS: Potassium Chloride 10 MEQ Tab.ER PO SCH (08:49)
[2019-05-21] MEDS: Apixaban 5 MG Tab PO SCH (08:50)
[2019-05-21] MEDS: Cyclobenzaprine 10 MG Tab PO PRN (08:50)
[2019-05-21] MEDS: NIFEdipine 30 MG Tab.ER PO SCH (08:50)
[2019-05-21] MEDS: Insulin Glarg,Human.Rec.Analog 100 Unit/ML SUBCUT SCH (08:51)
[2019-05-21] MEDS: Acetaminophen 500 MG Tab PO PRN (08:51)
[2019-05-21] MEDS: Nicotine 14 MG/24 Hr Patch TRDERM SCH (09:05)
== END 2019-05-21 12:15 | disposition home or self-care (01) ==
LOC: DL.ED 14:01 → DL.MS 17:12 → DL.ED 17:19
PROVIDERS: ADMIT Internal Medicine; ATTEND Internal Medicine
DX: M25.552 Pain in left hip (principal); I13.0 Hypertensive heart and chronic kidney disease with heart failure and stage 1 through stage 4 chronic kidney disease, or unspecified chronic kidney disease; E11.22 Type 2 diabetes mellitus with diabetic chronic kidney disease; E11.40 Type 2 diabetes mellitus with diabetic neuropathy, unspecified; N18.3 Chronic kidney disease, stage 3 (moderate); I50.32 Chronic diastolic (congestive) heart failure; I48.91 Unspecified atrial fibrillation; J44.9 Chronic obstructive pulmonary disease, unspecified; F32.9 Major depressive disorder, single episode, unspecified; E78.5 Hyperlipidemia, unspecified; K21.9 Gastro-esophageal reflux disease without esophagitis; G89.29 Other chronic pain; M54.5 Low back pain; M19.90 Unspecified osteoarthritis, unspecified site; R30.0 Dysuria; F17.210 Nicotine dependence, cigarettes, uncomplicated; E66.9 Obesity, unspecified; Z68.29 Body mass index [BMI] 29.0-29.9, adult; W18.09XA Striking against other object with subsequent fall, initial encounter; Z88.1 Allergy status to other antibiotic agents; Z79.4 Long term (current) use of insulin; Z79.82 Long term (current) use of aspirin; Z79.01 Long term (current) use of anticoagulants; Z79.51 Long term (current) use of inhaled steroids; Z79.899 Other long term (current) drug therapy; Z95.0 Presence of cardiac pacemaker; Z86.73 Personal history of transient ischemic attack (TIA), and cerebral infarction without residual deficits; Z95.1 Presence of aortocoronary bypass graft; Z95.2 Presence of prosthetic heart valve; Z23 Encounter for immunization
CPT/HCPCS: 36415; 73070-LT; 80053; 81001; 82962; 85027; 90686; 96374; 96375; 96376; 97162-GP; 97166-GO; 99285-25; A9270-GY; G0008; G0378; J1170; J1815; J1815-GY; J2270; J2405

== ENCOUNTER 2019-07-25 17:41 | Emergency (ER) | payer MEDICARE, MEDICAID ==
[2019-07-25] MEDS ORDERED: Mupirocin Oint 22 GM Tube TOP ONE (17:42)
[2019-07-25] MEDS ORDERED: Sodium Chloride 0.9% 10 ML Syringe FLUSH PRN (17:57)
[2019-07-25 18:04] VITALS: BP 158/60; PULSE 75
[2019-07-25] MEDS ORDERED: cefTRIAXone 2 GM in Sodium Chloride 0.9% 100 ML IV ONE (18:04)
[2019-07-25] MEDS ORDERED: Sulfamethoxazole/Trimethoprim 800-160 MG Tab PO ONE ×2 (18:04→18:27)
--- NOTE | 2019-07-25 18:07 | EDM.PDOC ---
<Pamela Queen - Last Filed: 07/25/19 20:47> ED HPI GENERAL MEDICAL PROBLEM - General Chief Complaint: Skin Complaint Stated Complaint: ambulance Time Seen by Provider: 07/25/19 17:55 - Related Data Allergies Allergy/AdvReac Type Severity Reaction Status Date / Time vancomycin Allergy Swelling Verified 05/18/19 18:06 Home Meds: Home Meds Insulin Detemir [Levemir] 25 units SQ DAILY 11/16/13 [History] Omeprazole 20 mg PO DAILY 01/17/14 [History] Multivitamin [Multi-Vitamin Daily] 1 tab PO DAILY 03/29/14 [History] Potassium Chloride [K-Tab ER] 10 meq PO BID 06/25/15 [History] Formoterol [Perforomist] 2 ml INH BID 07/05/15 [History] atorvaSTATin [Lipitor] 10 mg PO BEDTIME 07/05/15 [History] Budesonide [Pulmicort] 0.5 mg NEB BID PRN 10/23/15 [History] Nitroglycerin [Nitrostat] 0.4 mg PO ASDIRECTED PRN 08/12/17 [History] Acetaminophen [Tylenol Extra Strength] 1,000 mg PO Q8HR PRN 06/28/18 [History] Apixaban [Eliquis] 5 mg PO BID 06/28/18 [History] Aspirin [Aspirin EC] 325 mg PO DAILY 06/28/18 [History] Sennosides/Docusate Sodium [Senna-S] 1 tab PO BID PRN 06/28/18 [History] metOLazone [Metolazone] 2.5 mg PO Q48H 06/28/18 [History] polyethylene glycoL 3350 [MiraLAX] 17 gm PO DAILY PRN packet 07/15/18 [Rx] Albuterol Sulfate [Proair Hfa] 2 puff INH Q6H PRN 09/15/18 [History] Bumetanide 2 mg PO DAILY 09/15/18 [History] Insulin Aspart [NovoLOG] 0 - 16 unit SQ TIDMEALS 09/15/18 [History] NIFEdipine [Nifedipine ER] 30 mg PO DAILY 09/15/18 [History] Cyclobenzaprine [Flexeril] 10 mg PO TID PRN 03/09/19 [History] Docusate Sodium [Colace] 100 mg PO BID PRN 03/09/19 [History] Gabapentin [Neurontin] 800 mg PO TID 03/09/19 [History] Sevelamer Carbonate [Renvela] 1,600 mg PO TIDMEALS 03/09/19 [History] Venlafaxine [Effexor XR] 100 mg PO DAILY 03/09/19 [History] carvediloL [Carvedilol] 25 mg PO BID 03/09/19 [History] Spironolactone [Aldactone] 25 mg PO DAILY 05/18/19 [History] Gabapentin [Neurontin] 800 mg PO TID cap 05/20/19 [Rx] Nicotine [Habitrol] 14 mg TRDERM DAILY #7 patch 05/20/19 [Rx] Spironolactone [Aldactone] 25 mg PO DAILY tablet 05/20/19 [Rx] Venlafaxine [Effexor] 100 mg PO BEDTIME tablet 05/20/19 [Rx] carvediloL [Coreg] 25 mg PO BIDMEALS tablet 05/20/19 [Rx] ED EXAM, SKIN/RASH Exam: See Below Course - Vital Signs Last Recorded V/S: Last Vital Signs Temp 36.7 C 07/25/19 17:42 Pulse 75 07/25/19 17:42 Resp 16 07/25/19 17:42 BP 158/60 H 07/25/19 17:42 Pulse Ox 96 07/25/19 17:42 - Orders/Labs/Meds Orders: Active Orders 24 hr Category Date Time Status Peripheral IV Care [RC] . DIRECTED Care 07/25/19 18:00 Active CULTURE BLOOD [BC] Stat Lab 07/25/19 18:13 Received CULTURE BLOOD [BC] Stat Lab 07/25/19 18:17 Received Blood Culture x2 Reflex Set [OM.PC] Stat Oth 07/25/19 17:57 Ordered Peripheral IV Insertion Adult [OM.PC] Stat Oth 07/25/19 17:57 Ordered Labs: Laboratory Tests 07/25/19 07/25/19 07/25/19 Range/Units 18:13 18:17 18:17 WBC 8.5 (5.0-10.0) 10^3/uL RBC 3.87 L (4.2-5.4) 10^6/uL Hgb 11.1 L (12.0-16.0) g/dL Hct 32.6 L (37.0-47.0) % MCV 84.2 (80-100) fL MCH 28.7 (27.0-34.0) pg MCHC 34.0 (33.0-35.0) g/dL Plt Count 250 D (150-450) 10^3/uL Neut % (Auto) 72.9 (42.2-75.2) % Lymph % (Auto) 16.2 L (20.5-50.1) % Sanders % (Auto) 9.6 H (2-8) % Eos % (Auto) 0.9 L (1.0-3.0) % Baso % (Auto) 0.4 (0.0-1.0) % Sodium 130 L (136-145) mmol/L Potassium 3.6 (3.5-5.1) mmol/L Chloride 94 L (98-107) mmol/L Carbon Dioxide 27 (21-32) mmol/L Anion Gap 12.6 (7-13) mEq/L BUN 37 H (7-18) mg/dL Creatinine 1.47 H (0.55-1.02) mg/dL Est Cr Clr Drug Dosing 39.08 mL/min Estimated GFR (MDRD) 36 BUN/Creatinine Ratio 25.2 (No establ ref range) Glucose 213 H (74-99) mg/dL Lactic Acid 1.3 (0.4-2.0) mmol/L Calcium 8.7 (8.5-10.1) mg/dL Total Bilirubin 0.3 (0.2-1.0) mg/dL AST 9 L (15-37) U/L ALT 13 L (14-59) U/L Alkaline Phosphatase 134 H (46-116) U/L C-Reactive Protein 14.7 H (0.0-0.9) mg/dL Total Protein 7.7 (6.4-8.2) g/dL Albumin 2.8 L (3.4-5.0) g/dL Globulin 4.9 Albumin/Globulin Ratio 0.57 Meds: Medications Discontinued Medications Generic Name Dose Route Start Last Admin Trade Name Freq PRN Reason Stop Dose Admin Bacitracin Confirm 07/25/19 19:47 Bacitracin Oint 1 Gm Administered 07/25/19 19:48 Dose 1 dose .ROUTE .STK-MED ONE Ceftriaxone Sodium 2 gm/ 100 mls @ 200 mls/hr 07/25/19 18:04 07/25/19 19:49 Sodium Chloride IV 07/25/19 18:33 Not Given ONETIME ONE Ampicillin Sodium/Sulbactam 100 mls @ 100 mls/hr 07/25/19 18:27 07/25/19 18: 56 Sodium 3 gm/ Sodium Chloride IV 07/25/19 19:26 100 mls/hr ONETIME ONE Administration Mupirocin Confirm 07/25/19 19:44 07/25/19 19:48 Bactroban Oint Administered 07/25/19 19:45 Not Given Dose 22 gm .ROUTE .STK-MED ONE Sodium Chloride 10 ml 07/25/19 17:57 07/25/19 18:16 Saline Flush FLUSH 10 ml ASDIRECTED PRN Administration Keep Vein Open Trimethoprim/Sulfamethoxazole 1 tab 07/25/19 18:04 07/25/19 19:48 Septra Ds PO 07/25/19 18:05 Not Given ONETIME ONE Trimethoprim/Sulfamethoxazole 1 tab 07/25/19 18:27 07/25/19 18:42 Septra Ds PO 07/25/19 18:28 1 tab ONETIME ONE Administration - Re-Assessments/Exams Free Text/Narrative Re-Assessment/Exam: 07/25/19 19:47 Agree with above assessment. CT results reviewed with patient. Instructed on need for close monitoring of wounds and infection. Oral doxycycline. Bertram wounds clean and dressed and instructed to make follow up clinic appointment. Post op shoe on right. Departure - Departure Time of Disposition: 19:34 Disposition: Home, Self-Care 01 Condition: Good Clinical Impression: Cellulitis and abscess of right leg Contusion of fourth toe of right foot Qualifiers: Encounter type: initial encounter Qualified Code(s): S90.121A - Contusion of right lesser toe(s) without damage to nail, initial encounter - Discharge Information *PRESCRIPTION DRUG MONITORING PROGRAM REVIEWED*: No *COPY OF PRESCRIPTION DRUG MONITORING REPORT IN PATIENT XOCHILT: No Instructions: Cellulitis, Adult, Aory-or-Yerb Referrals: PCP,None [Primary Care Provider] - Forms: ED Department Discharge Additional Instructions: doxycycline 100mgt one twice daily for 10 days clinic follow up recheck call in am to be scheduled tylenol 650mg every 6 hours as needed for discomfort elevate extremity keep area covered, change dressing twice daily Sepsis Event Note - Focused Exam Date Exam was Performed: 07/25/19 Time Exam was Performed: 20:47 - My Orders Last 24 Hours: My Active Orders 07/25/19 17:57 Blood Culture x2 Reflex Set [OM.PC] Stat Peripheral IV Insertion Adult [OM.PC] Stat 07/25/19 18:00 Peripheral IV Care [RC] . DIRECTED 07/25/19 18:13 CULTURE BLOOD [BC] Stat 07/25/19 18:17 CULTURE BLOOD [BC] Stat - Assessment/Plan Last 24 Hours: My Active Orders 07/25/19 17:57 Blood Culture x2 Reflex Set [OM.PC] Stat Peripheral IV Insertion Adult [OM.PC] Stat 07/25/19 18:00 Peripheral IV Care [RC] . DIRECTED 07/25/19 18:13 CULTURE BLOOD [BC] Stat 07/25/19 18:17 CULTURE BLOOD [BC] Stat <Giancarlo Chilel - Last Filed: 07/26/19 10:55> ED HPI GENERAL MEDICAL PROBLEM - General Source of Information: Reports: Patient, EMS History Limitations: Reports: No Limitations - History of Present Illness INITIAL COMMENTS - FREE TEXT/NARRATIVE: Patient comes emergency department today by ambulance from home. She has concerns for an infection in her right lower extremity. 2 days ago she dropped some hot noodles on her anterior distal granados. She also then ran over her right fourth toe with a wheelchair 2 days ago. Since that time she has had increasing pain and swelling to not only the tib-fib region on the distal aspect but also the right fourth toe that is become quite swollen and painful. She is a diabetic. She does not check her sugars that she has no machine. She does complain of some generalized malaise and fatigue. No fever no chills. 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 Past Medical History HEENT History: Reports: Impaired Vision Other HEENT History: wears glasses Cardiovascular History: Reports: Afib, Bacterial Endocarditis, CAD, Heart Failure, Heart Murmur, Heart Valve Replacement, High Cholesterol, Hypertension, SC, Pacemaker, Other (See Below) Other Cardiovascular History: Aortic valve endocarditis; CAD; s/p AVR; paroxysmal atrial fibrillation; essential hypertension; cardiac pacemaker in situ; tachy-angelique syndrome - all per [facility] records Respiratory History: Reports: COPD, Intubation, Previous, Pneumonia, Recurrent, SOB, Other (See Below) Other Respiratory History: hx hypoxemia Gastrointestinal History: Reports: Cholelithiasis, GERD Genitourinary History: Reports: Chronic Renal Insuffiency, Diabetic Nephropathy , Other (See Below) Other Genitourinary History: STAGE III CKD [employer] History: Reports: Other [employer] 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 1 C/S Musculoskeletal History: Reports: Arthritis, Back Pain, Chronic, Fracture, Osteoarthritis Other Musculoskeletal History: arthritis to spine, carpal tunnel to wrists. HX OF PROXIMAL HUMERS FRACTURE RIGHT Neurological History: Reports: Neuropathy, Diabetic, TIA, Other (See Below) Other Neuro History: CHRONIC PAIN SYNDROME Psychiatric History: Reports: Depression Endocrine/Metabolic History: Reports: Diabetes, Type II, Obesity/BMI 30+ Hematologic History: Reports: Other (See Below) Other Hematologic History: hx bacteremia, hyperkalemia, hyponatremia Immunologic History: Reports: None Oncologic (Cancer) History: Reports: None Dermatologic History: Reports: Other (See Below) Other Dermatologic History: hx impetigo, and pressure sore to buttocks - Infectious Disease History Infectious Disease History: Reports: None - Past Surgical History HEENT Surgical History: Reports: Tonsillectomy Cardiovascular Surgical History: Reports: Coronary Artery Bypass, Pacer, Valve Replacement Other Cardiovascular Surgeries/Procedures: Pacemaker placed 11/10/2013 Respiratory Surgical History: Reports: Other (See Below) Other Respiratory Surgeries/Procedures: BRONCHOSCOPY GI Surgical History: Reports: Appendectomy, Cholecystectomy, Colonoscopy Female Surgical History: Reports: Hysterectomy Endocrine Surgical History: Reports: None Neurological Surgical History: Reports: None Musculoskeletal Surgical History: Reports: Amputation, Hip Replacement, Other ( See Below) Other Musculoskeletal Surgeries/Procedures:: left 1/2 foot. Distal portion of 2nd digit on right foot. Social & Family History - Family History Family Medical History: Noncontributory Cardiac: Reports: Hypertension Respiratory: Reports: COPD Endocrine/Metabolic: Reports: Diabetes, type II - Caffeine Use Caffeine Use: Reports: None, Tea Caffeine Use Comment: Pt reports daily tea intake. - Living Situation & Occupation Living situation: Reports: with Family Occupation: Disabled ED ROS GENERAL - Review of Systems Review Of Systems: Comprehensive ROS is negative, except as noted in HPI. ED EXAM, SKIN/RASH Text/Narrative:: THis patient is well known to the ED and poor compliance at best for her chronic diseases. Exam Limited By: No Limitations General Appearance: Alert, WD/WN Eye Exam: Bilateral Eye: EOMI, Normal Inspection Ears: Normal External Exam, Normal Canal, Hearing Grossly Normal, Normal TMs Nose: Normal Inspection, Normal Mucosa Throat/Mouth: Normal Inspection, Normal Lips, Normal Teeth, Normal Oropharynx, Normal Voice Head: Atraumatic, Normocephalic Neck: Normal Inspection Respiratory/Chest: No Respiratory Distress, Lungs Clear Cardiovascular: Normal Peripheral Pulses, Regular Rate, Rhythm Peripheral Pulses: 1+: Posterior Tibial (L), Posterior Tibial (R), Dorsalis Pedis (L), Dorsalis Pedis (R) GI/Abdominal: Normal Bowel Sounds, Soft, Pelvis Stable (Female) Exam: Deferred Rectal (Female) Exam: Deferred Back Exam: Normal Inspection Extremities: Leg Pain (On the dorsal aspect of the right distal tib-fib there are 2 areas of a superficial ulcer. This is circumscribed with erythema warmth and tenderness. On the right fourth toe on the dorsal aspect of the distal toe there is quite a bit of maceration the toe is purple in color swollen. There is quite a bit of swelling throughout the right foot. The second toe on the right foot is healed well.), Increased Warmth Neurological: Alert, Oriented, Normal Cognition, No Motor/Sensory Deficits Psychiatric: Normal Affect, Normal Mood Course - Orders/Labs/Meds Labs: Laboratory Tests 07/25/19 07/25/19 07/25/19 Range/Units 18:13 18:17 18:17 WBC 8.5 (5.0-10.0) 10^3/uL RBC 3.87 L (4.2-5.4) 10^6/uL Hgb 11.1 L (12.0-16.0) g/dL Hct 32.6 L (37.0-47.0) % MCV 84.2 (80-100) fL MCH 28.7 (27.0-34.0) pg MCHC 34.0 (33.0-35.0) g/dL Plt Count 250 D (150-450) 10^3/uL Neut % (Auto) 72.9 (42.2-75.2) % Lymph % (Auto) 16.2 L (20.5-50.1) % Sanders % (Auto) 9.6 H (2-8) % Eos % (Auto) 0.9 L (1.0-3.0) % Baso % (Auto) 0.4 (0.0-1.0) % Sodium 130 L (136-145) mmol/L Potassium 3.6 (3.5-5.1) mmol/L Chloride 94 L (98-107) mmol/L Carbon Dioxide 27 (21-32) mmol/L Anion Gap 12.6 (7-13) mEq/L BUN 37 H (7-18) mg/dL Creatinine 1.47 H (0.55-1.02) mg/dL Est Cr Clr Drug Dosing 39.08 mL/min Estimated GFR (MDRD) 36 BUN/Creatinine Ratio 25.2 (No establ ref range) Glucose 213 H (74-99) mg/dL Lactic Acid 1.3 (0.4-2.0) mmol/L Calcium 8.7 (8.5-10.1) mg/dL Total Bilirubin 0.3 (0.2-1.0) mg/dL AST 9 L (15-37) U/L ALT 13 L (14-59) U/L Alkaline Phosphatase 134 H (46-116) U/L C-Reactive Protein 14.7 H (0.0-0.9) mg/dL Total Protein 7.7 (6.4-8.2) g/dL Albumin 2.8 L (3.4-5.0) g/dL Globulin 4.9 Albumin/Globulin Ratio 0.57 - Re-Assessments/Exams Free Text/Narrative Re-Assessment/Exam: 07/25/19 18:[address] for assessment of extent of her infection. Unasyn and Bactrim in the ED 07/25/19 18:48 Report to Pamela Deluca PA-C at shift change. Care transfered to Pamela. Sepsis Event Note - Evaluation Sepsis Screening Result: No Definite Risk - Focused Exam Date Exam was Performed: 07/26/19 Time Exam was Performed: 10:55
[2019-07-25] MEDS ORDERED: Ampicillin/Sulbactam Na 3 GM in Sodium Chloride 0.9% 100 ML IV ONE (18:27)
[2019-07-25 18:50] LABS: ANION GAP 12.6 mEq/L (7-13)
[2019-07-25] MEDS ORDERED: Mupirocin Oint 22 GM Tube ONE (19:44)
[2019-07-25] MEDS ORDERED: Bacitracin Oint 1 GM U/D Packet ONE (19:47)
== END 2019-07-25 20:08 | disposition home or self-care (01) ==
LOC: DL.ED 17:41
DX: S90.121A Contusion of right lesser toe(s) without damage to nail, initial encounter (principal); L03.115 Cellulitis of right lower limb; L02.415 Cutaneous abscess of right lower limb; I48.91 Unspecified atrial fibrillation; I13.0 Hypertensive heart and chronic kidney disease with heart failure and stage 1 through stage 4 chronic kidney disease, or unspecified chronic kidney disease; I50.9 Heart failure, unspecified; N18.3 Chronic kidney disease, stage 3 (moderate); J44.9 Chronic obstructive pulmonary disease, unspecified; K21.9 Gastro-esophageal reflux disease without esophagitis; M19.90 Unspecified osteoarthritis, unspecified site; E11.22 Type 2 diabetes mellitus with diabetic chronic kidney disease; E66.9 Obesity, unspecified; Z68.31 Body mass index [BMI] 31.0-31.9, adult; Z86.73 Personal history of transient ischemic attack (TIA), and cerebral infarction without residual deficits; E11.40 Type 2 diabetes mellitus with diabetic neuropathy, unspecified; Z79.82 Long term (current) use of aspirin; Z88.1 Allergy status to other antibiotic agents; Z79.4 Long term (current) use of insulin; Z79.899 Other long term (current) drug therapy; W20.8XXA Other cause of strike by thrown, projected or falling object, initial encounter
CPT/HCPCS: 36415; 73700; 80053; 83605; 85025; 86140; 87040; 96365; 99284; A9270; J0295; J7050

== ENCOUNTER 2019-08-16 21:05 | Emergency (ER) | payer MEDICARE, MEDICAID ==
[2019-08-16 21:24] VITALS: BP 126/98; PULSE 87
[2019-08-16 22:19] LABS: ANION GAP 15.3 mEq/L (7-13)
[2019-08-16] MEDS ORDERED: Piperacillin/Tazobactam 3.375 GM in Sodium Chloride 0.9% 100 ML IV ONE (23:24)
[2019-08-16] MEDS ORDERED: Sodium Chloride 0.9% 1,000 ML IV ONE (23:25)
--- NOTE | 2019-08-16 23:30 | EDM.PDOC ---
ED HPI GENERAL MEDICAL PROBLEM - General Chief Complaint: Skin Complaint Stated Complaint: AMBULANCE Time Seen by Provider: 08/16/19 21:15 Source of Information: Reports: Patient History Limitations: Reports: No Limitations - History of Present Illness INITIAL COMMENTS - FREE TEXT/NARRATIVE: ED with c/o pain to lower leg and toes, hx diabetic wounds, noted increased swelling and drainage to 4th toe past 2 days. Has had chills does not know if fever, Patient hospitalized one month ago for infection. has not followed up. States does not have primary provider, "just gets seen in ED". Unsure if she was to follow up. Increasing pain , harder to walk, Requires assistance with ADL 's. Right Toe-Middle Pain Score (Numeric/FACES): 7 - Related Data Allergies Allergy/AdvReac Type Severity Reaction Status Date / Time vancomycin Allergy Swelling Verified 08/16/19 21:26 Home Meds: Home Meds Insulin Detemir [Levemir] 25 units SQ DAILY 11/16/13 [History] Omeprazole 20 mg PO DAILY 01/17/14 [History] Multivitamin [Multi-Vitamin Daily] 1 tab PO DAILY 03/29/14 [History] Potassium Chloride [K-Tab ER] 10 meq PO BID 06/25/15 [History] Formoterol [Perforomist] 2 ml INH BID 07/05/15 [History] atorvaSTATin [Lipitor] 10 mg PO BEDTIME 07/05/15 [History] Budesonide [Pulmicort] 0.5 mg NEB BID PRN 10/23/15 [History] Nitroglycerin [Nitrostat] 0.4 mg PO ASDIRECTED PRN 08/12/17 [History] Acetaminophen [Tylenol Extra Strength] 1,000 mg PO Q8HR PRN 06/28/18 [History] Apixaban [Eliquis] 5 mg PO BID 06/28/18 [History] Aspirin [Aspirin EC] 325 mg PO DAILY 06/28/18 [History] Sennosides/Docusate Sodium [Senna-S] 1 tab PO BID PRN 06/28/18 [History] metOLazone [Metolazone] 2.5 mg PO Q48H 06/28/18 [History] polyethylene glycoL 3350 [MiraLAX] 17 gm PO DAILY PRN packet 07/15/18 [Rx] Albuterol Sulfate [Proair Hfa] 2 puff INH Q6H PRN 09/15/18 [History] Bumetanide 2 mg PO DAILY 09/15/18 [History] Insulin Aspart [NovoLOG] 0 - 16 unit SQ TIDMEALS 09/15/18 [History] NIFEdipine [Nifedipine ER] 30 mg PO DAILY 09/15/18 [History] Cyclobenzaprine [Flexeril] 10 mg PO TID PRN 03/09/19 [History] Docusate Sodium [Colace] 100 mg PO BID PRN 03/09/19 [History] Gabapentin [Neurontin] 800 mg PO TID 03/09/19 [History] Sevelamer Carbonate [Renvela] 1,600 mg PO TIDMEALS 03/09/19 [History] Venlafaxine [Effexor XR] 100 mg PO DAILY 03/09/19 [History] carvediloL [Carvedilol] 25 mg PO BID 03/09/19 [History] Spironolactone [Aldactone] 25 mg PO DAILY 05/18/19 [History] Gabapentin [Neurontin] 800 mg PO TID cap 05/20/19 [Rx] Nicotine [Habitrol] 14 mg TRDERM DAILY #7 patch 05/20/19 [Rx] Spironolactone [Aldactone] 25 mg PO DAILY tablet 05/20/19 [Rx] Venlafaxine [Effexor] 100 mg PO BEDTIME tablet 05/20/19 [Rx] carvediloL [Coreg] 25 mg PO BIDMEALS tablet 05/20/19 [Rx] Past Medical History HEENT History: Reports: Impaired Vision Other HEENT History: wears glasses Cardiovascular History: Reports: Afib, Bacterial Endocarditis, CAD, Heart Failure, Heart Murmur, Heart Valve Replacement, High Cholesterol, Hypertension, [place], Pacemaker, Other (See Below) Other Cardiovascular History: Aortic valve endocarditis; CAD; s/p AVR; paroxysmal atrial fibrillation; essential hypertension; cardiac pacemaker in situ; tachy-angelique syndrome - all per [facility] records Respiratory History: Reports: COPD, Intubation, Previous, Pneumonia, Recurrent, SOB, Other (See Below) Other Respiratory History: hx hypoxemia Gastrointestinal History: Reports: Cholelithiasis, GERD Genitourinary History: Reports: Chronic Renal Insuffiency, Diabetic Nephropathy , Other (See Below) Other Genitourinary History: STAGE III CKD [employer] History: Reports: Other [employer] 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 1 C/S Musculoskeletal History: Reports: Arthritis, Back Pain, Chronic, Fracture, Osteoarthritis Other Musculoskeletal History: arthritis to spine, carpal tunnel to wrists. HX OF PROXIMAL HUMERS FRACTURE RIGHT Neurological History: Reports: Neuropathy, Diabetic, TIA, Other (See Below) Other Neuro History: CHRONIC PAIN SYNDROME Psychiatric History: Reports: Depression Endocrine/Metabolic History: Reports: Diabetes, Type II, Obesity/BMI 30+ Hematologic History: Reports: Other (See Below) Other Hematologic History: hx bacteremia, hyperkalemia, hyponatremia Immunologic History: Reports: None Oncologic (Cancer) History: Reports: None Dermatologic History: Reports: Other (See Below) Other Dermatologic History: hx impetigo, and pressure sore to buttocks - Infectious Disease History Infectious Disease History: Reports: None - Past Surgical History HEENT Surgical History: Reports: Tonsillectomy Cardiovascular Surgical History: Reports: Coronary Artery Bypass, Pacer, Valve Replacement Other Cardiovascular Surgeries/Procedures: Pacemaker placed 11/10/2013 Respiratory Surgical History: Reports: Other (See Below) Other Respiratory Surgeries/Procedures: BRONCHOSCOPY GI Surgical History: Reports: Appendectomy, Cholecystectomy, Colonoscopy Female Surgical History: Reports: Hysterectomy Endocrine Surgical History: Reports: None Neurological Surgical History: Reports: None Musculoskeletal Surgical History: Reports: Amputation, Hip Replacement, Other ( See Below) Other Musculoskeletal Surgeries/Procedures:: left 1/2 foot. Distal portion of 2nd digit on right foot. Social & Family History - Family History Family Medical History: Noncontributory Cardiac: Reports: Hypertension Respiratory: Reports: COPD Endocrine/Metabolic: Reports: Diabetes, type II - Tobacco Use Smoking Status *Q: Current Every Day Smoker Years of Tobacco use: 29 Packs/Tins Daily: 0.5 - Caffeine Use Caffeine Use: Reports: Coffee, Soda Caffeine Use Comment: Pt reports daily tea intake. - Recreational Drug Use Recreational Drug Use: No - Living Situation & Occupation Living situation: Reports: with Family Occupation: Disabled ED ROS GENERAL - Review of Systems Review Of Systems: Comprehensive ROS is negative, except as noted in HPI. ED EXAM, SKIN/RASH Exam: See Below Exam Limited By: Language Barrier General Appearance: Alert, Mild Distress Eye Exam: Bilateral Eye: EOMI Ears: Normal External Exam, Hearing Grossly Normal Throat/Mouth: Normal Inspection Head: Atraumatic, Normocephalic Neck: Normal Inspection Respiratory/Chest: No Respiratory Distress, Lungs Clear, Normal Breath Sounds Cardiovascular: Regular Rate, Rhythm GI/Abdominal: Normal Bowel Sounds, Soft Extremities: Redness (right lower), Other ( 3rd and 4th toes swollen, greenish, serous drainage, base 3rd emacerated, pedal puses doppled) Neurological: Alert, Oriented, Normal Cognition Psychiatric: Flat Affect Skin: Wound/Incision Location, Skin: Lower Extremity, Right Associated features: Warmth, Tenderness, Swelling, Induration, Crusting, Weeping Course - Vital Signs Last Recorded V/S: Last Vital Signs Temp 96.4 F L 08/16/19 21:13 Pulse 87 08/16/19 21:13 Resp 19 08/16/19 21:13 BP 126/98 H 08/16/19 21:13 Pulse Ox 100 08/16/19 21:13 - Orders/Labs/Meds Orders: Active Orders 24 hr Category Date Time Status Lower Leg wo Cont Rt [CT] Urgent Exams 08/16/19 22:08 Ordered CULTURE BLOOD [BC] Stat Lab 08/16/19 21:44 Received CULTURE BLOOD [BC] Stat Lab 08/16/19 21:50 Results CULTURE WOUND [RM] Stat Lab 08/16/19 21:40 Received Blood Culture x2 Reflex Set [OM.PC] Stat Oth 08/16/19 21:31 Ordered Labs: Laboratory Tests 08/16/19 08/16/19 08/16/19 Range/Units 21:50 21:50 21:50 WBC 10.0 (5.0-10.0) 10^3/uL RBC 4.25 (4.2-5.4) 10^6/uL Hgb 12.1 (12.0-16.0) g/dL Hct 36.1 L (37.0-47.0) % MCV 84.9 (80-100) fL MCH 28.5 (27.0-34.0) pg MCHC 33.5 (33.0-35.0) g/dL Plt Count 206 (150-450) 10^3/uL Neut % (Auto) 74.3 (42.2-75.2) % Lymph % (Auto) 14.0 L (20.5-50.1) % [place] % (Auto) 10.6 H (2-8) % Eos % (Auto) 0.8 L (1.0-3.0) % Baso % (Auto) 0.3 (0.0-1.0) % Sodium 128 L (136-145) mmol/L Potassium 4.3 (3.5-5.1) mmol/L Chloride 94 L (98-107) mmol/L Carbon Dioxide 23 (21-32) mmol/L Anion Gap 15.3 H (7-13) mEq/L BUN 34 H (7-18) mg/dL Creatinine 1.81 H (0.55-1.02) mg/dL Est Cr Clr Drug Dosing 33.68 mL/min Estimated GFR (MDRD) 28 BUN/Creatinine Ratio 18.8 (No establ ref range) Glucose 295 H (74-99) mg/dL Lactic Acid 2.8 H* (0.4-2.0) mmol/L Calcium 8.8 (8.5-10.1) mg/dL Total Bilirubin 0.3 (0.2-1.0) mg/dL AST 9 L (15-37) U/L ALT 14 (14-59) U/L Alkaline Phosphatase 136 H (46-116) U/L C-Reactive Protein 7.2 H (0.0-0.9) mg/dL Total Protein 8.1 (6.4-8.2) g/dL Albumin 3.0 L (3.4-5.0) g/dL Globulin 5.1 Albumin/Globulin Ratio 0.59 - Radiology Interpretation Free Text/Narrative:: 08/16/19 23:[address] [facility] Final Radiology Report Call: [phone] assistance Online chat: [email or web address] Name: TORY CONTI Age: 64Years F Date: 08/16/2019 SSN: -- : [id number] Study: CT EXTREMITY LOWER WO RIGHT Requesting Physician: MICHELLE EDGE Images: [phone] Addl Studies: Provided Clinical History: Contrast: Without Contrast Medium: Contrast Amount: Contrast Method: Page 1 of 2 PROCEDURE INFORMATION: Exam: CT Right Lower Extremity Without Contrast; Lower Leg Exam date and time: 08/16/2019 10:33 PM Age: 64 years old Clinical indication: Other: Redness, pain, toe drainage; Lower leg and toes; Right TECHNIQUE: Imaging protocol: CT of the Right lower extremity without contrast was performed. Exam focused on the lower leg. Radiation optimization: All CT scans at this facility use at least one of these dose optimization techniques: automated exposure control; mA and/or kV adjustment per patient size (includes targeted exams where dose is matched to clinical indication); or iterative reconstruction. COMPARISON: CT Lower Leg wo Cont Rt 07/25/2019 6:30 PM FINDINGS: Bones/joints: Patchy osteopenia. No focal areas of cortical erosion to suggest osteomyelitis. Postoperative changes of resection of the middle and distal phalanges of the 2nd toe. Diffuse osteopenia. Soft tissues: Edema in the subcutaneous tissues of the right calf, ankle and foot. Ulceration of the skin of the tips of the 3rd and 4th toes. The skin defect of the 3rd toe extends to the cortex of the tip of the distal phalanx. No cortical irregularity identified. IMPRESSION: No abscess or drainable fluid collection. Soft tissue edema extending from the calf through the foot. TORY CONTI | Final Radiology Report CONFIDENTIALITY STATEMENT This report is intended only for use by the referring physician, and only in accordance with law. If you received this in error, call [phone]. Page 2 of 2 Skin ulceration of the distal 3rd and 4th toes, with the skin defect of the 3rd toe extending to the cortex of the tip of the distal phalanx. While no CT findings of osteomyelitis are identified, this finding indicates high risk of eventual osteomyelitis of the 3rd toe. Thank you for allowing us to participate in the care of your patient. Dictated and Authenticated by: Charlene Landry MD 08/16/2019 11:00 PM Central Time ([place] & [place]) 08/16/19 23:40 - Re-Assessments/Exams Free Text/Narrative Re-Assessment/Exam: No recent travel, No known exposure to COVID patients or high risk person, No c/ o cough of SOB, No eye discharge. TC Dr Mack, accepting patient . Tx via [facility] [employer] Departure - Departure Time of Disposition: 23:39 Disposition: DC/Tfer to Acute Hospital 02 Condition: Undetermined Clinical Impression: Diabetes mellitus type 2, Wound infection - Discharge Information *PRESCRIPTION DRUG MONITORING PROGRAM REVIEWED*: Yes *COPY OF PRESCRIPTION DRUG MONITORING REPORT IN PATIENT XOCHILT: No Sepsis Event Note - Evaluation Sepsis Screening Result: No Definite Risk - Focused Exam Vital Signs: Vital Signs Temp Pulse Resp BP Pulse Ox 08/16/19 21:13 96.4 F L 87 19 126/98 H 100 Date Exam was Performed: 08/16/19 Time Exam was Performed: 23:02 - My Orders Last 24 Hours: My Active Orders 08/16/19 21:31 Blood Culture x2 Reflex Set [OM.PC] Stat 08/16/19 21:40 CULTURE WOUND [RM] Stat 08/16/19 21:44 CULTURE BLOOD [BC] Stat 08/16/19 21:50 CULTURE BLOOD [BC] Stat 08/16/19 22:08 Lower Leg wo Cont Rt [CT] Urgent - Assessment/Plan Last 24 Hours: My Active Orders 08/16/19 21:31 Blood Culture x2 Reflex Set [OM.PC] Stat 08/16/19 21:40 CULTURE WOUND [RM] Stat 08/16/19 21:44 CULTURE BLOOD [BC] Stat 08/16/19 21:50 CULTURE BLOOD [BC] Stat 08/16/19 22:08 Lower Leg wo Cont Rt [CT] Urgent
== END 2019-08-17 00:04 ==
LOC: DL.ED 21:05
DX: E11.628 Type 2 diabetes mellitus with other skin complications (principal); F17.210 Nicotine dependence, cigarettes, uncomplicated; E66.9 Obesity, unspecified; Z68.29 Body mass index [BMI] 29.0-29.9, adult; I13.0 Hypertensive heart and chronic kidney disease with heart failure and stage 1 through stage 4 chronic kidney disease, or unspecified chronic kidney disease; I50.9 Heart failure, unspecified; N18.3 Chronic kidney disease, stage 3 (moderate); E11.40 Type 2 diabetes mellitus with diabetic neuropathy, unspecified; K21.9 Gastro-esophageal reflux disease without esophagitis; J44.9 Chronic obstructive pulmonary disease, unspecified; I48.91 Unspecified atrial fibrillation; I25.10 Atherosclerotic heart disease of native coronary artery without angina pectoris; E78.00 Pure hypercholesterolemia, unspecified; I25.2 Old myocardial infarction; E11.21 Type 2 diabetes mellitus with diabetic nephropathy; Z86.73 Personal history of transient ischemic attack (TIA), and cerebral infarction without residual deficits; Z79.4 Long term (current) use of insulin; Z79.899 Other long term (current) drug therapy; Z88.1 Allergy status to other antibiotic agents
CPT/HCPCS: 36415; 73700; 80053; 83605; 85025; 86140; 87040; 87070; 87077; 87186; 96365; 99285; J2543; J7030; J7050

== ENCOUNTER 2020-01-27 09:46 | Emergency (ER) | payer MEDICARE, MEDICAID ==
[2020-01-27] MEDS ORDERED: Lidocaine 5% Oint 35.44 GM Tube TOP ONE (09:54)
[2020-01-27] MEDS ORDERED: Acetaminophen/HYDROcodone 325-5 MG Tab PO ONE (09:55)
[2020-01-27 09:58] VITALS: BP 174/74; PULSE 90
--- NOTE | 2020-01-27 10:02 | EDM.PDOC ---
"ED HPI GENERAL MEDICAL PROBLEM - General Chief Complaint: Lower Extremity Injury/Pain Stated Complaint: AMBULANCE Time Seen by Provider: 01/27/20 09:58 Source of Information: Reports: Patient, RN, RN Notes Reviewed History Limitations: Reports: No Limitations - History of Present Illness INITIAL COMMENTS - FREE TEXT/NARRATIVE: Patient presents to the ED via EMS with complaints of pain to left toes. She relates the pain began last night at approximately 2300 and has maintained since that time, with no progression of pain. She denies any radiation of the pain into the foot, and states it is localized to the toes. She denies numbness, tingling, or decreased mobility to the area. She denies any mechanism of injury to the area. She has/has not taken any medications for this problem. Right Toe-Ring Pain Score (Numeric/FACES): 10 - Related Data Allergies Allergy/AdvReac Type Severity Reaction Status Date / Time vancomycin Allergy Swelling Verified 01/27/20 09:54 Home Meds: Home Meds Insulin Detemir [Levemir] 25 units SQ DAILY 11/16/13 [History] Omeprazole 20 mg PO DAILY 01/17/14 [History] Multivitamin [Multi-Vitamin Daily] 1 tab PO DAILY 03/29/14 [History] Potassium Chloride [K-Tab ER] 10 meq PO BID 06/25/15 [History] Formoterol [Perforomist] 2 ml INH BID 07/05/15 [History] atorvaSTATin [Lipitor] 10 mg PO BEDTIME 07/05/15 [History] Budesonide [Pulmicort] 0.5 mg NEB BID PRN 10/23/15 [History] Nitroglycerin [Nitrostat] 0.4 mg PO ASDIRECTED PRN 08/12/17 [History] Acetaminophen [Tylenol Extra Strength] 1,000 mg PO Q8HR PRN 06/28/18 [History] Apixaban [Eliquis] 5 mg PO BID 06/28/18 [History] Aspirin [Aspirin EC] 325 mg PO DAILY 06/28/18 [History] Sennosides/Docusate Sodium [Senna-S] 1 tab PO BID PRN 06/28/18 [History] metOLazone [Metolazone] 2.5 mg PO Q48H 06/28/18 [History] polyethylene glycoL 3350 [MiraLAX] 17 gm PO DAILY PRN packet 07/15/18 [Rx] Albuterol Sulfate [Proair Hfa] 2 puff INH Q6H PRN 09/15/18 [History] Bumetanide 2 mg PO DAILY 09/15/18 [History] Insulin Aspart [NovoLOG] 0 - 16 unit SQ TIDMEALS 09/15/18 [History] NIFEdipine [Nifedipine ER] 30 mg PO DAILY 09/15/18 [History] Cyclobenzaprine [Flexeril] 10 mg PO TID PRN 03/09/19 [History] Docusate Sodium [Colace] 100 mg PO BID PRN 03/09/19 [History] Gabapentin [Neurontin] 800 mg PO TID 03/09/19 [History] Sevelamer Carbonate [Renvela] 1,600 mg PO TIDMEALS 03/09/19 [History] Venlafaxine [Effexor XR] 100 mg PO DAILY 03/09/19 [History] carvediloL [Carvedilol] 25 mg PO BID 03/09/19 [History] Spironolactone [Aldactone] 25 mg PO DAILY 05/18/19 [History] Gabapentin [Neurontin] 800 mg PO TID cap 05/20/19 [Rx] Nicotine [Habitrol] 14 mg TRDERM DAILY #7 patch 05/20/19 [Rx] Spironolactone [Aldactone] 25 mg PO DAILY tablet 05/20/19 [Rx] Venlafaxine [Effexor] 100 mg PO BEDTIME tablet 05/20/19 [Rx] carvediloL [Coreg] 25 mg PO BIDMEALS tablet 05/20/19 [Rx] Past Medical History HEENT History: Reports: Impaired Vision Other HEENT History: wears glasses Cardiovascular History: Reports: Afib, Bacterial Endocarditis, CAD, Heart Failure, Heart Murmur, Heart Valve Replacement, High Cholesterol, Hypertension, PA, Pacemaker, Other (See Below) Other Cardiovascular History: Aortic valve endocarditis; CAD; s/p AVR; paroxysmal atrial fibrillation; essential hypertension; cardiac pacemaker in situ; tachy-angelique syndrome - all per [facility] records Respiratory History: Reports: COPD, Intubation, Previous, Pneumonia, Recurrent, SOB, Other (See Below) Other Respiratory History: hx hypoxemia Gastrointestinal History: Reports: Cholelithiasis, GERD Genitourinary History: Reports: Chronic Renal Insuffiency, Diabetic Nephropathy, Other (See Below) Other Genitourinary History: STAGE III CKD IMMUNOHEMATOLOGIST History: Reports: Other IMMUNOHEMATOLOGIST 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 1 C/S Musculoskeletal History: Reports: Arthritis, Back Pain, Chronic, Fracture, Osteoarthritis Other Musculoskeletal History: arthritis to spine, carpal tunnel to wrists. HX OF PROXIMAL HUMERS FRACTURE RIGHT Neurological History: Reports: Neuropathy, Diabetic, TIA, Other (See Below) Other Neuro History: CHRONIC PAIN SYNDROME Psychiatric History: Reports: Depression Endocrine/Metabolic History: Reports: Diabetes, Type II, Obesity/BMI 30+ Hematologic History: Reports: Other (See Below) Other Hematologic History: hx bacteremia, hyperkalemia, hyponatremia Immunologic History: Reports: None Oncologic (Cancer) History: Reports: None Dermatologic History: Reports: Other (See Below) Other Dermatologic History: hx impetigo, and pressure sore to buttocks - Infectious Disease History Infectious Disease History: Reports: None - Past Surgical History HEENT Surgical History: Reports: Tonsillectomy Cardiovascular Surgical History: Reports: Coronary Artery Bypass, Pacer, Valve Replacement Other Cardiovascular Surgeries/Procedures: Pacemaker placed 11/10/2013 Respiratory Surgical History: Reports: Other (See Below) Other Respiratory Surgeries/Procedures: BRONCHOSCOPY GI Surgical History: Reports: Appendectomy, Cholecystectomy, Colonoscopy Female Surgical History: Reports: Hysterectomy Endocrine Surgical History: Reports: None Neurological Surgical History: Reports: None Musculoskeletal Surgical History: Reports: Amputation, Hip Replacement, Other (See Below) Other Musculoskeletal Surgeries/Procedures:: left 1/2 foot. Distal portion of 2nd digit on right foot. Social & Family History - Family History Family Medical History: Noncontributory Cardiac: Reports: Hypertension Respiratory: Reports: COPD Endocrine/Metabolic: Reports: Diabetes, type II - Caffeine Use Caffeine Use: Reports: Coffee, Soda Caffeine Use Comment: Pt reports daily tea intake. - Living Situation & Occupation Living situation: Reports: with Family Occupation: Disabled Review of Systems - Review of Systems Review Of Systems: Comprehensive ROS is negative, except as noted in HPI. 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 No: Normal Capillary Refill Neurological: Alert, Oriented, No Motor/Sensory Deficits Skin Exam: Warm, Intact, Cyanosis Course - Vital Signs Last Recorded V/S: Last Vital Signs Temp 96.6 F L 01/27/20 09:55 Pulse 90 01/27/20 09:55 Resp 20 01/27/20 09:55 BP 174/74 H 01/27/20 09:55 Pulse Ox 100 01/27/20 09:55 - Orders/Labs/Meds Orders: Active Orders 24 hr Category Date Time Status Peripheral IV Care [RC] . DIRECTED Care 01/27/20 10:31 Active Sodium Chloride 0.9% [Saline Flush] Med 01/27/20 10:31 Active 10 ml FLUSH ASDIRECTED PRN Peripheral IV Insertion Adult [OM.PC] Stat Oth 01/27/20 10:31 Ordered Medication Orders Sodium Chloride (Saline Flush) 10 ml FLUSH ASDIRECTED PRN PRN Reason: Keep Vein Open Last Admin: 01/27/20 10:36 Dose: 10 ml Documented by: NILDA Labs: Laboratory Tests 01/27/20 01/27/20 01/27/20 Range/Units 10:40 10:40 10:40 WBC 8.2 (5.0-10.0) 10^3/uL RBC 3.97 L (4.2-5.4) 10^6/uL Hgb 11.4 L (12.0-16.0) g/dL Hct 34.3 L (37.0-47.0) % MCV 86.4 (80-100) fL MCH 28.7 (27.0-34.0) pg MCHC 33.2 (33.0-35.0) g/dL Plt Count 186 (150-450) 10^3/uL Neut % (Auto) 68.3 (42.2-75.2) % Lymph % (Auto) 21.2 (20.5-50.1) % [place] % (Auto) 7.9 (2-8) % Eos % (Auto) 2.2 (1.0-3.0) % Baso % (Auto) 0.4 (0.0-1.0) % Sodium 127 L (136-145) mmol/L Potassium 4.8 (3.5-5.1) mmol/L Chloride 93 L (98-107) mmol/L Carbon Dioxide 22 (21-32) mmol/L Anion Gap 16.8 H (7-13) mEq/L BUN 30 H (7-18) mg/dL Creatinine 1.54 H (0.55-1.02) mg/dL Est Cr Clr Drug Dosing 59.25 mL/min Estimated GFR (MDRD) 34 BUN/Creatinine Ratio 19.5 (No establ ref range) Glucose 215 H (74-99) mg/dL Lactic Acid 4.0 H* (0.4-2.0) mmol/L Calcium 8.8 (8.5-10.1) mg/dL Total Bilirubin 0.3 (0.2-1.0) mg/dL AST 13 L (15-37) U/L ALT 22 (14-59) U/L Alkaline Phosphatase 110 (46-116) U/L C-Reactive Protein 0.2 (0.0-0.9) mg/dL Total Protein 7.6 (6.4-8.2) g/dL Albumin 3.5 (3.4-5.0) g/dL Globulin 4.1 Albumin/Globulin Ratio 0.9 Ketones 10/10/20 Range/Units 10:40 WBC (5.0-10.0) 10^3/uL RBC (4.2-5.4) 10^6/uL Hgb (12.0-16.0) g/dL Hct (37.0-47.0) % MCV (80-100) fL MCH (27.0-34.0) pg MCHC (33.0-35.0) g/dL Plt Count (150-450) 10^3/uL Neut % (Auto) (42.2-75.2) % Lymph % (Auto) (20.5-50.1) % [place] % (Auto) (2-8) % Eos % (Auto) (1.0-3.0) % Baso % (Auto) (0.0-1.0) % Sodium (136-145) mmol/L Potassium (3.5-5.1) mmol/L Chloride (98-107) mmol/L Carbon Dioxide (21-32) mmol/L Anion Gap (7-13) mEq/L BUN (7-18) mg/dL Creatinine (0.55-1.02) mg/dL Est Cr Clr Drug Dosing mL/min Estimated GFR (MDRD) BUN/Creatinine Ratio (No establ ref range) Glucose (74-99) mg/dL Lactic Acid (0.4-2.0) mmol/L Calcium (8.5-10.1) mg/dL Total Bilirubin (0.2-1.0) mg/dL AST (15-37) U/L ALT (14-59) U/L Alkaline Phosphatase (46-116) U/L C-Reactive Protein (0.0-0.9) mg/dL Total Protein (6.4-8.2) g/dL Albumin (3.4-5.0) g/dL Globulin Albumin/Globulin Ratio Ketones Negative Meds: Medications Generic Name Dose Route Start Last Admin Trade Name Obdulia PRN Reason Stop Dose Admin Sodium Chloride 10 ml 01/27/20 10:31 01/27/20 10:36 Saline Flush FLUSH 10 ml ASDIRECTED PRN Administration Keep Vein Open Discontinued Medications Generic Name Dose Route Start Last Admin Trade Name Obdulia PRN Reason Stop Dose Admin Hydrocodone Bitart/Acetaminophen 1 tab 01/27/20 09:55 01/27/20 10:02 [place] 325-5 Mg PO 01/27/20 09:56 1 tab ONETIME ONE Administration Hydromorphone HCl 1 mg 01/27/20 10:31 01/27/20 10:36 Dilaudid IVPUSH 01/27/20 10:32 1 mg ONETIME ONE Administration Hydromorphone HCl 1 mg 01/27/20 12:32 01/27/20 12:40 Dilaudid IVPUSH 01/27/20 12:33 1 mg ONETIME ONE Administration Lidocaine HCl 0 gm 01/27/20 09:54 01/27/20 10:02 Lidocaine 5% TOP 01/27/20 09:55 1 dose ONETIME ONE Administration Ondansetron HCl 4 mg 01/27/20 10:32 01/27/20 10:38 Zofran IVPUSH 01/27/20 10:33 4 mg ONETIME ONE Administration - Radiology Interpretation Free Text/Narrative:: [facility] [place] [facility] Final Radiology Report Call: [phone] assistance Online chat: [email or web address] Name: TORY CONTI Age: 64Years F Date: 01/27/2020 SSN: -- : [id number] Study: CR FOOT 2V RT Requesting Physician: Jessica Garcia Images: 5 Addl Studies: Provided Clinical History: Foot pain with injury Contrast: Contrast Medium: Contrast Amount: Contrast Method: Page 1 of 2 PROCEDURE INFORMATION: Exam: XR Right Foot Exam date and time: 01/27/2020 9:56 AM Age: 64 years old Clinical indication: Pain; Foot; Right; Prior surgery; Surgery date: 6+ months; Patient HX: HX osteomyelitis with diabetic neuropathy; Additional info: Foot pain with injury TECHNIQUE: Imaging protocol: XR Right foot. Views: 1 or 2 views. COMPARISON: CR FOOT RT [facility] 04/17/2011 10:24 AM FINDINGS: Bones/joints: Partial 2nd toe amputation at the level of the proximal interphalangeal joint. No osseous erosions or periosteal changes. All bones are intact. The 1st metacarpophalangeal joint is narrowed and sclerotic, also seen in association with moderate degenerative spurring. 7 mm plantar calcaneal bone spur. Soft tissues: No masses, edema or gas collection. Vasculature: Diffuse small-vessel atherosclerosis. IMPRESSION: 1. 2nd toe amputation changes without evident complication. No acute disease or findings suspicious for osteomyelitis. 2. 1st toe osteoarthrosis and incidentally noted heel spur. 3. Diffuse right foot and ankle region atherosclerosis. Thank you for allowing us to participate in the care of your patient. TORY CONTI | Final Radiology Report CONFIDENTIALITY STATEMENT This report is intended only for use by the referring physician, and only in accordance with law. If you received this in error, call [phone]. Page 2 of 2 Dictated and Authenticated by: Zachary Brink MD 01/27/2020 10:34 AM Central Time ([place] & [place]) - Re-Assessments/Exams Free Text/Narrative Re-Assessment/Exam: 01/27/20 10:42 Xray unremarkable for osteomyelitis or fracture. CBC, CMP, and CRP unremarkable for vascular ischemia. Lactic acid 4. 01/27/20 11:45 Patient continuing to rate pain 7/10 despite analgesia. Given elevated lactic cannot exclude vascular process for etiology with patient's history. 01/27/20 12:40 Tx to [facility] for vascular studies. Suzette Reyes [facility] full and not accepting. Departure - Departure Time of Disposition: 13:12 Disposition: DC/Tfer to Other Condition: Good Clinical Impression: Lower limb ischemia, Lower extremity pain, right - Discharge Information *PRESCRIPTION DRUG MONITORING PROGRAM REVIEWED*: Not Applicable *COPY OF PRESCRIPTION DRUG MONITORING REPORT IN PATIENT XOCHILT: Not Applicable Forms: ED Department Discharge, Interfacility Transfer RAF Sepsis Event Note (ED) - Focused Exam Vital Signs: Vital Signs Temp Pulse Resp BP Pulse Ox 01/27/20 09:55 96.6 F L 90 20 174/74 H 100 - My Orders Last 24 Hours: My Active Orders 01/27/20 10:31 Peripheral IV Care [RC] . DIRECTED Sodium Chloride 0.9% [Saline Flush] 10 ml FLUSH ASDIRECTED PRN Peripheral IV Insertion Adult [OM.PC] Stat - Assessment/Plan Last 24 Hours: My Active Orders 01/27/20 10:31 Peripheral IV Care [RC] . DIRECTED Sodium Chloride 0.9% [Saline Flush] 10 ml FLUSH ASDIRECTED PRN Peripheral IV Insertion Adult [OM.PC] Stat"
[2020-01-27] MEDS ORDERED: Sodium Chloride 0.9% 10 ML Syringe FLUSH PRN (10:31)
[2020-01-27] MEDS ORDERED: HYDROmorphone 1 MG/ML Syringe IVPUSH ONE ×2 (10:31→12:32)
[2020-01-27] MEDS ORDERED: Ondansetron 4 MG/2 ML SDV IVPUSH ONE (10:32)
--- NOTE | 2020-01-27 10:34 | CR ---
PROCEDURE INFORMATION: Exam: XR Right Foot Exam date and time: 01/27/2020 9:56 AM Age: 64 years old Clinical indication: Pain; Foot; Right; Prior surgery; Surgery date: 6+ months; Patient HX: HX osteomyelitis with diabetic neuropathy; Additional info: Foot pain with injury TECHNIQUE: Imaging protocol: XR Right foot. Views: 1 or 2 views. COMPARISON: CR FOOT RT [facility] [place] 04/17/2011 10:24 AM FINDINGS: Bones/joints: Partial 2nd toe amputation at the level of the proximal interphalangeal joint. No osseous erosions or periosteal changes. All bones are intact. The 1st metacarpophalangeal joint is narrowed and sclerotic, also seen in association with moderate degenerative spurring. 7 mm plantar calcaneal bone spur. Soft tissues: No masses, edema or gas collection. Vasculature: Diffuse small-vessel atherosclerosis. IMPRESSION: 1. 2nd toe amputation changes without evident complication. No acute disease or findings suspicious for osteomyelitis. 2. 1st toe osteoarthrosis and incidentally noted heel spur. 3. Diffuse right foot and ankle region atherosclerosis.
[2020-01-27 11:07] LABS: ANION GAP 16.8 mEq/L (7-13)
== END 2020-01-27 13:16 | disposition other institution (70) ==
LOC: DL.ED 09:46
DX: I70.221 Atherosclerosis of native arteries of extremities with rest pain, right leg (principal); I48.91 Unspecified atrial fibrillation; I25.10 Atherosclerotic heart disease of native coronary artery without angina pectoris; I13.0 Hypertensive heart and chronic kidney disease with heart failure and stage 1 through stage 4 chronic kidney disease, or unspecified chronic kidney disease; E11.22 Type 2 diabetes mellitus with diabetic chronic kidney disease; N18.30 Chronic kidney disease, stage 3 unspecified; I50.9 Heart failure, unspecified; E78.00 Pure hypercholesterolemia, unspecified; J44.9 Chronic obstructive pulmonary disease, unspecified; K21.9 Gastro-esophageal reflux disease without esophagitis; E11.21 Type 2 diabetes mellitus with diabetic nephropathy; E11.40 Type 2 diabetes mellitus with diabetic neuropathy, unspecified; M19.90 Unspecified osteoarthritis, unspecified site; F32.9 Major depressive disorder, single episode, unspecified; E66.9 Obesity, unspecified; Z68.1 Body mass index [BMI] 19.9 or less, adult; Z89.511 Acquired absence of right leg below knee; Z88.1 Allergy status to other antibiotic agents; Z79.4 Long term (current) use of insulin; Z79.82 Long term (current) use of aspirin; Z79.01 Long term (current) use of anticoagulants; Z79.899 Other long term (current) drug therapy
CPT/HCPCS: 36415; 73620; 80053; 82009; 83605; 85025; 86140; 96374; 96375; 96376; 99284; A9270; J1170; J2405

== ENCOUNTER 2020-04-18 05:55 | Inpatient (IN) | payer MEDICARE, MEDICAID ==
[2020-04-18] MEDS ORDERED: Bumetanide 1 MG/4 ML MDV IVPUSH ONE (06:27)
--- NOTE | 2020-04-18 06:30 | EDM.PDOC ---
"<Sarbjit Carney - Last Filed: 04/18/20 07:40> ED HPI GENERAL MEDICAL PROBLEM - General Chief Complaint: Respiratory Problem Stated Complaint: AMBULANCE Time Seen by Provider: 04/18/20 06:05 - History of Present Illness INITIAL COMMENTS - FREE TEXT/NARRATIVE: I assumed care of the pt from Michelle PATEL at 0700HR shift change with lab results pending. Pt with 2 day history of progressively worsening shortness of breath, mild cough, orthopnea, and increasing lower extremity edema. Denies chest pain, fever, chills, N/V, or known COVID exposure. Onset: Gradual Duration: Day(s): (2), Constant, Getting Worse Location: Reports: Chest Severity: Moderate Improves with: Reports: None Associated Symptoms: Reports: No Other Symptoms - Related Data Allergies Allergy/AdvReac Type Severity Reaction Status Date / Time vancomycin Allergy Swelling Verified 01/27/20 09:54 Home Meds: Home Meds Insulin Detemir [Levemir] 25 units SQ DAILY 11/16/13 [History] Omeprazole 20 mg PO ACBREAKFAST 01/17/14 [History] atorvaSTATin [Lipitor] 10 mg PO BEDTIME 07/05/15 [History] Budesonide [Pulmicort] 0.5 mg NEB BID 10/23/15 [History] Nitroglycerin [Nitrostat] 0.4 mg PO ASDIRECTED PRN 08/12/17 [History] Apixaban [Eliquis] 5 mg PO BID 06/28/18 [History] Aspirin [Aspirin EC] 325 mg PO DAILY 06/28/18 [History] Sennosides/Docusate Sodium [Senna-S] 1 tab PO BID PRN 06/28/18 [History] metOLazone [Metolazone] 2.5 mg PO Q48H 06/28/18 [History] polyethylene glycoL 3350 [MiraLAX] 17 gm PO DAILY PRN packet 07/15/18 [Rx] Albuterol Sulfate [Proair Hfa] 2 puff INH Q6H PRN 09/15/18 [History] Bumetanide 2 mg PO DAILY 09/15/18 [History] Insulin Aspart [NovoLOG] 0 - 16 unit SQ TIDMEALS 09/15/18 [History] Cyclobenzaprine [Flexeril] 10 mg PO TID PRN 03/09/19 [History] Docusate Sodium [Colace] 100 mg PO BID PRN 03/09/19 [History] Gabapentin [Neurontin] 800 mg PO TID 03/09/19 [History] Sevelamer Carbonate [Renvela] 1,600 mg PO TIDMEALS 03/09/19 [History] Venlafaxine [Effexor XR] 150 mg PO DAILY 03/09/19 [History] Spironolactone [Aldactone] 25 mg PO DAILY 05/18/19 [History] carvediloL [Coreg] 25 mg PO BIDMEALS tablet 05/20/19 [Rx] Albuterol Sulfate 3 ml INH QID PRN 04/18/20 [History] Potassium Chloride [Klor-Con 10] 10 meq PO BID 04/18/20 [History] NIFEdipine [Procardia XL] 60 mg PO DAILY #30 tab.er 04/21/20 [Rx] ED ROS GENERAL - Review of Systems Review Of Systems: Comprehensive ROS is negative, except as noted in HPI. ED EXAM, GENERAL - Physical Exam Free Text/Narrative:: No changes to exam as documented by Michelle PATEL for this encounter. #1 Interpretation EKG Date: 04/18/20 Time: 06:08 Rhythm: Other (SR) Rate (Beats/Min): 63 P-Wave: Present QRS: LBBB (chronic) Comparison: No Change Course - Radiology Interpretation Free Text/Narrative:: [facility] Final Radiology Report Call: [phone] assistance Online chat: [email or web address] Name: TORY CONTI Age: 64Years F Date: 04/18/2020 SSN: -- : 1955 Study: CR CHEST 1V FRONTAL Requesting Physician: MICHELLE EDGE Images: 1 Addl Studies: Provided Clinical History: SOB Contrast: Contrast Medium: Contrast Amount: Contrast Method: Page 1 of 2 PROCEDURE INFORMATION: Exam: XR Chest, 1 View Exam date and time: 04/18/2020 6:36 AM Age: 64 years old Clinical indication: Shortness of breath; Additional info: SOB TECHNIQUE: Imaging protocol: XR of the chest Views: 1 view. COMPARISON: CR Chest 1V Frontal 09/14/2018 5:01 PM FINDINGS: Lungs: Interval bilateral perihilar vascular congestion. Bibasilar lung parenchymal opacification. Pleural space: Progressive right pleural thickening and/or fluid. Heart/Mediastinum: Stable mild cardiomegaly. There is a cardiac pacer present over the left chest with leads in the right atrium and right ventricle regions. Bones/joints: Sternotomy Corticated deformity of the right glenohumeral joint with pseudoarthrosis is stable.The thoracic spine is underpenetrated limiting evaluation. Other findings: Linear density adjacent to the elevated right minor fissure, li lukas fluid IMPRESSION: Cardiomegaly with bilateral parenchymal findings as above likely reflecting congestive failure with right-sided pleural effusion. Cannot exclude underlying infiltrate. Correlate clinically Thank you for allowing us to participate in the care of your patient. Dictated and Authenticated by: Merlene Gonzalez MD ROBERTSON, PATRICIA | Final Radiology Report CONFIDENTIALITY STATEMENT This report is intended only for use by the referring physician, and only in accordance with law. If you received this in error, call [phone]. Page 2 of 2 04/18/2020 6:49 AM Central Time ([place] & [place]) Departure - Departure Time of Disposition: 07:40 (admitted to Dr. Briseno) Disposition: Admitted As Inpatient 68 Condition: Fair Clinical Impression: Hyponatremia Acute exacerbation of CHF (congestive heart failure) Qualifiers: Heart failure type: unspecified Qualified Code(s): I50.9 - Heart failure, unspecified - Discharge Information *PRESCRIPTION DRUG MONITORING PROGRAM REVIEWED*: Not Applicable *COPY OF PRESCRIPTION DRUG MONITORING REPORT IN PATIENT XOCHILT: Not Applicable <Michelle Edge - Last Filed: 04/25/20 03:12> ED HPI GENERAL MEDICAL PROBLEM - General Source of Information: Reports: Patient, EMS, RN History Limitations: Reports: No Limitations - History of Present Illness INITIAL COMMENTS - FREE TEXT/NARRATIVE: ED via [facility] with c/o SOB, x 2 days, worse tonight. Denies fever or chills. Notes more swelling to lower legs and feet x 2 days. Cough white phlegm. No known exposure to covid. No change in taste or smell. Breathing worse if attempts to lie flat. Treatments ORTHODONTIC TECHNICIAN: Reports: Oxygen Past Medical History HEENT History: Reports: Impaired Vision Other HEENT History: wears glasses Cardiovascular History: Reports: Afib, Bacterial Endocarditis, CAD, Heart Failure, Heart Murmur, Heart Valve Replacement, High Cholesterol, Hypertension, [place], Pacemaker, Other (See Below) Other Cardiovascular History: Aortic valve endocarditis; CAD; s/p AVR; paroxysmal atrial fibrillation; essential hypertension; cardiac pacemaker in situ; tachy-angelique syndrome - all per [facility] records Respiratory History: Reports: COPD, Intubation, Previous, Pneumonia, Recurrent, SOB, Other (See Below) Other Respiratory History: hx hypoxemia Gastrointestinal History: Reports: Cholelithiasis, GERD Genitourinary History: Reports: Chronic Renal Insuffiency, Diabetic Nephropathy, Other (See Below) Other Genitourinary History: STAGE III CKD 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 1 C/S Musculoskeletal History: Reports: Arthritis, Back Pain, Chronic, Fracture, Osteoarthritis Other Musculoskeletal History: arthritis to spine, carpal tunnel to wrists. HX OF PROXIMAL HUMERS FRACTURE RIGHT Neurological History: Reports: Neuropathy, Diabetic, TIA, Other (See Below) Other Neuro History: CHRONIC PAIN SYNDROME Psychiatric History: Reports: Anxiety, Depression Endocrine/Metabolic History: Reports: Diabetes, Type II, Obesity/BMI 30+ Hematologic History: Reports: Other (See Below) Other Hematologic History: hx bacteremia, hyperkalemia, hyponatremia Immunologic History: Reports: None Oncologic (Cancer) History: Reports: None Dermatologic History: Reports: Other (See Below) Other Dermatologic History: hx impetigo, and pressure sore to buttocks - Infectious Disease History Infectious Disease History: Reports: None - Past Surgical History HEENT Surgical History: Reports: Tonsillectomy Cardiovascular Surgical History: Reports: Coronary Artery Bypass, Pacer, Valve Replacement Other Cardiovascular Surgeries/Procedures: Pacemaker placed 11/10/2013 Respiratory Surgical History: Reports: Other (See Below) Other Respiratory Surgeries/Procedures: BRONCHOSCOPY GI Surgical History: Reports: Appendectomy, Cholecystectomy, Colonoscopy Female Surgical History: Reports: Hysterectomy Endocrine Surgical History: Reports: None Neurological Surgical History: Reports: None Musculoskeletal Surgical History: Reports: Amputation, Hip Replacement, Other (See Below) Other Musculoskeletal Surgeries/Procedures:: left 1/2 foot. Distal portion of 2nd digit on right foot. Social & Family History - Family History Family Medical History: No Pertinent Family History Cardiac: Reports: Hypertension Respiratory: Reports: COPD Endocrine/Metabolic: Reports: Diabetes, type II - Tobacco Use Tobacco Use Status *Q: Current Every Day Tobacco User Years of Tobacco use: 45 Packs/Tins Daily: 0.5 - Caffeine Use Caffeine Use: Reports: Coffee Caffeine Use Comment: Pt reports daily tea intake. - Recreational Drug Use Recreational Drug Use: No - Living Situation & Occupation Living situation: Reports: with Family Occupation: Disabled ED ROS GENERAL - Review of Systems Review Of Systems: See Below Constitutional: Reports: No Symptoms HEENT: Reports: Nosebleed (brief tonight, small amount blood when sneezed) Respiratory: Reports: Shortness of Breath, Cough Cardiovascular: Reports: No Symptoms GI/Abdominal: Reports: Constipation Musculoskeletal: Reports: No Symptoms Skin: Reports: No Symptoms Neurological: Reports: No Symptoms ED EXAM, GENERAL - Physical Exam Exam: See Below Exam Limited By: No Limitations General Appearance: Alert, Anxious, Mild Distress, Obese Eye Exam: Bilateral Eye: EOMI Ears: Normal External Exam Nose: Normal Inspection Throat/Mouth: Normal Inspection Head: Atraumatic Neck: Normal Inspection Respiratory/Chest: Decreased Breath Sounds Cardiovascular: Normal Peripheral Pulses, Regular Rate, Rhythm. No: No Edema (3+) GI/Abdominal: Normal Bowel Sounds, Soft Extremities: Pedal Edema Neurological: Alert, Oriented. No: Normal Cognition Psychiatric: Normal Affect, Normal Mood Skin Exam: Warm, Dry. No: Increased Warmth Course - Vital Signs Last Recorded V/S: Last Vital Signs Temp 98.9 F 04/21/20 15:22 Pulse 90 04/21/20 15:22 Resp 18 04/21/20 15:22 BP 125/51 L 04/21/20 15:22 Pulse Ox 97 04/21/20 15:22 - Orders/Labs/Meds Labs: Laboratory Tests 04/18/20 04/18/20 04/18/20 Range/Units 05:51 06:00 06:00 WBC 7.4 (5.0-10.0) 10^3/uL RBC 3.65 L (4.2-5.4) 10^6/uL Hgb 10.0 L (12.0-16.0) g/dL Hct 29.7 L (37.0-47.0) % MCV 81.4 D (80-100) fL MCH 27.4 (27.0-34.0) pg MCHC 33.7 (33.0-35.0) g/dL Plt Count 238 (150-450) 10^3/uL Neut % (Auto) 68.7 (42.2-75.2) % Lymph % (Auto) 18.9 L (20.5-50.1) % [place] % (Auto) 9.6 H (2-8) % Eos % (Auto) 2.3 (1.0-3.0) % Baso % (Auto) 0.5 (0.0-1.0) % D-Dimer, Quantitative 159 (0-400) ng/mL Sodium (136-145) mmol/L Potassium (3.5-5.1) mmol/L Chloride (98-107) mmol/L Carbon Dioxide (21-32) mmol/L Anion Gap (7-13) mEq/L BUN (7-18) mg/dL Creatinine (0.55-1.02) mg/dL Est Cr Clr Drug Dosing mL/min Estimated GFR (MDRD) BUN/Creatinine Ratio (No establ ref range) Glucose (74-99) mg/dL Calcium (8.5-10.1) mg/dL Total Bilirubin (0.2-1.0) mg/dL AST (15-37) U/L ALT (14-59) U/L Alkaline Phosphatase (46-116) U/L Troponin I (0.000-0.056) ng/mL B-Natriuretic Peptide (0-100) pg/ml Total Protein (6.4-8.2) g/dL Albumin (3.4-5.0) g/dL Globulin Albumin/Globulin Ratio SARS-CoV-2 RNA (TOM) Negative (NEGATIVE) 04/18/20 Range/Units 06:00 WBC (5.0-10.0) 10^3/uL RBC (4.2-5.4) 10^6/uL Hgb (12.0-16.0) g/dL Hct (37.0-47.0) % MCV (80-100) fL MCH (27.0-34.0) pg MCHC (33.0-35.0) g/dL Plt Count (150-450) 10^3/uL Neut % (Auto) (42.2-75.2) % Lymph % (Auto) (20.5-50.1) % [place] % (Auto) (2-8) % Eos % (Auto) (1.0-3.0) % Baso % (Auto) (0.0-1.0) % D-Dimer, Quantitative (0-400) ng/mL Sodium 124 L (136-145) mmol/L Potassium 3.5 (3.5-5.1) mmol/L Chloride 88 L (98-107) mmol/L Carbon Dioxide 25 (21-32) mmol/L Anion Gap 14.5 H (7-13) mEq/L BUN 38 H (7-18) mg/dL Creatinine 1.80 H (0.55-1.02) mg/dL Est Cr Clr Drug Dosing 33.87 mL/min Estimated GFR (MDRD) 29 BUN/Creatinine Ratio 21.1 (No establ ref range) Glucose 169 H (74-99) mg/dL Calcium 8.6 (8.5-10.1) mg/dL Total Bilirubin 0.4 (0.2-1.0) mg/dL AST 12 L (15-37) U/L ALT 15 (14-59) U/L Alkaline Phosphatase 110 (46-116) U/L Troponin I 0.028 (0.000-0.056) ng/mL B-Natriuretic Peptide 671 H (0-100) pg/ml Total Protein 7.9 (6.4-8.2) g/dL Albumin 3.6 (3.4-5.0) g/dL Globulin 4.3 Albumin/Globulin Ratio 0.8 SARS-CoV-2 RNA (TOM) (NEGATIVE) Meds: Medications Discontinued Medications Generic Name Dose Route Start Last Admin Trade Name Freq PRN Reason Stop Dose Admin Acetaminophen 650 mg 04/18/20 08:25 04/21/20 12:09 Tylenol PO 650 mg Q4H PRN Administration Pain (Mild 1-3)/fever Albuterol 2.5 mg 04/18/20 09:03 04/18/20 09:20 Proventil Neb Soln NEB 2.5 mg Q4HRRT PRN Administration Wheezing Albuterol/Ipratropium 3 ml 04/18/20 13:00 04/21/20 07:34 Duoneb 3.0-0.5 Mg/3 Ml NEB 3 ml Q6HRRT MARGARITA Administration Apixaban 5 mg 04/18/20 11:30 04/21/20 08:47 Eliquis PO 5 mg BID MARGARITA Administration Aspirin 325 mg 04/19/20 09:00 04/21/20 08:47 Ecotrin PO 325 mg DAILY MARGARITA Administration Atorvastatin Calcium 10 mg 04/18/20 21:00 04/20/20 20:50 Lipitor PO 10 mg BEDTIME MARGARITA Administration Bisacodyl 10 mg 04/20/20 17:12 04/20/20 17:39 Dulcolax RECTAL 04/20/20 17:13 10 mg ONETIME ONE Administration Budesonide 0.5 mg 04/18/20 09:13 Pulmicort NEB BID PRN Shortness of Breath Bumetanide 1 mg 04/18/20 06:27 04/18/20 06:37 Bumex IVPUSH 04/18/20 06:28 1 mg ONETIME ONE Administration Bumetanide 2 mg 04/18/20 09:00 04/20/20 08:14 Bumex IVPUSH 2 mg DAILY MARGARITA Administration Bumetanide 2 mg 04/21/20 09:00 04/21/20 08:48 Bumex PO 2 mg DAILY MARGARITA Administration Carvedilol 25 mg 04/18/20 11:30 04/21/20 08:48 Coreg PO 25 mg BIDMEALS MARGARITA Administration Dextrose/Water 50 ml 04/18/20 08:33 Dextrose 50% In Water IV ASDIRECTED PRN Hypoglycemia Docusate Sodium 100 mg 04/18/20 08:25 04/20/20 14:27 Colace PO 100 mg BID PRN Administration Constipation Gabapentin 800 mg 04/18/20 14:00 04/21/20 08:48 Neurontin PO 800 mg TID MARGARITA Administration Glucagon 1 mg 04/18/20 08:33 Glucagen IM ASDIRECTED PRN Hypoglycemia Insulin Glargine 25 unit 04/19/20 09:00 04/21/20 08:46 Lantus SUBCUT 25 units DAILY MARGARITA Administration Insulin Human Lispro 0 unit 04/18/20 12:00 04/21/20 12:10 Humalog SUBCUT 2 units WITHMEALSANDBED MARGARITA Administration Protocol Levofloxacin 250 mg 04/18/20 11:30 04/21/20 12:09 Levaquin PO 250 mg Q24H MARGARITA Administration Lidocaine 700 mg 04/18/20 14:00 04/20/20 14:22 Lidoderm 5% TOP 700 mg Q24H MARGARITA Administration Losartan Potassium 50 mg 04/19/20 09:30 04/21/20 08:49 Cozaar PO 50 mg DAILY MARGARITA Administration Metolazone 2.5 mg 04/18/20 12:00 04/20/20 12:45 Zaroxolyn PO 2.5 mg Q48H MARAGRITA Administration Miscellaneous Information 1 ea 04/18/20 21:00 04/20/20 20:55 Check Patch TRDERM Not Given BEDTIME MARGARITA Miscellaneous Information 1 ea 04/18/20 21:00 04/20/20 20:56 Remove Patch TRDERM Not Given BEDTIME [facility] Multivitamins/Minerals 1 tab 04/19/20 09:00 04/21/20 08:48 Vitamins And Minerals PO 1 tab DAILY MARGARITA Administration Nicotine 14 mg 04/18/20 09:00 04/21/20 08:49 Habitrol TRDERM 14 mg DAILY MARGARITA Administration Nifedipine 30 mg 04/19/20 09:00 04/21/20 08:49 Procardia Xl PO 30 mg DAILY MARGARITA Administration Nitroglycerin 0.4 mg 04/18/20 09:13 Nitrostat SL ASDIRECTED PRN ANGINA Non-Formulary Medication 2 ml 04/18/20 21:00 Formoterol [Perforomist] INH BID MARGARITA Sevelamer Carbonate 1,600 mg 04/18/20 17:00 04/21/20 12:10 800 Mg Tab *Own Med* PO 1,600 mg TIDMEALS MARGARITA Administration Omeprazole 20 mg 04/19/20 06:00 04/21/20 05:02 Omeprazole PO 20 mg ACBREAKFAST MARGARITA Administration Ondansetron HCl 4 mg 04/18/20 08:25 Zofran Odt PO Q4H PRN nausea, able to take PO Oxycodone HCl 5 mg 04/18/20 08:25 04/21/20 02:31 Oxycodone PO 5 mg Q4H PRN Administration Pain (moderate 4-6) Polyethylene Glycol 17 gm 04/18/20 09:13 04/18/20 13:27 Miralax PO 17 gm DAILY PRN Administration Constipation Potassium Chloride 10 meq 04/18/20 11:30 04/21/20 08:47 Klor-Con 10 PO 10 meq BID MARGARITA Administration Potassium Chloride 40 meq 04/19/20 07:52 04/19/20 08:33 Klor-Con 10 PO 04/19/20 07:53 40 meq ONETIME ONE Administration Sodium Chloride 10 ml 04/18/20 08:25 04/19/20 22:46 Saline Flush FLUSH 10 ml ASDIRECTED PRN Administration Keep Vein Open Spironolactone 25 mg 04/19/20 09:00 04/21/20 08:52 Aldactone PO 25 mg DAILY MARGARITA Administration Venlafaxine HCl 150 mg 04/18/20 11:30 04/21/20 08:47 Venlafaxine Hcl Er PO 150 mg DAILY MARGARITA Administration - Re-Assessments/Exams Free Text/Narrative Re-Assessment/Exam: 04/18/20 07:10 Tx of care to Dr Carney with change of shift Sepsis Event Note (ED) - Evaluation Sepsis Screening Result: No Definite Risk"
[2020-04-18 06:32] LABS: ANION GAP 14.5 mEq/L (7-13)
--- NOTE | 2020-04-18 06:49 | CR ---
PROCEDURE INFORMATION: Exam: XR Chest, 1 View Exam date and time: 04/18/2020 6:36 AM Age: 64 years old Clinical indication: Shortness of breath; Additional info: SOB TECHNIQUE: Imaging protocol: XR of the chest Views: 1 view. COMPARISON: CR Chest 1V Frontal 09/14/2018 5:01 PM FINDINGS: Lungs: Interval bilateral perihilar vascular congestion. Bibasilar lung parenchymal opacification. Pleural space: Progressive right pleural thickening and/or fluid. Heart/Mediastinum: Stable mild cardiomegaly. There is a cardiac pacer present over the left chest with leads in the right atrium and right ventricle regions. Bones/joints: Sternotomy Corticated deformity of the right glenohumeral joint with pseudoarthrosis is stable.The thoracic spine is underpenetrated limiting evaluation. Other findings: Linear density adjacent to the elevated right minor fissure, likely fluid IMPRESSION: Cardiomegaly with bilateral parenchymal findings as above likely reflecting congestive failure with right-sided pleural effusion. Cannot exclude underlying infiltrate. Correlate clinically
[2020-04-18] MEDS ORDERED: Ondansetron 4 MG Tab.DIS PO PRN (08:25)
[2020-04-18] MEDS ORDERED: Docusate Sodium 100 MG Cap PO PRN (08:25)
[2020-04-18] MEDS ORDERED: Sodium Chloride 0.9% 10 ML Syringe FLUSH PRN (08:25)
[2020-04-18] MEDS ORDERED: 50% Dextrose in Water 50 ML Syringe IV PRN (08:33)
[2020-04-18] MEDS ORDERED: Glucagon,Human Recombinant 1 MG Vial IM PRN (08:33)
[2020-04-18] MEDS ORDERED: Albuterol 0.083% 2.5 MG/3 ML Neb Soln NEB PRN (09:03)
--- NOTE | 2020-04-18 09:08 | HP ---
CHIEF COMPLAINT: Shortness of breath. HISTORY OF PRESENT ILLNESS: The patient is a 64-year-old female with past medical history of diabetes mellitus, on insulin; history of coronary artery disease; heart failure; hypertension; and history of aortic valve replacement; who was admitted through the emergency room because the patient was brought in by [facility] complaining of increasing shortness of breath for the last 2 days and increasing pedal edema. The patient mentioned that she has been compliant with her medication and she denies any chest pain, fever, chills, nor any other complaints. Because of the above, oxygen saturation was noted to be in the mid 80s in the emergency room. She was then admitted for further evaluation and management of congestive heart failure exacerbation. PAST MEDICAL HISTORY: Remarkable for atrial fibrillation and history of bacterial endocarditis. She has history of aortic valve replacement, congestive heart failure, coronary artery disease, chronic obstructive pulmonary disease, gastroesophageal reflux, diabetes mellitus, and chronic kidney disease. FAMILY HISTORY: Noncontributory. SOCIAL HISTORY: The patient is a smoker, half a pack per day. The patient denies any alcohol abuse. REVIEW OF SYSTEMS: As in HPI. The rest of the review of systems is negative. HOME MEDICATIONS: Levemir, omeprazole, multivitamins, potassium, formoterol, Lipitor, Pulmicort, sublingual nitro, Tylenol, Eliquis, aspirin, senna, metolazone, MiraLax, albuterol, Bumex, NovoLog, nifedipine, flexeril, docusate, gabapentin, Renvela, Effexor, Coreg, spironolactone. ALLERGIES: Vancomycin. PHYSICAL EXAMINATION: General: The patient is alert and oriented, in mild respiratory distress. Vital Signs: Blood pressure is 107/85, pulse of 96, respirations 20, temperature of 96.4, oxygen saturation is 98% on 2 L per nasal cannula. SHEENT: Normocephalic. There are pink palpebral conjunctivae. Sclerae anicteric. There is mild hepatojugular reflux. Heart: Regular rate and rhythm. There is a grade 2/6 systolic ejection murmur. No gallops. No rubs. LUNGS: Diminished breath sounds on both bases with mild expiratory wheeze. No significant crackles. ABDOMEN: Moderately obese, soft, nontender. Bowel sounds positive. EXTREMITIES: Remarkable for 1 to 2+ bilateral pedal edema. No calf tenderness. LABORATORY DATA: CBC: WBC 7.4, hemoglobin is 10, hematocrit is 29.7, platelets 238. The rest of the panel unremarkable. D-dimer is 159. Comp panel: Sodium is 124, chloride is 88, BUN is 38, creatinine is 1.8, glucose is 169. The rest of the panel unremarkable. Troponin is 0.028. BNP is 671. COVID RNA is negative. Chest x-ray is remarkable for cardiomegaly with bilateral parenchymal findings reflecting congestive failure with right-sided pleural effusion and cannot exclude underlying infiltrate. ADMITTING DIAGNOSES: 1. Congestive heart failure exacerbation. 2. Hypoxemia secondary to above. 3. Coronary artery disease. 4. Chronic obstructive pulmonary disease. 5. Hyponatremia and hypochloremia. 6. Chronic kidney disease. TREATMENT PLAN: The patient is going to be admitted to General Medicine floor. She will be given IV Bumex and she will be resumed on her home medication and she will also be on sliding scale insulin and the rest of the management as necessary, and the patient is a full code. [facility] /[id number]
[2020-04-18] MEDS ORDERED: Nitroglycerin 0.4 MG Tab.SL SL PRN (09:13)
[2020-04-18] MEDS ORDERED: Polyethylene Glycol 3350 Powder 17 GM Packet PO PRN (09:13)
[2020-04-18] MEDS ORDERED: Budesonide 0.5 MG/2 ML Neb Susp NEB PRN (09:13)
[2020-04-18] MEDS: Bumetanide 1 MG/4 ML MDV IVPUSH SCH (10:15)
[2020-04-18] MEDS: Nicotine 14 MG/24 Hr Patch TRDERM SCH (10:16)
[2020-04-18] MEDS: Metolazone 2.5 MG Tab PO SCH (12:42)
[2020-04-18] MEDS: Levofloxacin 250 MG Tab PO SCH (12:42)
[2020-04-18] MEDS: Venlafaxine 150 MG CAP.ER PO SCH (12:42)
[2020-04-18] MEDS: Apixaban 5 MG Tab PO SCH ×2 (12:42→22:47)
[2020-04-18] MEDS: Potassium Chloride 10 MEQ Tab.ER PO SCH ×2 (12:42→22:47)
[2020-04-18] MEDS: Insulin Lispro 100 Units/ML 3 ML Vial SUBCUT SCH ×3 (12:43→22:50)
[2020-04-18] MEDS: Carvedilol 25 MG Tab PO SCH ×2 (12:43→17:44)
[2020-04-18] MEDS: Albuterol/Ipratropium 3.0-0.5 MG/3 ML Neb Soln NEB SCH ×2 (12:52→17:29)
[2020-04-18] MEDS: Gabapentin 400 MG Cap PO SCH ×2 (13:27→22:47)
[2020-04-18] MEDS: oxyCODONE 5 MG Tab PO PRN (14:31)
[2020-04-18] MEDS: Lidocaine 5% 700 MG Patch TOP SCH (14:43)
[2020-04-18] MEDS: SEVELAMER CARBONATE 800 MG PO SCH (17:42)
[2020-04-18] MEDS ORDERED: Non-Formulary Medication 1 Each (Formoterol [Perforomist] 2 ML) INH SCH (21:00)
[2020-04-18] MEDS: atorvaSTATin 10 MG Tab PO SCH (22:47)
[2020-04-19] MEDS: Albuterol/Ipratropium 3.0-0.5 MG/3 ML Neb Soln NEB SCH ×4 (01:11→18:08)
[2020-04-19] MEDS: Omeprazole 20 MG Cap.CR PO SCH (05:45)
[2020-04-19 07:07] LABS: ANION GAP 15.3 mEq/L (7-13)
[2020-04-19] MEDS ORDERED: Potassium Chloride 10 MEQ Tab.ER PO ONE (07:52)
[2020-04-19] MEDS: Insulin Lispro 100 Units/ML 3 ML Vial SUBCUT SCH ×4 (08:30→22:39)
[2020-04-19] MEDS: Insulin Glarg,Human.Rec.Analog 100 Unit/ML SUBCUT SCH (08:30)
[2020-04-19] MEDS: Potassium Chloride 10 MEQ Tab.ER PO SCH ×2 (08:33→22:29)
[2020-04-19] MEDS: Venlafaxine 150 MG CAP.ER PO SCH (08:34)
[2020-04-19] MEDS: Gabapentin 400 MG Cap PO SCH ×3 (08:34→22:28)
[2020-04-19] MEDS: Multivitamins, Therapeutic with Minerals Tab PO SCH (08:34)
[2020-04-19] MEDS: Aspirin 325 MG Tab.EC PO SCH (08:34)
[2020-04-19] MEDS: Spironolactone 25 MG Tab PO SCH (08:34)
[2020-04-19] MEDS: Apixaban 5 MG Tab PO SCH ×2 (08:34→22:29)
[2020-04-19] MEDS: Bumetanide 1 MG/4 ML MDV IVPUSH SCH (08:34)
[2020-04-19] MEDS: Carvedilol 25 MG Tab PO SCH ×2 (08:34→17:46)
[2020-04-19] MEDS: NIFEdipine 30 MG Tab.ER PO SCH (08:35)
[2020-04-19] MEDS: SEVELAMER CARBONATE 800 MG PO SCH ×3 (08:36→17:46)
[2020-04-19] MEDS: Nicotine 14 MG/24 Hr Patch TRDERM SCH (08:37)
[2020-04-19] MEDS: Losartan 50 MG Tab PO SCH (09:34)
[2020-04-19] MEDS: oxyCODONE 5 MG Tab PO PRN ×2 (09:34→15:09)
--- NOTE | 2020-04-19 10:08 | PN ---
DATE: 04/19/2020 SUBJECTIVE: The patient had good diuresis with IV Bumex and the patient is feeling slightly better with her shortness of breath. The patient denies any other significant ongoing complaint except for her chronic aches and pains. She denies though any chest pain, palpitation, abdominal pain. LABORATORY DATA: Lab workup this morning, CBC: WBC is 5.3, hemoglobin is 9.7, hematocrit is 29.4, platelet is 216. Comp panel: Sodium is 132, potassium is 3.3, BUN is 39, creatinine is 1.66, glucose is 190. OBJECTIVE: Vital Signs: Blood pressure is 158/62, pulse 68, respirations of 18, temperature of 97.3, saturation is 98% on 2 L per nasal cannula. Heart: Regular rate and rhythm. There is a grade 2/6 systolic ejection murmur. Lungs: Have diminished breath sounds on both bases, but no significant crackles. No wheezing. Abdomen: Soft, nontender. Bowel sounds positive. Extremities: Still remarkable for 1+ bilateral edema (improvement). MEDICATIONS: Reviewed. PLAN: We will give her additional potassium 40 mEq p.o. x1 today. Otherwise, we will continue with the rest of her management, and we will continue with the Levaquin for the urinary tract infection. If the patient continues to do well, anticipate discharge in a day or 2. [facility] /[id number]
[2020-04-19] MEDS: Levofloxacin 250 MG Tab PO SCH (11:55)
[2020-04-19] MEDS: Lidocaine 5% 700 MG Patch TOP SCH (14:49)
[2020-04-19] MEDS: atorvaSTATin 10 MG Tab PO SCH (22:29)
[2020-04-20] MEDS: Albuterol/Ipratropium 3.0-0.5 MG/3 ML Neb Soln NEB SCH ×4 (00:30→17:42)
[2020-04-20] MEDS: Omeprazole 20 MG Cap.CR PO SCH (05:39)
[2020-04-20 07:09] LABS: ANION GAP 16.8 mEq/L (7-13)
[2020-04-20] MEDS: Spironolactone 25 MG Tab PO SCH (08:13)
[2020-04-20] MEDS: Carvedilol 25 MG Tab PO SCH ×2 (08:13→17:42)
[2020-04-20] MEDS: Bumetanide 1 MG/4 ML MDV IVPUSH SCH (08:14)
[2020-04-20] MEDS: Losartan 50 MG Tab PO SCH (08:14)
[2020-04-20] MEDS: Aspirin 325 MG Tab.EC PO SCH (08:14)
[2020-04-20] MEDS: Nicotine 14 MG/24 Hr Patch TRDERM SCH (08:15)
[2020-04-20] MEDS: Apixaban 5 MG Tab PO SCH ×2 (08:15→20:50)
[2020-04-20] MEDS: Potassium Chloride 10 MEQ Tab.ER PO SCH ×2 (08:16→20:50)
[2020-04-20] MEDS: NIFEdipine 30 MG Tab.ER PO SCH (08:17)
[2020-04-20] MEDS: Gabapentin 400 MG Cap PO SCH ×3 (08:17→20:50)
[2020-04-20] MEDS: Venlafaxine 150 MG CAP.ER PO SCH (08:17)
[2020-04-20] MEDS: Multivitamins, Therapeutic with Minerals Tab PO SCH (08:18)
[2020-04-20] MEDS: Insulin Glarg,Human.Rec.Analog 100 Unit/ML SUBCUT SCH (09:12)
[2020-04-20] MEDS: SEVELAMER CARBONATE 800 MG PO SCH ×3 (09:13→17:38)
[2020-04-20] MEDS: Insulin Lispro 100 Units/ML 3 ML Vial SUBCUT SCH ×4 (09:15→22:35)
--- NOTE | 2020-04-20 10:29 | PN ---
DATE: 04/20/2020 SUBJECTIVE: The patient continues to do well. She had good diuresis with IV Bumex, and the patient's saturation is now 92% on room air. The patient is complaining of some pain on the left middle finger and some swelling, but the patient denies any chest pain, fever, chills, abdominal pain, or any other complaints. LABORATORY DATA: Lab workup this morning, chem-6: Sodium is 131, chloride of 93, anion gap of 16.8, BUN is 48, creatinine is 2.13, and glucose is 155. OBJECTIVE: Vital Signs: Blood pressure is 140/73, pulse of 66, respirations 20, temperature is 96.6, and saturation is 92% on room air. Heart: Regular rate and rhythm. No gallops. No rubs. Lungs: Have diminished breath sounds on both bases but no crackles, no wheezing. Abdomen: Soft, nontender. Bowel sounds positive. Extremities: Negative for any significant pedal edema. No calf tenderness. PLAN: We are going to continue with her present management, and I am going to put her back on her oral Bumex as at home, and if the patient continues to do well, anticipate discharge in a.m. With regard to her pain on the left middle finger, she is currently being given Tylenol for pain management as well as oxycodone. [facility] /[id number]
[2020-04-20] MEDS: Levofloxacin 250 MG Tab PO SCH (12:24)
[2020-04-20] MEDS: Metolazone 2.5 MG Tab PO SCH (12:45)
[2020-04-20] MEDS: Lidocaine 5% 700 MG Patch TOP SCH (14:22)
[2020-04-20] MEDS: oxyCODONE 5 MG Tab PO PRN (14:27)
[2020-04-20] MEDS ORDERED: Bisacodyl 10 MG Supp RECTAL ONE (17:12)
[2020-04-20] MEDS: atorvaSTATin 10 MG Tab PO SCH (20:50)
[2020-04-21] MEDS: Albuterol/Ipratropium 3.0-0.5 MG/3 ML Neb Soln NEB SCH ×2 (01:47→07:34)
[2020-04-21] MEDS: oxyCODONE 5 MG Tab PO PRN (02:31)
[2020-04-21] MEDS: Acetaminophen 325 MG Tab PO PRN ×2 (05:01→12:09)
[2020-04-21] MEDS: Omeprazole 20 MG Cap.CR PO SCH (05:02)
[2020-04-21 07:01] LABS: ANION GAP 18.3 mEq/L (7-13)
[2020-04-21] MEDS: SEVELAMER CARBONATE 800 MG PO SCH ×2 (08:45→12:10)
[2020-04-21] MEDS: Insulin Lispro 100 Units/ML 3 ML Vial SUBCUT SCH ×2 (08:46→12:10)
[2020-04-21] MEDS: Insulin Glarg,Human.Rec.Analog 100 Unit/ML SUBCUT SCH (08:46)
[2020-04-21] MEDS: Aspirin 325 MG Tab.EC PO SCH (08:47)
[2020-04-21] MEDS: Venlafaxine 150 MG CAP.ER PO SCH (08:47)
[2020-04-21] MEDS: Apixaban 5 MG Tab PO SCH (08:47)
[2020-04-21] MEDS: Potassium Chloride 10 MEQ Tab.ER PO SCH (08:47)
[2020-04-21] MEDS: Gabapentin 400 MG Cap PO SCH (08:48)
[2020-04-21] MEDS: Multivitamins, Therapeutic with Minerals Tab PO SCH (08:48)
[2020-04-21] MEDS: Carvedilol 25 MG Tab PO SCH (08:48)
[2020-04-21] MEDS: NIFEdipine 30 MG Tab.ER PO SCH (08:49)
[2020-04-21] MEDS: Losartan 50 MG Tab PO SCH (08:49)
[2020-04-21] MEDS: Nicotine 14 MG/24 Hr Patch TRDERM SCH (08:49)
[2020-04-21] MEDS: Spironolactone 25 MG Tab PO SCH (08:52)
[2020-04-21] MEDS ORDERED: Bumetanide 1 MG Tab PO SCH (09:00)
--- NOTE | 2020-04-21 09:40 | DISCH ---
FINAL DIAGNOSES: 1. Congestive heart failure exacerbation. 2. Hypoxemia secondary to the above. 3. Hypertension. 4. Coronary artery disease. 5. Chronic obstructive pulmonary disease. 6. Hyponatremia and hypochloremia. 7. Chronic kidney disease. BRIEF HISTORY OF PRESENT ILLNESS: The patient is a 64-year-old female with past medical history of diabetes mellitus, on insulin; history of coronary artery disease; congestive heart failure; hypertension; aortic valve replacement; who was admitted through the emergency room because of increasing shortness of breath and hypoxemia. PERTINENT LABS, X-RAY, AND OTHER TESTS ON ADMISSION: CBC: WBC 7.4, hemoglobin is 10, hematocrit is 29.7. D-dimer is 159. Comp panel: Sodium is 124, chloride is 88, BUN is 38, creatinine is 1.8, glucose is 169. Troponin is 0.028. BNP is 671. Chest x-ray showed bilateral parenchymal findings reflecting congestive heart failure with right-sided pleural effusion, but cannot exclude underlying infiltrate. HOSPITAL COURSE: The patient was admitted to General Medicine floor on telemetry. Telemetry remained in paced rhythm with no significant arrhythmia and the patient was given IV Bumex and she had a good diuresis with it. She was also placed on sliding scale insulin, and during the hospitalization, her blood pressure was noted to be moderately elevated, and because of this, she was started on losartan 50 mg a day in addition to her Coreg. The patient was also continued on the rest of her home medication including the apixaban. The patient had a good diuresis, shortness of breath improved as well as the hypoxemia. During the hospitalization, the patient complains of her chronic aches and pains for which she was given some oxycodone for it. Pt also had apparent fall in the bath room but no injuries noted. Otherwise, the rest of the hospital course was unremarkable and she was subsequently discharged. CONDITION ON DISCHARGE: Improved. MEDICATIONS ON DISCHARGE: ; metolazone 2.5 mg every 48 hours; Bumex 2 mg p.o. daily; Coreg 25 mg b.i.d.; apixaban 5 mg b.i.d.; aspirin 325 mg daily; Lipitor 10 mg daily; gabapentin 800 mg t.i.d.; Lantus; potassium chloride 10 mEq b.i.d.; spironolactone 25 mg daily; and venlafaxine 150 mg daily.nifedipine 60 mg qd Blood cultures negative. Urine cultures negative. Chem-6 on April 21, 2020, sodium is 129, chloride of 91, BUN is 54, creatinine is 2.49, glucose is 128. FOLLOWUP: In [facility] next week with a recheck of basic metabolic panel. MODL /[id number] MTDD
[2020-04-21] MEDS: Levofloxacin 250 MG Tab PO SCH (12:09)
[2020-04-21 15:23] VITALS: BP 125/51; PULSE 90
--- NOTE | 2020-04-22 08:38 | PN ---
DATE: 04/21/2020 SUBJECTIVE: The patient is doing fairly well, and denies any worsening of shortness of breath, but she is still complaining of her chronic aches and pains. She mentioned last night she missed the sitting on the toilet bowl and so she hit her lower back, but this morning it is better. The patient denies any chest pain, fever, chills, abdominal pain, nor any other complaints. LABORATORY DATA: Lab workup this morning. Chem-6: Sodium is 129, chloride of 91, BUN is 54, creatinine is 2.49. Glucose is 128. OBJECTIVE: Vital Signs: Blood pressure is 144/54, pulse of 71, respirations 20, temperature of 97.4, saturation is 98% on room air. Heart: Regular rate and rhythm. No gallops. No rubs. Lungs: Equal bilaterally. No crackles. No wheezing. Abdomen: Soft, nontender. Bowel sounds positive. Extremities: Negative for any pedal edema. No calf tenderness. No gross deformities. MEDICATIONS: Reviewed. PLAN: We will discharge the patient home today and we will resume her previous home medication including the same dose of Bumex and we will also limit her free water intake to 800 mL a day because of her hyponatremia and hypochloremia. I am going to have her follow up at [facility] this coming week with a recheck of basic metabolic panel and recheck of her blood pressure. [facility] /[id number]
== END 2020-04-21 14:10 | disposition home or self-care (01) | DRG 292 ==
LOC: DL.ED 05:55 → DL.MS 07:53
PROVIDERS: ADMIT Internal Medicine; ATTEND Internal Medicine
DX: I13.0 Hypertensive heart and chronic kidney disease with heart failure and stage 1 through stage 4 chronic kidney disease, or unspecified chronic kidney disease (principal); E87.1 Hypo-osmolality and hyponatremia; N39.0 Urinary tract infection, site not specified; I48.91 Unspecified atrial fibrillation; I50.9 Heart failure, unspecified; J44.9 Chronic obstructive pulmonary disease, unspecified; E78.00 Pure hypercholesterolemia, unspecified; E87.8 Other disorders of electrolyte and fluid balance, not elsewhere classified; Z95.0 Presence of cardiac pacemaker; E11.22 Type 2 diabetes mellitus with diabetic chronic kidney disease; Z88.1 Allergy status to other antibiotic agents; K21.9 Gastro-esophageal reflux disease without esophagitis; Z20.822 Contact with and (suspected) exposure to COVID-19; F17.210 Nicotine dependence, cigarettes, uncomplicated; Z79.51 Long term (current) use of inhaled steroids; H54.7 Unspecified visual loss; I25.10 Atherosclerotic heart disease of native coronary artery without angina pectoris; E11.40 Type 2 diabetes mellitus with diabetic neuropathy, unspecified; N18.30 Chronic kidney disease, stage 3 unspecified; M19.90 Unspecified osteoarthritis, unspecified site; G89.4 Chronic pain syndrome; E11.42 Type 2 diabetes mellitus with diabetic polyneuropathy; Z20.828 Contact with and (suspected) exposure to other viral communicable diseases; F41.9 Anxiety disorder, unspecified; F32.9 Major depressive disorder, single episode, unspecified; E66.9 Obesity, unspecified; M54.9 Dorsalgia, unspecified; G89.29 Other chronic pain; Z90.49 Acquired absence of other specified parts of digestive tract; Z79.01 Long term (current) use of anticoagulants; Z95.2 Presence of prosthetic heart valve; Z79.4 Long term (current) use of insulin; Z79.82 Long term (current) use of aspirin; Z79.899 Other long term (current) drug therapy; I25.2 Old myocardial infarction; Z87.01 Personal history of pneumonia (recurrent); Z86.73 Personal history of transient ischemic attack (TIA), and cerebral infarction without residual deficits; Z90.710 Acquired absence of both cervix and uterus; Z28.82 Immunization not carried out because of caregiver refusal
CPT/HCPCS: 36415; 71045; 80053; 83880; 84484; 85025; 85379; 87040 ×2; 93005; 96374; 99285; J3490; U0002; 80048; 81001; 82962; 87086; 93010; 94640; 94760; 99222; 99232; 99238; 99284; A9270-GY; J1815-GY; J7613-GY; J7620-GY

== ENCOUNTER 2020-05-26 17:43 | Emergency (ER) | payer MEDICARE, MEDICAID ==
--- NOTE | 2020-05-26 17:39 | EDM.PDOC ---
<Sarbjit Carney - Last Filed: 05/26/20 18:54> ED HPI GENERAL MEDICAL PROBLEM - General Chief Complaint: Genitourinary Problem Stated Complaint: [facility], Dysuria, flank pain Time Seen by Provider: 05/26/20 17:55 Source of Information: Reports: Patient, Old Records, RN, RN Notes Reviewed History Limitations: Reports: No Limitations - History of Present Illness INITIAL COMMENTS - FREE TEXT/NARRATIVE: Pt arrives from home by [facility] with c/o left flank pain, lower abdominal pain, dysuria, and sensation of fever and chills. Pt states that this started 2-3 days ago. Denies fever/chills. Pt states that she was told that whenever she had "kidney pain" to come get it checked out. Pt is unsure of Hx of kidney stones but thinks she had one a long time ago. Pt rates pain at a 9/10. Nothing alleviates or aggravates the pain. Onset: Gradual Duration: Getting Worse Location: Reports: Abdomen, Back Quality: Reports: Ache, Same as Previous Episode Severity: Severe Improves with: Reports: None Worsens with: Reports: None Associated Symptoms: Reports: No Other Symptoms Left Flank Pain Score (Numeric/FACES): 9 - Related Data Allergies Allergy/AdvReac Type Severity Reaction Status Date / Time vancomycin Allergy Swelling Verified 05/26/20 17:54 Home Meds: Home Meds Insulin Detemir [Levemir] 25 units SQ DAILY 11/16/13 [History] Omeprazole 20 mg PO ACBREAKFAST 01/17/14 [History] atorvaSTATin [Lipitor] 10 mg PO BEDTIME 07/05/15 [History] Budesonide [Pulmicort] 0.5 mg NEB BID 10/23/15 [History] Nitroglycerin [Nitrostat] 0.4 mg PO ASDIRECTED PRN 08/12/17 [History] Apixaban [Eliquis] 5 mg PO BID 06/28/18 [History] Aspirin [Aspirin EC] 325 mg PO DAILY 06/28/18 [History] Sennosides/Docusate Sodium [Senna-S] 1 tab PO BID PRN 06/28/18 [History] metOLazone [Metolazone] 2.5 mg PO Q48H 06/28/18 [History] polyethylene glycoL 3350 [MiraLAX] 17 gm PO DAILY PRN packet 07/15/18 [Rx] Albuterol Sulfate [Proair Hfa] 2 puff INH Q6H PRN 09/15/18 [History] Bumetanide 2 mg PO DAILY 09/15/18 [History] Insulin Aspart [NovoLOG] 0 - 16 unit SQ TIDMEALS 09/15/18 [History] Cyclobenzaprine [Flexeril] 10 mg PO TID PRN 03/09/19 [History] Docusate Sodium [Colace] 100 mg PO BID PRN 03/09/19 [History] Gabapentin [Neurontin] 800 mg PO TID 03/09/19 [History] Sevelamer Carbonate [Renvela] 1,600 mg PO TIDMEALS 03/09/19 [History] Venlafaxine [Effexor XR] 150 mg PO DAILY 03/09/19 [History] Spironolactone [Aldactone] 25 mg PO DAILY 05/18/19 [History] carvediloL [Coreg] 25 mg PO BIDMEALS tablet 05/20/19 [Rx] Albuterol Sulfate 3 ml INH QID PRN 04/18/20 [History] Potassium Chloride [Klor-Con 10] 10 meq PO BID 04/18/20 [History] NIFEdipine [Procardia XL] 60 mg PO DAILY #30 tab.er 04/21/20 [Rx] Past Medical History HEENT History: Reports: Impaired Vision Other HEENT History: wears glasses Cardiovascular History: Reports: Afib, Bacterial Endocarditis, CAD, Heart Failure, Heart Murmur, Heart Valve Replacement, High Cholesterol, Hypertension, [place], Pacemaker, Other (See Below) Other Cardiovascular History: Aortic valve endocarditis; CAD; s/p AVR; paroxysmal atrial fibrillation; essential hypertension; cardiac pacemaker in situ; tachy-angelique syndrome - all per [facility] records Respiratory History: Reports: COPD, Intubation, Previous, Pneumonia, Recurrent, SOB, Other (See Below) Other Respiratory History: hx hypoxemia Gastrointestinal History: Reports: Cholelithiasis, GERD Genitourinary History: Reports: Chronic Renal Insuffiency, Diabetic Nephropathy, Other (See Below) Other Genitourinary History: STAGE III CKD INSULATION INSPECTOR History: Reports: Other INSULATION INSPECTOR 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 1 C/S Musculoskeletal History: Reports: Arthritis, Back Pain, Chronic, Fracture, Osteoarthritis Other Musculoskeletal History: arthritis to spine, carpal tunnel to wrists. HX OF PROXIMAL HUMERS FRACTURE RIGHT Neurological History: Reports: Neuropathy, Diabetic, TIA, Other (See Below) Other Neuro History: CHRONIC PAIN SYNDROME Psychiatric History: Reports: Anxiety, Depression Endocrine/Metabolic History: Reports: Diabetes, Type II, Obesity/BMI 30+ Hematologic History: Reports: Other (See Below) Other Hematologic History: hx bacteremia, hyperkalemia, hyponatremia Immunologic History: Reports: None Oncologic (Cancer) History: Reports: None Dermatologic History: Reports: Other (See Below) Other Dermatologic History: hx impetigo, and pressure sore to buttocks - Infectious Disease History Infectious Disease History: Reports: None - Past Surgical History HEENT Surgical History: Reports: Tonsillectomy Cardiovascular Surgical History: Reports: Coronary Artery Bypass, Pacer, Valve Replacement Other Cardiovascular Surgeries/Procedures: Pacemaker placed 11/10/2013 Respiratory Surgical History: Reports: Other (See Below) Other Respiratory Surgeries/Procedures: BRONCHOSCOPY GI Surgical History: Reports: Appendectomy, Cholecystectomy, Colonoscopy Female Surgical History: Reports: Hysterectomy Endocrine Surgical History: Reports: None Neurological Surgical History: Reports: None Musculoskeletal Surgical History: Reports: Amputation, Hip Replacement, Other (See Below) Other Musculoskeletal Surgeries/Procedures:: left 1/2 foot. Distal portion of 2nd digit on right foot. Social & Family History - Family History Family Medical History: No Pertinent Family History Cardiac: Reports: Hypertension Respiratory: Reports: COPD Endocrine/Metabolic: Reports: Diabetes, type II - Caffeine Use Caffeine Use: Reports: Soda, Tea Caffeine Use Comment: Pt reports daily tea intake. - Living Situation & Occupation Living situation: Reports: with Family Occupation: Disabled ED ROS GENERAL - Review of Systems Review Of Systems: Comprehensive ROS is negative, except as noted in HPI. ED EXAM, RENAL/ - Physical Exam Exam: See Below Exam Limited By: No Limitations General Appearance: Alert, No Apparent Distress, Other (Chronically ill but non- toxic appearing female) Nose: Normal Inspection Throat/Mouth: Normal Voice, No Airway Compromise Head: Atraumatic, Normocephalic Neck: Normal Inspection Respiratory/Chest: No Respiratory Distress, No Accessory Muscle Use, Chest Non- Tender, Decreased Breath Sounds GI/Abdominal: Normal Bowel Sounds, Soft, No Distention, Tender (generalized lower abdominal tenderness). No: Guarding, Rigid, Rebound (Female) Exam: Deferred Rectal (Female) Exam: Deferred Back Exam: CVA Tenderness (L). No: CVA Tenderness (R), Vertebral Tenderness Extremities: Normal Range of Motion, No Pedal Edema, Other (Left mid-foot amputation) Neurological: Alert, Oriented, No Motor/Sensory Deficits Psychiatric: Depressed Mood, Flat Affect Skin Exam: Warm, Dry Course - Re-Assessments/Exams Free Text/Narrative Re-Assessment/Exam: 05/26/20 19:00 Care of pt transferred to Pamela PATEL at shift change. Departure - Departure Disposition: Home, Self-Care 01 Clinical Impression: Constipation Qualifiers: Constipation type: slow transit constipation Qualified Code(s): K59.01 - Slow transit constipation - Discharge Information Instructions: Constipation, Adult, [id number] Forms: ED Department Discharge Additional Instructions: increase fluids increase fiber in diet miralax one capful daily in 8 ounces fluid senokot 2 tablets one time daily, if no results increase to twice daily clinic follow up this week if not improving <Pamela Queen - Last Filed: 05/26/20 19:49> Course - Vital Signs Last Recorded V/S: Last Vital Signs Temp 97.8 F 05/26/20 17:55 Pulse 91 05/26/20 17:55 Resp 20 05/26/20 17:55 BP 103/65 05/26/20 17:55 Pulse Ox 94 L 05/26/20 17:55 - Orders/Labs/Meds Orders: Active Orders 24 hr Category Date Time Status Insert Urinary Catheter [OM.PC] Stat Care 05/26/20 17:42 Ordered CULTURE BLOOD [BC] Stat Lab 05/26/20 17:58 Received CULTURE BLOOD [BC] Stat Lab 05/26/20 18:04 Received Blood Culture x2 Reflex Set [OM.PC] Stat Oth 05/26/20 17:43 Ordered Labs: Laboratory Tests 05/26/20 05/26/20 05/26/20 Range/Units 17:50 18:04 18:04 WBC 5.1 (5.0-10.0) 10^3/uL RBC 3.81 L (4.2-5.4) 10^6/uL Hgb 9.6 L (12.0-16.0) g/dL Hct 30.0 L (37.0-47.0) % MCV 78.7 L D (80-100) fL MCH 25.2 L (27.0-34.0) pg MCHC 32.0 L (33.0-35.0) g/dL Plt Count 208 (150-450) 10^3/uL Neut % (Auto) 74.1 (42.2-75.2) % Lymph % (Auto) 18.1 L (20.5-50.1) % [place] % (Auto) 6.4 (2-8) % Eos % (Auto) 1.0 (1.0-3.0) % Baso % (Auto) 0.4 (0.0-1.0) % Sodium 129 L (136-145) mmol/L Potassium 4.1 (3.5-5.1) mmol/L Chloride 94 L (98-107) mmol/L Carbon Dioxide 22 (21-32) mmol/L Anion Gap 17.1 H (7-13) mEq/L BUN 52 H (7-18) mg/dL Creatinine 2.21 H (0.55-1.02) mg/dL Est Cr Clr Drug Dosing 27.58 mL/min Estimated GFR (MDRD) 22 BUN/Creatinine Ratio 23.5 (No establ ref range) Glucose 265 H (74-99) mg/dL Lactic Acid (0.4-2.0) mmol/L Calcium 9.0 (8.5-10.1) mg/dL Total Bilirubin 0.7 (0.2-1.0) mg/dL AST 73 H (15-37) U/L ALT 58 (14-59) U/L Alkaline Phosphatase 184 H (46-116) U/L B-Natriuretic Peptide 1080 H (0-100) pg/ml Total Protein 8.5 H (6.4-8.2) g/dL Albumin 4.0 (3.4-5.0) g/dL Globulin 4.5 Albumin/Globulin Ratio 0.9 Amylase 22 L (25-115) U/L Lipase 57 L (73-393) U/L Urine Color Yellow (YELLOW) Urine Appearance Clear (CLEAR) Urine pH 5.0 (5.0-9.0) Ur Specific [place] 1.015 (1.005-1.030) Urine Protein Trace H (NEGATIVE) Urine Glucose (UA) Negative (NEGATIVE) Urine Ketones Negative (NEGATIVE) Urine Occult Blood Moderate H (NEGATIVE) Urine Nitrite Negative (NEGATIVE) Urine Bilirubin Negative (NEGATIVE) Urine Urobilinogen 0.2 (0.2-1.0) mg/dL Ur Leukocyte Esterase Negative (NEGATIVE) Urine RBC 0-5 /HPF Urine WBC 0-5 (0-5/HPF) /HPF Ur Epithelial Cells Occasional (NOT SEEN) /HPF Urine Bacteria Occasional (0-FEW/HPF) /HPF 05/26/20 Range/Units 18:04 WBC (5.0-10.0) 10^3/uL RBC (4.2-5.4) 10^6/uL Hgb (12.0-16.0) g/dL Hct (37.0-47.0) % MCV (80-100) fL MCH (27.0-34.0) pg MCHC (33.0-35.0) g/dL Plt Count (150-450) 10^3/uL Neut % (Auto) (42.2-75.2) % Lymph % (Auto) (20.5-50.1) % [place] % (Auto) (2-8) % Eos % (Auto) (1.0-3.0) % Baso % (Auto) (0.0-1.0) % Sodium (136-145) mmol/L Potassium (3.5-5.1) mmol/L Chloride (98-107) mmol/L Carbon Dioxide (21-32) mmol/L Anion Gap (7-13) mEq/L BUN (7-18) mg/dL Creatinine (0.55-1.02) mg/dL Est Cr Clr Drug Dosing mL/min Estimated GFR (MDRD) BUN/Creatinine Ratio (No establ ref range) Glucose (74-99) mg/dL Lactic Acid 2.2 H* (0.4-2.0) mmol/L Calcium (8.5-10.1) mg/dL Total Bilirubin (0.2-1.0) mg/dL AST (15-37) U/L ALT (14-59) U/L Alkaline Phosphatase (46-116) U/L B-Natriuretic Peptide (0-100) pg/ml Total Protein (6.4-8.2) g/dL Albumin (3.4-5.0) g/dL Globulin Albumin/Globulin Ratio Amylase (25-115) U/L Lipase (73-393) U/L Urine Color (YELLOW) Urine Appearance (CLEAR) Urine pH (5.0-9.0) Ur Specific [place] (1.005-1.030) Urine Protein (NEGATIVE) Urine Glucose (UA) (NEGATIVE) Urine Ketones (NEGATIVE) Urine Occult Blood (NEGATIVE) Urine Nitrite (NEGATIVE) Urine Bilirubin (NEGATIVE) Urine Urobilinogen (0.2-1.0) mg/dL Ur Leukocyte Esterase (NEGATIVE) Urine RBC /HPF Urine WBC (0-5/HPF) /HPF Ur Epithelial Cells (NOT SEEN) /HPF Urine Bacteria (0-FEW/HPF) /HPF Meds: Medications Discontinued Medications Generic Name Dose Route Start Last Admin Trade Name Freq PRN Reason Stop Dose Admin Hydromorphone HCl 0.5 mg 05/26/20 18:17 05/26/20 18:22 Dilaudid IVPUSH 05/26/20 18:18 0.5 mg ONETIME ONE Administration Hydromorphone HCl 1 mg 05/26/20 18:52 05/26/20 18:59 Dilaudid IVPUSH 05/26/20 18:53 1 mg ONETIME ONE Administration Ondansetron HCl 4 mg 05/26/20 18:16 05/26/20 18:22 Zofran IV 05/26/20 18:17 4 mg ONETIME ONE Administration Phenazopyridine HCl 190 mg 05/26/20 18:53 05/26/20 18:58 Urinary Pain Relief PO 05/26/20 18:54 190 mg ONETIME ONE Administration Departure - Departure Time of Disposition: 19:44 Condition: Good - Discharge Information *PRESCRIPTION DRUG MONITORING PROGRAM REVIEWED*: No *COPY OF PRESCRIPTION DRUG MONITORING REPORT IN PATIENT XOCHILT: No Sepsis Event Note (ED) - Focused Exam Vital Signs: Vital Signs Temp Pulse Resp BP Pulse Ox 05/26/20 17:55 97.8 F 91 20 103/65 94 L
[2020-05-26] MEDS ORDERED: Ondansetron 4 MG/2 ML SDV IV ONE (18:16)
[2020-05-26] MEDS ORDERED: HYDROmorphone 0.5 MG/0.5 ML Syringe IVPUSH ONE (18:17)
[2020-05-26 18:40] LABS: ANION GAP 17.1 mEq/L (7-13)
[2020-05-26] MEDS ORDERED: HYDROmorphone 1 MG/ML Syringe IVPUSH ONE (18:52)
[2020-05-26] MEDS ORDERED: Phenazopyridine 95 MG Tab PO ONE (18:53)
--- NOTE | 2020-05-26 19:41 | CT ---
PROCEDURE INFORMATION: Exam: CT Abdomen And Pelvis Without Contrast Exam date and time: 05/26/2020 7:19 PM Age: 64 years old Clinical indication: Other: Left sided pain; Additional info: Left flank pain, hematuria TECHNIQUE: Imaging protocol: Computed tomography of the abdomen and pelvis without contrast. Radiation optimization: All CT scans at this facility use at least one of these dose optimization techniques: automated exposure control; mA and/or kV adjustment per patient size (includes targeted exams where dose is matched to clinical indication); or iterative reconstruction. COMPARISON: CT Chest Abdomen Pelvis wo Cont 06/17/2017 9:43 PM FINDINGS: Pleural spaces: Small bilateral pleural effusions are present with patchy density in the lower lobes. This likely represents atelectasis. Pneumonia is doubtful. Liver: Normal. No mass. Gallbladder and bile ducts: Normal. No calcified stones. No ductal dilation. Pancreas: Normal. No ductal dilation. Spleen: Normal. No splenomegaly. Adrenal glands: A small nodule is present arising from the left adrenal gland. This measures approximately 1.3 by 1.3 cm in size. Internal Hounsfield units on this noncontrast CT study are near 7. This is compatible with an adenoma. Kidneys and ureters: There is bilateral renal parenchymal atrophy. Calcifications within the renal ray are likely vascular in nature. No stones are identified. There is no hydronephrosis. Stomach and bowel: Large amount of stool is present within the colon likely constipation. No obstruction identified. Small bowel is decompressed. Appendix: No evidence of appendicitis. Intraperitoneal space: Unremarkable. No free air. No significant fluid collection. Vasculature: Unremarkable. No abdominal aortic aneurysm. Lymph nodes: Unremarkable. No enlarged lymph nodes. Urinary bladder: The urinary bladder is mildly distended. Reproductive: The uterus appears to have been removed. Bones/joints: Unremarkable. No acute fracture. Soft tissues: Unremarkable. IMPRESSION: 1. Etiology for hematuria is not identified. There is bilateral renal atrophy without hydronephrosis, stone or solid mass identified. The urinary bladder is mildly distended but otherwise unremarkable. 2. Bilateral pleural effusions and probable bibasilar atelectasis. 3. Left adrenal adenoma. 4. Moderate grade constipation without obstruction.
[2020-05-26 19:56] VITALS: BP 129/77; PULSE 78
== END 2020-05-26 20:55 | disposition home or self-care (01) ==
LOC: DL.ED 17:43
DX: K59.01 Slow transit constipation (principal); I48.91 Unspecified atrial fibrillation; I25.10 Atherosclerotic heart disease of native coronary artery without angina pectoris; I13.2 Hypertensive heart and chronic kidney disease with heart failure and with stage 5 chronic kidney disease, or end stage renal disease; I50.9 Heart failure, unspecified; N18.30 Chronic kidney disease, stage 3 unspecified; J44.9 Chronic obstructive pulmonary disease, unspecified; K21.9 Gastro-esophageal reflux disease without esophagitis; E11.21 Type 2 diabetes mellitus with diabetic nephropathy; M19.90 Unspecified osteoarthritis, unspecified site; E11.40 Type 2 diabetes mellitus with diabetic neuropathy, unspecified; E11.22 Type 2 diabetes mellitus with diabetic chronic kidney disease; E66.9 Obesity, unspecified; Z68.30 Body mass index [BMI] 30.0-30.9, adult; Z79.4 Long term (current) use of insulin; Z79.899 Other long term (current) drug therapy; Z88.1 Allergy status to other antibiotic agents; Z79.82 Long term (current) use of aspirin; Z86.73 Personal history of transient ischemic attack (TIA), and cerebral infarction without residual deficits
CPT/HCPCS: 36415; 74176; 80053; 81001; 82150; 83605; 83690; 83880; 85025; 87040; 96374; 96375; 96376; 99284; A9270; J1170; J2405; 99283

== ENCOUNTER 2020-05-28 10:01 | Emergency (ER) | payer MEDICARE, MEDICAID ==
[2020-05-28 10:05] VITALS: BP 93/62
[2020-05-28] MEDS ORDERED: Sodium Chloride 0.9% 10 ML Syringe FLUSH PRN (10:06)
--- NOTE | 2020-05-28 10:06 | EDM.PDOC ---
"ED HPI GENERAL MEDICAL PROBLEM - General Chief Complaint: Respiratory Problem Stated Complaint: Shortness of breath Time Seen by Provider: 05/28/20 10:05 Source of Information: Reports: Patient, Old Records, RN, RN Notes Reviewed History Limitations: Reports: No Limitations - History of Present Illness INITIAL COMMENTS - FREE TEXT/NARRATIVE: Pt presents to ED via [facility] with c/o waking at 0400HRS very short of breath. Pt states this started a few days ago but has been getting progressively worse. Pt reports that she has generalized weakness that has become worse also. Denies f all, but reports several near falls. Pt states that she was seen in ED on 05/26/20 for an unrelated problem, and her breath got worse upon returning home that day after being out in the cold air. Pt states she has used her albuterol inhaler and was given nebulizer treatment enroute by EMS which helped. Pt denies fever, chest pain, edema, or orthopnea. She admits to chills, and cough with occasional yellow sputum production. She has Hx of COPD and CHF. 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 Treatments, Oxygen Generalized Pain Score (Numeric/FACES): 10 - Related Data Allergies Allergy/AdvReac Type Severity Reaction Status Date / Time vancomycin Allergy Swelling Verified 05/28/20 10:01 Home Meds: Home Meds Insulin Detemir [Levemir] 25 units SQ DAILY 11/16/13 [History] Omeprazole 20 mg PO ACBREAKFAST 01/17/14 [History] atorvaSTATin [Lipitor] 10 mg PO BEDTIME 07/05/15 [History] Budesonide [Pulmicort] 0.5 mg NEB BID 10/23/15 [History] Nitroglycerin [Nitrostat] 0.4 mg PO ASDIRECTED PRN 08/12/17 [History] Apixaban [Eliquis] 5 mg PO BID 06/28/18 [History] Aspirin [Aspirin EC] 325 mg PO DAILY 06/28/18 [History] Sennosides/Docusate Sodium [Senna-S] 1 tab PO BID PRN 06/28/18 [History] metOLazone [Metolazone] 2.5 mg PO Q48H 06/28/18 [History] polyethylene glycoL 3350 [MiraLAX] 17 gm PO DAILY PRN packet 07/15/18 [Rx] Albuterol Sulfate [Proair Hfa] 2 puff INH Q6H PRN 09/15/18 [History] Bumetanide 2 mg PO DAILY 09/15/18 [History] Insulin Aspart [NovoLOG] 0 - 16 unit SQ TIDMEALS 09/15/18 [History] Cyclobenzaprine [Flexeril] 10 mg PO TID PRN 03/09/19 [History] Docusate Sodium [Colace] 100 mg PO BID PRN 03/09/19 [History] Gabapentin [Neurontin] 800 mg PO TID 03/09/19 [History] Sevelamer Carbonate [Renvela] 1,600 mg PO TIDMEALS 03/09/19 [History] Venlafaxine [Effexor XR] 150 mg PO DAILY 03/09/19 [History] Spironolactone [Aldactone] 25 mg PO DAILY 05/18/19 [History] carvediloL [Coreg] 25 mg PO BIDMEALS tablet 05/20/19 [Rx] Albuterol Sulfate 3 ml INH QID PRN 04/18/20 [History] Potassium Chloride [Klor-Con 10] 10 meq PO BID 04/18/20 [History] NIFEdipine [Procardia XL] 60 mg PO DAILY #30 tab.er 04/21/20 [Rx] Past Medical History HEENT History: Reports: Impaired Vision Other HEENT History: wears glasses Cardiovascular History: Reports: Afib, Bacterial Endocarditis, CAD, Heart Failure, Heart Murmur, Heart Valve Replacement, High Cholesterol, Hypertension, CA, Pacemaker, Other (See Below) Other Cardiovascular History: Aortic valve endocarditis; CAD; s/p AVR; paroxysmal atrial fibrillation; essential hypertension; cardiac pacemaker in situ; tachy-angelique syndrome - all per [facility] records Respiratory History: Reports: COPD, Intubation, Previous, Pneumonia, Recurrent, SOB, Other (See Below) Other Respiratory History: hx hypoxemia Gastrointestinal History: Reports: Cholelithiasis, GERD Genitourinary History: Reports: Chronic Renal Insuffiency, Diabetic Nephropathy, Other (See Below) Other Genitourinary History: STAGE III CKD 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 1 C/S Musculoskeletal History: Reports: Arthritis, Back Pain, Chronic, Fracture, Osteoarthritis Other Musculoskeletal History: arthritis to spine, carpal tunnel to wrists. HX OF PROXIMAL HUMERS FRACTURE RIGHT Neurological History: Reports: Neuropathy, Diabetic, TIA, Other (See Below) Other Neuro History: CHRONIC PAIN SYNDROME Psychiatric History: Reports: Anxiety, Depression Endocrine/Metabolic History: Reports: Diabetes, Type II, Obesity/BMI 30+ Hematologic History: Reports: Other (See Below) Other Hematologic History: hx bacteremia, hyperkalemia, hyponatremia Immunologic History: Reports: None Oncologic (Cancer) History: Reports: None Dermatologic History: Reports: Other (See Below) Other Dermatologic History: hx impetigo, and pressure sore to buttocks - Infectious Disease History Infectious Disease History: Reports: None - Past Surgical History HEENT Surgical History: Reports: Tonsillectomy Cardiovascular Surgical History: Reports: Coronary Artery Bypass, Pacer, Valve Replacement Other Cardiovascular Surgeries/Procedures: Pacemaker placed 11/10/2013 Respiratory Surgical History: Reports: Other (See Below) Other Respiratory Surgeries/Procedures: BRONCHOSCOPY GI Surgical History: Reports: Appendectomy, Cholecystectomy, Colonoscopy Female Surgical History: Reports: Hysterectomy Endocrine Surgical History: Reports: None Neurological Surgical History: Reports: None Musculoskeletal Surgical History: Reports: Amputation, Hip Replacement, Other (See Below) Other Musculoskeletal Surgeries/Procedures:: left 1/2 foot. Distal portion of 2nd digit on right foot. Social & Family History - Family History Family Medical History: No Pertinent Family History Cardiac: Reports: Hypertension Respiratory: Reports: COPD Endocrine/Metabolic: Reports: Diabetes, type II - Tobacco Use Tobacco Use Status *Q: Current Every Day Tobacco User Tobacco Use Within Last Twelve Months: Cigarettes - Caffeine Use Caffeine Use: Reports: Soda, Tea Caffeine Use Comment: Pt reports daily tea intake. - Living Situation & Occupation Living situation: Reports: Alone Occupation: Disabled ED ROS GENERAL - Review of Systems Review Of Systems: Comprehensive ROS is negative, except as noted in HPI. ED EXAM, GENERAL - Physical Exam Exam: See Below Exam Limited By: No Limitations General Appearance: Alert, No Apparent Distress, Other (Chronically ill appea ring) Eye Exam: Bilateral Eye: Normal Inspection Nose: Normal Inspection, Normal Mucosa, No Blood Throat/Mouth: Normal Lips, Normal Voice, No Airway Compromise. No: Perioral Cyanosis Head: Atraumatic, Normocephalic Neck: Normal Inspection, Supple, Non-Tender, Full Range of Motion Respiratory/Chest: No Respiratory Distress, No Accessory Muscle Use, Decreased Breath Sounds, Crackles, Rales (Bibasilar), Wheezing (Mild). No: Rhonchi, Stridor Cardiovascular: Regular Rate, Rhythm, No Edema GI/Abdominal: Normal Bowel Sounds, Soft, Non-Tender, No Distention Extremities: Normal Range of Motion, Other (Left partial foot amputation) Neurological: Alert, Oriented, No Motor/Sensory Deficits Psychiatric: Depressed Mood, Flat Affect Skin Exam: Warm, Dry, Intact, Normal Color, No Rash #1 Interpretation EKG Date: 05/28/20 Time: 11:11 Rhythm: Other (Paced) Rate (Beats/Min): 70 Comparison: No Change Course - Vital Signs Last Recorded V/S: Last Vital Signs Temp 97.4 F 05/28/20 10:01 Pulse 84 05/28/20 10:30 Resp 20 05/28/20 10:01 BP 93/62 05/28/20 10:01 Pulse Ox 90 L 05/28/20 10:30 - Orders/Labs/Meds Orders: Active Orders 24 hr Category Date Time Status EKG 12 Lead [EKG Documentation Completion] [RC] STAT Care 05/28/20 11:05 Ordered Peripheral IV Care [RC] . DIRECTED Care 05/28/20 10:08 Active RT Aerosol Therapy [RC] ASDIRECTED Care 05/28/20 10:30 Active Levofloxacin/Dextrose 5%-Water [Levaquin in D5W 500 MG/ Med 05/28/20 10:42 Active 100 ML] 500 mg Premix Bag 1 bag IV ONETIME Sodium Chloride 0.9% [Normal Saline] 500 ml Med 05/28/20 11:00 Active IV .BOLUS Sodium Chloride 0.9% [Saline Flush] Med 05/28/20 10:06 Active 10 ml FLUSH ASDIRECTED PRN Peripheral IV Insertion Adult [OM.PC] Stat Oth 05/28/20 10:08 Ordered Medication Orders Levofloxacin/Dextrose 500 mg/ (Premix) 100 mls @ 100 mls/hr IV ONETIME ONE Stop: 05/28/20 11:41 Last Admin: 05/28/20 10:57 Dose: 100 mls/hr Documented by: [id number] Sodium Chloride (Normal Saline) 500 mls @ 999 mls/hr IV .BOLUS MARGARITA Last Admin: 05/28/20 11:00 Dose: 999 mls/hr Documented by: [email or web address] Sodium Chloride (Saline Flush) 10 ml FLUSH ASDIRECTED PRN PRN Reason: Keep Vein Open Last Admin: 05/28/20 10:13 Dose: 10 ml Documented by: JESUS Labs: Laboratory Tests 05/28/20 05/28/20 05/28/20 Range/Units 10:06 10:06 10:06 WBC 8.1 (5.0-10.0) 10^3/uL RBC 3.49 L (4.2-5.4) 10^6/uL Hgb 8.9 L (12.0-16.0) g/dL Hct 27.9 L (37.0-47.0) % MCV 79.9 L (80-100) fL MCH 25.5 L (27.0-34.0) pg MCHC 31.9 L (33.0-35.0) g/dL Plt Count 255 (150-450) 10^3/uL Neut % (Auto) 75.4 H (42.2-75.2) % Lymph % (Auto) 15.7 L (20.5-50.1) % [place] % (Auto) 8.6 H (2-8) % Eos % (Auto) 0.1 L (1.0-3.0) % Baso % (Auto) 0.2 (0.0-1.0) % Sodium 125 L (136-145) mmol/L Potassium 6.1 H D (3.5-5.1) mmol/L Chloride 91 L (98-107) mmol/L Carbon Dioxide 15 L (21-32) mmol/L Anion Gap 25.1 H (7-13) mEq/L BUN 62 H (7-18) mg/dL Creatinine 3.14 H (0.55-1.02) mg/dL Est Cr Clr Drug Dosing 19.41 mL/min Estimated GFR (MDRD) 15 BUN/Creatinine Ratio 19.7 (No establ ref range) Glucose 228 H (74-99) mg/dL Lactic Acid 8.2 H* (0.4-2.0) mmol/L Calcium 8.8 (8.5-10.1) mg/dL Total Bilirubin 1.1 H (0.2-1.0) mg/dL AST 116 H (15-37) U/L ALT 111 H (14-59) U/L Alkaline Phosphatase 184 H (46-116) U/L Troponin I < 0.017 (0.000-0.056) ng/mL B-Natriuretic Peptide 710 H (0-100) pg/ml Total Protein 7.8 (6.4-8.2) g/dL Albumin 3.6 (3.4-5.0) g/dL Globulin 4.2 Albumin/Globulin Ratio 0.9 Meds: Medications Generic Name Dose Route Start Last Admin Trade Name Samsonq PRN Reason Stop Dose Admin Levofloxacin/Dextrose 500 mg/ 100 mls @ 100 mls/hr 05/28/20 10:42 05/28/20 10:57 Premix IV 05/28/20 11:41 100 mls/hr ONETIME ONE Administration Sodium Chloride 500 mls @ 999 mls/hr 05/28/20 11:00 05/28/20 11:00 Normal Saline IV 999 mls/hr .BOLUS MARGARITA Administration Sodium Chloride 10 ml 05/28/20 10:06 05/28/20 10:13 Saline Flush FLUSH 10 ml ASDIRECTED PRN Administration Keep Vein Open Discontinued Medications Generic Name Dose Route Start Last Admin Trade Name Obdulia PRN Reason Stop Dose Admin Albuterol/Ipratropium 3 ml 05/28/20 10:30 05/28/20 10:45 Duoneb 3.0-0.5 Mg/3 Ml NEB 05/28/20 10:31 3 ml ONETIME ONE Administration Calcium Gluconate 1 gm 05/28/20 10:51 05/28/20 10:58 Calcium Gluconate IVPUSH 05/28/20 10:52 1 gm ONETIME ONE Administration Dextrose/Water 50 ml 05/28/20 11:08 Dextrose 50% In Water IVPUSH 05/28/20 11:09 ONETIME ONE Insulin Human Regular 10 unit 05/28/20 11:08 Humulin R IV 05/28/20 11:09 ONETIME ONE Methylprednisolone Sodium Succinate 125 mg 05/28/20 10:08 05/28/20 10:13 Solu-Medrol IVPUSH 05/28/20 10:09 125 mg ONETIME ONE Administration Sodium Polystyrene Sulfonate 45 gm 05/28/20 10:57 05/28/20 11:01 Kayexalate PO 05/28/20 10:58 45 gm NOW ONE Administration - Radiology Interpretation Free Text/Narrative:: [facility] [place] [facility] Final Radiology Report Call: [phone] assistance Online chat: [email or web address] Name: TORY CONTI Age: 64Years F Date: 05/28/2020 SSN: -- : 1955 Study: CR CHEST 1V FRONTAL Requesting Physician: DEDE SAHA Images: 1 Addl Studies: Provided Clinical History: shortness of breath, Hx COPD CHF Contrast: Contrast Medium: Contrast Amount: Contrast Method: Page 1 of 2 PROCEDURE INFORMATION: Exam: XR Chest, 1 View Exam date and time: 05/28/2020 10:13 AM Age: 64 years old Clinical indication: Shortness of breath; Prior surgery; Surgery date: 6+ months; Additional info: Shortness of breath, HX copd chf TECHNIQUE: Imaging protocol: XR of the chest Views: 1 view. COMPARISON: CR Chest 1V Frontal 04/18/2020 6:36 AM FINDINGS: Tubes, catheters and devices: Unchanged left cardiac pacer generator and leads. Lungs: Decreased perihilar haziness. Unchanged airspace opacification in the bilateral lung bases, right greater than left. Pleural spaces: Unchanged right costophrenic angle blunting and pleural thickening. Heart/Mediastinum: Chronic enlarged heart. Vasculature: Decreased vein caliber and increased sharpness of the vein margins. Bones/joints: Median sternotomy wires and surgical clips compatible with prior CABG. Other findings: Decreased fissural thickening and fluid. IMPRESSION: 1. Unchanged bilateral lower lobe lung infiltrates, right greater than left s uspicious for pneumonia. 2. Decreased acute pulmonary edema, now with residual small effusions and probably chronic mild cardiomegaly. TORY CNOTI | Final Radiology Report CONFIDENTIALITY STATEMENT This report is intended only for use by the referring physician, and only in accordance with law. If you received this in error, call [phone]. Page 2 of 2 Thank you for allowing us to participate in the care of your patient. Dictated and Authenticated by: Zachary Brink MD 05/28/2020 10:27 AM Central Time ([place] & [place]) Departure - Departure Time of Disposition: 11:14 Disposition: DC/Tfer to [facility] 02 Condition: Critical Clinical Impression: Sepsis due to pneumonia, COPD with exacerbation, Hyperkalemia, Chronic hypon atremia Acute on chronic kidney failure Qualifiers: Acute renal failure type: unspecified Chronic kidney disease stage: unspecified stage Qualified Code(s): N17.9 - Acute kidney failure, unspecified; N18.9 - Chronic kidney disease, unspecified - Discharge Information *PRESCRIPTION DRUG MONITORING PROGRAM REVIEWED*: Not Applicable *COPY OF PRESCRIPTION DRUG MONITORING REPORT IN PATIENT XOCHILT: Not Applicable Forms: ED Department Discharge, Interfacility Transfer EMTALA Sepsis Event Note (ED) - Evaluation Sepsis Screening Result: No Definite Risk - Focused Exam Vital Signs: Vital Signs Temp Pulse Resp BP Pulse Ox Pulse Ox 05/28/20 10:30 84 90 L 05/28/20 10:01 97.4 F 81 20 93/62 98 - My Orders Last 24 Hours: My Active Orders 05/28/20 10:06 Sodium Chloride 0.9% [Saline Flush] 10 ml FLUSH ASDIRECTED PRN 05/28/20 10:08 Peripheral IV Care [RC] . DIRECTED Peripheral IV Insertion Adult [OM.PC] Stat 05/28/20 10:30 RT Aerosol Therapy [RC] ASDIRECTED 05/28/20 10:42 Levofloxacin/Dextrose 5%-Water [Levaquin in D5W 500 MG/100 ML] 500 mg Premix Bag 1 bag IV ONETIME 05/28/20 11:00 Sodium Chloride 0.9% [Normal Saline] 500 ml IV .BOLUS 05/28/20 11:05 EKG 12 Lead [EKG Documentation Completion] [RC] STAT - Assessment/Plan Last 24 Hours: My Active Orders 05/28/20 10:06 Sodium Chloride 0.9% [Saline Flush] 10 ml FLUSH ASDIRECTED PRN 05/28/20 10:08 Peripheral IV Care [RC] . DIRECTED Peripheral IV Insertion Adult [OM.PC] Stat 05/28/20 10:30 RT Aerosol Therapy [RC] ASDIRECTED 05/28/20 10:42 Levofloxacin/Dextrose 5%-Water [Levaquin in D5W 500 MG/100 ML] 500 mg Premix Bag 1 bag IV ONETIME 05/28/20 11:00 Sodium Chloride 0.9% [Normal Saline] 500 ml IV .BOLUS 05/28/20 11:05 EKG 12 Lead [EKG Documentation Completion] [RC] STAT"
[2020-05-28] MEDS ORDERED: methylPREDNISolone Sodium Succinate 125 MG/2 ML SDV IVPUSH ONE (10:08)
--- NOTE | 2020-05-28 10:28 | CR ---
PROCEDURE INFORMATION: Exam: XR Chest, 1 View Exam date and time: 05/28/2020 10:13 AM Age: 64 years old Clinical indication: Shortness of breath; Prior surgery; Surgery date: 6+ months; Additional info: Shortness of breath, HX copd chf TECHNIQUE: Imaging protocol: XR of the chest Views: 1 view. COMPARISON: CR Chest 1V Frontal 04/18/2020 6:36 AM FINDINGS: Tubes, catheters and devices: Unchanged left cardiac pacer generator and leads. Lungs: Decreased perihilar haziness. Unchanged airspace opacification in the bilateral lung bases, right greater than left. Pleural spaces: Unchanged right costophrenic angle blunting and pleural thickening. Heart/Mediastinum: Chronic enlarged heart. Vasculature: Decreased vein caliber and increased sharpness of the vein margins. Bones/joints: Median sternotomy wires and surgical clips compatible with prior CABG. Other findings: Decreased fissural thickening and fluid. IMPRESSION: 1. Unchanged bilateral lower lobe lung infiltrates, right greater than left suspicious for pneumonia. 2. Decreased acute pulmonary edema, now with residual small effusions and probably chronic mild cardiomegaly.
[2020-05-28] MEDS ORDERED: Albuterol/Ipratropium 3.0-0.5 MG/3 ML Neb Soln NEB ONE (10:30)
[2020-05-28 10:34] LABS: ANION GAP 25.1 mEq/L (7-13); CHLORIDE,CL 91 mmol/L (98-107); SODIUM,NA 125 mmol/L (136-145)
[2020-05-28] MEDS ORDERED: Levofloxacin/Dextrose 5%-Water 500 MG in Premix Bag 1 BAG IV ONE (10:42)
[2020-05-28 10:47] VITALS: PULSE 84
[2020-05-28] MEDS ORDERED: Calcium Gluconate 10% 1 GM/10 ML SDV IVPUSH ONE (10:51)
[2020-05-28] MEDS ORDERED: Sodium Polystyrene Sulfonate 15 GM/60 ML Susp 60 ML Bot PO ONE (10:57)
[2020-05-28] MEDS ORDERED: Sodium Chloride 0.9% 500 ML IV SCH (11:00)
[2020-05-28] MEDS ORDERED: Insulin Regular, Human 100 Units/ML 3 ML Vial IV ONE (11:08)
[2020-05-28] MEDS ORDERED: 50% Dextrose in Water 50 ML Syringe IVPUSH ONE (11:08)
== END 2020-05-28 11:31 ==
LOC: DL.ED 10:01
DX: A41.9 Sepsis, unspecified organism (principal); R65.20 Severe sepsis without septic shock; I13.2 Hypertensive heart and chronic kidney disease with heart failure and with stage 5 chronic kidney disease, or end stage renal disease; N17.9 Acute kidney failure, unspecified; N18.30 Chronic kidney disease, stage 3 unspecified; I50.9 Heart failure, unspecified; J18.9 Pneumonia, unspecified organism; J44.1 Chronic obstructive pulmonary disease with (acute) exacerbation; E87.1 Hypo-osmolality and hyponatremia; I48.91 Unspecified atrial fibrillation; I25.10 Atherosclerotic heart disease of native coronary artery without angina pectoris; I25.2 Old myocardial infarction; E78.00 Pure hypercholesterolemia, unspecified; K21.9 Gastro-esophageal reflux disease without esophagitis; E11.21 Type 2 diabetes mellitus with diabetic nephropathy; M19.90 Unspecified osteoarthritis, unspecified site; E11.40 Type 2 diabetes mellitus with diabetic neuropathy, unspecified; E66.9 Obesity, unspecified; Z68.30 Body mass index [BMI] 30.0-30.9, adult; Z79.82 Long term (current) use of aspirin; Z79.4 Long term (current) use of insulin; Z72.0 Tobacco use
CPT/HCPCS: 36415; 71045; 80053; 82962; 83605; 83880; 84484; 85025; 93005; 94640; 96365; 96375; 99285; A9270; J0610; J1815; J1956; J2930; J7040; 99284; J7620-GY

== ENCOUNTER 2020-06-29 09:29 | Inpatient (IN) | payer MEDICARE, MEDICAID ==
--- NOTE | 2020-06-29 09:42 | EDM.PDOC ---
<Jerry Don Guera - Last Filed: 06/29/20 10:29> ED HPI GENERAL MEDICAL PROBLEM - General Chief Complaint: Chest Pain Stated Complaint: AMBULANCE Time Seen by Provider: 06/29/20 09:37 Source of Information: Reports: Patient, EMS - History of Present Illness INITIAL COMMENTS - FREE TEXT/NARRATIVE: 64 y/o F c/o Cp that woke her from sleep and started at 2 am this morning. The pain was constant center chest non radiating and 9/10. EMS arrived and gave the pt 1 nitro and 324mg of ASA which resolved the pain. Pt states she has not had any of her medications for three days because she ran out and the clinic would not refill them. Recently treated for PNA 1 month ago with complete symptom resolution. Denies fever, cough, chills, drugs, etoh, griffith, sob, abd pn, recent trauma, pelvic pain, difficulty voiding, blood in urine or stool, extremity swelling or pain. Onset: Today Duration: Hour(s): Location: Reports: Chest Quality: Reports: Ache Severity: Moderate Improves with: Reports: Other (nitro) Worsens with: Reports: None Associated Symptoms: Reports: No Other Symptoms Chest Pain Score (Numeric/FACES): 7 - Related Data Allergies Allergy/AdvReac Type Severity Reaction Status Date / Time vancomycin Allergy Swelling Verified 06/29/20 09:54 Home Meds: Home Meds Insulin Detemir [Levemir] 25 units SQ DAILY 11/16/13 [History] Omeprazole 20 mg PO ACBREAKFAST 01/17/14 [History] atorvaSTATin [Lipitor] 10 mg PO BEDTIME 07/05/15 [History] Budesonide [Pulmicort] 0.5 mg NEB BID 10/23/15 [History] Nitroglycerin [Nitrostat] 0.4 mg PO ASDIRECTED PRN 08/12/17 [History] Apixaban [Eliquis] 5 mg PO BID 06/28/18 [History] Aspirin [Aspirin EC] 325 mg PO DAILY 06/28/18 [History] Sennosides/Docusate Sodium [Senna-S] 1 tab PO BID PRN 06/28/18 [History] metOLazone [Metolazone] 2.5 mg PO Q48H 06/28/18 [History] polyethylene glycoL 3350 [MiraLAX] 17 gm PO DAILY PRN packet 07/15/18 [Rx] Albuterol Sulfate [Proair Hfa] 2 puff INH Q6H PRN 09/15/18 [History] Bumetanide 2 mg PO DAILY 09/15/18 [History] Insulin Aspart [NovoLOG] 0 - 16 unit SQ TIDMEALS 09/15/18 [History] Cyclobenzaprine [Flexeril] 10 mg PO TID PRN 03/09/19 [History] Docusate Sodium [Colace] 100 mg PO BID PRN 03/09/19 [History] Gabapentin [Neurontin] 800 mg PO TID 03/09/19 [History] Sevelamer Carbonate [Renvela] 1,600 mg PO TIDMEALS 03/09/19 [History] Venlafaxine [Effexor XR] 150 mg PO DAILY 03/09/19 [History] Spironolactone [Aldactone] 25 mg PO DAILY 05/18/19 [History] carvediloL [Coreg] 25 mg PO BIDMEALS tablet 05/20/19 [Rx] Albuterol Sulfate 3 ml INH QID PRN 04/18/20 [History] Potassium Chloride [Klor-Con 10] 10 meq PO BID 04/18/20 [History] NIFEdipine [Procardia XL] 60 mg PO DAILY #30 tab.er 04/21/20 [Rx] Past Medical History HEENT History: Reports: Impaired Vision Other HEENT History: wears glasses Cardiovascular History: Reports: Afib, Bacterial Endocarditis, CAD, Heart Failure, Heart Murmur, Heart Valve Replacement, High Cholesterol, Hypertension, [place], Pacemaker, Other (See Below) Other Cardiovascular History: Aortic valve endocarditis; CAD; s/p AVR; paroxysmal atrial fibrillation; essential hypertension; cardiac pacemaker in situ; tachy-angelique syndrome - all per [facility] records Respiratory History: Reports: COPD, Intubation, Previous, Pneumonia, Recurrent, SOB, Other (See Below) Other Respiratory History: hx hypoxemia Gastrointestinal History: Reports: Cholelithiasis, GERD Genitourinary History: Reports: Chronic Renal Insuffiency, Diabetic Nephropathy, Other (See Below) Other Genitourinary History: STAGE III CKD 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 1 C/S Musculoskeletal History: Reports: Arthritis, Back Pain, Chronic, Fracture, Osteoarthritis Other Musculoskeletal History: arthritis to spine, carpal tunnel to wrists. HX OF PROXIMAL HUMERS FRACTURE RIGHT Neurological History: Reports: Neuropathy, Diabetic, TIA, Other (See Below) Other Neuro History: CHRONIC PAIN SYNDROME Psychiatric History: Reports: Anxiety, Depression Endocrine/Metabolic History: Reports: Diabetes, Type II, Obesity/BMI 30+ Hematologic History: Reports: Other (See Below) Other Hematologic History: hx bacteremia, hyperkalemia, hyponatremia Immunologic History: Reports: None Oncologic (Cancer) History: Reports: None Dermatologic History: Reports: Other (See Below) Other Dermatologic History: hx impetigo, and pressure sore to buttocks - Infectious Disease History Infectious Disease History: Reports: None - Past Surgical History HEENT Surgical History: Reports: Tonsillectomy Cardiovascular Surgical History: Reports: Coronary Artery Bypass, Pacer, Valve Replacement Other Cardiovascular Surgeries/Procedures: Pacemaker placed 11/10/2013 Respiratory Surgical History: Reports: Other (See Below) Other Respiratory Surgeries/Procedures: BRONCHOSCOPY GI Surgical History: Reports: Appendectomy, Cholecystectomy, Colonoscopy Female Surgical History: Reports: Hysterectomy Endocrine Surgical History: Reports: None Neurological Surgical History: Reports: None Musculoskeletal Surgical History: Reports: Amputation, Hip Replacement, Other (See Below) Other Musculoskeletal Surgeries/Procedures:: left 1/2 foot. Distal portion of 2nd digit on right foot. Social & Family History - Family History Family Medical History: No Pertinent Family History Cardiac: Reports: Hypertension Respiratory: Reports: COPD Endocrine/Metabolic: Reports: Diabetes, type II - Caffeine Use Caffeine Use: Reports: Tea Caffeine Use Comment: Pt reports daily tea intake. - Living Situation & Occupation Living situation: Reports: Alone Occupation: Disabled ED ROS GENERAL - Review of Systems Review Of Systems: Comprehensive ROS is negative, except as noted in HPI. ED EXAM, GENERAL - Physical Exam Exam: See Below Exam Limited By: No Limitations General Appearance: Alert, WD/WN, No Apparent Distress Ears: Normal External Exam, Normal Canal, Hearing Grossly Normal, Normal TMs Ear Exam: Bilateral Ear: Auricle Normal, Canal Normal, TM normal Nose: Normal Inspection, Normal Mucosa, No Blood Throat/Mouth: Normal Inspection, Normal Lips, Normal Teeth, Normal Gums, Normal Oropharynx, Normal Voice, No Airway Compromise Head: Atraumatic, Normocephalic Neck: Normal Inspection, Supple, Non-Tender, Full Range of Motion Respiratory/Chest: No Respiratory Distress, Lungs Clear, Normal Breath Sounds, No Accessory Muscle Use, Chest Non-Tender Cardiovascular: Normal Peripheral Pulses, Regular Rate, Rhythm, No Edema, No Gallop, No JVD, No Murmur, No Rub GI/Abdominal: Soft, Non-Tender (Female) Exam: Deferred Rectal (Female) Exam: Deferred Back Exam: Normal Inspection Extremities: Normal Inspection, Normal Range of Motion, Non-Tender, Normal Capillary Refill, No Pedal Edema Neurological: Alert, Oriented, CN II-XII Intact, Normal Cognition, Normal Gait, Normal Reflexes, No Motor/Sensory Deficits Psychiatric: Normal Affect, Normal Mood Skin Exam: Warm, Dry, Intact, Normal Color, No Rash Course - Radiology Interpretation Free Text/Narrative:: 1. Worsened pulmonary edema and right pleural effusion. 2. Right greater than left lung opacification, atelectasis versus infectious infiltrates. Departure - Departure Time of Disposition: 10:29 Disposition: Admitted As Inpatient 68 Condition: Fair Clinical Impression: Hypoxia Acute exacerbation of CHF (congestive heart failure) Qualifiers: Heart failure type: unspecified Qualified Code(s): I50.9 - Heart failure, unspecified Forms: ED Department Discharge <Sarbjit Carney - Last Filed: 06/29/20 10:32> Course - Vital Signs Last Recorded V/S: Last Vital Signs Temp 97.5 F 06/29/20 09:50 Pulse 91 06/29/20 09:50 Resp 22 H 06/29/20 09:50 BP 184/78 H 06/29/20 09:50 Pulse Ox 94 L 06/29/20 09:50 - Orders/Labs/Meds Orders: Active Orders 24 hr Category Date Time Status EKG 12 Lead [EKG Documentation Completion] [RC] STAT Care 06/29/20 09:34 Active Peripheral IV Care [RC] . DIRECTED Care 06/29/20 09:36 Active CULTURE BLOOD [BC] Stat Lab 06/29/20 09:47 Received CULTURE BLOOD [BC] Stat Lab 06/29/20 09:59 Received UA RFX NA AND CULT IF INDIC [URIN] Stat Lab 06/29/20 09:35 Ordered Sodium Chloride 0.9% [Saline Flush] Med 06/29/20 09:35 Active 10 ml FLUSH ASDIRECTED PRN Blood Culture x2 Reflex Set [OM.PC] Stat Oth 06/29/20 09:35 Ordered Peripheral IV Insertion Adult [OM.PC] Stat Ot 06/29/20 09:35 Ordered Medication Orders Sodium Chloride (Sodium Chloride 0.9% 10 Ml Syringe) 10 ml FLUSH ASDIRECTED PRN PRN Reason: Keep Vein Open Last Admin: 06/29/20 09:55 Dose: 10 ml Documented by: JESUS Labs: Laboratory Tests 06/29/20 06/29/20 06/29/20 Range/Units 09:47 09:47 09:47 WBC 4.4 L (5.0-10.0) 10^3/uL RBC 4.11 L (4.2-5.4) 10^6/uL Hgb 10.8 L D (12.0-16.0) g/dL Hct 33.9 L (37.0-47.0) % MCV 82.5 (80-100) fL MCH 26.3 L (27.0-34.0) pg MCHC 31.9 L (33.0-35.0) g/dL Plt Count 192 (150-450) 10^3/uL Neut % (Auto) 54.2 (42.2-75.2) % Lymph % (Auto) 35.8 (20.5-50.1) % [place] % (Auto) 8.6 H (2-8) % Eos % (Auto) 0.9 L (1.0-3.0) % Baso % (Auto) 0.5 (0.0-1.0) % PT 11.5 (9.0-12.0) SEC INR 1.1 (0.9-1.2) APTT 25.4 (22.0-34.0) SEC Sodium 138 D (136-145) mmol/L Potassium 4.4 D (3.5-5.1) mmol/L Chloride 100 (98-107) mmol/L Carbon Dioxide 23 (21-32) mmol/L Anion Gap 19.4 H (7-13) mEq/L BUN 16 D (7-18) mg/dL Creatinine 1.12 H D (0.55-1.02) mg/dL Est Cr Clr Drug Dosing TNP Estimated GFR (MDRD) 49 BUN/Creatinine Ratio 14.3 (No establ ref range) Glucose 276 H (74-99) mg/dL Lactic Acid (0.4-2.0) mmol/L Calcium 8.8 (8.5-10.1) mg/dL Phosphorus 3.4 (2.6-4.7) mg/dL Magnesium 1.7 L (1.8-2.4) mg/dL Total Bilirubin 0.9 (0.2-1.0) mg/dL AST 14 L (15-37) U/L ALT 21 (14-59) U/L Alkaline Phosphatase 155 H (46-116) U/L Troponin I 0.033 (0.000-0.056) ng/mL B-Natriuretic Peptide 2370 H (0-100) pg/ml Total Protein 8.1 (6.4-8.2) g/dL Albumin 3.6 (3.4-5.0) g/dL Globulin 4.5 Albumin/Globulin Ratio 0.8 // Range/Units 09:47 WBC (5.0-10.0) 10^3/uL RBC (4.2-5.4) 10^6/uL Hgb (12.0-16.0) g/dL Hct (37.0-47.0) % MCV (80-100) fL MCH (27.0-34.0) pg MCHC (33.0-35.0) g/dL Plt Count (150-450) 10^3/uL Neut % (Auto) (42.2-75.2) % Lymph % (Auto) (20.5-50.1) % [place] % (Auto) (2-8) % Eos % (Auto) (1.0-3.0) % Baso % (Auto) (0.0-1.0) % PT (9.0-12.0) SEC INR (0.9-1.2) APTT (22.0-34.0) SEC Sodium (136-145) mmol/L Potassium (3.5-5.1) mmol/L Chloride (98-107) mmol/L Carbon Dioxide (21-32) mmol/L Anion Gap (7-13) mEq/L BUN (7-18) mg/dL Creatinine (0.55-1.02) mg/dL Est Cr Clr Drug Dosing Estimated GFR (MDRD) BUN/Creatinine Ratio (No establ ref range) Glucose (74-99) mg/dL Lactic Acid 1.4 (0.4-2.0) mmol/L Calcium (8.5-10.1) mg/dL Phosphorus (2.6-4.7) mg/dL Magnesium (1.8-2.4) mg/dL Total Bilirubin (0.2-1.0) mg/dL AST (15-37) U/L ALT (14-59) U/L Alkaline Phosphatase (46-116) U/L Troponin I (0.000-0.056) ng/mL B-Natriuretic Peptide (0-100) pg/ml Total Protein (6.4-8.2) g/dL Albumin (3.4-5.0) g/dL Globulin Albumin/Globulin Ratio Meds: Medications Generic Name Dose Route Start Last Admin Trade Name Freq PRN Reason Stop Dose Admin Sodium Chloride 10 ml 06/29/20 09:35 06/29/20 09:55 Sodium Chloride 0.9% 10 Ml Syringe FLUSH 10 ml ASDIRECTED PRN Administration Keep Vein Open Discontinued Medications Generic Name Dose Route Start Last Admin Trade Name Freq PRN Reason Stop Dose Admin Furosemide 80 mg 06/29/20 10:19 Furosemide 100 Mg/10 Ml Sdv IVPUSH 06/29/20 10:20 NOW ONE - Re-Assessments/Exams Free Text/Narrative Re-Assessment/Exam: 06/29/20 10:31 I personally performed or re-performed the physical examination and medical decision making. I have verified all student documentation or findings, including history, physical exam and/or medical decision making. Departure - Departure Time of Disposition: 10:31 (admitted to Dr. Fournier) Sepsis Event Note (ED) - Focused Exam Vital Signs: Vital Signs Temp Pulse Resp BP Pulse Ox 06/29/20 09:50 97.5 F 91 22 H 184/78 H 94 L - My Orders Last 24 Hours: My Active Orders 06/29/20 09:34 EKG 12 Lead [EKG Documentation Completion] [RC] STAT 06/29/20 09:35 UA RFX NA AND CULT IF INDIC [URIN] Stat Sodium Chloride 0.9% [Saline Flush] 10 ml FLUSH ASDIRECTED PRN Blood Culture x2 Reflex Set [OM.PC] Stat Peripheral IV Insertion Adult [OM.PC] Stat 06/29/20 09:36 Peripheral IV Care [RC] . DIRECTED 06/29/20 09:47 CULTURE BLOOD [BC] Stat 06/29/20 09:59 CULTURE BLOOD [BC] Stat - Assessment/Plan Last 24 Hours: My Active Orders 06/29/20 09:34 EKG 12 Lead [EKG Documentation Completion] [RC] STAT 06/29/20 09:35 UA RFX NA AND CULT IF INDIC [URIN] Stat Sodium Chloride 0.9% [Saline Flush] 10 ml FLUSH ASDIRECTED PRN Blood Culture x2 Reflex Set [OM.PC] Stat Peripheral IV Insertion Adult [OM.PC] Stat 06/29/20 09:36 Peripheral IV Care [RC] . DIRECTED 06/29/20 09:47 CULTURE BLOOD [BC] Stat 06/29/20 09:59 CULTURE BLOOD [BC] Stat
[2020-06-29] MEDS: Sodium Chloride 0.9% 10 ML Syringe FLUSH PRN (09:55)
--- NOTE | 2020-06-29 10:05 | CR ---
PROCEDURE INFORMATION: Exam: XR Chest Exam date and time: 06/29/2020 9:46 AM Age: 64 years old Clinical indication: Chest pain; Prior surgery TECHNIQUE: Imaging protocol: XR of the chest Views: 1 view. COMPARISON: CR Chest 1V Frontal 05/28/2020 10:13 AM, 04/18/2020 and 09/14/2018. FINDINGS: Tubes, catheters and devices: Unchanged dual lead left cardiac pacer. Lungs: Ground-glass right lower lobe lung opacification is increased. Similar milder opacification to the left is unchanged. Pleural spaces: Increased right pleural thickening and costophrenic angle blunting. Heart/Mediastinum: Worsened chronic cardiomegaly. Vasculature: Normal pulmonary vessels and width of the vascular pedicle. Bones/joints: Pathologic widening of the vascular pedicle and increased dimensions of the pulmonary vessels. IMPRESSION: 1. Worsened pulmonary edema and right pleural effusion. 2. Right greater than left lung opacification, atelectasis versus infectious infiltrates.
[2020-06-29 10:17] LABS: ANION GAP 19.4 mEq/L (7-13); CHLORIDE,CL 100 mmol/L (98-107); SODIUM,NA 138 mmol/L (136-145)
[2020-06-29] MEDS ORDERED: Furosemide 100 MG/10 ML SDV IVPUSH ONE (10:19)
[2020-06-29 10:21] LABS: PTT,PARTIAL THROMBOPLSTIN TIME 25.4 SEC (22.0-34.0)
[2020-06-29] MEDS ORDERED: Acetaminophen 325 MG Tab PO PRN (11:41)
[2020-06-29] MEDS ORDERED: Magnesium Sulfate/Water 2 GM/50 ML BAG IV ONE (11:44)
[2020-06-29] MEDS ORDERED: Nitroglycerin 0.4 MG Tab.SL SL PRN (12:25)
[2020-06-29] MEDS ORDERED: Cyclobenzaprine 10 MG Tab PO PRN (12:25)
[2020-06-29] MEDS ORDERED: Albuterol 6.7 GM Inhaler INH PRN (12:25)
[2020-06-29] MEDS: Gabapentin 400 MG Cap PO SCH ×2 (13:41→21:21)
[2020-06-29] MEDS: Furosemide 40 MG/4 ML VIAL IVPUSH SCH (13:41)
[2020-06-29] MEDS ORDERED: Furosemide 80 MG Tab PO SCH (14:00)
--- NOTE | 2020-06-29 15:28 | PCM.HP ---
H&P History of Present Illness - General Date of Service: 06/29/20 Admit Problem/Dx: Admission Diagnosis/Problem Admission Diagnosis/Problem CHF, Congestive heart failure - History of Present Illness Initial Comments - Free Text/Narative: 64F w/ pmh systolic and diastolic CHF (EF 20-25%), smoker, CAD, afib, s/p PPM, s/p AVR, CAD, COPD, SINA, HT, HL, DM2, depression, carpal tunnel p/w chest pain. The pt is known to have a long track record of non compliance w/ medications and follow up. She was most recently admitted to [facility] 05/28-06/03 due to WARD and hyperkalemia. She was d/c off all her diuretics. She had previously been on bumex, metolazone and spironolactone. She was d/c to a senior care but singed out AMA on 06/04 after staying there for just one day. The staff attempted to explain medication changes and forwarded prescriptions to her pharmacy. Follow up appointments were set up w/ Nephrology and Primary Care. Pharmacy records show that the pt picked up her prescriptions 5 days after discharge but she missed all follow up appointments. She presents today due to episode of sudden onset sub-sternal chest pain radiating to left chest. It was momentary but woke her up from sleep and associated w/ nausea. She is also c/o orthopnea, non productive cough and dyspnea for past 3 days. She states she has ran out of all medications 3 days ago. Chest Pain Score (Numeric/FACES): 7 - Related Data Allergies/Adverse Reactions: Allergies Allergy/AdvReac Type Severity Reaction Status Date / Time vancomycin Allergy Swelling Verified 06/29/20 14:03 Home Medications: Home Meds Insulin Detemir [Levemir] 25 units SQ DAILY 11/16/13 [History] Omeprazole 20 mg PO ACBREAKFAST 01/17/14 [History] atorvaSTATin [Lipitor] 10 mg PO BEDTIME 07/05/15 [History] Budesonide [Pulmicort] 0.5 mg NEB BID 10/23/15 [History] Nitroglycerin [Nitrostat] 0.4 mg PO .Q5MIN PRN 08/12/17 [History] Apixaban [Eliquis] 5 mg PO BID 06/28/18 [History] Aspirin [Aspirin EC] 325 mg PO DAILY 06/28/18 [History] Albuterol Sulfate [Proair Hfa] 2 puff INH Q6H PRN 09/15/18 [History] Cyclobenzaprine [Flexeril] 10 mg PO TID PRN 03/09/19 [History] Gabapentin [Neurontin] 800 mg PO TID 03/09/19 [History] Sevelamer Carbonate [Renvela] 1,600 mg PO TIDMEALS 03/09/19 [History] Venlafaxine [Effexor XR] 150 mg PO DAILY 03/09/19 [History] carvediloL [Coreg] 25 mg PO BIDMEALS tablet 05/20/19 [Rx] Potassium Chloride [Klor-Con 10] 10 meq PO DAILY 04/18/20 [History] Formoterol [Perforomist] 20 mcg INH BID 06/29/20 [History] Insulin Aspart [NovoLOG] 1 unit SQ TID 06/29/20 [History] Lidocaine 5% [Lidoderm 5%] 1 patch TOP DAILY 06/29/20 [History] Nicotine Polacrilex [Nicorette] 1 lozenge PO Q1H PRN 06/29/20 [History] Nicotine [Nicotine Patch] 14 mg TD DAILY 06/29/20 [History] traMADol [Ultram] 50 mg PO Q6H PRN 06/29/20 [History] Past Medical History HEENT History: Reports: Impaired Vision Other HEENT History: wears glasses Cardiovascular History: Reports: Afib, Aneurysm, Bacterial Endocarditis, CAD, Heart Failure, Heart Murmur, Heart Valve Replacement, High Cholesterol, Hypertension, [place], Pacemaker, Other (See Below) Other Cardiovascular History: Aortic valve endocarditis; CAD; s/p AVR; paro xysmal atrial fibrillation; essential hypertension; cardiac pacemaker in situ; tachy-angelique syndrome - all per [facility] records Respiratory History: Reports: COPD, Intubation, Previous, Pneumonia, Recurrent, SOB, Other (See Below) Other Respiratory History: hx hypoxemia Gastrointestinal History: Reports: Cholelithiasis, GERD Genitourinary History: Reports: Chronic Renal Insuffiency, Diabetic Nephropathy, Other (See Below) Other Genitourinary History: STAGE III CKD 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 1 C/S Musculoskeletal History: Reports: Arthritis, Back Pain, Chronic, Fracture, Osteoarthritis Other Musculoskeletal History: arthritis to spine, carpal tunnel to wrists. HX OF PROXIMAL HUMERS FRACTURE RIGHT Neurological History: Reports: Neuropathy, Diabetic, TIA, Other (See Below) Other Neuro History: CHRONIC PAIN SYNDROME Psychiatric History: Reports: Anxiety, Depression Endocrine/Metabolic History: Reports: Diabetes, Type II, Obesity/BMI 30+ Hematologic History: Reports: Other (See Below) Other Hematologic History: hx bacteremia, hyperkalemia, hyponatremia Immunologic History: Reports: None Oncologic (Cancer) History: Reports: None Dermatologic History: Reports: Other (See Below) Other Dermatologic History: hx impetigo, and pressure sore to buttocks - Infectious Disease History Infectious Disease History: Reports: None - Past Surgical History HEENT Surgical History: Reports: Tonsillectomy Cardiovascular Surgical History: Reports: Coronary Artery Bypass, Pacer, Valve Replacement Other Cardiovascular Surgeries/Procedures: Pacemaker placed 11/10/2013 Respiratory Surgical History: Reports: Other (See Below) Other Respiratory Surgeries/Procedures: BRONCHOSCOPY GI Surgical History: Reports: Appendectomy, Cholecystectomy, Colonoscopy Female Surgical History: Reports: Hysterectomy Endocrine Surgical History: Reports: None Neurological Surgical History: Reports: None Musculoskeletal Surgical History: Reports: Amputation, Hip Replacement, Other (See Below) Other Musculoskeletal Surgeries/Procedures:: left 1/2 foot. Distal portion of 2nd digit on right foot. Social & Family History - Family History Family Medical History: No Pertinent Family History Cardiac: Reports: Hypertension Respiratory: Reports: COPD Endocrine/Metabolic: Reports: Diabetes, type II - Tobacco Use Tobacco Use Status *Q: Never Tobacco User - Caffeine Use Caffeine Use: Reports: Tea Caffeine Use Comment: Pt reports daily tea intake. - Recreational Drug Use Recreational Drug Use: No - Living Situation & Occupation Living situation: Reports: Alone Occupation: Disabled H&P Review of Systems - Review of Systems: Review Of Systems: See Below General: Reports: Malaise, Weakness. Denies: Fever, Chills HEENT: Denies: Headaches Pulmonary: Reports: Shortness of Breath, Cough. Denies: Wheezing Cardiovascular: Reports: Chest Pain, Orthopnea. Denies: Palpitations Gastrointestinal: Reports: Nausea. Denies: Abdominal Pain, Constipation, Diarrhea Genitourinary: Denies: Dysuria Musculoskeletal: Denies: Neck Pain Skin: Denies: Cyanosis Psychiatric: Denies: Confusion Neurological: Denies: Confusion, Dizziness Hematologic/Lymphatic: Denies: Easy Bleeding Exam - Exam Exam: See Below - Vital Signs Vital Signs: Last Vital Signs Temp 97.3 F 06/29/20 11:21 Pulse 80 06/29/20 11:21 Resp 20 06/29/20 11:21 BP 177/61 H 06/29/20 11:21 Pulse Ox 100 06/29/20 11:21 Weight: 195 lb 9.6 oz - Exam Quality Assessment: Supplemental Oxygen (1.5-2L) General: Alert, Oriented HEENT: Conjunctiva Clear Neck: Supple Lungs: Other (dec BS b/l) Cardiovascular: Regular Rate, Regular Rhythm GI/Abdominal Exam: Normal Bowel Sounds, Soft, Non-Tender, No Distention Back Exam: Normal Inspection Extremities: Other (1+ edema, b/l chronic venous stasis dermatitis) Skin: Warm Neurological: Normal Speech Neuro Extensive - Mental Status: Alert, Oriented x3, Normal Cognition Neuro Extensive - Motor, Sensory, Reflexes: No: Tremor Psychiatric: Alert, Normal Affect, Normal Mood - Patient Data Lab Results Last 24 hrs: Laboratory Results - last 24 hr 06/29/20 06/29/20 06/29/20 Range/Units 09:47 09:47 09:47 WBC 4.4 L (5.0-10.0) 10^3/uL RBC 4.11 L (4.2-5.4) 10^6/uL Hgb 10.8 L D (12.0-16.0) g/dL Hct 33.9 L (37.0-47.0) % MCV 82.5 (80-100) fL MCH 26.3 L (27.0-34.0) pg MCHC 31.9 L (33.0-35.0) g/dL Plt Count 192 (150-450) 10^3/uL Neut % (Auto) 54.2 (42.2-75.2) % Lymph % (Auto) 35.8 (20.5-50.1) % [place] % (Auto) 8.6 H (2-8) % Eos % (Auto) 0.9 L (1.0-3.0) % Baso % (Auto) 0.5 (0.0-1.0) % PT 11.5 (9.0-12.0) SEC INR 1.1 (0.9-1.2) APTT 25.4 (22.0-34.0) SEC Sodium 138 D (136-145) mmol/L Potassium 4.4 D (3.5-5.1) mmol/L Chloride 100 (98-107) mmol/L Carbon Dioxide 23 (21-32) mmol/L Anion Gap 19.4 H (7-13) mEq/L BUN 16 D (7-18) mg/dL Creatinine 1.12 H D (0.55-1.02) mg/dL Est Cr Clr Drug Dosing TNP Estimated GFR (MDRD) 49 BUN/Creatinine Ratio 14.3 (No establ ref range) Glucose 276 H (74-99) mg/dL POC Glucose (70-105) mg/dl Lactic Acid (0.4-2.0) mmol/L Calcium 8.8 (8.5-10.1) mg/dL Phosphorus 3.4 (2.6-4.7) mg/dL Magnesium 1.7 L (1.8-2.4) mg/dL Total Bilirubin 0.9 (0.2-1.0) mg/dL AST 14 L (15-37) U/L ALT 21 (14-59) U/L Alkaline Phosphatase 155 H (46-116) U/L Troponin I 0.033 (0.000-0.056) ng/mL B-Natriuretic Peptide 2370 H (0-100) pg/ml Total Protein 8.1 (6.4-8.2) g/dL Albumin 3.6 (3.4-5.0) g/dL Globulin 4.5 Albumin/Globulin Ratio 0.8 SARS CoV-2 RNA Rapid TOM (NEGATIVE) 06/29/20 06/29/20 06/29/20 Range/Units 09:47 11:07 12:04 WBC (5.0-10.0) 10^3/uL RBC (4.2-5.4) 10^6/uL Hgb (12.0-16.0) g/dL Hct (37.0-47.0) % MCV (80-100) fL MCH (27.0-34.0) pg MCHC (33.0-35.0) g/dL Plt Count (150-450) 10^3/uL Neut % (Auto) (42.2-75.2) % Lymph % (Auto) (20.5-50.1) % [place] % (Auto) (2-8) % Eos % (Auto) (1.0-3.0) % Baso % (Auto) (0.0-1.0) % PT (9.0-12.0) SEC INR (0.9-1.2) APTT (22.0-34.0) SEC Sodium (136-145) mmol/L Potassium (3.5-5.1) mmol/L Chloride (98-107) mmol/L Carbon Dioxide (21-32) mmol/L Anion Gap (7-13) mEq/L BUN (7-18) mg/dL Creatinine (0.55-1.02) mg/dL Est Cr Clr Drug Dosing Estimated GFR (MDRD) BUN/Creatinine Ratio (No establ ref range) Glucose (74-99) mg/dL POC Glucose 274 H (70-105) mg/dl Lactic Acid 1.4 (0.4-2.0) mmol/L Calcium (8.5-10.1) mg/dL Phosphorus (2.6-4.7) mg/dL Magnesium (1.8-2.4) mg/dL Total Bilirubin (0.2-1.0) mg/dL AST (15-37) U/L ALT (14-59) U/L Alkaline Phosphatase (46-116) U/L Troponin I (0.000-0.056) ng/mL B-Natriuretic Peptide (0-100) pg/ml Total Protein (6.4-8.2) g/dL Albumin (3.4-5.0) g/dL Globulin Albumin/Globulin Ratio SARS CoV-2 RNA Rapid TOM Negative (NEGATIVE) Result Diagrams: 06/29/20 09:47 06/29/20 09:47 Problem List Initiated/Reviewed/Updated: No Orders Last 24hrs: Active Orders 24 hr Category Date Time Status Admission Diagnosis [ADT] Routine ADT 06/29/20 10:50 Ordered Admission Status [Patient Status] [ADT] Routine ADT 06/29/20 10:50 Active Patient Status [ADT] Routine ADT 06/29/20 11:41 Active Cardiac Monitoring [RC] CONTINUOUS Care 06/29/20 11:42 Active EKG 12 Lead [EKG Documentation Completion] [RC] STAT Care 06/29/20 09:34 Active Height and Weight [RC] DAILY Care 06/29/20 11:41 Active Intake and Output [RC] QSHIFT Care 06/29/20 11:42 Active Oxygen Therapy [RC] PRN Care 06/29/20 11:41 Active RT Aerosol Therapy [RC] ASDIRECTED Care 06/29/20 12:30 Active RT Post Treatment Assessment [RC] Click to Edit Care 06/29/20 12:30 Active RT Pre-Treatment Assessment [RC] Click to Edit Care 06/29/20 12:30 Active Up With Assistance [RC] ASDIRECTED Care 06/29/20 11:41 Active VTE/DVT Education [RC] PER UNIT ROUTINE Care 06/29/20 11:41 Active Vital Signs [RC] Q4H Care 06/29/20 11:41 Active Heart Healthy Diet [DIET] Diet 06/29/20 Lunch Active BASIC METABOLIC PANEL,BMP [CHEM] AM Lab 06/30/20 05:11 Ordered CULTURE BLOOD [BC] Stat Lab 06/29/20 09:47 Received CULTURE BLOOD [BC] Stat Lab 06/29/20 09:59 Received MAGNESIUM [CHEM] AM Lab 06/30/20 05:11 Ordered PHOSPHORUS [CHEM] AM Lab 06/30/20 05:11 Ordered TROPONIN I [CHEM] Timed Lab 06/29/20 16:00 Ordered UA RFX NA AND CULT IF INDIC [URIN] Stat Lab 06/29/20 09:35 Ordered Acetaminophen [TylenoL] Med 06/29/20 11:41 Active 650 mg PO Q4H PRN Albuterol [Proventil HFA] Med 06/29/20 12:25 Active 0 gm INH Q6H PRN Apixaban [Eliquis] Med 06/29/20 21:00 Active 5 mg PO BID Aspirin [Ecotrin] Med 06/30/20 09:00 Active 325 mg PO DAILY Budesonide [Pulmicort] Med 06/29/20 18:00 Active 0.5 mg NEB BIDRT Check Patch Med 06/29/20 21:00 Active 1 ea TRDERM BEDTIME Cyclobenzaprine [Flexeril] Med 06/29/20 12:25 Active 10 mg PO TID PRN Furosemide [Lasix] Med 06/29/20 14:00 Active 80 mg IVPUSH 0600,1400 Gabapentin [Neurontin] Med 06/29/20 14:00 Active 800 mg PO TID Insulin Detemir Med 06/29/20 21:00 Pending 25 units SQ BEDTIME Nicotine [Habitrol] Med 06/30/20 09:00 Active 14 mg TRDERM DAILY Nitroglycerin [Nitrostat] Med 06/29/20 12:25 Active 0.4 mg SL .Q5MIN PRN Omeprazole Med 06/30/20 06:00 Active 20 mg PO ACBREAKFAST Sodium Chloride 0.9% [Saline Flush] Med 06/29/20 09:35 Active 10 ml FLUSH ASDIRECTED PRN atorvaSTATin [Lipitor] Med 06/29/20 21:00 Active 10 mg PO BEDTIME carvediloL [Coreg] Med 06/29/20 18:00 Active 25 mg PO BIDMEALS Blood Culture x2 Reflex Set [OM.PC] Stat Ot 06/29/20 09:35 Ordered Peripheral IV Insertion Adult [OM.PC] Stat Ot 06/29/20 09:35 Ordered Resuscitation Status Routine Resus Stat 06/29/20 11:41 Ordered Medication Orders Acetaminophen (Acetaminophen 325 Mg Tab) 650 mg PO Q4H PRN PRN Reason: Pain (Mild 1-3)/fever Albuterol (Albuterol 6.7 Gm Inhaler) 0 gm INH Q6H PRN PRN Reason: Wheezing Apixaban (Apixaban 5 Mg Tab) 5 mg PO BID [facility] Aspirin (Aspirin 325 Mg Tab.Ec) 325 mg PO DAILY [facility] Atorvastatin Calcium (Atorvastatin 10 Mg Tab) 10 mg PO BEDTIME [facility] Budesonide (Budesonide 0.5 Mg/2 Ml Neb Susp) 0.5 mg NEB BIDRT [facility] Carvedilol (Carvedilol 25 Mg Tab) 25 mg PO BIDMEALS [facility] Cyclobenzaprine HCl (Cyclobenzaprine 10 Mg Tab) 10 mg PO TID PRN PRN Reason: Muscle Spasm Furosemide (Furosemide 40 Mg/4 Ml Vial) 80 mg IVPUSH 0600,1400 [facility] Last Admin: 06/29/20 13:41 Dose: 80 mg Documented by: CLAUS Gabapentin (Gabapentin 400 Mg Cap) 800 mg PO TID [facility] Last Admin: 06/29/20 13:41 Dose: 800 mg Documented by: HAMEAND Miscellaneous Information (Check Patch*Nicotine*) 1 ea TRDERM BEDTIME MARGARITA Nicotine (Nicotine 14 Mg/24 Hr Patch) 14 mg TRDERM DAILY [facility]ARGARITA Nitroglycerin (Nitroglycerin 0.4 Mg Tab.Sl) 0.4 mg SL .Q5MIN PRN PRN Reason: ANGINA Non-Formulary Medication (Insulin Detemir) 25 units SQ BEDTIME MARGARITA Omeprazole (Omeprazole 20 Mg Cap.Cr) 20 mg PO ACBREAKFAST MARGARITA Sodium Chloride (Sodium Chloride 0.9% 10 Ml Syringe) 10 ml FLUSH ASDIRECTED PRN PRN Reason: Keep Vein Open Last Admin: 06/29/20 09:55 Dose: 10 ml Documented by: JESUS Assessment/Plan Comment:: #acute hypoxic respiratory failure 2/2 acute on chronic systolic and diastolic CHF - she had previously been on bumex, metolazone and spironolactone - was d/c off her diuretics after her last admit for WARD and missed follow up appointments for re-evaluation - her CrCl has significantly improved so likely lower diuretic doses will be necessary - c/w 80 mg IV lasix BID - taper o2 as needed - repeat echo unless will find recent one done at [facility] #chest pain - r/o AMI w/ serial troponins - EKG is paced - this may have been an episode of PND #CKD3 - CrCl significantly improved from most recent #DM2 - c/w lantus and KAYLYN #CAD / afib / HT / HL / s/p AVR / s/p PPM - c/w home meds PPX - on eliquis Full code
[2020-06-29] MEDS ORDERED: Albuterol 0.083% 2.5 MG/3 ML Neb Soln ONE (17:51)
[2020-06-29] MEDS: Budesonide 0.5 MG/2 ML Neb Susp NEB SCH (18:01)
[2020-06-29] MEDS: Carvedilol 25 MG Tab PO SCH (18:40)
[2020-06-29] MEDS: Apixaban 5 MG Tab PO SCH (21:21)
[2020-06-29] MEDS: atorvaSTATin 10 MG Tab PO SCH (21:21)
[2020-06-29] MEDS: CHECK NICOTINE TRDERM SCH (21:29)
[2020-06-29] MEDS: Insulin Glarg,Human.Rec.Analog 100 Unit/ML SUBCUT SCH (21:45)
[2020-06-29] MEDS: Insulin Lispro 100 Units/ML 3 ML Vial SUBCUT SCH (21:51)
[2020-06-30] MEDS: Omeprazole 20 MG Cap.CR PO SCH (05:56)
[2020-06-30] MEDS: Furosemide 40 MG/4 ML VIAL IVPUSH SCH ×2 (05:56→14:45)
[2020-06-30] MEDS ORDERED: Albuterol 0.083% 2.5 MG/3 ML Neb Soln ONE ×2 (06:49→17:53)
[2020-06-30 07:06] LABS: ANION GAP 15.7 mEq/L (7-13)
[2020-06-30] MEDS: Budesonide 0.5 MG/2 ML Neb Susp NEB SCH ×2 (07:06→18:31)
[2020-06-30] MEDS ORDERED: Insulin Lispro 100 Units/ML 3 ML Vial SUBCUT SCH (08:00)
[2020-06-30] MEDS: Aspirin 325 MG Tab.EC PO SCH (08:44)
[2020-06-30] MEDS: Gabapentin 400 MG Cap PO SCH ×3 (08:44→22:22)
[2020-06-30] MEDS: Carvedilol 25 MG Tab PO SCH ×2 (08:44→17:44)
[2020-06-30] MEDS: Apixaban 5 MG Tab PO SCH ×2 (08:44→22:22)
[2020-06-30] MEDS: Nicotine 14 MG/24 Hr Patch TRDERM SCH (08:44)
[2020-06-30] MEDS: Insulin Lispro 100 Units/ML 3 ML Vial SUBCUT SCH ×4 (08:49→21:31)
--- NOTE | 2020-06-30 10:34 | PCM.PN ---
- General Info Date of Service: 06/30/20 Admission Dx/Problem (Free Text): Now off o2 at rest. Still w/ mild cough. No further chest pains. - Patient Data Vitals - Most Recent: Last Vital Signs Temp 97.7 F 06/30/20 08:44 Pulse 68 06/30/20 08:44 Resp 20 06/30/20 08:44 BP 147/69 H 06/30/20 08:44 Pulse Ox 100 06/30/20 08:44 Weight - Most Recent: 194 lb I&O - Last 24 Hours: Intake & Output 06/29/20 06/30/20 06/30/20 21:59 06:59 14:59 Output Total Balance Lab Results Last 24 Hours: Laboratory Results - last 24 hr 06/29/20 06/29/20 06/29/20 Range/Units 09:47 09:47 09:47 WBC 4.4 L (5.0-10.0) 10^3/uL RBC 4.11 L (4.2-5.4) 10^6/uL Hgb 10.8 L D (12.0-16.0) g/dL Hct 33.9 L (37.0-47.0) % MCV 82.5 (80-100) fL MCH 26.3 L (27.0-34.0) pg MCHC 31.9 L (33.0-35.0) g/dL Plt Count 192 (150-450) 10^3/uL Neut % (Auto) 54.2 (42.2-75.2) % Lymph % (Auto) 35.8 (20.5-50.1) % [place] % (Auto) 8.6 H (2-8) % Eos % (Auto) 0.9 L (1.0-3.0) % Baso % (Auto) 0.5 (0.0-1.0) % PT 11.5 (9.0-12.0) SEC INR 1.1 (0.9-1.2) APTT 25.4 (22.0-34.0) SEC Sodium 138 D (136-145) mmol/L Potassium 4.4 D (3.5-5.1) mmol/L Chloride 100 (98-107) mmol/L Carbon Dioxide 23 (21-32) mmol/L Anion Gap 19.4 H (7-13) mEq/L BUN 16 D (7-18) mg/dL Creatinine 1.12 H D (0.55-1.02) mg/dL Est Cr Clr Drug Dosing TNP Estimated GFR (MDRD) 49 BUN/Creatinine Ratio 14.3 (No establ ref range) Glucose 276 H (74-99) mg/dL POC Glucose (70-105) mg/dl Lactic Acid (0.4-2.0) mmol/L Calcium 8.8 (8.5-10.1) mg/dL Phosphorus 3.4 (2.6-4.7) mg/dL Magnesium 1.7 L (1.8-2.4) mg/dL Total Bilirubin 0.9 (0.2-1.0) mg/dL AST 14 L (15-37) U/L ALT 21 (14-59) U/L Alkaline Phosphatase 155 H (46-116) U/L Troponin I 0.033 (0.000-0.056) ng/mL B-Natriuretic Peptide 2370 H (0-100) pg/ml Total Protein 8.1 (6.4-8.2) g/dL Albumin 3.6 (3.4-5.0) g/dL Globulin 4.5 Albumin/Globulin Ratio 0.8 SARS CoV-2 RNA Rapid TOM (NEGATIVE) 06/29/20 06/29/20 06/29/20 Range/Units 09:47 11:07 12:04 WBC (5.0-10.0) 10^3/uL RBC (4.2-5.4) 10^6/uL Hgb (12.0-16.0) g/dL Hct (37.0-47.0) % MCV (80-100) fL MCH (27.0-34.0) pg MCHC (33.0-35.0) g/dL Plt Count (150-450) 10^3/uL Neut % (Auto) (42.2-75.2) % Lymph % (Auto) (20.5-50.1) % [place] % (Auto) (2-8) % Eos % (Auto) (1.0-3.0) % Baso % (Auto) (0.0-1.0) % PT (9.0-12.0) SEC INR (0.9-1.2) APTT (22.0-34.0) SEC Sodium (136-145) mmol/L Potassium (3.5-5.1) mmol/L Chloride (98-107) mmol/L Carbon Dioxide (21-32) mmol/L Anion Gap (7-13) mEq/L BUN (7-18) mg/dL Creatinine (0.55-1.02) mg/dL Est Cr Clr Drug Dosing Estimated GFR (MDRD) BUN/Creatinine Ratio (No establ ref range) Glucose (74-99) mg/dL POC Glucose 274 H (70-105) mg/dl Lactic Acid 1.4 (0.4-2.0) mmol/L Calcium (8.5-10.1) mg/dL Phosphorus (2.6-4.7) mg/dL Magnesium (1.8-2.4) mg/dL Total Bilirubin (0.2-1.0) mg/dL AST (15-37) U/L ALT (14-59) U/L Alkaline Phosphatase (46-116) U/L Troponin I (0.000-0.056) ng/mL B-Natriuretic Peptide (0-100) pg/ml Total Protein (6.4-8.2) g/dL Albumin (3.4-5.0) g/dL Globulin Albumin/Globulin Ratio SARS CoV-2 RNA Rapid TOM Negative (NEGATIVE) 06/29/20 06/29/20 06/30/20 Range/Units 15:41 21:38 06:32 WBC (5.0-10.0) 10^3/uL RBC (4.2-5.4) 10^6/uL Hgb (12.0-16.0) g/dL Hct (37.0-47.0) % MCV (80-100) fL MCH (27.0-34.0) pg MCHC (33.0-35.0) g/dL Plt Count (150-450) 10^3/uL Neut % (Auto) (42.2-75.2) % Lymph % (Auto) (20.5-50.1) % [place] % (Auto) (2-8) % Eos % (Auto) (1.0-3.0) % Baso % (Auto) (0.0-1.0) % PT (9.0-12.0) SEC INR (0.9-1.2) APTT (22.0-34.0) SEC Sodium 140 (136-145) mmol/L Potassium 4.7 (3.5-5.1) mmol/L Chloride 103 (98-107) mmol/L Carbon Dioxide 26 (21-32) mmol/L Anion Gap 15.7 H (7-13) mEq/L BUN 18 (7-18) mg/dL Creatinine 1.24 H (0.55-1.02) mg/dL Est Cr Clr Drug Dosing 49.16 Estimated GFR (MDRD) 44 BUN/Creatinine Ratio (No establ ref range) Glucose 227 H (74-99) mg/dL POC Glucose 403 H* (70-105) mg/dl Lactic Acid (0.4-2.0) mmol/L Calcium 8.9 (8.5-10.1) mg/dL Phosphorus 4.3 (2.6-4.7) mg/dL Magnesium 1.9 (1.8-2.4) mg/dL Total Bilirubin (0.2-1.0) mg/dL AST (15-37) U/L ALT (14-59) U/L Alkaline Phosphatase (46-116) U/L Troponin I 0.030 (0.000-0.056) ng/mL B-Natriuretic Peptide (0-100) pg/ml Total Protein (6.4-8.2) g/dL Albumin (3.4-5.0) g/dL Globulin Albumin/Globulin Ratio SARS CoV-2 RNA Rapid TOM (NEGATIVE) 06/30/20 Range/Units 08:09 WBC (5.0-10.0) 10^3/uL RBC (4.2-5.4) 10^6/uL Hgb (12.0-16.0) g/dL Hct (37.0-47.0) % MCV (80-100) fL MCH (27.0-34.0) pg MCHC (33.0-35.0) g/dL Plt Count (150-450) 10^3/uL Neut % (Auto) (42.2-75.2) % Lymph % (Auto) (20.5-50.1) % [place] % (Auto) (2-8) % Eos % (Auto) (1.0-3.0) % Baso % (Auto) (0.0-1.0) % PT (9.0-12.0) SEC INR (0.9-1.2) APTT (22.0-34.0) SEC Sodium (136-145) mmol/L Potassium (3.5-5.1) mmol/L Chloride (98-107) mmol/L Carbon Dioxide (21-32) mmol/L Anion Gap (7-13) mEq/L BUN (7-18) mg/dL Creatinine (0.55-1.02) mg/dL Est Cr Clr Drug Dosing Estimated GFR (MDRD) BUN/Creatinine Ratio (No establ ref range) Glucose (74-99) mg/dL POC Glucose 295 H (70-105) mg/dl Lactic Acid (0.4-2.0) mmol/L Calcium (8.5-10.1) mg/dL Phosphorus (2.6-4.7) mg/dL Magnesium (1.8-2.4) mg/dL Total Bilirubin (0.2-1.0) mg/dL AST (15-37) U/L ALT (14-59) U/L Alkaline Phosphatase (46-116) U/L Troponin I (0.000-0.056) ng/mL B-Natriuretic Peptide (0-100) pg/ml Total Protein (6.4-8.2) g/dL Albumin (3.4-5.0) g/dL Globulin Albumin/Globulin Ratio SARS CoV-2 RNA Rapid TOM (NEGATIVE) Warren Results Last 24 Hours: Microbiology 06/29/20 09:59 Aerobic Blood Culture - Preliminary Blood - Arm, Left NO GROWTH AFTER 1 DAY Anaerobic Blood Culture - Preliminary NO GROWTH AFTER 1 DAY 06/29/20 09:47 Aerobic Blood Culture - Preliminary Blood - Arm, Right NO GROWTH AFTER 1 DAY Anaerobic Blood Culture - Preliminary NO GROWTH AFTER 1 DAY Med Orders - Current: Current Medications Acetaminophen (Acetaminophen 325 Mg Tab) 650 mg PO Q4H PRN PRN Reason: Pain (Mild 1-3)/fever Albuterol (Albuterol 6.7 Gm Inhaler) 0 gm INH Q6H PRN PRN Reason: Wheezing Apixaban (Apixaban 5 Mg Tab) 5 mg PO BID MARGARITA Last Admin: 06/30/20 08:44 Dose: 5 mg Documented by: Aspirin (Aspirin 325 Mg Tab.Ec) 325 mg PO DAILY [facility] Last Admin: 06/30/20 08:44 Dose: 325 mg Documented by: Atorvastatin Calcium (Atorvastatin 10 Mg Tab) 10 mg PO BEDTIME [facility] Last Admin: 06/29/20 21:21 Dose: 10 mg Documented by: Budesonide (Budesonide 0.5 Mg/2 Ml Neb Susp) 0.5 mg NEB BIDRT [facility] Last Admin: 06/30/20 07:06 Dose: 0.5 mg Documented by: Carvedilol (Carvedilol 25 Mg Tab) 25 mg PO BIDMEALS [facility] Last Admin: 06/30/20 08:44 Dose: 25 mg Documented by: Cyclobenzaprine HCl (Cyclobenzaprine 10 Mg Tab) 10 mg PO TID PRN PRN Reason: Muscle Spasm Furosemide (Furosemide 40 Mg/4 Ml Vial) 80 mg IVPUSH 0600,1400 [facility] Last Admin: 06/30/20 05:56 Dose: 80 mg Documented by: Gabapentin (Gabapentin 400 Mg Cap) 800 mg PO TID [facility] Last Admin: 06/30/20 08:44 Dose: 800 mg Documented by: Insulin Glargine (Insulin Glarg,Human.Rec.Analog 100 Unit/Ml) 25 unit SUBCUT BEDTIME [facility] Last Admin: 06/29/20 21:45 Dose: 25 units Documented by: Insulin Human Lispro (Insulin Lispro 100 Units/Ml 3 Ml Vial) 0 unit SUBCUT WITHMEALSANDBED [facility]; Protocol Last Admin: 06/30/20 08:49 Dose: 6 units Documented by: Miscellaneous Information (Check Patch*Nicotine*) 1 ea TRDERM BEDTIME [facility] Last Admin: 06/29/20 21:29 Dose: Not Given Documented by: Nicotine (Nicotine 14 Mg/24 Hr Patch) 14 mg TRDERM DAILY [facility] Last Admin: 06/30/20 08:44 Dose: 14 mg Documented by: Nitroglycerin (Nitroglycerin 0.4 Mg Tab.Sl) 0.4 mg SL .Q5MIN PRN PRN Reason: ANGINA Omeprazole (Omeprazole 20 Mg Cap.Cr) 20 mg PO ACBREAKFAST [facility] Last Admin: 06/30/20 05:56 Dose: 20 mg Documented by: Sodium Chloride (Sodium Chloride 0.9% 10 Ml Syringe) 10 ml FLUSH ASDIRECTED PRN PRN Reason: Keep Vein Open Last Admin: 06/29/20 09:55 Dose: 10 ml Documented by: Discontinued Medications Albuterol (Albuterol 0.083% 2.5 Mg/3 Ml Neb Soln) Confirm Administered Dose 2.5 mg .ROUTE .STK-MED ONE Stop: 06/29/20 17:52 Last Admin: 06/29/20 18:01 Dose: 2.5 mg Documented by: Albuterol (Albuterol 0.083% 2.5 Mg/3 Ml Neb Soln) Confirm Administered Dose 2.5 mg .ROUTE .STK-MED ONE Stop: 06/30/20 06:50 Last Admin: 06/30/20 07:05 Dose: 2.5 mg Documented by: Furosemide (Furosemide 100 Mg/10 Ml Sdv) 80 mg IVPUSH NOW ONE Stop: 06/29/20 10:20 Last Admin: 06/29/20 10:34 Dose: 80 mg Documented by: Furosemide (Furosemide 80 Mg Tab) 80 mg PO 0600,1400 [facility]ARG[facility] Magnesium Sulfate (Magnesium Sulfate In Water 2 Gm/50 Ml) 2 gm in 50 mls @ 25 mls/hr IV ONETIME ONE Stop: 06/29/20 13:43 Last Admin: 06/29/20 13:41 Dose: 25 mls/hr Documented by: Insulin Human Lispro (Insulin Lispro 100 Units/Ml 3 Ml Vial) 0 unit SUBCUT WITHMEALSANDBED MARGARITA; Protocol - Exam Quality Assessment: No: Supplemental Oxygen General: Alert, Oriented, Cooperative HEENT: Pupils Equal, Pupils Reactive Neck: Supple Lungs: Other (mild bibasilar rales) Cardiovascular: Regular Rate, Regular Rhythm Back Exam: Normal Inspection Extremities: Normal Inspection, Other (s/p left TMA, chronic venous stasis anjelica matitis b/l) Skin: Warm, Dry Neurological: No New Focal Deficit Psy/Mental Status: Alert, Normal Affect, Normal Mood - Patient Data Lab Results Last 24 hrs: Laboratory Results - last 24 hr 06/29/20 06/29/20 06/29/20 Range/Units 09:47 09:47 09:47 WBC 4.4 L (5.0-10.0) 10^3/uL RBC 4.11 L (4.2-5.4) 10^6/uL Hgb 10.8 L D (12.0-16.0) g/dL Hct 33.9 L (37.0-47.0) % MCV 82.5 (80-100) fL MCH 26.3 L (27.0-34.0) pg MCHC 31.9 L (33.0-35.0) g/dL Plt Count 192 (150-450) 10^3/uL Neut % (Auto) 54.2 (42.2-75.2) % Lymph % (Auto) 35.8 (20.5-50.1) % [place] % (Auto) 8.6 H (2-8) % Eos % (Auto) 0.9 L (1.0-3.0) % Baso % (Auto) 0.5 (0.0-1.0) % PT 11.5 (9.0-12.0) SEC INR 1.1 (0.9-1.2) APTT 25.4 (22.0-34.0) SEC Sodium 138 D (136-145) mmol/L Potassium 4.4 D (3.5-5.1) mmol/L Chloride 100 (98-107) mmol/L Carbon Dioxide 23 (21-32) mmol/L Anion Gap 19.4 H (7-13) mEq/L BUN 16 D (7-18) mg/dL Creatinine 1.12 H D (0.55-1.02) mg/dL Est Cr Clr Drug Dosing TNP Estimated GFR (MDRD) 49 BUN/Creatinine Ratio 14.3 (No establ ref range) Glucose 276 H (74-99) mg/dL POC Glucose (70-105) mg/dl Lactic Acid (0.4-2.0) mmol/L Calcium 8.8 (8.5-10.1) mg/dL Phosphorus 3.4 (2.6-4.7) mg/dL Magnesium 1.7 L (1.8-2.4) mg/dL Total Bilirubin 0.9 (0.2-1.0) mg/dL AST 14 L (15-37) U/L ALT 21 (14-59) U/L Alkaline Phosphatase 155 H (46-116) U/L Troponin I 0.033 (0.000-0.056) ng/mL B-Natriuretic Peptide 2370 H (0-100) pg/ml Total Protein 8.1 (6.4-8.2) g/dL Albumin 3.6 (3.4-5.0) g/dL Globulin 4.5 Albumin/Globulin Ratio 0.8 SARS CoV-2 RNA Rapid TOM (NEGATIVE) 06/29/20 06/29/20 06/29/20 Range/Units 09:47 11:07 12:04 WBC (5.0-10.0) 10^3/uL RBC (4.2-5.4) 10^6/uL Hgb (12.0-16.0) g/dL Hct (37.0-47.0) % MCV (80-100) fL MCH (27.0-34.0) pg MCHC (33.0-35.0) g/dL Plt Count (150-450) 10^3/uL Neut % (Auto) (42.2-75.2) % Lymph % (Auto) (20.5-50.1) % [place] % (Auto) (2-8) % Eos % (Auto) (1.0-3.0) % Baso % (Auto) (0.0-1.0) % PT (9.0-12.0) SEC INR (0.9-1.2) APTT (22.0-34.0) SEC Sodium (136-145) mmol/L Potassium (3.5-5.1) mmol/L Chloride (98-107) mmol/L Carbon Dioxide (21-32) mmol/L Anion Gap (7-13) mEq/L BUN (7-18) mg/dL Creatinine (0.55-1.02) mg/dL Est Cr Clr Drug Dosing Estimated GFR (MDRD) BUN/Creatinine Ratio (No establ ref range) Glucose (74-99) mg/dL POC Glucose 274 H (70-105) mg/dl Lactic Acid 1.4 (0.4-2.0) mmol/L Calcium (8.5-10.1) mg/dL Phosphorus (2.6-4.7) mg/dL Magnesium (1.8-2.4) mg/dL Total Bilirubin (0.2-1.0) mg/dL AST (15-37) U/L ALT (14-59) U/L Alkaline Phosphatase (46-116) U/L Troponin I (0.000-0.056) ng/mL B-Natriuretic Peptide (0-100) pg/ml Total Protein (6.4-8.2) g/dL Albumin (3.4-5.0) g/dL Globulin Albumin/Globulin Ratio SARS CoV-2 RNA Rapid TOM Negative (NEGATIVE) 06/29/20 06/29/20 06/30/20 Range/Units 15:41 21:38 06:32 WBC (5.0-10.0) 10^3/uL RBC (4.2-5.4) 10^6/uL Hgb (12.0-16.0) g/dL Hct (37.0-47.0) % MCV (80-100) fL MCH (27.0-34.0) pg MCHC (33.0-35.0) g/dL Plt Count (150-450) 10^3/uL Neut % (Auto) (42.2-75.2) % Lymph % (Auto) (20.5-50.1) % [place] % (Auto) (2-8) % Eos % (Auto) (1.0-3.0) % Baso % (Auto) (0.0-1.0) % PT (9.0-12.0) SEC INR (0.9-1.2) APTT (22.0-34.0) SEC Sodium 140 (136-145) mmol/L Potassium 4.7 (3.5-5.1) mmol/L Chloride 103 (98-107) mmol/L Carbon Dioxide 26 (21-32) mmol/L Anion Gap 15.7 H (7-13) mEq/L BUN 18 (7-18) mg/dL Creatinine 1.24 H (0.55-1.02) mg/dL Est Cr Clr Drug Dosing 49.16 Estimated GFR (MDRD) 44 BUN/Creatinine Ratio (No establ ref range) Glucose 227 H (74-99) mg/dL POC Glucose 403 H* (70-105) mg/dl Lactic Acid (0.4-2.0) mmol/L Calcium 8.9 (8.5-10.1) mg/dL Phosphorus 4.3 (2.6-4.7) mg/dL Magnesium 1.9 (1.8-2.4) mg/dL Total Bilirubin (0.2-1.0) mg/dL AST (15-37) U/L ALT (14-59) U/L Alkaline Phosphatase (46-116) U/L Troponin I 0.030 (0.000-0.056) ng/mL B-Natriuretic Peptide (0-100) pg/ml Total Protein (6.4-8.2) g/dL Albumin (3.4-5.0) g/dL Globulin Albumin/Globulin Ratio SARS CoV-2 RNA Rapid TOM (NEGATIVE) 06/30/20 Range/Units 08:09 WBC (5.0-10.0) 10^3/uL RBC (4.2-5.4) 10^6/uL Hgb (12.0-16.0) g/dL Hct (37.0-47.0) % MCV (80-100) fL MCH (27.0-34.0) pg MCHC (33.0-35.0) g/dL Plt Count (150-450) 10^3/uL Neut % (Auto) (42.2-75.2) % Lymph % (Auto) (20.5-50.1) % [place] % (Auto) (2-8) % Eos % (Auto) (1.0-3.0) % Baso % (Auto) (0.0-1.0) % PT (9.0-12.0) SEC INR (0.9-1.2) APTT (22.0-34.0) SEC Sodium (136-145) mmol/L Potassium (3.5-5.1) mmol/L Chloride (98-107) mmol/L Carbon Dioxide (21-32) mmol/L Anion Gap (7-13) mEq/L BUN (7-18) mg/dL Creatinine (0.55-1.02) mg/dL Est Cr Clr Drug Dosing Estimated GFR (MDRD) BUN/Creatinine Ratio (No establ ref range) Glucose (74-99) mg/dL POC Glucose 295 H (70-105) mg/dl Lactic Acid (0.4-2.0) mmol/L Calcium (8.5-10.1) mg/dL Phosphorus (2.6-4.7) mg/dL Magnesium (1.8-2.4) mg/dL Total Bilirubin (0.2-1.0) mg/dL AST (15-37) U/L ALT (14-59) U/L Alkaline Phosphatase (46-116) U/L Troponin I (0.000-0.056) ng/mL B-Natriuretic Peptide (0-100) pg/ml Total Protein (6.4-8.2) g/dL Albumin (3.4-5.0) g/dL Globulin Albumin/Globulin Ratio SARS CoV-2 RNA Rapid TOM (NEGATIVE) Result Diagrams: 06/29/20 09:47 06/30/20 06:32 Warren Results Last 24 hrs: Microbiology 06/29/20 09:59 Aerobic Blood Culture - Preliminary Blood - Arm, Left NO GROWTH AFTER 1 DAY Anaerobic Blood Culture - Preliminary NO GROWTH AFTER 1 DAY 06/29/20 09:47 Aerobic Blood Culture - Preliminary Blood - Arm, Right NO GROWTH AFTER 1 DAY Anaerobic Blood Culture - Preliminary NO GROWTH AFTER 1 DAY Sepsis Event Note - Evaluation Sepsis Screening Result: No Definite Risk - Focused Exam Vital Signs: Vital Signs Temp Pulse Pulse Resp BP BP BP 06/30/20 08:44 97.7 F 68 68 20 147/69 H 147/69 H 06/30/20 07:06 71 06/30/20 04:00 98.4 F 70 22 H 150/49 H Pulse Ox Pulse Ox 06/30/20 08:44 100 06/30/20 07:06 98 06/30/20 04:00 96 - Problem List Review Problem List Initiated/Reviewed/Updated: No - My Orders Last 24 Hours: My Active Orders 06/29/20 11:41 Patient Status [ADT] Routine Height and Weight [RC] 06 Oxygen Therapy [RC] PRN Up With Assistance [RC] ASDIRECTED VTE/DVT Education [RC] PER UNIT ROUTINE Vital Signs [RC] 00,04,08,12,16,20 Acetaminophen [TylenoL] 650 mg PO Q4H PRN Resuscitation Status Routine 06/29/20 11:42 Cardiac Monitoring [RC] 08,20 Intake and Output [RC] QSHIFT 06/29/20 Lunch Heart Healthy Diet [DIET] 06/29/20 12:25 Albuterol [Proventil HFA] 0 gm INH Q6H PRN Cyclobenzaprine [Flexeril] 10 mg PO TID PRN Nitroglycerin [Nitrostat] 0.4 mg SL .Q5MIN PRN 06/29/20 12:30 RT Aerosol Therapy [RC] ASDIRECTED RT Post Treatment Assessment [RC] Click to Edit RT Pre-Treatment Assessment [RC] Click to Edit 06/29/20 14:00 Furosemide [Lasix] 80 mg IVPUSH 0600,1400 Gabapentin [Neurontin] 800 mg PO TID 06/29/20 18:00 Budesonide [Pulmicort] 0.5 mg NEB BIDRT carvediloL [Coreg] 25 mg PO BIDMEALS 06/29/20 21:00 Apixaban [Eliquis] 5 mg PO BID Check Patch 1 ea TRDERM BEDTIME Insulin Glarg,Human.Rec.Analog [LantUS] 25 unit SUBCUT BEDTIME atorvaSTATin [Lipitor] 10 mg PO BEDTIME 06/29/20 21:28 Glucose [Blood Glucose Check, Bedside] [RC] WITHMEALSANDBED 06/29/20 21:39 Insulin Lispro [HumaLOG] See Protocol SUBCUT WITHMEALSANDBED 06/30/20 06:00 Omeprazole 20 mg PO ACBREAKFAST 06/30/20 09:00 Aspirin [Ecotrin] 325 mg PO DAILY Nicotine [Habitrol] 14 mg TRDERM DAILY - Plan Plan:: #acute hypoxic respiratory failure 2/2 acute on chronic systolic and diastolic CHF - now off o2 at rest - exam w/ residual pulmonary edema - will walk to assess o2 requirement on ambulation - c/w lasix 80 mg IV BID for today #chest pain - AMI ruled out - EKG is paced - technically she would require a repeat cath however non compliance makes her a poor candidate - if PCI was done interruption in DAPT could have grave consequences #CKD3 - CrCl significantly improved from most recent #DM2 - c/w lantus and KAYLYN #CAD / afib / HT / HL / s/p AVR / s/p PPM - c/w home meds PPX - on eliquis Full code
[2020-06-30] MEDS: Sodium Chloride 0.9% 10 ML Syringe FLUSH PRN (14:46)
[2020-06-30] MEDS ORDERED: Benzocaine/Cetylpyridinium/Menthol Lozenge MUCMEM PRN (16:49)
[2020-06-30] MEDS: Insulin Glarg,Human.Rec.Analog 100 Unit/ML SUBCUT SCH (21:30)
[2020-06-30] MEDS: CHECK NICOTINE TRDERM SCH (21:35)
[2020-06-30] MEDS: atorvaSTATin 10 MG Tab PO SCH (22:22)
[2020-06-30] MEDS: PERFOROMIST 20 MCG/2 ML INH SCH (22:40)
[2020-07-01] MEDS: Omeprazole 20 MG Cap.CR PO SCH (05:20)
[2020-07-01] MEDS: Furosemide 40 MG/4 ML VIAL IVPUSH SCH ×2 (05:20→13:03)
[2020-07-01] MEDS: Budesonide 0.5 MG/2 ML Neb Susp NEB SCH ×2 (07:22→18:02)
[2020-07-01] MEDS: Nicotine 14 MG/24 Hr Patch TRDERM SCH (08:30)
[2020-07-01] MEDS: Aspirin 325 MG Tab.EC PO SCH (08:32)
[2020-07-01] MEDS: Apixaban 5 MG Tab PO SCH (08:32)
[2020-07-01] MEDS: Gabapentin 400 MG Cap PO SCH ×2 (08:32→13:03)
[2020-07-01] MEDS: Carvedilol 25 MG Tab PO SCH ×2 (08:36→18:01)
[2020-07-01] MEDS: Insulin Lispro 100 Units/ML 3 ML Vial SUBCUT SCH ×3 (08:55→17:58)
--- NOTE | 2020-07-01 13:15 | CR ---
EXAMINATION: Wrist 2V Lt SEX: Female AGE: 64 years CLINICAL HISTORY: 64-year-old female experiencing pain / swelling left wrist (PICC line February 2019 with "swelling"). INTERPRETATION: 1. Generalized bony demineralization consistent with age and gender. 2. Chronic arthritic reactive sclerosis radiocarpal, first carpal metacarpal, and first metacarpophalangeal joint. 3. Soft tissue swelling particularly dorsum the wrist with underlying faint soft tissue calcifications. 4. Finger ring foreign bodies proximal second/fourth phalanges disease. No other sign of foreign body or inflammatory periostitis. 5. No sign of left wrist fracture or dislocation. CONCLUSION: Acute Calcific Periarthritis (ACP) in ddx. History recent trauma? (1/3 of cases)
[2020-07-01] MEDS ORDERED: Colchicine 0.6 MG Tab PO ONE (14:00)
[2020-07-01] MEDS ORDERED: Naproxen 250 MG Tab PO ONE (14:00)
[2020-07-01] MEDS: PERFOROMIST 20 MCG/2 ML INH SCH (15:42)
[2020-07-01 17:45] VITALS: BP 132/70
[2020-07-01 18:08] VITALS: PULSE 82
== END 2020-07-01 19:00 | disposition home or self-care (01) | DRG 291 ==
LOC: DL.ED 09:29 → DL.MS 10:50
PROVIDERS: ADMIT Internal Medicine; ATTEND Internal Medicine
DX: I13.0 Hypertensive heart and chronic kidney disease with heart failure and stage 1 through stage 4 chronic kidney disease, or unspecified chronic kidney disease (principal); I50.9 Heart failure, unspecified; I50.43 Acute on chronic combined systolic (congestive) and diastolic (congestive) heart failure; R09.02 Hypoxemia; J96.01 Acute respiratory failure with hypoxia; N18.4 Chronic kidney disease, stage 4 (severe); N18.30 Chronic kidney disease, stage 3 unspecified; Z95.2 Presence of prosthetic heart valve; I25.2 Old myocardial infarction; E11.22 Type 2 diabetes mellitus with diabetic chronic kidney disease; I49.5 Sick sinus syndrome; J44.9 Chronic obstructive pulmonary disease, unspecified; K21.9 Gastro-esophageal reflux disease without esophagitis; I25.10 Atherosclerotic heart disease of native coronary artery without angina pectoris; G89.29 Other chronic pain; M54.9 Dorsalgia, unspecified; M19.90 Unspecified osteoarthritis, unspecified site; F32.9 Major depressive disorder, single episode, unspecified; Z86.73 Personal history of transient ischemic attack (TIA), and cerebral infarction without residual deficits; E78.5 Hyperlipidemia, unspecified; Z79.01 Long term (current) use of anticoagulants; Z95.0 Presence of cardiac pacemaker; Z20.822 Contact with and (suspected) exposure to COVID-19; Z79.51 Long term (current) use of inhaled steroids; Z79.4 Long term (current) use of insulin; Z79.899 Other long term (current) drug therapy; Z79.82 Long term (current) use of aspirin; Z88.1 Allergy status to other antibiotic agents; H54.7 Unspecified visual loss; E78.00 Pure hypercholesterolemia, unspecified; I48.0 Paroxysmal atrial fibrillation
CPT/HCPCS: 36415; 71045; 73100-LT; 80048; 80053; 82962; 83605; 83735; 83880; 84100; 84484; 84550; 85025; 85610; 85730; 87040; 93005; 93010; 94640; 96374; 99283; 99285-25; A9270-GY; J1815-GY; J1940; J3475; J7613-GY; U0002

== ENCOUNTER 2020-07-05 10:39 | Emergency (ER) | payer MEDICARE, MEDICAID ==
[2020-07-05 11:03] VITALS: BP 171/72; PULSE 78
--- NOTE | 2020-07-05 11:33 | EDM.PDOC ---
ED HPI GENERAL MEDICAL PROBLEM - General Chief Complaint: General Stated Complaint: AMBULANCE Time Seen by Provider: 07/05/20 11:00 Source of Information: Reports: Patient, EMS, Old Records, RN, RN Notes Reviewed History Limitations: Reports: No Limitations - History of Present Illness INITIAL COMMENTS - FREE TEXT/NARRATIVE: Patient presents to the ED via [facility] with complaints of shortness of breath. Review of discharge note via Dr. Fournier from four days ago 07/01/20 reports a history of CHF, CAD with s/p AVR, Atrial Fibrillation, COPD, Hypertension, Hyperlipidemia, DM II, Depression, and left carpal tunnel syndrome. The patient was discharged with prescriptions to restart previous medication and was scheduled follow up appointments for a post-hospital visit with Carlotta Drew on July 12, reestablish with Dr. Aly in Nephrology on July 16, and establish primary care with Carlotta Drew on July 17. The patient states she did not start her prescribed medications as she was not brought them by [facility]. She states her shortness of breath began shortly after discharge and has progressively worsened in that time. She denies fever, shaking chills, vision changes, sore throat, chest pain, palpitations, nausea, vomiting, diarrhea, dysuria, or hematuria. She does attest to a productive cough that just began during her ambulance ride as "..the did not give me a warm blanket." - Related Data Allergies Allergy/AdvReac Type Severity Reaction Status Date / Time vancomycin Allergy Swelling Verified 06/29/20 14:03 Home Meds: Home Meds Potassium Chloride [Klor-Con 10] 10 meq PO DAILY 04/18/20 [History] Formoterol [Perforomist] 20 mcg INH BID 06/29/20 [History] Lidocaine 5% [Lidoderm 5%] 1 patch TOP DAILY 06/29/20 [History] Nicotine Polacrilex [Nicorette] 1 lozenge PO Q1H PRN 06/29/20 [History] Nicotine [Nicotine Patch] 14 mg TD DAILY 06/29/20 [History] traMADol [Ultram] 50 mg PO Q6H PRN 06/29/20 [History] Acetaminophen [Tylenol] 650 mg PO Q4H PRN tablet 07/01/20 [Rx] Albuterol Sulfate [Proair Hfa] 2 puff INH Q6H PRN #1 box 07/01/20 [Rx] Apixaban [Eliquis] 5 mg PO BID #60 tab 07/01/20 [Rx] Aspirin [Aspirin EC] 81 mg PO DAILY #30 tablet.dr 07/01/20 [Rx] Budesonide [Pulmicort] 0.5 mg NEB BIDRT #1 box 07/01/20 [Rx] Cyclobenzaprine [Flexeril] 10 mg PO TID PRN #90 tab 07/01/20 [Rx] Furosemide 80 mg PO DAILY #30 tablet 07/01/20 [Rx] Gabapentin [Neurontin] 800 mg PO TID #90 tab 07/01/20 [Rx] Insulin Aspart [NovoLOG] 1 unit SQ TID #5 pen 07/01/20 [Rx] Insulin Detemir [Levemir] 35 units SQ DAILY #4 pen 07/01/20 [Rx] Nitroglycerin [Nitrostat] 0.4 mg PO .Q5MIN PRN #30 tab 07/01/20 [Rx] Omeprazole 20 mg PO ACBREAKFAST #30 cap.cr 07/01/20 [Rx] Patient's Own Medication [Ptom] 1 puff INH BID each 07/01/20 [Rx] Venlafaxine [Effexor XR] 150 mg PO DAILY #30 tab 07/01/20 [Rx] atorvaSTATin [Lipitor] 10 mg PO BEDTIME #30 tablet 07/01/20 [Rx] carvediloL [Coreg] 25 mg PO BIDMEALS #60 tablet 07/01/20 [Rx] Past Medical History HEENT History: Reports: Impaired Vision Other HEENT History: wears glasses Cardiovascular History: Reports: Afib, Aneurysm, Bacterial Endocarditis, CAD, Heart Failure, Heart Murmur, Heart Valve Replacement, High Cholesterol, Hypertension, CT, Pacemaker, Other (See Below) Other Cardiovascular History: Aortic valve endocarditis; CAD; s/p AVR; paroxysmal atrial fibrillation; essential hypertension; cardiac pacemaker in situ; tachy-angelique syndrome - all per Alt records Respiratory History: Reports: COPD, Intubation, Previous, Pneumonia, Recurrent, SOB, Other (See Below) Other Respiratory History: hx hypoxemia Gastrointestinal History: Reports: Cholelithiasis, GERD Genitourinary History: Reports: Chronic Renal Insuffiency, Diabetic Nephropathy, Other (See Below) Other Genitourinary History: STAGE III CKD 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 1 C/S Musculoskeletal History: Reports: Arthritis, Back Pain, Chronic, Fracture, Osteoarthritis Other Musculoskeletal History: arthritis to spine, carpal tunnel to wrists. HX OF PROXIMAL HUMERS FRACTURE RIGHT Neurological History: Reports: Neuropathy, Diabetic, TIA, Other (See Below) Other Neuro History: CHRONIC PAIN SYNDROME Psychiatric History: Reports: Anxiety, Depression Endocrine/Metabolic History: Reports: Diabetes, Type II, Obesity/BMI 30+ Hematologic History: Reports: Other (See Below) Other Hematologic History: hx bacteremia, hyperkalemia, hyponatremia Immunologic History: Reports: None Oncologic (Cancer) History: Reports: None Dermatologic History: Reports: Other (See Below) Other Dermatologic History: hx impetigo, and pressure sore to buttocks - Infectious Disease History Infectious Disease History: Reports: None - Past Surgical History HEENT Surgical History: Reports: Tonsillectomy Cardiovascular Surgical History: Reports: Coronary Artery Bypass, Pacer, Valve Replacement Other Cardiovascular Surgeries/Procedures: Pacemaker placed 11/10/2013 Respiratory Surgical History: Reports: Other (See Below) Other Respiratory Surgeries/Procedures: BRONCHOSCOPY GI Surgical History: Reports: Appendectomy, Cholecystectomy, Colonoscopy Female Surgical History: Reports: Hysterectomy Endocrine Surgical History: Reports: None Neurological Surgical History: Reports: None Musculoskeletal Surgical History: Reports: Amputation, Hip Replacement, Other (See Below) Other Musculoskeletal Surgeries/Procedures:: left 1/2 foot. Distal portion of 2nd digit on right foot. Social & Family History - Family History Family Medical History: No Pertinent Family History Cardiac: Reports: Hypertension Respiratory: Reports: COPD Endocrine/Metabolic: Reports: Diabetes, type II - Caffeine Use Caffeine Use: Reports: Tea Caffeine Use Comment: Pt reports daily tea intake. - Living Situation & Occupation Living situation: Reports: Alone Occupation: Disabled ED ROS GENERAL - Review of Systems Review Of Systems: Comprehensive ROS is negative, except as noted in HPI. ED EXAM, GENERAL - Physical Exam Exam: See Below Exam Limited By: No Limitations General Appearance: Alert, Mild Distress (Shortness of breath) Eye Exam: Bilateral Eye: EOMI, Normal Inspection, PERRL (3mm) Throat/Mouth: Normal Voice, No Airway Compromise. No: Normal Teeth (Poor dentition), Normal Oropharynx (Dry mucous membranes) Neck: Normal Inspection, Supple, Non-Tender, Full Range of Motion. No: Lymphadenopathy (L), Lymphadenopathy (R) Respiratory/Chest: No Respiratory Distress, Chest Non-Tender, Decreased Breath Sounds, Accessory Muscle Use. No: Crackles, Rales, Rhonchi, Wheezing Cardiovascular: Normal Peripheral Pulses, Regular Rate, Rhythm, No Edema, No Gallop, No JVD, No Murmur, No Rub Peripheral Pulses: 2+: Radial (L), Radial (R) GI/Abdominal: Normal Bowel Sounds, Soft, Non-Tender, No Organomegaly, No Abnormal Bruit, No Mass (Female) Exam: Deferred Rectal (Female) Exam: Deferred Back Exam: Normal Inspection, Full Range of Motion Extremities: Normal Inspection, Normal Range of Motion, Non-Tender, Normal Capillary Refill, No Pedal Edema Neurological: Alert, Oriented, CN II-XII Intact, Normal Cognition, Normal Gait, No Motor/Sensory Deficits Psychiatric: Normal Affect, Anxious Skin Exam: Warm, Dry, Intact, Normal Color, No Rash. No: Ecchymosis, Erythema, Jaundice, Mottled, Pallor, Petechiae #1 Interpretation EKG Date: 07/05/20 Time: 11:22 Rhythm: A-Fib Rate (Beats/Min): 97 Silas: LAD-Left Silas Deviation P-Wave: Absent QRS: LBBB ST-T: Elevated (Mild elevation V1, V2, and V3) QT: Prolonged (.506) Comparison: No Change EKG Interpretation Comments: AFib; LAD; No evidence of acute myocardia ischemia Course - Vital Signs Last Recorded V/S: Last Vital Signs Temp 97.6 F 07/05/20 10:55 Pulse 78 07/05/20 10:55 Resp 16 07/05/20 10:55 BP 171/72 H 07/05/20 10:55 Pulse Ox 98 07/05/20 10:55 - Orders/Labs/Meds Labs: Laboratory Tests 07/05/20 07/05/20 07/05/20 Range/Units 11:35 11:35 11:35 WBC 4.6 L (5.0-10.0) 10^3/uL RBC 3.70 L (4.2-5.4) 10^6/uL Hgb 10.0 L (12.0-16.0) g/dL Hct 31.3 L (37.0-47.0) % MCV 84.6 (80-100) fL MCH 27.0 (27.0-34.0) pg MCHC 31.9 L (33.0-35.0) g/dL Plt Count 205 (150-450) 10^3/uL Neut % (Auto) 58.3 (42.2-75.2) % Lymph % (Auto) 30.8 (20.5-50.1) % [place] % (Auto) 9.4 H (2-8) % Eos % (Auto) 1.3 (1.0-3.0) % Baso % (Auto) 0.2 (0.0-1.0) % PT (9.0-12.0) SEC INR (0.9-1.2) APTT (22.0-34.0) SEC Sodium 142 (136-145) mmol/L Potassium 4.4 (3.5-5.1) mmol/L Chloride 105 (98-107) mmol/L Carbon Dioxide 25 (21-32) mmol/L Anion Gap 16.4 H (7-13) mEq/L BUN 22 H (7-18) mg/dL Creatinine 0.98 (0.55-1.02) mg/dL Est Cr Clr Drug Dosing 60.04 mL/min Estimated GFR (MDRD) 58 BUN/Creatinine Ratio 22.4 (No establ ref range) Glucose 253 H (74-99) mg/dL Lactic Acid 1.1 (0.4-2.0) mmol/L Calcium 9.2 (8.5-10.1) mg/dL Total Bilirubin 0.8 (0.2-1.0) mg/dL AST 8 L (15-37) U/L ALT 16 (14-59) U/L Alkaline Phosphatase 123 H (46-116) U/L Troponin I 0.028 (0.000-0.056) ng/mL B-Natriuretic Peptide 1570 H (0-100) pg/ml Total Protein 7.4 (6.4-8.2) g/dL Albumin 3.3 L (3.4-5.0) g/dL Globulin 4.1 Albumin/Globulin Ratio 0.80 03/19/21 Range/Units 11:35 WBC (5.0-10.0) 10^3/uL RBC (4.2-5.4) 10^6/uL Hgb (12.0-16.0) g/dL Hct (37.0-47.0) % MCV (80-100) fL MCH (27.0-34.0) pg MCHC (33.0-35.0) g/dL Plt Count (150-450) 10^3/uL Neut % (Auto) (42.2-75.2) % Lymph % (Auto) (20.5-50.1) % [place] % (Auto) (2-8) % Eos % (Auto) (1.0-3.0) % Baso % (Auto) (0.0-1.0) % PT 11.0 (9.0-12.0) SEC INR 1.1 (0.9-1.2) APTT 24.0 (22.0-34.0) SEC Sodium (136-145) mmol/L Potassium (3.5-5.1) mmol/L Chloride (98-107) mmol/L Carbon Dioxide (21-32) mmol/L Anion Gap (7-13) mEq/L BUN (7-18) mg/dL Creatinine (0.55-1.02) mg/dL Est Cr Clr Drug Dosing mL/min Estimated GFR (MDRD) BUN/Creatinine Ratio (No establ ref range) Glucose (74-99) mg/dL Lactic Acid (0.4-2.0) mmol/L Calcium (8.5-10.1) mg/dL Total Bilirubin (0.2-1.0) mg/dL AST (15-37) U/L ALT (14-59) U/L Alkaline Phosphatase (46-116) U/L Troponin I (0.000-0.056) ng/mL B-Natriuretic Peptide (0-100) pg/ml Total Protein (6.4-8.2) g/dL Albumin (3.4-5.0) g/dL Globulin Albumin/Globulin Ratio - Re-Assessments/Exams Free Text/Narrative Re-Assessment/Exam: 07/05/20 Patient states she is concerned as she is having difficulty obtaining her prescriptions from discharge; she states they are at the [facility]. She has not contacted the pharmacy or [facility] who were to deliver her medication post-discharge. Troponin continues to trend down post-discharge and is 0.028. BNP lower today than when compared to discharge at 1570. Chronic normocytic hypochromic anemia appreciated. Coags appropriate. Kidney function WNL. Acting Teacher called [facility] and they do not have active prescriptions for Swati. Acting Teacher called [facility] and they have her post- discharge medications waiting. 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 Given improvement in lab work, benign physical exam, and improvement in CXR will discharge patient home with transportation arranged to obtain her prescriptions. [facility] to transport patient from ED to [facility] and then home. Patient verbalized understanding and agreement with the plan of care. Departure - Departure Time of Disposition: 12:14 Disposition: Home, Self-Care 01 Condition: Good Clinical Impression: Diabetes mellitus type 2, COPD, moderate, Hyperglycemia Congestive heart failure Qualifiers: Qualified Code(s): I50.9 - Heart failure, unspecified Anemia Qualifiers: Anemia type: unspecified type Qualified Code(s): D64.9 - Anemia, unspecified - Discharge Information *PRESCRIPTION DRUG MONITORING PROGRAM REVIEWED*: Not Applicable *COPY OF PRESCRIPTION DRUG MONITORING REPORT IN PATIENT XOCHILT: Not Applicable Instructions: Chronic Obstructive Pulmonary Disease, [id number], Heart Failure, Diagnosis, [id number], Type 2 Diabetes Mellitus, Diagnosis, Adult, [id number], Diabetes Mellitus and Nutrition, Adult Referrals: eRgis Chinchilla [Primary Care Provider] - Forms: ED Department Discharge Additional Instructions: 1.) [facility] will drive you to the pharmacy to retrieve your medications and then bring you home. 2.) Go to your previously scheduled appointments with Carlotta Drew and Dr. Aly for assistance managing your chronic health conditions. 3.) Follow a heart-healthy, diabetic-friendly diet. 4.) Continue working on quitting smoking.. one cigarette less a day is an improvement! Sepsis Event Note (ED) - Evaluation Sepsis Screening Result: No Definite Risk - Focused Exam Vital Signs: Vital Signs Temp Pulse Resp BP Pulse Ox 07/05/20 10:55 97.6 F 78 16 171/72 H 98
[2020-07-05 12:03] LABS: ANION GAP 16.4 mEq/L (7-13)
--- NOTE | 2020-07-05 12:04 | CR ---
EXAMINATION: Chest 1V Frontal SEX: Female AGE: 64 years CLINICAL HISTORY: 64-year-old female with shortness of breath (SOB) reported on recent 29 June 2020 film to have "worsening pulmonary edema and right pleural effusion. " Interpretation: Abnormal but subtle relative improvement radiographically since 29 June comparison film. 1. Cardiac silhouette slightly smaller in this patient with sternotomy wires and cardiac pacemaker. 2. Relative interval decreased pulmonary venous congestion. 3. Persistent dependent right pleural reactive changes (effusion). 4. No new signs of alveolar edema or additional pleural fluid accumulation. 5. No new lung mass, focal lobar infiltrate/atelectasis or peripheral "on glass" interstitial lung densities. 6. No pneumothorax or pneumomediastinum.
== END 2020-07-05 12:26 | disposition home or self-care (01) ==
LOC: DL.ED 10:39
DX: I13.0 Hypertensive heart and chronic kidney disease with heart failure and stage 1 through stage 4 chronic kidney disease, or unspecified chronic kidney disease (principal); E11.22 Type 2 diabetes mellitus with diabetic chronic kidney disease; N18.30 Chronic kidney disease, stage 3 unspecified; I50.9 Heart failure, unspecified; J44.9 Chronic obstructive pulmonary disease, unspecified; E11.65 Type 2 diabetes mellitus with hyperglycemia; D64.9 Anemia, unspecified; I25.10 Atherosclerotic heart disease of native coronary artery without angina pectoris; I48.91 Unspecified atrial fibrillation; E78.5 Hyperlipidemia, unspecified; E78.00 Pure hypercholesterolemia, unspecified; I25.2 Old myocardial infarction; K21.9 Gastro-esophageal reflux disease without esophagitis; E11.40 Type 2 diabetes mellitus with diabetic neuropathy, unspecified; M19.90 Unspecified osteoarthritis, unspecified site; E66.9 Obesity, unspecified; Z88.8 Allergy status to other drugs, medicaments and biological substances; Z79.4 Long term (current) use of insulin; Z79.82 Long term (current) use of aspirin; Z79.899 Other long term (current) drug therapy; Z90.49 Acquired absence of other specified parts of digestive tract; Z90.710 Acquired absence of both cervix and uterus; Z68.32 Body mass index [BMI] 32.0-32.9, adult
CPT/HCPCS: 36415; 71045; 80053; 83605; 83880; 84484; 85025; 85610; 85730; 93005; 93010; 99284; 99285-25

== ENCOUNTER 2020-08-21 21:59 | Emergency (ER) | payer MEDICARE, MEDICAID ==
--- NOTE | 2020-08-21 22:28 | EDM.PDOC ---
ED HPI GENERAL MEDICAL PROBLEM - General Stated Complaint: AMBULANCE Time Seen by Provider: 08/21/20 22:20 Source of Information: Reports: Patient History Limitations: Reports: No Limitations - History of Present Illness INITIAL COMMENTS - FREE TEXT/NARRATIVE: This 65 yo female was brought to the ED by [facility] due to a brief episode of chest pain that radiated to her left shoulder. The patient reports her chest pain is gone at the time of examination. The patient also reports she has been out of some of her medications (including her diuretics), but does not know how long she has been out of those medications. Onset: Today Duration: Resolved Prior to Arrival Location: Reports: Chest Quality: Reports: Ache, Sharp Severity: Mild Improves with: Reports: None Worsens with: Reports: None Context: Reports: Other Associated Symptoms: Reports: Chest Pain - Related Data Allergies Allergy/AdvReac Type Severity Reaction Status Date / Time vancomycin Allergy Swelling Verified 06/29/20 14:03 Home Meds: Home Meds Potassium Chloride [Klor-Con 10] 10 meq PO DAILY 04/18/20 [History] Formoterol [Perforomist] 20 mcg INH BID 06/29/20 [History] Lidocaine 5% [Lidoderm 5%] 1 patch TOP DAILY 06/29/20 [History] Nicotine Polacrilex [Nicorette] 1 lozenge PO Q1H PRN 06/29/20 [History] Nicotine [Nicotine Patch] 14 mg TD DAILY 06/29/20 [History] traMADol [Ultram] 50 mg PO Q6H PRN 06/29/20 [History] Acetaminophen [Tylenol] 650 mg PO Q4H PRN tablet 07/01/20 [Rx] Albuterol Sulfate [Proair Hfa] 2 puff INH Q6H PRN #1 box 07/01/20 [Rx] Apixaban [Eliquis] 5 mg PO BID #60 tab 07/01/20 [Rx] Aspirin [Aspirin EC] 81 mg PO DAILY #30 tablet. 07/01/20 [Rx] Budesonide [Pulmicort] 0.5 mg NEB BIDRT #1 box 07/01/20 [Rx] Cyclobenzaprine [Flexeril] 10 mg PO TID PRN #90 tab 07/01/20 [Rx] Furosemide 80 mg PO DAILY #30 tablet 07/01/20 [Rx] Gabapentin [Neurontin] 800 mg PO TID #90 tab 07/01/20 [Rx] Insulin Aspart [NovoLOG] 1 unit SQ TID #5 pen 07/01/20 [Rx] Insulin Detemir [Levemir] 35 units SQ DAILY #4 pen 07/01/20 [Rx] Nitroglycerin [Nitrostat] 0.4 mg PO .Q5MIN PRN #30 tab 07/01/20 [Rx] Omeprazole 20 mg PO ACBREAKFAST #30 cap.cr 07/01/20 [Rx] Patient's Own Medication [Ptom] 1 puff INH BID each 07/01/20 [Rx] Venlafaxine [Effexor XR] 150 mg PO DAILY #30 tab 07/01/20 [Rx] atorvaSTATin [Lipitor] 10 mg PO BEDTIME #30 tablet 07/01/20 [Rx] carvediloL [Coreg] 25 mg PO BIDMEALS #60 tablet 07/01/20 [Rx] Past Medical History HEENT History: Reports: Impaired Vision Other HEENT History: wears glasses Cardiovascular History: Reports: Afib, Aneurysm, Bacterial Endocarditis, CAD, Heart Failure, Heart Murmur, Heart Valve Replacement, High Cholesterol, Hypertension, [place], Pacemaker, Other (See Below) Other Cardiovascular History: Aortic valve endocarditis; CAD; s/p AVR; paroxysmal atrial fibrillation; essential hypertension; cardiac pacemaker in situ; tachy-angelique syndrome - all per [facility] records Respiratory History: Reports: COPD, Intubation, Previous, Pneumonia, Recurrent, SOB, Other (See Below) Other Respiratory History: hx hypoxemia Gastrointestinal History: Reports: Cholelithiasis, GERD Genitourinary History: Reports: Chronic Renal Insuffiency, Diabetic Nephropathy, Other (See Below) Other Genitourinary History: STAGE III CKD 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 1 C/S Musculoskeletal History: Reports: Arthritis, Back Pain, Chronic, Fracture, Osteoarthritis Other Musculoskeletal History: arthritis to spine, carpal tunnel to wrists. HX OF PROXIMAL HUMERS FRACTURE RIGHT Neurological History: Reports: Neuropathy, Diabetic, TIA, Other (See Below) Other Neuro History: CHRONIC PAIN SYNDROME Psychiatric History: Reports: Anxiety, Depression Endocrine/Metabolic History: Reports: Diabetes, Type II, Obesity/BMI 30+ Hematologic History: Reports: Other (See Below) Other Hematologic History: hx bacteremia, hyperkalemia, hyponatremia Immunologic History: Reports: None Oncologic (Cancer) History: Reports: None Dermatologic History: Reports: Other (See Below) Other Dermatologic History: hx impetigo, and pressure sore to buttocks - Infectious Disease History Infectious Disease History: Reports: None - Past Surgical History HEENT Surgical History: Reports: Tonsillectomy Cardiovascular Surgical History: Reports: Coronary Artery Bypass, Pacer, Valve Replacement Other Cardiovascular Surgeries/Procedures: Pacemaker placed 11/10/2013 Respiratory Surgical History: Reports: Other (See Below) Other Respiratory Surgeries/Procedures: BRONCHOSCOPY GI Surgical History: Reports: Appendectomy, Cholecystectomy, Colonoscopy Female Surgical History: Reports: Hysterectomy Endocrine Surgical History: Reports: None Neurological Surgical History: Reports: None Musculoskeletal Surgical History: Reports: Amputation, Hip Replacement, Other (See Below) Other Musculoskeletal Surgeries/Procedures:: left 1/2 foot. Distal portion of 2nd digit on right foot. Social & Family History - Family History Family Medical History: No Pertinent Family History Cardiac: Reports: Hypertension Respiratory: Reports: COPD Endocrine/Metabolic: Reports: Diabetes, type II - Caffeine Use Caffeine Use: Reports: None Caffeine Use Comment: Pt reports daily tea intake. - Living Situation & Occupation Living situation: Reports: Alone Occupation: Disabled ED ROS GENERAL - Review of Systems Review Of Systems: Comprehensive ROS is negative, except as noted in HPI. ED EXAM, GENERAL - Physical Exam Exam: See Below Exam Limited By: No Limitations General Appearance: Alert, WD/WN, Mild Distress Eye Exam: Bilateral Eye: EOMI, Normal Inspection, PERRL Ears: Normal External Exam, Normal Canal, Hearing Grossly Normal, Normal TMs Nose: Normal Inspection, Normal Mucosa, No Blood Throat/Mouth: Normal Inspection, Normal Lips, Normal Teeth, Normal Gums, Normal Oropharynx, Normal Voice, No Airway Compromise Head: Atraumatic, Normocephalic Neck: Normal Inspection, Supple, Non-Tender, Full Range of Motion Respiratory/Chest: No Respiratory Distress, Lungs Clear, Normal Breath Sounds, No Accessory Muscle Use, Chest Non-Tender Cardiovascular: Normal Peripheral Pulses, Regular Rate, Rhythm, No Edema, No Gallop, No JVD, No Murmur, No Rub GI/Abdominal: Normal Bowel Sounds, Soft, Non-Tender, No Organomegaly, No Distention, No Abnormal Bruit, No Mass (Female) Exam: Deferred Rectal (Female) Exam: Deferred Back Exam: Normal Inspection, Full Range of Motion, NT Extremities: Normal Inspection, Normal Range of Motion, Non-Tender, Normal Capillary Refill, Pedal Edema Neurological: Alert, Oriented, CN II-XII Intact, Normal Cognition, Normal Gait, Normal Reflexes, No Motor/Sensory Deficits Psychiatric: Anxious Skin Exam: Warm, Dry, Intact, Normal Color, No Rash Lymphatic: No Adenopathy #1 Interpretation EKG Date: 08/21/20 Time: 22:20 Rhythm: Other (Ventricular paced rhythm) Rate (Beats/Min): 69 [place]: Normal P-Wave: Absent QRS: Wide Comparison: No Change Course - Vital Signs Last Recorded V/S: Last Vital Signs Temp 36.4 C 08/21/20 22:31 Pulse 82 08/21/20 22:31 Resp 20 08/21/20 22:31 BP 129/75 08/21/20 22:31 Pulse Ox 100 08/21/20 22:31 - Orders/Labs/Meds Orders: Active Orders 24 hr Category Date Time Status EKG Documentation Completion [RC] STAT Care 08/21/20 22:18 Active Chest 1V Frontal [CR] Urgent Exams 08/21/20 22:47 Taken CULTURE BLOOD [BC] Stat Lab 08/21/20 22:32 Received UA RFX NA AND CULT IF INDIC [URIN] Urgent Lab 08/21/20 22:18 Ordered Labs: Laboratory Tests 08/21/20 08/21/20 08/21/20 Range/Units 22:32 22:32 22:32 WBC 5.3 (5.0-10.0) 10^3/uL RBC 4.44 (4.2-5.4) 10^6/uL Hgb 10.4 L (12.0-16.0) g/dL Hct 34.3 L (37.0-47.0) % MCV 77.3 L D (80-100) fL MCH 23.4 L (27.0-34.0) pg MCHC 30.3 L (33.0-35.0) g/dL Plt Count 172 (150-450) 10^3/uL Neut % (Auto) 47.5 (42.2-75.2) % Lymph % (Auto) 39.0 (20.5-50.1) % [place] % (Auto) 12.0 H (2-8) % Eos % (Auto) 1.1 (1.0-3.0) % Baso % (Auto) 0.4 (0.0-1.0) % Sodium 139 (136-145) mmol/L Potassium 4.7 (3.5-5.1) mmol/L Chloride 102 (98-107) mmol/L Carbon Dioxide 25 (21-32) mmol/L Anion Gap 16.7 H (7-13) mEq/L BUN 22 H (7-18) mg/dL Creatinine 1.32 H (0.55-1.02) mg/dL Est Cr Clr Drug Dosing 44.00 mL/min Estimated GFR (MDRD) 41 BUN/Creatinine Ratio 16.7 (No establ ref range) Glucose 151 H (70-99) mg/dL Lactic Acid 1.5 (0.4-2.0) mmol/L Calcium 8.0 L (8.5-10.1) mg/dL Total Bilirubin 0.6 (0.2-1.0) mg/dL AST 12 L (15-37) U/L ALT 18 (14-59) U/L Alkaline Phosphatase 109 (46-116) U/L Troponin I < 0.017 (0.000-0.056) ng/mL B-Natriuretic Peptide 1460 H (0-100) pg/ml Total Protein 6.6 (6.4-8.2) g/dL Albumin 3.1 L (3.4-5.0) g/dL Globulin 3.5 Albumin/Globulin Ratio 0.89 Meds: Medications Discontinued Medications Generic Name Dose Route Start Last Admin Trade Name Freq PRN Reason Stop Dose Admin Furosemide 40 mg 08/21/20 23:12 Furosemide 40 Mg/4 Ml Vial IVPUSH 08/21/20 23:13 NOW ONE Departure - Departure Time of Disposition: 23:17 Disposition: Home, Self-Care 01 Condition: Fair Clinical Impression: Nonspecific chest pain Instructions: Nonspecific Chest Pain, Adult, [id number] Forms: ED Department Discharge Care Plan Goals: The patient was advised of the examination, lab, EKG and x-ray results during the visit. The patient was given an IV dose of Lasix during the visit. The patient was encouraged to follow-up with her primary care facility for continued evaluation and management. If the patient has any additional symptoms or concerns, the patient should either return to the emergency department or visit her primary care facility. Sepsis Event Note (ED) - Focused Exam Vital Signs: Vital Signs Temp Pulse Resp BP Pulse Ox 08/21/20 22:31 36.4 C 82 20 129/75 100 - My Orders Last 24 Hours: My Active Orders 08/21/20 22:18 EKG Documentation Completion [RC] STAT UA RFX NA AND CULT IF INDIC [URIN] Urgent 08/21/20 22:32 CULTURE BLOOD [BC] Stat 08/21/20 22:47 Chest 1V Frontal [CR] Urgent - Assessment/Plan Last 24 Hours: My Active Orders 08/21/20 22:18 EKG Documentation Completion [RC] STAT UA RFX NA AND CULT IF INDIC [URIN] Urgent 08/21/20 22:32 CULTURE BLOOD [BC] Stat 08/21/20 22:47 Chest 1V Frontal [CR] Urgent
[2020-08-21 22:54] VITALS: BP 129/75; PULSE 82
[2020-08-21 23:01] LABS: ANION GAP 16.7 mEq/L (7-13); CHLORIDE,CL 102 mmol/L (98-107); SODIUM,NA 139 mmol/L (136-145)
[2020-08-21] MEDS ORDERED: Furosemide 40 MG/4 ML VIAL IVPUSH ONE (23:12)
--- NOTE | 2020-08-21 23:22 | CR ---
PROCEDURE INFORMATION: Exam: XR Chest Exam date and time: 08/21/2020 10:53 PM Age: 65 years old Clinical indication: Chest pain TECHNIQUE: Imaging protocol: XR of the chest. Views: 1 view. COMPARISON: CR Chest 1V Frontal 07/05/2020 11:48 AM FINDINGS: Lungs: Mild right lung base airspace disease. This may represent scarring or atelectasis. Cannot exclude a minor infiltrate. Similar features are present 07/05/2020, but more severe. This suggests that this is a chronic process with some interval resolution. Left lung is clear. Pleural spaces: Small right pleural effusion. Heart/Mediastinum: Mild cardiomegaly. Left chest pacemaker. Previous open-heart surgery. Bones/joints: Old right humeral neck fracture. IMPRESSION: 1. Mild right lung base airspace disease which appears improved since 07/05/2020 suggesting residual atelectasis or scarring related to a previous infiltrate. 2. Minor right pleural effusion. This also appears to have improved. This could represent residual pleural fluid or minor pleural thickening at the CP angle. 3. Mild cardiomegaly. Left chest pacemaker. 4. Clear left lung and pleural space. 5. Old right humeral neck fracture.
== END 2020-08-21 23:45 | disposition home or self-care (01) ==
LOC: DL.ED 21:59
DX: R07.9 Chest pain, unspecified (principal); E11.21 Type 2 diabetes mellitus with diabetic nephropathy; I13.0 Hypertensive heart and chronic kidney disease with heart failure and stage 1 through stage 4 chronic kidney disease, or unspecified chronic kidney disease; I50.9 Heart failure, unspecified; E11.22 Type 2 diabetes mellitus with diabetic chronic kidney disease; N18.30 Chronic kidney disease, stage 3 unspecified; I25.10 Atherosclerotic heart disease of native coronary artery without angina pectoris; E78.00 Pure hypercholesterolemia, unspecified; J44.9 Chronic obstructive pulmonary disease, unspecified; K21.9 Gastro-esophageal reflux disease without esophagitis; I48.91 Unspecified atrial fibrillation; M19.90 Unspecified osteoarthritis, unspecified site; E11.40 Type 2 diabetes mellitus with diabetic neuropathy, unspecified; E66.9 Obesity, unspecified; Z88.1 Allergy status to other antibiotic agents; Z79.01 Long term (current) use of anticoagulants; Z79.82 Long term (current) use of aspirin; Z79.4 Long term (current) use of insulin; Z79.899 Other long term (current) drug therapy; Z86.73 Personal history of transient ischemic attack (TIA), and cerebral infarction without residual deficits
CPT/HCPCS: 36415; 71045; 80053; 83605; 83880; 84484; 85025; 87040; 93005; 93010; 96374; 99283; 99285; J1940

== ENCOUNTER 2020-08-31 22:30 | Emergency (ER) | payer MEDICARE, MEDICAID ==
--- NOTE | 2020-08-31 22:46 | EDM.PDOC ---
ED HPI GENERAL MEDICAL PROBLEM - General Chief Complaint: Cardiovascular Problem Stated Complaint: AMBULANCE Time Seen by Provider: 08/31/20 23:09 Source of Information: Reports: Patient, EMS, EMS Notes Reviewed, RN, RN Notes Reviewed History Limitations: Reports: No Limitations - History of Present Illness INITIAL COMMENTS - FREE TEXT/NARRATIVE: Patient is a 65-year-old female who presents to ER per [facility] with complaint of increased shortness of breath, feeling weak, slight cough, back pain, chest pains. Patient denies any fever, chills, nausea, vomiting, diarrhea. Patient states she has not urinated all day today, feels she needs to go but can only go a few drops. She states these symptoms all began when she ran out of her daily medications. Some medications she states she has not taken in approximately a month, some she states it has only been a few days. Patient admits to having diabetes type 2 and takes insulin. States she last took her insulin last in g. Patient states she has been doctoring with nephrology as well as cardiology. Onset: Gradual - Related Data Allergies Allergy/AdvReac Type Severity Reaction Status Date / Time vancomycin Allergy Swelling Verified 06/29/20 14:03 Home Meds: Home Meds Potassium Chloride [Klor-Con 10] 10 meq PO DAILY 04/18/20 [History] Formoterol [Perforomist] 20 mcg INH BID 06/29/20 [History] Lidocaine 5% [Lidoderm 5%] 1 patch TOP DAILY 06/29/20 [History] Nicotine Polacrilex [Nicorette] 1 lozenge PO Q1H PRN 06/29/20 [History] Nicotine [Nicotine Patch] 14 mg TD DAILY 06/29/20 [History] traMADol [Ultram] 50 mg PO Q6H PRN 06/29/20 [History] Acetaminophen [Tylenol] 650 mg PO Q4H PRN tablet 07/01/20 [Rx] Albuterol Sulfate [Proair Hfa] 2 puff INH Q6H PRN #1 box 07/01/20 [Rx] Apixaban [Eliquis] 5 mg PO BID #60 tab 07/01/20 [Rx] Aspirin [Aspirin EC] 81 mg PO DAILY #30 tablet. 07/01/20 [Rx] Budesonide [Pulmicort] 0.5 mg NEB BIDRT #1 box 07/01/20 [Rx] Cyclobenzaprine [Flexeril] 10 mg PO TID PRN #90 tab 07/01/20 [Rx] Furosemide 80 mg PO DAILY #30 tablet 07/01/20 [Rx] Gabapentin [Neurontin] 800 mg PO TID #90 tab 07/01/20 [Rx] Insulin Aspart [NovoLOG] 1 unit SQ TID #5 pen 07/01/20 [Rx] Insulin Detemir [Levemir] 35 units SQ DAILY #4 pen 07/01/20 [Rx] Nitroglycerin [Nitrostat] 0.4 mg PO .Q5MIN PRN #30 tab 07/01/20 [Rx] Omeprazole 20 mg PO ACBREAKFAST #30 cap.cr 07/01/20 [Rx] Patient's Own Medication [Ptom] 1 puff INH BID each 07/01/20 [Rx] Venlafaxine [Effexor XR] 150 mg PO DAILY #30 tab 07/01/20 [Rx] atorvaSTATin [Lipitor] 10 mg PO BEDTIME #30 tablet 07/01/20 [Rx] carvediloL [Coreg] 25 mg PO BIDMEALS #60 tablet 07/01/20 [Rx] Past Medical History HEENT History: Reports: Impaired Vision Other HEENT History: wears glasses Cardiovascular History: Reports: Afib, Aneurysm, Bacterial Endocarditis, CAD, Heart Failure, Heart Murmur, Heart Valve Replacement, High Cholesterol, Hypertension, NE, Pacemaker, Other (See Below) Other Cardiovascular History: Aortic valve endocarditis; CAD; s/p AVR; paroxysmal atrial fibrillation; essential hypertension; cardiac pacemaker in situ; tachy-angelique syndrome - all per [facility] records Respiratory History: Reports: COPD, Intubation, Previous, Pneumonia, Recurrent, SOB, Other (See Below) Other Respiratory History: hx hypoxemia Gastrointestinal History: Reports: Cholelithiasis, GERD Genitourinary History: Reports: Chronic Renal Insuffiency, Diabetic Nephropathy, Other (See Below) Other Genitourinary History: STAGE III CKD [employer] AND FORMER History: Reports: 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 1 C/S Musculoskeletal History: Reports: Arthritis, Back Pain, Chronic, Fracture, Osteoarthritis Other Musculoskeletal History: arthritis to spine, carpal tunnel to wrists. HX OF PROXIMAL HUMERS FRACTURE RIGHT Neurological History: Reports: Neuropathy, Diabetic, TIA, Other (See Below) Other Neuro History: CHRONIC PAIN SYNDROME Psychiatric History: Reports: Anxiety, Depression Endocrine/Metabolic History: Reports: Diabetes, Type II, Obesity/BMI 30+ Hematologic History: Reports: Other (See Below) Other Hematologic History: hx bacteremia, hyperkalemia, hyponatremia Immunologic History: Reports: None Oncologic (Cancer) History: Reports: None Dermatologic History: Reports: Other (See Below) Other Dermatologic History: hx impetigo, and pressure sore to buttocks - Infectious Disease History Infectious Disease History: Reports: None - Past Surgical History HEENT Surgical History: Reports: Tonsillectomy Cardiovascular Surgical History: Reports: Coronary Artery Bypass, Pacer, Valve Replacement Other Cardiovascular Surgeries/Procedures: Pacemaker placed 11/10/2013 Respiratory Surgical History: Reports: Other (See Below) Other Respiratory Surgeries/Procedures: BRONCHOSCOPY GI Surgical History: Reports: Appendectomy, Cholecystectomy, Colonoscopy Female Surgical History: Reports: Hysterectomy Endocrine Surgical History: Reports: None Neurological Surgical History: Reports: None Musculoskeletal Surgical History: Reports: Amputation, Hip Replacement, Other (See Below) Other Musculoskeletal Surgeries/Procedures:: left 1/2 foot. Distal portion of 2nd digit on right foot. Social & Family History - Family History Family Medical History: No Pertinent Family History Cardiac: Reports: Hypertension Respiratory: Reports: COPD Endocrine/Metabolic: Reports: Diabetes, type II - Caffeine Use Caffeine Use: Reports: None Caffeine Use Comment: Pt reports daily tea intake. - Living Situation & Occupation Living situation: Reports: Alone Occupation: Disabled ED ROS GENERAL - Review of Systems Review Of Systems: Comprehensive ROS is negative, except as noted in HPI. ED EXAM, GENERAL - Physical Exam Exam: See Below Exam Limited By: No Limitations General Appearance: Alert, WD/WN, Mild Distress Eye Exam: Bilateral Eye: EOMI, Normal Inspection Ears: Normal External Exam, Hearing Grossly Normal Nose: Normal Inspection Throat/Mouth: Normal Inspection, Normal Voice, No Airway Compromise Head: Atraumatic, Normocephalic Neck: Normal Inspection, Supple, Non-Tender, Full Range of Motion Respiratory/Chest: No Respiratory Distress, No Accessory Muscle Use, Chest Non- Tender, Crackles (throughout) Cardiovascular: Normal Peripheral Pulses, Regular Rate, Rhythm, No Gallop, Systolic Murmur Peripheral Pulses: 2+: Radial (L), Radial (R) GI/Abdominal: Normal Bowel Sounds, Soft, Non-Tender (Female) Exam: Deferred Rectal (Female) Exam: Deferred Back Exam: Normal Inspection, Full Range of Motion, NT Extremities: Normal Inspection, Normal Range of Motion, Non-Tender, Normal Capillary Refill, Pedal Edema (+1-2 lower extremities) Neurological: Alert, Oriented, CN II-XII Intact, Normal Cognition, Normal Gait, Normal Reflexes, No Motor/Sensory Deficits Psychiatric: Normal Affect, Normal Mood Skin Exam: Warm, Dry, Intact, No Rash, Pallor Lymphatic: No Adenopathy #1 Interpretation EKG Date: 08/31/20 Time: 22:26 Rhythm: Other (ventricular paced) Rate (Beats/Min): 66 QRS: LBBB Comparison: No Change Course - Vital Signs Last Recorded V/S: Last Vital Signs Temp 97.9 F 08/31/20 22:33 Pulse 82 08/31/20 22:33 Resp 18 08/31/20 22:33 BP 157/80 H 08/31/20 22:33 Pulse Ox 100 08/31/20 22:33 - Orders/Labs/Meds Orders: Active Orders 24 hr Category Date Time Status CULTURE URINE [RM] Stat Lab 09/01/20 00:32 Received Labs: Laboratory Tests 08/31/20 08/31/20 09/01/20 Range/Units 22:35 22:35 00:32 WBC 4.4 L (5.0-10.0) 10^3/uL RBC 4.64 (4.2-5.4) 10^6/uL Hgb 10.7 L (12.0-16.0) g/dL Hct 35.5 L (37.0-47.0) % MCV 76.5 L (80-100) fL MCH 23.1 L (27.0-34.0) pg MCHC 30.1 L (33.0-35.0) g/dL Plt Count 186 (150-450) 10^3/uL Neut % (Auto) 49.4 (42.2-75.2) % Lymph % (Auto) 36.6 (20.5-50.1) % [place] % (Auto) 12.4 H (2-8) % Eos % (Auto) 0.9 L (1.0-3.0) % Baso % (Auto) 0.7 (0.0-1.0) % Sodium 137 (136-145) mmol/L Potassium 4.8 (3.5-5.1) mmol/L Chloride 103 (98-107) mmol/L Carbon Dioxide 22 (21-32) mmol/L Anion Gap 16.8 H (7-13) mEq/L BUN 19 H (7-18) mg/dL Creatinine 1.30 H (0.55-1.02) mg/dL Est Cr Clr Drug Dosing TNP Estimated GFR (MDRD) 41 BUN/Creatinine Ratio 14.6 (No establ ref range) Glucose 184 H (70-99) mg/dL Calcium 8.2 L (8.5-10.1) mg/dL Total Bilirubin 0.8 (0.2-1.0) mg/dL AST 12 L (15-37) U/L ALT 15 (14-59) U/L Alkaline Phosphatase 107 (46-116) U/L Troponin I < 0.017 (0.000-0.056) ng/mL B-Natriuretic Peptide 2340 H (0-100) pg/ml Total Protein 6.6 (6.4-8.2) g/dL Albumin 3.0 L (3.4-5.0) g/dL Globulin 3.6 Albumin/Globulin Ratio 0.83 Urine Color Dark yellow (YELLOW) Urine Appearance Slightly cloudy (CLEAR) Urine pH 5.0 (5.0-9.0) Ur Specific Panacea >= 1.030 (1.005-1.030) Urine Protein >=300 H (NEGATIVE) Urine Glucose (UA) Negative (NEGATIVE) Urine Ketones Trace H (NEGATIVE) Urine Occult Blood Negative (NEGATIVE) Urine Nitrite Negative (NEGATIVE) Urine Bilirubin Small H (NEGATIVE) Urine Urobilinogen 0.2 (0.2-1.0) mg/dL Ur Leukocyte Esterase Negative (NEGATIVE) U Hyaline Cast (Auto) Few Urine RBC 0-5 /HPF Urine WBC 0-5 (0-5/HPF) /HPF Ur Epithelial Cells Rare (NOT SEEN) /HPF Amorphous Sediment Many H (NOT SEEN) /HPF Urine Bacteria Moderate H (0-FEW/HPF) /HPF Urine Mucus Moderate H (NOT SEEN) /LPF Meds: Medications Discontinued Medications Generic Name Dose Route Start Last Admin Trade Name Freq PRN Reason Stop Dose Admin Furosemide 80 mg 09/01/20 00:30 05/16/21 00:47 Furosemide 40 Mg/4 Ml Vial IVPUSH 09/01/20 00:31 80 mg NOW ONE Administration - Radiology Interpretation Free Text/Narrative:: Chest xray: PROCEDURE INFORMATION: Exam: XR Chest Exam date and time: 08/31/2020 11:50 PM Age: 65 years old Clinical indication: Shortness of breath TECHNIQUE: Imaging protocol: XR of the chest. Views: 1 view. COMPARISON: CR Chest 1V Frontal 08/21/2020 10:53 PM FINDINGS: Tubes, catheters and devices: EKG leads overlie the chest. Lungs: There are some strandy opacities present in the right lung base likely representing atelectasis versus parenchymal scarring. A right basilar infiltrate and pneumonia cannot be entirely excluded. Pleural spaces: There is a small right pleural effusion present. Heart/Mediastinum: Unremarkable. No cardiomegaly. Vasculature: A sequential bipolar pacemaker is placed via the left subclavian vein. 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 This appears stable compared with 08/21/2020. IMPRESSION: Little change in the appearance of the chest compared to 08/21/2020. Probable right basilar parenchymal pleural scarring or atelectasis. Superimposed right basilar pneumonia cannot be entirely excluded. 2. Small right pleural effusion Thank you for allowing us to participate in the care of your patient. Dictated and Authenticated by: Guanaco Pickett MD 09/01/2020 12:20 AM Central Time ([place] & [place]) See rad report - Re-Assessments/Exams Free Text/Narrative Re-Assessment/Exam: 09/01/20 06:03 Discussed patient case with Dr. Cm who states the patient could be diuresed in the ER and discharged home. Departure - Departure Time of Disposition: 02:53 Disposition: Home, Self-Care 01 Reason for Transfer *Q: Other Condition: Fair Clinical Impression: Kidney disease CHF (congestive heart failure) Qualifiers: Heart failure type: unspecified Heart failure chronicity: acute on chronic Qualified Code(s): I50.9 - Heart failure, unspecified Instructions: Heart Failure, Self Care, [id number], Edema, [id number] Referrals: Sury Gonzales [employer] [Primary Care Provider] - Forms: ED Department Discharge Additional Instructions: Follow up with your primary care facility on Wednesday for medication renewal Return to the ER with any worsening of symptoms Take your medications as prescribed RX: Laxix 20 mg (2 tablets) daily Sepsis Event Note (ED) - Focused Exam Vital Signs: Vital Signs Temp Pulse Resp BP Pulse Ox 08/31/20 22:33 97.9 F 82 18 157/80 H 100 - My Orders Last 24 Hours: My Active Orders 09/01/20 00:32 CULTURE URINE [RM] Stat - Assessment/Plan Last 24 Hours: My Active Orders 09/01/20 00:32 CULTURE URINE [RM] Stat
[2020-08-31 23:00] LABS: ANION GAP 16.8 mEq/L (7-13); CHLORIDE,CL 103 mmol/L (98-107); SODIUM,NA 137 mmol/L (136-145)
[2020-08-31 23:04] VITALS: BP 157/80; PULSE 82
--- NOTE | 2020-09-01 00:20 | CR ---
PROCEDURE INFORMATION: Exam: XR Chest Exam date and time: 08/31/2020 11:50 PM Age: 65 years old Clinical indication: Shortness of breath TECHNIQUE: Imaging protocol: XR of the chest. Views: 1 view. COMPARISON: CR Chest 1V Frontal 08/21/2020 10:53 PM FINDINGS: Tubes, catheters and devices: EKG leads overlie the chest. Lungs: There are some strandy opacities present in the right lung base likely representing atelectasis versus parenchymal scarring. A right basilar infiltrate and pneumonia cannot be entirely excluded. Pleural spaces: There is a small right pleural effusion present. Heart/Mediastinum: Unremarkable. No cardiomegaly. Vasculature: A sequential bipolar pacemaker is placed via the left subclavian vein. 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 This appears stable compared with 08/21/2020. IMPRESSION: Little change in the appearance of the chest compared to 08/21/2020. Probable right basilar parenchymal pleural scarring or atelectasis. Superimposed right basilar pneumonia cannot be entirely excluded. 2. Small right pleural effusion
[2020-09-01] MEDS ORDERED: Furosemide 40 MG/4 ML VIAL IVPUSH ONE (00:30)
== END 2020-09-01 02:46 | disposition home or self-care (01) ==
LOC: DL.ED 22:30
DX: I13.0 Hypertensive heart and chronic kidney disease with heart failure and stage 1 through stage 4 chronic kidney disease, or unspecified chronic kidney disease (principal); I50.9 Heart failure, unspecified; N18.30 Chronic kidney disease, stage 3 unspecified; E11.21 Type 2 diabetes mellitus with diabetic nephropathy; E11.22 Type 2 diabetes mellitus with diabetic chronic kidney disease; I48.91 Unspecified atrial fibrillation; I25.10 Atherosclerotic heart disease of native coronary artery without angina pectoris; E78.00 Pure hypercholesterolemia, unspecified; J44.9 Chronic obstructive pulmonary disease, unspecified; K21.9 Gastro-esophageal reflux disease without esophagitis; M19.90 Unspecified osteoarthritis, unspecified site; E11.40 Type 2 diabetes mellitus with diabetic neuropathy, unspecified; E66.9 Obesity, unspecified; Z68.35 Body mass index [BMI] 35.0-35.9, adult; Z79.82 Long term (current) use of aspirin; Z88.1 Allergy status to other antibiotic agents; Z86.73 Personal history of transient ischemic attack (TIA), and cerebral infarction without residual deficits; Z79.4 Long term (current) use of insulin
CPT/HCPCS: 36415; 71045; 80053; 81001; 83880; 84484; 85025; 87086; 93005; 93010; 96374; 99284; 99285-25; J1940

== ENCOUNTER 2020-09-07 18:41 | Emergency (ER) | payer MEDICARE, MEDICAID ==
[2020-09-07] MEDS ORDERED: Sodium Chloride 0.9% 10 ML Syringe FLUSH PRN (20:01)
--- NOTE | 2020-09-07 20:01 | EDM.PDOC ---
ED HPI GENERAL MEDICAL PROBLEM - General Chief Complaint: Respiratory Problem Stated Complaint: AMBULANCE Time Seen by Provider: 09/07/20 20:01 Source of Information: Reports: Patient History Limitations: Reports: No Limitations - History of Present Illness INITIAL COMMENTS - FREE TEXT/NARRATIVE: Patient comes emergency department today by ambulance from home with complaints of increasing shortness of breath. She relates over the past 3 to 4 days that she has had increasing shortness of breath. She feels like she is breathing faster than normal and is difficult for her to catch her breath. It is worse when she lays down. It is better when she is sitting up or standing. She has had no cough or congestion. No wheezing or stridor. No fever no chills. No chest pain chest pressure palpitations weakness dizziness lightheadedness. No syncope. She does complain of chronic abdominal distention but no abdominal pain nausea or vomiting. She does complain of urinary frequency without dysuria or hematuria. No black tarry stools. She does complain of increased edema to her lower extremities over the past couple of days as well. She noticed there is more edema to her abdomen and her lower extremities since she missed about 5 days of her diuretics. She was out of all of her medications for 5 days and she did not get them until yeseterday. She did take all of her prescribed medications yesterday and today once she got them. . generlized achiness all over. Arms and shoulders. Pain Score (Numeric/FACES): 10 - Related Data Allergies Allergy/AdvReac Type Severity Reaction Status Date / Time vancomycin Allergy Swelling Verified 09/07/20 18:54 Home Meds: Home Meds Potassium Chloride [Klor-Con 10] 10 meq PO DAILY 04/18/20 [History] Formoterol [Perforomist] 20 mcg INH BID 06/29/20 [History] Lidocaine 5% [Lidoderm 5%] 1 patch TOP DAILY 06/29/20 [History] Nicotine [Nicotine Patch] 14 mg TD DAILY 06/29/20 [History] traMADol [Ultram] 50 mg PO Q6H PRN 06/29/20 [History] Acetaminophen [Tylenol] 650 mg PO Q4H PRN tablet 07/01/20 [Rx] Albuterol Sulfate [Proair Hfa] 2 puff INH Q6H PRN #1 box 07/01/20 [Rx] Apixaban [Eliquis] 5 mg PO BID #60 tab 07/01/20 [Rx] Aspirin [Aspirin EC] 81 mg PO DAILY #30 tablet.dr 07/01/20 [Rx] Budesonide [Pulmicort] 0.5 mg NEB BIDRT #1 box 07/01/20 [Rx] Cyclobenzaprine [Flexeril] 10 mg PO TID PRN #90 tab 07/01/20 [Rx] Furosemide 80 mg PO DAILY #30 tablet 07/01/20 [Rx] Gabapentin [Neurontin] 800 mg PO TID #90 tab 07/01/20 [Rx] Insulin Detemir [Levemir] 35 units SQ DAILY #4 pen 07/01/20 [Rx] Nitroglycerin [Nitrostat] 0.4 mg PO .Q5MIN PRN #30 tab 07/01/20 [Rx] Omeprazole 20 mg PO ACBREAKFAST #30 cap.cr 07/01/20 [Rx] Patient's Own Medication [Ptom] 1 puff INH BID each 07/01/20 [Rx] Venlafaxine [Effexor XR] 150 mg PO DAILY #30 tab 07/01/20 [Rx] atorvaSTATin [Lipitor] 10 mg PO BEDTIME #30 tablet 07/01/20 [Rx] carvediloL [Coreg] 25 mg PO BIDMEALS #60 tablet 07/01/20 [Rx] Insulin Aspart [NovoLOG] 10 unit SQ TID 09/07/20 [History] Past Medical History HEENT History: Reports: Impaired Vision Other HEENT History: wears glasses Cardiovascular History: Reports: Afib, Aneurysm, Bacterial Endocarditis, CAD, Heart Failure, Heart Murmur, Heart Valve Replacement, High Cholesterol, Hypertension, CA, Pacemaker, Other (See Below) Other Cardiovascular History: Aortic valve endocarditis; CAD; s/p AVR; paro xysmal atrial fibrillation; essential hypertension; cardiac pacemaker in situ; tachy-angelique syndrome - all per [facility] records Respiratory History: Reports: COPD, Intubation, Previous, Pneumonia, Recurrent, SOB, Other (See Below) Other Respiratory History: hx hypoxemia Gastrointestinal History: Reports: Cholelithiasis, GERD Genitourinary History: Reports: Chronic Renal Insuffiency, Diabetic Nephropathy, Other (See Below) Other Genitourinary History: STAGE III CKD SOCIAL WORK ASSISTANT History: Reports: Other SOCIAL WORK ASSISTANT 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 1 C/S Musculoskeletal History: Reports: Arthritis, Back Pain, Chronic, Fracture, Osteoarthritis Other Musculoskeletal History: arthritis to spine, carpal tunnel to wrists. HX OF PROXIMAL HUMERS FRACTURE RIGHT Neurological History: Reports: Neuropathy, Diabetic, TIA, Other (See Below) Other Neuro History: CHRONIC PAIN SYNDROME Psychiatric History: Reports: Anxiety, Depression Endocrine/Metabolic History: Reports: Diabetes, Type II, Obesity/BMI 30+ Hematologic History: Reports: Other (See Below) Other Hematologic History: hx bacteremia, hyperkalemia, hyponatremia Immunologic History: Reports: None Oncologic (Cancer) History: Reports: None Dermatologic History: Reports: Other (See Below) Other Dermatologic History: hx impetigo, and pressure sore to buttocks - Infectious Disease History Infectious Disease History: Reports: None - Past Surgical History HEENT Surgical History: Reports: Tonsillectomy Cardiovascular Surgical History: Reports: Coronary Artery Bypass, Pacer, Valve Replacement Other Cardiovascular Surgeries/Procedures: Pacemaker placed 11/10/2013 Respiratory Surgical History: Reports: Other (See Below) Other Respiratory Surgeries/Procedures: BRONCHOSCOPY GI Surgical History: Reports: Appendectomy, Cholecystectomy, Colonoscopy Female Surgical History: Reports: Hysterectomy Endocrine Surgical History: Reports: None Neurological Surgical History: Reports: None Musculoskeletal Surgical History: Reports: Amputation, Hip Replacement, Other (See Below) Other Musculoskeletal Surgeries/Procedures:: left 1/2 foot. Distal portion of 2nd digit on right foot. Social & Family History - Family History Family Medical History: No Pertinent Family History Cardiac: Reports: Hypertension Respiratory: Reports: COPD Endocrine/Metabolic: Reports: Diabetes, type II - Tobacco Use Tobacco Use Status *Q: Current Every Day Tobacco User Years of Tobacco use: 30 Packs/Tins Daily: 0.3 - Caffeine Use Caffeine Use: Reports: Tea Caffeine Use Comment: Pt reports daily tea intake. - Recreational Drug Use Recreational Drug Use: No - Living Situation & Occupation Living situation: Reports: Alone Occupation: Disabled ED ROS GENERAL - Review of Systems Review Of Systems: Comprehensive ROS is negative, except as noted in HPI. ED EXAM, GENERAL - Physical Exam Exam: See Below Free Text/Narrative:: The nurse has her rate documented at 27 although when I see the patient her respiratory rate in 20 non-labored. Able to speak in full sentences. Exam Limited By: No Limitations General Appearance: Alert, WD/WN, No Apparent Distress Eye Exam: Bilateral Eye: EOMI Ears: Normal External Exam, Normal TMs Nose: Normal Inspection, Normal Mucosa Throat/Mouth: Normal Inspection, Normal Lips, Normal Oropharynx, Normal Voice Head: Atraumatic, Normocephalic Neck: Normal Inspection, Supple, Non-Tender Respiratory/Chest: No Respiratory Distress, No Accessory Muscle Use, Chest Non- Tender, Crackles (fine bibasilar crackles bilaterally. ). No: Respiratory Distress, Rhonchi, Wheezing Cardiovascular: Normal Peripheral Pulses, Regular Rate, Rhythm Peripheral Pulses: 1+: Posterior Tibial (L), Posterior Tibial (R), Dorsalis Pedis (L), Dorsalis Pedis (R), 2+: Radial (L), Radial (R) GI/Abdominal: Normal Bowel Sounds, Soft, Non-Tender, No Distention, Other (There is some soft tissue edema small amount to the abd as well. No wave concerning for ascites. ). No: Distended (Female) Exam: Deferred Rectal (Female) Exam: Deferred Back Exam: Normal Inspection, Full Range of Motion Extremities: Normal Range of Motion, Non-Tender, Pedal Edema (2-3+ pitting edema to the bilateral lower extremities more to the left than the right which is chronic per the paitnet.) Neurological: Alert, Oriented, CN II-XII Intact, Normal Cognition, No Motor/Sensory Deficits Psychiatric: Normal Affect, Normal Mood Skin Exam: Warm, Dry, Intact, Normal Color Course - Vital Signs Last Recorded V/S: Last Vital Signs Temp 96.5 F L 09/07/20 18:46 Pulse 98 09/07/20 20:38 Resp 22 H 09/07/20 20:38 BP 110/64 09/07/20 20:38 Pulse Ox 96 09/07/20 20:38 - Orders/Labs/Meds Orders: Active Orders 24 hr Category Date Time Status CULTURE URINE [RM] Stat Lab 09/07/20 19:40 Received Peripheral IV Insertion Adult [OM.PC] Stat Oth 09/07/20 20:02 Ordered Labs: Laboratory Tests 09/07/20 09/07/20 09/07/20 Range/Units 19:40 20:22 20:22 WBC 11.5 H (5.0-10.0) 10^3/uL RBC 4.61 (4.2-5.4) 10^6/uL Hgb 10.6 L (12.0-16.0) g/dL Hct 34.7 L (37.0-47.0) % MCV 75.3 L (80-100) fL MCH 23.0 L (27.0-34.0) pg MCHC 30.5 L (33.0-35.0) g/dL Plt Count 210 (150-450) 10^3/uL Neut % (Auto) 82.3 H (42.2-75.2) % Lymph % (Auto) 9.5 L (20.5-50.1) % Villalba % (Auto) 8.1 H (2-8) % Eos % (Auto) 0.0 L (1.0-3.0) % Baso % (Auto) 0.1 (0.0-1.0) % Sodium 138 (136-145) mmol/L Potassium 5.1 (3.5-5.1) mmol/L Chloride 104 (98-107) mmol/L Carbon Dioxide 25 (21-32) mmol/L Anion Gap 14.1 H (7-13) mEq/L BUN 22 H (7-18) mg/dL Creatinine 1.37 H (0.55-1.02) mg/dL Est Cr Clr Drug Dosing TNP Estimated GFR (MDRD) 39 BUN/Creatinine Ratio 16.1 (No establ ref range) Glucose 120 H (70-99) mg/dL Lactic Acid (0.4-2.0) mmol/L Calcium 8.2 L (8.5-10.1) mg/dL Magnesium 1.7 L (1.8-2.4) mg/dL Total Bilirubin 1.3 H (0.2-1.0) mg/dL AST 12 L (15-37) U/L ALT 13 L (14-59) U/L Alkaline Phosphatase 104 (46-116) U/L Troponin I < 0.017 (0.000-0.056) ng/mL C-Reactive Protein 2.9 H (0.0-0.9) mg/dL B-Natriuretic Peptide 1980 H (0-100) pg/ml Total Protein 6.2 L (6.4-8.2) g/dL Albumin 2.9 L (3.4-5.0) g/dL Globulin 3.3 Albumin/Globulin Ratio 0.88 Urine Color Yellow (YELLOW) Urine Appearance Cloudy (CLEAR) Urine pH 5.0 (5.0-9.0) Ur Specific Ashley 1.025 (1.005-1.030) Urine Protein 100 H (NEGATIVE) Urine Glucose (UA) Negative (NEGATIVE) Urine Ketones Negative (NEGATIVE) Urine Occult Blood Trace-intact H (NEGATIVE) Urine Nitrite Negative (NEGATIVE) Urine Bilirubin Negative (NEGATIVE) Urine Urobilinogen 0.2 (0.2-1.0) mg/dL Ur Leukocyte Esterase Small H (NEGATIVE) Urine RBC 0-5 /HPF Urine WBC 10-20 H (0-5/HPF) /HPF Ur Epithelial Cells Occasional (NOT SEEN) /HPF Amorphous Sediment Moderate H (NOT SEEN) /HPF Urine Bacteria Few (0-FEW/HPF) /HPF Urine Mucus Rare (NOT SEEN) /LPF SARS-CoV-2 RNA (TOM) (NEGATIVE) 09/07/20 09/07/20 Range/Units 20:22 20:28 WBC (5.0-10.0) 10^3/uL RBC (4.2-5.4) 10^6/uL Hgb (12.0-16.0) g/dL Hct (37.0-47.0) % MCV (80-100) fL MCH (27.0-34.0) pg MCHC (33.0-35.0) g/dL Plt Count (150-450) 10^3/uL Neut % (Auto) (42.2-75.2) % Lymph % (Auto) (20.5-50.1) % Villalba % (Auto) (2-8) % Eos % (Auto) (1.0-3.0) % Baso % (Auto) (0.0-1.0) % Sodium (136-145) mmol/L Potassium (3.5-5.1) mmol/L Chloride (98-107) mmol/L Carbon Dioxide (21-32) mmol/L Anion Gap (7-13) mEq/L BUN (7-18) mg/dL Creatinine (0.55-1.02) mg/dL Est Cr Clr Drug Dosing Estimated GFR (MDRD) BUN/Creatinine Ratio (No establ ref range) Glucose (70-99) mg/dL Lactic Acid 2.0 (0.4-2.0) mmol/L Calcium (8.5-10.1) mg/dL Magnesium (1.8-2.4) mg/dL Total Bilirubin (0.2-1.0) mg/dL AST (15-37) U/L ALT (14-59) U/L Alkaline Phosphatase (46-116) U/L Troponin I (0.000-0.056) ng/mL C-Reactive Protein (0.0-0.9) mg/dL B-Natriuretic Peptide (0-100) pg/ml Total Protein (6.4-8.2) g/dL Albumin (3.4-5.0) g/dL Globulin Albumin/Globulin Ratio Urine Color (YELLOW) Urine Appearance (CLEAR) Urine pH (5.0-9.0) Ur Specific Ashley (1.005-1.030) Urine Protein (NEGATIVE) Urine Glucose (UA) (NEGATIVE) Urine Ketones (NEGATIVE) Urine Occult Blood (NEGATIVE) Urine Nitrite (NEGATIVE) Urine Bilirubin (NEGATIVE) Urine Urobilinogen (0.2-1.0) mg/dL Ur Leukocyte Esterase (NEGATIVE) Urine RBC /HPF Urine WBC (0-5/HPF) /HPF Ur Epithelial Cells (NOT SEEN) /HPF Amorphous Sediment (NOT SEEN) /HPF Urine Bacteria (0-FEW/HPF) /HPF Urine Mucus (NOT SEEN) /LPF SARS-CoV-2 RNA (TOM) Negative (NEGATIVE) Meds: Medications Discontinued Medications Generic Name Dose Route Start Last Admin Trade Name Freq PRN Reason Stop Dose Admin Furosemide 40 mg 09/07/20 21:21 09/07/20 21:43 Furosemide 40 Mg/4 Ml Vial IVPUSH 09/07/20 21:22 40 mg ONETIME ONE Administration Ceftriaxone Sodium 1 gm/ 50 mls @ 100 mls/hr 09/07/20 21:22 09/07/20 21:46 Sodium Chloride IV 09/07/20 21:51 100 mls/hr ONETIME ONE Administration Sodium Chloride 10 ml 09/07/20 20:01 09/07/20 20:49 Sodium Chloride 0.9% 10 Ml Syringe FLUSH 10 ml ASDIRECTED PRN Administration Keep Vein Open - Radiology Interpretation Free Text/Narrative:: Superior radiology shows minimally enlarged cardio pericardial silhouette with mild to moderate central pulmonary venous congestion minimal edema. Small right pleural effusion. Cannot exclude pneumonia at the right lung base. - Re-Assessments/Exams Free Text/Narrative Re-Assessment/Exam: Laboratory evaluation with a mild elevation of her WBC at 11.5, hemoglobin 10.6 at baseline, platelet 210. CMP with a creatinine of 1.37 and BUN of 22 which is actually a little bit better than her baseline. Glucose 120 Lactic acid normal at 2.0. Troponin less than 0.017. CRP 2.8. BNP 1980 Urinalysis trace occult blood small leukocyte Estrace U RBCs are negative you WBCs 1020 Urine culture pending. Covid negative. Patient was given Rocephin 1 g IV piggyback for urinary tract infection urine culture is pending. She is also given 40 mg of Lasix in the emergency department. This patient has some worsening of her congestive heart failure and her edema most likely due to the cause of her not having her multiple medications for multiple days. She does take 80 mg of Lasix a day and not having that for 5 days could definitely cause a lot of her shortness of breath and her edema. We will continue her on her 80 mg of Lasix a day and have her add an extra 40 mg every day for the next 5 days. I want her to weigh herself daily. She is to follow-up with primary care in the next 5 days for recheck. Cathryn for urinary tract infection as well. Discharge directions as below are explained to the patient and her daughter they are comfortable with this plan and her questions were answered. Departure - Departure Time of Disposition: 21:59 Disposition: Home, Self-Care 01 Clinical Impression: Congestive heart failure Qualifiers: Heart failure type: unspecified Heart failure chronicity: acute on chronic Qualified Code(s): I50.9 - Heart failure, unspecified UTI (urinary tract infection) Qualifiers: Urinary tract infection type: acute cystitis Hematuria presence: without hematuria Qualified Code(s): N30.00 - Acute cystitis without hematuria - Discharge Information Instructions: Urinary Tract Infection, Adult, Heart Failure, Diagnosis, [id number] Referrals: Regis Manning [Primary Care Provider] - Forms: ED Department Discharge Additional Instructions: Cephalexin 1 capsule 4 times a day for the next 5 days for the UTI. RX given to the patient start on wednesday. Currently you take 80mg of lasix in the morning. Continue with that but for the next 5 days, take 40mg of lasix early after noon. Weight yourself daily and keep track of it. Continue your other previous medication. Follow up with PCP in Wednesday of next week for recheck. Return to the ED if new or worsening symptoms. Sepsis Event Note (ED) - Evaluation Sepsis Screening Result: No Definite Risk - Focused Exam Vital Signs: Vital Signs Temp Pulse Resp BP Pulse Ox 09/07/20 20:38 98 22 H 110/64 96 09/07/20 18:46 96.5 F L 100 27 H 137/69 99 - My Orders Last 24 Hours: My Active Orders 09/07/20 19:40 CULTURE URINE [RM] Stat 09/07/20 20:02 Peripheral IV Insertion Adult [OM.PC] Stat - Assessment/Plan Last 24 Hours: My Active Orders 09/07/20 19:40 CULTURE URINE [RM] Stat 09/07/20 20:02 Peripheral IV Insertion Adult [OM.PC] Stat
[2020-09-07 20:38] VITALS: BP 110/64; PULSE 98
[2020-09-07 20:51] LABS: ANION GAP 14.1 mEq/L (7-13); CHLORIDE,CL 104 mmol/L (98-107); SODIUM,NA 138 mmol/L (136-145)
--- NOTE | 2020-09-07 20:58 | CR ---
PROCEDURE INFORMATION: Exam: XR Chest Exam date and time: 09/07/2020 8:11 PM Age: 65 years old Clinical indication: Shortness of breath; Additional info: SOB TECHNIQUE: Imaging protocol: XR of the chest. Views: 1 view. Total images: 1 COMPARISON: CR Chest 1V Frontal 08/31/2020 11:50 PM FINDINGS: Lungs: Moderate central pulmonary venous congestion. Pleural spaces: Suspect small right pleural effusion. Heart/Mediastinum: Moderate enlargement of the cardiopericardial silhouette. Bones/joints: Old deformity right shoulder again noted. Sternotomy wires. Cardiac leads IMPRESSION: 1. Minimally enlarged cardiopericardial silhouette with mild to moderate central pulmonary venous congestion/minimal edema. 2. Small right pleural effusion. 3. Cannot exclude pneumonia at the right lung base.
[2020-09-07] MEDS ORDERED: Furosemide 40 MG/4 ML VIAL IVPUSH ONE (21:21)
[2020-09-07] MEDS ORDERED: cefTRIAXone 1 GM in Sodium Chloride 0.9% 50 ML IV ONE (21:22)
--- NOTE | 2020-09-07 22:17 | PCM.EKG ---
#1 Interpretation EKG Date: 09/07/20 Time: 20:22 Rhythm: A-Fib Rate (Beats/Min): 75 [place]: Normal P-Wave: Present QRS: LBBB ST-T: Normal QT: Normal Comparison: No Change
== END 2020-09-07 22:32 | disposition home or self-care (01) ==
LOC: DL.ED 18:41
DX: N30.00 Acute cystitis without hematuria (principal); I13.0 Hypertensive heart and chronic kidney disease with heart failure and stage 1 through stage 4 chronic kidney disease, or unspecified chronic kidney disease; I48.91 Unspecified atrial fibrillation; E11.22 Type 2 diabetes mellitus with diabetic chronic kidney disease; N18.9 Chronic kidney disease, unspecified; I50.9 Heart failure, unspecified; K21.9 Gastro-esophageal reflux disease without esophagitis; J44.9 Chronic obstructive pulmonary disease, unspecified; E11.40 Type 2 diabetes mellitus with diabetic neuropathy, unspecified; I25.2 Old myocardial infarction; I25.10 Atherosclerotic heart disease of native coronary artery without angina pectoris; Z95.1 Presence of aortocoronary bypass graft; Z20.822 Contact with and (suspected) exposure to COVID-19; Z79.82 Long term (current) use of aspirin; Z79.01 Long term (current) use of anticoagulants; Z79.899 Other long term (current) drug therapy; Z72.0 Tobacco use
CPT/HCPCS: 36415; 71045; 80053; 81001; 83605; 83735; 83880; 84484; 85025; 86140; 87086; 93005; 96365; 96375; 99284; 99285-25; J0696; J1940; U0002

== ENCOUNTER 2021-04-21 23:43 | Emergency (ER) | payer MEDICARE, MEDICAID ==
[2021-04-22] MEDS ORDERED: 50% Dextrose in Water 50 ML Syringe IVPUSH ONE (00:23)
[2021-04-22] MEDS ORDERED: 50% Dextrose in Water 50 ML Syringe ONE (00:24)
--- NOTE | 2021-04-22 00:26 | EDM.PDOC ---
ED HPI GENERAL MEDICAL PROBLEM - General Stated Complaint: AMBULANCE Time Seen by Provider: 04/22/21 00:10 Source of Information: Reports: EMS History Limitations: Reports: Altered Mental Status - History of Present Illness INITIAL COMMENTS - FREE TEXT/NARRATIVE: This 65 yo female patient was brought to the ED by [facility] due to breathing difficulties. EMS had given the patient a Duoneb and placed her on a non rebreather mask. Upon arrival in the ED, the patient would open her eyes to verbal stimuli, but was not responding verbally to questions asked. The patient's blood sugar level upon arrival in the ED was 57. Onset: Unknown/Unsure Duration: Constant Location: Reports: Generalized Quality: Reports: Other Severity: Moderate Improves with: Reports: None Worsens with: Reports: None Context: Reports: Other Associated Symptoms: Reports: No Other Symptoms - Related Data Allergies Allergy/AdvReac Type Severity Reaction Status Date / Time vancomycin Allergy Swelling Verified 09/07/20 18:54 Home Meds: Home Meds Potassium Chloride [Klor-Con 10] 10 meq PO DAILY 04/18/20 [History] Formoterol [Perforomist] 20 mcg INH BID 06/29/20 [History] Lidocaine 5% [Lidoderm 5%] 1 patch TOP DAILY 06/29/20 [History] Nicotine [Nicotine Patch] 14 mg TD DAILY 06/29/20 [History] traMADol [Ultram] 50 mg PO Q6H PRN 06/29/20 [History] Acetaminophen [Tylenol] 650 mg PO Q4H PRN tablet 07/01/20 [Rx] Albuterol Sulfate [Proair Hfa] 2 puff INH Q6H PRN #1 box 07/01/20 [Rx] Apixaban [Eliquis] 5 mg PO BID #60 tab 07/01/20 [Rx] Aspirin [Aspirin EC] 81 mg PO DAILY #30 tablet. 07/01/20 [Rx] Budesonide [Pulmicort] 0.5 mg NEB BIDRT #1 box 07/01/20 [Rx] Cyclobenzaprine [Flexeril] 10 mg PO TID PRN #90 tab 07/01/20 [Rx] Furosemide 80 mg PO DAILY #30 tablet 07/01/20 [Rx] Gabapentin [Neurontin] 800 mg PO TID #90 tab 07/01/20 [Rx] Insulin Detemir [Levemir] 35 units SQ DAILY #4 pen 07/01/20 [Rx] Nitroglycerin [Nitrostat] 0.4 mg PO .Q5MIN PRN #30 tab 07/01/20 [Rx] Omeprazole 20 mg PO ACBREAKFAST #30 cap.cr 07/01/20 [Rx] Patient's Own Medication [Ptom] 1 puff INH BID each 07/01/20 [Rx] Venlafaxine [Effexor XR] 150 mg PO DAILY #30 tab 07/01/20 [Rx] atorvaSTATin [Lipitor] 10 mg PO BEDTIME #30 tablet 07/01/20 [Rx] carvediloL [Coreg] 25 mg PO BIDMEALS #60 tablet 07/01/20 [Rx] Insulin Aspart [NovoLOG] 10 unit SQ TID 09/07/20 [History] Past Medical History HEENT History: Reports: Impaired Vision Other HEENT History: wears glasses Cardiovascular History: Reports: Afib, Aneurysm, Bacterial Endocarditis, CAD, Heart Failure, Heart Murmur, Heart Valve Replacement, High Cholesterol, Hypertension, NM, Pacemaker, Other (See Below) Other Cardiovascular History: Aortic valve endocarditis; CAD; s/p AVR; paroxysmal atrial fibrillation; essential hypertension; cardiac pacemaker in situ; tachy-angelique syndrome - all per [facility] records Respiratory History: Reports: COPD, Intubation, Previous, Pneumonia, Recurrent, SOB, Other (See Below) Other Respiratory History: hx hypoxemia Gastrointestinal History: Reports: Cholelithiasis, GERD Genitourinary History: Reports: Chronic Renal Insuffiency, Diabetic Nephropathy, Other (See Below) Other Genitourinary History: STAGE III CKD 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 1 C/S Musculoskeletal History: Reports: Arthritis, Back Pain, Chronic, Fracture, Osteoarthritis Other Musculoskeletal History: arthritis to spine, carpal tunnel to wrists. HX OF PROXIMAL HUMERS FRACTURE RIGHT Neurological History: Reports: Neuropathy, Diabetic, TIA, Other (See Below) Other Neuro History: CHRONIC PAIN SYNDROME Psychiatric History: Reports: Anxiety, Depression Endocrine/Metabolic History: Reports: Diabetes, Type II, Obesity/BMI 30+ Hematologic History: Reports: Other (See Below) Other Hematologic History: hx bacteremia, hyperkalemia, hyponatremia Immunologic History: Reports: None Oncologic (Cancer) History: Reports: None Dermatologic History: Reports: Other (See Below) Other Dermatologic History: hx impetigo, and pressure sore to buttocks - Infectious Disease History Infectious Disease History: Reports: None - Past Surgical History HEENT Surgical History: Reports: Tonsillectomy Cardiovascular Surgical History: Reports: Coronary Artery Bypass, Pacer, Valve Replacement Other Cardiovascular Surgeries/Procedures: Pacemaker placed 11/10/2013 Respiratory Surgical History: Reports: Other (See Below) Other Respiratory Surgeries/Procedures: BRONCHOSCOPY GI Surgical History: Reports: Appendectomy, Cholecystectomy, Colonoscopy Female Surgical History: Reports: Hysterectomy Endocrine Surgical History: Reports: None Neurological Surgical History: Reports: None Musculoskeletal Surgical History: Reports: Amputation, Hip Replacement, Other (See Below) Other Musculoskeletal Surgeries/Procedures:: left 1/2 foot. Distal portion of 2nd digit on right foot. Social & Family History - Family History Family Medical History: No Pertinent Family History Cardiac: Reports: Hypertension Respiratory: Reports: COPD Endocrine/Metabolic: Reports: Diabetes, type II - Caffeine Use Caffeine Use: Reports: Tea Caffeine Use Comment: Pt reports daily tea intake. - Living Situation & Occupation Living situation: Reports: Alone Occupation: Disabled ED ROS GENERAL - Review of Systems Review Of Systems: Comprehensive ROS is negative, except as noted in HPI. ED EXAM, GENERAL - Physical Exam Exam: See Below Exam Limited By: No Limitations General Appearance: Moderate Distress, Other (Responding to verbal stimuli) Eye Exam: Bilateral Eye: EOMI, Normal Inspection, PERRL Ears: Normal External Exam, Normal Canal, Hearing Grossly Normal, Normal TMs Nose: Normal Inspection, Normal Mucosa, No Blood Throat/Mouth: Normal Inspection, Normal Lips, Normal Teeth, Normal Gums, Normal Oropharynx, Normal Voice, No Airway Compromise Head: Atraumatic, Normocephalic Neck: Normal Inspection, Supple, Non-Tender, Full Range of Motion Respiratory/Chest: Decreased Breath Sounds, Crackles Cardiovascular: Normal Peripheral Pulses, Regular Rate, Rhythm, No Edema, No Gallop, No JVD, No Murmur, No Rub GI/Abdominal: Normal Bowel Sounds, Soft, Non-Tender, No Organomegaly, No Distention, No Abnormal Bruit, No Mass (Female) Exam: Deferred Rectal (Female) Exam: Deferred Back Exam: Normal Inspection, Full Range of Motion, NT Extremities: Normal Inspection, Normal Range of Motion, Non-Tender, Normal Capillary Refill, No Pedal Edema Neurological: Alert, Oriented, CN II-XII Intact, Normal Cognition, Normal Gait, Normal Reflexes, No Motor/Sensory Deficits Psychiatric: Normal Affect, Normal Mood Skin Exam: Warm, Dry, Intact, Normal Color, No Rash Lymphatic: No Adenopathy #1 Interpretation EKG Date: 04/22/21 Time: 01:21 Rhythm: Other (Paced rhythm) Rate (Beats/Min): 79 Comparison: No Change Course - Vital Signs Last Recorded V/S: Last Vital Signs Temp 96.8 F L 04/22/21 03:45 Pulse 72 04/22/21 03:45 Resp 18 04/22/21 03:45 BP 135/73 04/22/21 03:45 Pulse Ox 92 L 04/22/21 03:45 - Orders/Labs/Meds Orders: Active Orders 24 hr Category Date Time Status Blood Glucose Check, Bedside [RC] ONETIME Care 04/22/21 01:21 Active B-TYPE NATRIURETIC PEPTIDE,BNP [CHEM] Stat Lab 04/22/21 00:30 Results COMPREHENSIVE METABOLIC PN,CMP [CHEM] Stat Lab 04/22/21 00:30 Results CULTURE BLOOD [BC] Stat Lab 04/22/21 00:30 Received ETHANOL BLOOD MEDICAL [CHEM] Stat Lab 04/22/21 00:30 Results TROPONIN I HIGH SENSITIVITY [CHEM] Stat Lab 04/22/21 00:30 Results Labs: Laboratory Tests 04/22/21 04/22/21 04/22/21 Range/Units 00:22 00:30 00:30 WBC 11.4 H (5.0-10.0) 10^3/uL RBC 3.76 L (4.2-5.4) 10^6/uL Hgb 9.9 L (12.0-16.0) g/dL Hct 30.2 L (37.0-47.0) % MCV 80.3 D (80-100) fL MCH 26.3 L (27.0-34.0) pg MCHC 32.8 L (33.0-35.0) g/dL Plt Count 169 (150-450) 10^3/uL Neut % (Auto) 85.3 H (42.2-75.2) % Lymph % (Auto) 5.6 L (20.5-50.1) % [place] % (Auto) 7.8 (2-8) % Eos % (Auto) 1.2 (1.0-3.0) % Baso % (Auto) 0.1 (0.0-1.0) % Sodium 132 L (136-145) mmol/L Potassium 2.4 L* D (3.5-5.1) mmol/L Chloride 90 L D (98-107) mmol/L Carbon Dioxide 29 (21-32) mmol/L Anion Gap 15.4 H (7-13) mEq/L BUN 94 H D (7-18) mg/dL Creatinine 2.34 H (0.55-1.02) mg/dL Est Cr Clr Drug Dosing TNP Estimated GFR (MDRD) 21 BUN/Creatinine Ratio 40.2 (No establ ref range) Glucose 61 L (70-99) mg/dL POC Glucose 57 L (70-99) mg/dL Lactic Acid (0.4-2.0) mmol/L Calcium 8.3 L (8.5-10.1) mg/dL Total Bilirubin 0.7 (0.2-1.0) mg/dL AST 12 L (15-37) U/L ALT 14 (14-59) U/L Alkaline Phosphatase 94 (46-116) U/L Troponin I High Sens 36 (<=51) pg/mL Total Protein 7.8 (6.4-8.2) g/dL Albumin 2.9 L (3.4-5.0) g/dL Globulin 4.9 Albumin/Globulin Ratio 0.59 Urine Color (YELLOW) Urine Appearance (CLEAR) Urine pH (5.0-9.0) Ur Specific [place] (1.005-1.030) Urine Protein (NEGATIVE) Urine Glucose (UA) (NEGATIVE) Urine Ketones (NEGATIVE) Urine Occult Blood (NEGATIVE) Urine Nitrite (NEGATIVE) Urine Bilirubin (NEGATIVE) Urine Urobilinogen (0.2-1.0) mg/dL Ur Leukocyte Esterase (NEGATIVE) Urine RBC (0-5) /HPF Urine WBC (0-5/HPF) /HPF Ur Epithelial Cells (NOT SEEN) /HPF Urine Bacteria (0-FEW/HPF) /HPF Urine Opiates Screen (NEGATIVE) Ur Oxycodone Screen (NEGATIVE) Urine Methadone Screen (NEGATIVE) Ur Barbiturates Screen (NEGATIVE) U Tricyclic Antidepress (NEGATIVE) Ur Phencyclidine Scrn (NEGATIVE) Ur Amphetamine Screen (NEGATIVE) U Methamphetamines Scrn (NEGATIVE) Urine MDMA Screen (NEGATIVE) U Benzodiazepines Scrn (NEGATIVE) Urine Cocaine Screen (NEGATIVE) U Marijuana (THC) Screen (NEGATIVE) Ethyl Alcohol < 3 (0) mg/dL Influenza Type A RNA (NEGATIVE) Influenza Type B RNA (NEGATIVE) SARS-CoV-2 RNA (TOM) (NEGATIVE) 04/22/21 04/22/21 04/22/21 Range/Units 00:30 00:30 01:26 WBC (5.0-10.0) 10^3/uL RBC (4.2-5.4) 10^6/uL Hgb (12.0-16.0) g/dL Hct (37.0-47.0) % MCV (80-100) fL MCH (27.0-34.0) pg MCHC (33.0-35.0) g/dL Plt Count (150-450) 10^3/uL Neut % (Auto) (42.2-75.2) % Lymph % (Auto) (20.5-50.1) % [place] % (Auto) (2-8) % Eos % (Auto) (1.0-3.0) % Baso % (Auto) (0.0-1.0) % Sodium (136-145) mmol/L Potassium (3.5-5.1) mmol/L Chloride (98-107) mmol/L Carbon Dioxide (21-32) mmol/L Anion Gap (7-13) mEq/L BUN (7-18) mg/dL Creatinine (0.55-1.02) mg/dL Est Cr Clr Drug Dosing Estimated GFR (MDRD) BUN/Creatinine Ratio (No establ ref range) Glucose (70-99) mg/dL POC Glucose 154 H (70-99) mg/dL Lactic Acid 0.9 (0.4-2.0) mmol/L Calcium (8.5-10.1) mg/dL Total Bilirubin (0.2-1.0) mg/dL AST (15-37) U/L ALT (14-59) U/L Alkaline Phosphatase (46-116) U/L Troponin I High Sens (<=51) pg/mL Total Protein (6.4-8.2) g/dL Albumin (3.4-5.0) g/dL Globulin Albumin/Globulin Ratio Urine Color (YELLOW) Urine Appearance (CLEAR) Urine pH (5.0-9.0) Ur Specific [place] (1.005-1.030) Urine Protein (NEGATIVE) Urine Glucose (UA) (NEGATIVE) Urine Ketones (NEGATIVE) Urine Occult Blood (NEGATIVE) Urine Nitrite (NEGATIVE) Urine Bilirubin (NEGATIVE) Urine Urobilinogen (0.2-1.0) mg/dL Ur Leukocyte Esterase (NEGATIVE) Urine RBC (0-5) /HPF Urine WBC (0-5/HPF) /HPF Ur Epithelial Cells (NOT SEEN) /HPF Urine Bacteria (0-FEW/HPF) /HPF Urine Opiates Screen (NEGATIVE) Ur Oxycodone Screen (NEGATIVE) Urine Methadone Screen (NEGATIVE) Ur Barbiturates Screen (NEGATIVE) U Tricyclic Antidepress (NEGATIVE) Ur Phencyclidine Scrn (NEGATIVE) Ur Amphetamine Screen (NEGATIVE) U Methamphetamines Scrn (NEGATIVE) Urine MDMA Screen (NEGATIVE) U Benzodiazepines Scrn (NEGATIVE) Urine Cocaine Screen (NEGATIVE) U Marijuana (THC) Screen (NEGATIVE) Ethyl Alcohol (0) mg/dL Influenza Type A RNA Negative (NEGATIVE) Influenza Type B RNA Negative (NEGATIVE) SARS-CoV-2 RNA (TOM) Negative (NEGATIVE) 04/22/21 04/22/21 04/22/21 Range/Units 02:04 03:06 03:49 WBC (5.0-10.0) 10^3/uL RBC (4.2-5.4) 10^6/uL Hgb (12.0-16.0) g/dL Hct (37.0-47.0) % MCV (80-100) fL MCH (27.0-34.0) pg MCHC (33.0-35.0) g/dL Plt Count (150-450) 10^3/uL Neut % (Auto) (42.2-75.2) % Lymph % (Auto) (20.5-50.1) % [place] % (Auto) (2-8) % Eos % (Auto) (1.0-3.0) % Baso % (Auto) (0.0-1.0) % Sodium (136-145) mmol/L Potassium (3.5-5.1) mmol/L Chloride (98-107) mmol/L Carbon Dioxide (21-32) mmol/L Anion Gap (7-13) mEq/L BUN (7-18) mg/dL Creatinine (0.55-1.02) mg/dL Est Cr Clr Drug Dosing Estimated GFR (MDRD) BUN/Creatinine Ratio (No establ ref range) Glucose (70-99) mg/dL POC Glucose 141 H 128 H (70-99) mg/dL Lactic Acid (0.4-2.0) mmol/L Calcium (8.5-10.1) mg/dL Total Bilirubin (0.2-1.0) mg/dL AST (15-37) U/L ALT (14-59) U/L Alkaline Phosphatase (46-116) U/L Troponin I High Sens (<=51) pg/mL Total Protein (6.4-8.2) g/dL Albumin (3.4-5.0) g/dL Globulin Albumin/Globulin Ratio Urine Color Yellow (YELLOW) Urine Appearance Clear (CLEAR) Urine pH 5.5 (5.0-9.0) Ur Specific [place] <= 1.005 (1.005-1.030) Urine Protein Negative (NEGATIVE) Urine Glucose (UA) Negative (NEGATIVE) Urine Ketones Negative (NEGATIVE) Urine Occult Blood Trace-intact H (NEGATIVE) Urine Nitrite Negative (NEGATIVE) Urine Bilirubin Negative (NEGATIVE) Urine Urobilinogen 0.2 (0.2-1.0) mg/dL Ur Leukocyte Esterase Negative (NEGATIVE) Urine RBC 0-5 (0-5) /HPF Urine WBC Not seen (0-5/HPF) /HPF Ur Epithelial Cells Rare (NOT SEEN) /HPF Urine Bacteria Not seen (0-FEW/HPF) /HPF Urine Opiates Screen (NEGATIVE) Ur Oxycodone Screen (NEGATIVE) Urine Methadone Screen (NEGATIVE) Ur Barbiturates Screen (NEGATIVE) U Tricyclic Antidepress (NEGATIVE) Ur Phencyclidine Scrn (NEGATIVE) Ur Amphetamine Screen (NEGATIVE) U Methamphetamines Scrn (NEGATIVE) Urine MDMA Screen (NEGATIVE) U Benzodiazepines Scrn (NEGATIVE) Urine Cocaine Screen (NEGATIVE) U Marijuana (THC) Screen (NEGATIVE) Ethyl Alcohol (0) mg/dL Influenza Type A RNA (NEGATIVE) Influenza Type B RNA (NEGATIVE) SARS-CoV-2 RNA (TOM) (NEGATIVE) 04/22/21 Range/Units 03:49 WBC (5.0-10.0) 10^3/uL RBC (4.2-5.4) 10^6/uL Hgb (12.0-16.0) g/dL Hct (37.0-47.0) % MCV (80-100) fL MCH (27.0-34.0) pg MCHC (33.0-35.0) g/dL Plt Count (150-450) 10^3/uL Neut % (Auto) (42.2-75.2) % Lymph % (Auto) (20.5-50.1) % [place] % (Auto) (2-8) % Eos % (Auto) (1.0-3.0) % Baso % (Auto) (0.0-1.0) % Sodium (136-145) mmol/L Potassium (3.5-5.1) mmol/L Chloride (98-107) mmol/L Carbon Dioxide (21-32) mmol/L Anion Gap (7-13) mEq/L BUN (7-18) mg/dL Creatinine (0.55-1.02) mg/dL Est Cr Clr Drug Dosing Estimated GFR (MDRD) BUN/Creatinine Ratio (No establ ref range) Glucose (70-99) mg/dL POC Glucose (70-99) mg/dL Lactic Acid (0.4-2.0) mmol/L Calcium (8.5-10.1) mg/dL Total Bilirubin (0.2-1.0) mg/dL AST (15-37) U/L ALT (14-59) U/L Alkaline Phosphatase (46-116) U/L Troponin I High Sens (<=51) pg/mL Total Protein (6.4-8.2) g/dL Albumin (3.4-5.0) g/dL Globulin Albumin/Globulin Ratio Urine Color (YELLOW) Urine Appearance (CLEAR) Urine pH (5.0-9.0) Ur Specific [place] (1.005-1.030) Urine Protein (NEGATIVE) Urine Glucose (UA) (NEGATIVE) Urine Ketones (NEGATIVE) Urine Occult Blood (NEGATIVE) Urine Nitrite (NEGATIVE) Urine Bilirubin (NEGATIVE) Urine Urobilinogen (0.2-1.0) mg/dL Ur Leukocyte Esterase (NEGATIVE) Urine RBC (0-5) /HPF Urine WBC (0-5/HPF) /HPF Ur Epithelial Cells (NOT SEEN) /HPF Urine Bacteria (0-FEW/HPF) /HPF Urine Opiates Screen Negative (NEGATIVE) Ur Oxycodone Screen Negative (NEGATIVE) Urine Methadone Screen Negative (NEGATIVE) Ur Barbiturates Screen Negative (NEGATIVE) U Tricyclic Antidepress Positive H (NEGATIVE) Ur Phencyclidine Scrn Negative (NEGATIVE) Ur Amphetamine Screen Negative (NEGATIVE) U Methamphetamines Scrn Negative (NEGATIVE) Urine MDMA Screen Negative (NEGATIVE) U Benzodiazepines Scrn Negative (NEGATIVE) Urine Cocaine Screen Negative (NEGATIVE) U Marijuana (THC) Screen Negative (NEGATIVE) Ethyl Alcohol (0) mg/dL Influenza Type A RNA (NEGATIVE) Influenza Type B RNA (NEGATIVE) SARS-CoV-2 RNA (TOM) (NEGATIVE) Meds: Medications Discontinued Medications Generic Name Dose Route Start Last Admin Trade Name Freq PRN Reason Stop Dose Admin Dextrose/Water 50 ml 04/22/21 00:23 04/22/21 00:25 50% Dextrose In Water 50 Ml Syringe IVPUSH 04/22/21 00:24 50 ml ONETIME ONE Administration Dextrose/Water Confirm 04/22/21 00:24 50% Dextrose In Water 50 Ml Syringe Administered 04/22/21 00:25 Dose 50 ml .ROUTE .STK-MED ONE Potassium Chloride 10 meq/ 100 mls @ 100 mls/hr 04/22/21 01:19 04/22/21 01:39 Premix IV 04/22/21 02:18 100 mls/hr ONETIME ONE Administration Potassium Chloride 10 meq/ 100 mls @ 100 mls/hr 04/22/21 02:39 04/22/21 02:47 Premix IV 04/22/21 03:38 100 mls/hr ONETIME ONE Administration - Radiology Interpretation Free Text/Narrative:: [facility] [place] [facility] Final Radiology Report Call: [phone] assistance Online chat: [email or web address] Name: TORY CONTI Age: 65Years F Date: 04/22/2021 SSN: -- : 1955 Study: CT HEAD WO CONT Requesting Physician: Loyd Lester Images: [id number] Addl Studies: Provided Clinical History: Altered mentation Contrast: Without Contrast Medium: Contrast Amount: Contrast Method: Page 1 of 2 PROCEDURE INFORMATION: Exam: CT Head Without Contrast Exam date and time: 04/22/2021 12:45 AM Age: 65 years old Clinical indication: Other: Altered mentation TECHNIQUE: Imaging protocol: Computed tomography of the head without contrast. Radiation optimization: All CT scans at this facility use at least one of these dose optimization techniques: automated exposure control; mA and/or kV adjustment per patient size (includes targeted exams where dose is matched to clinical indication); or iterative reconstruction. COMPARISON: (No prior similar studies are available for comparison.) FINDINGS: There is no mass lesion or mass effect. There is diffuse central and cortical atrophy consistent with age. There is no CT evidence of acute parenchymal ischemia. There is no intra-axial or extra-axial hemorrhage. There is no evidence of acute obstructive sinonasal disease. Mastoid air cells are grossly normal. Visualized osseous structures are normal. Other findings: EXAM TYPE: CT of the BRAIN; DATE AND TIME: 04/22/2021 12:45 AM; CLINICAL INFORMATION:; Other: Altered mentation IMPRESSION: 1. Central and cortical atrophy consistent with age. 2. No CT evidence of acute infarction, intracranial hemorrhage or mass. Thank you for allowing us to participate in the care of your patient. Dictated and Authenticated by: Bucky Baca MD 04/22/2021 1:49 AM Central Time ([place] & [place]) - Re-Assessments/Exams Free Text/Narrative Re-Assessment/Exam: 04/22/21 03:57 At reassessment, the patient was able to carry on a conversation regarding her lab results and treatments. The patient reports she has been taking her medications as prescribed. Departure - Departure Time of Disposition: 04:22 Disposition: Home, Self-Care 01 Condition: Fair Clinical Impression: Hypoglycemia, Hypokalemia - Discharge Information *PRESCRIPTION DRUG MONITORING PROGRAM REVIEWED*: Not Applicable *COPY OF PRESCRIPTION DRUG MONITORING REPORT IN PATIENT XOCHILT: Not Applicable Instructions: Hypoglycemia, [id number], Hypokalemia Forms: ED Department Discharge Care Plan Goals: The patient was advised of the examination, lab and treatments given during the visit. The patient was given an IV dose of dextrose and 2 infusions of potassium while in the ED. The patient was encouraged to continue to take all of her prescription medications as written. The patient should follow-up with her primary care facility within the next week. If the patient has any additional symptoms or concerns, the patient should either return to the ED or visit her [facility] facility. Sepsis Event Note (ED) - Focused Exam Vital Signs: Vital Signs Temp Pulse Resp BP Pulse Ox 04/22/21 03:45 96.8 F L 72 18 135/73 92 L 04/22/21 01:45 96.8 F L 76 16 109/78 94 L 04/22/21 00:40 98 04/22/21 00:35 84 L 04/21/21 23:55 98.8 F 78 22 H 139/91 H 92 L - My Orders Last 24 Hours: My Active Orders 04/22/21 00:30 B-TYPE NATRIURETIC PEPTIDE,BNP [CHEM] Stat COMPREHENSIVE METABOLIC PN,CMP [CHEM] Stat CULTURE BLOOD [BC] Stat ETHANOL BLOOD MEDICAL [CHEM] Stat TROPONIN I HIGH SENSITIVITY [CHEM] Stat 04/22/21 01:21 Blood Glucose Check, Bedside [RC] ONETIME - Assessment/Plan Last 24 Hours: My Active Orders 04/22/21 00:30 B-TYPE NATRIURETIC PEPTIDE,BNP [CHEM] Stat COMPREHENSIVE METABOLIC PN,CMP [CHEM] Stat CULTURE BLOOD [BC] Stat ETHANOL BLOOD MEDICAL [CHEM] Stat TROPONIN I HIGH SENSITIVITY [CHEM] Stat 04/22/21 01:21 Blood Glucose Check, Bedside [RC] ONETIME
[2021-04-22 01:06] LABS: ANION GAP 15.4 mEq/L (7-13); CHLORIDE,CL 90 mmol/L (98-107); SODIUM,NA 132 mmol/L (136-145)
[2021-04-22 01:17] LABS: CORONAVIRUS COVID-19 NAA NEGATIVE (NEGATIVE)
[2021-04-22] MEDS ORDERED: Potassium Chloride 10 MEQ in Premix Bag 1 BAG IV ONE ×2 (01:19→02:39)
--- NOTE | 2021-04-22 01:50 | CT ---
PROCEDURE INFORMATION: Exam: CT Head Without Contrast Exam date and time: 04/22/2021 12:45 AM Age: 65 years old Clinical indication: Other: Altered mentation TECHNIQUE: Imaging protocol: Computed tomography of the head without contrast. Radiation optimization: All CT scans at this facility use at least one of these dose optimization techniques: automated exposure control; mA and/or kV adjustment per patient size (includes targeted exams where dose is matched to clinical indication); or iterative reconstruction. COMPARISON: (No prior similar studies are available for comparison.) FINDINGS: There is no mass lesion or mass effect. There is diffuse central and cortical atrophy consistent with age. There is no CT evidence of acute parenchymal ischemia. There is no intra-axial or extra-axial hemorrhage. There is no evidence of acute obstructive sinonasal disease. Mastoid air cells are grossly normal. Visualized osseous structures are normal. Other findings: EXAM TYPE: CT of the BRAIN; DATE AND TIME: 04/22/2021 12:45 AM; CLINICAL INFORMATION:; Other: Altered mentation IMPRESSION: 1. Central and cortical atrophy consistent with age. 2. No CT evidence of acute infarction, intracranial hemorrhage or mass.
[2021-04-22 03:50] VITALS: BP 135/73; PULSE 72
[2021-04-22 03:53] LABS: AMPHETAMINES,URINE NEGATIVE (NEGATIVE); BARBITURATES,URINE NEGATIVE (NEGATIVE); BENZODIAZEPINE,URINE NEGATIVE (NEGATIVE); MDMA (ECSTASY), URINE NEGATIVE (NEGATIVE); METHADONE,URINE NEGATIVE (NEGATIVE); METHAMPHETAMINES,URINE NEGATIVE (NEGATIVE); OPIATES,URINE NEGATIVE (NEGATIVE); OXYCODONE,URINE NEGATIVE (NEGATIVE); PHENCYCLIDINE,URINE NEGATIVE (NEGATIVE); TCA,URINE POSITIVE (NEGATIVE)
== END 2021-04-22 06:54 | disposition home or self-care (01) ==
LOC: DL.ED 23:43
DX: E11.649 Type 2 diabetes mellitus with hypoglycemia without coma (principal); E87.6 Hypokalemia; I48.91 Unspecified atrial fibrillation; I25.10 Atherosclerotic heart disease of native coronary artery without angina pectoris; E78.00 Pure hypercholesterolemia, unspecified; I13.0 Hypertensive heart and chronic kidney disease with heart failure and stage 1 through stage 4 chronic kidney disease, or unspecified chronic kidney disease; E11.22 Type 2 diabetes mellitus with diabetic chronic kidney disease; E11.21 Type 2 diabetes mellitus with diabetic nephropathy; N18.30 Chronic kidney disease, stage 3 unspecified; I50.9 Heart failure, unspecified; I25.2 Old myocardial infarction; K21.9 Gastro-esophageal reflux disease without esophagitis; Z95.0 Presence of cardiac pacemaker; Z88.1 Allergy status to other antibiotic agents; Z79.01 Long term (current) use of anticoagulants; Z79.82 Long term (current) use of aspirin; Z79.899 Other long term (current) drug therapy; Z20.822 Contact with and (suspected) exposure to COVID-19
CPT/HCPCS: 0240U; 36415; 70450; 80053; 80305; 80307; 81001; 82947; 83605; 83880; 84484; 85025; 87040; 93005; 96365; 96366; 96375; 99285; J3480

== ENCOUNTER 2021-05-09 04:04 | Inpatient (IN) | payer MEDICARE, MEDICAID ==
[2021-05-09] MEDS ORDERED: Mupirocin Oint 22 GM Tube TOP ONE (04:17)
[2021-05-09] MEDS ORDERED: fentaNYL 100 MCG/2 ML SDV IVPUSH ONE ×2 (04:19→06:43)
[2021-05-09 04:58] LABS: CORONAVIRUS COVID-19 NAA NEGATIVE (NEGATIVE)
[2021-05-09] MEDS ORDERED: Piperacillin/Tazobactam 3.375 GM in Sodium Chloride 0.9% 100 ML IV ONE (04:59)
[2021-05-09] MEDS ORDERED: Potassium Chloride 20 MEQ in Premix Bag 1 BAG IV ONE (05:13)
[2021-05-09] MEDS ORDERED: Magnesium Sulfate/Water 2 GM in Premix Bag 1 BAG IV ONE (05:13)
[2021-05-09] MEDS ORDERED: Sodium Chloride 0.9% 500 ML IV ONE (05:15)
[2021-05-09] MEDS ORDERED: Sodium Chloride 0.9% 500 ML IV SCH (05:15)
[2021-05-09 07:22] LABS: AMPHETAMINES,URINE NEGATIVE (NEGATIVE); BARBITURATES,URINE NEGATIVE (NEGATIVE); BENZODIAZEPINE,URINE NEGATIVE (NEGATIVE); MDMA (ECSTASY), URINE NEGATIVE (NEGATIVE); METHADONE,URINE NEGATIVE (NEGATIVE); METHAMPHETAMINES,URINE NEGATIVE (NEGATIVE); OPIATES,URINE NEGATIVE (NEGATIVE); OXYCODONE,URINE NEGATIVE (NEGATIVE); PHENCYCLIDINE,URINE NEGATIVE (NEGATIVE); TCA,URINE NEGATIVE (NEGATIVE)
[2021-05-09] MEDS ORDERED: Ondansetron 4 MG/2 ML SDV IVPUSH PRN (13:24)
[2021-05-09] MEDS ORDERED: Acetaminophen 325 MG Tab PO PRN (13:24)
[2021-05-09] MEDS ORDERED: Albuterol 6.7 GM Inhaler INH PRN (13:29)
[2021-05-09] MEDS ORDERED: traMADol 50 MG Tab PO PRN (13:29)
[2021-05-09] MEDS ORDERED: Cyclobenzaprine 10 MG Tab PO PRN (13:29)
[2021-05-09] MEDS ORDERED: Nitroglycerin 0.4 MG Tab.SL SL PRN (13:29)
[2021-05-09] MEDS ORDERED: Non-Formulary Medication 1 Each (Gabapentin 800 MG Tablet) PO SCH (14:00)
[2021-05-09] MEDS: Piperacillin/Tazobactam 3.375 GM in Sodium Chloride 0.9% 100 ML IV SCH ×2 (14:32→20:06)
[2021-05-09] MEDS: Bisacodyl 5 MG Tab PO PRN (14:33)
[2021-05-09] MEDS: Carvedilol 25 MG Tab PO SCH (18:02)
[2021-05-09] MEDS: Budesonide 0.5 MG/2 ML Neb Susp NEB SCH (18:40)
[2021-05-09] MEDS ORDERED: Gabapentin 400 MG Cap PO SCH (21:00)
[2021-05-09] MEDS: Metolazone 2.5 MG Tab PO SCH (21:48)
[2021-05-09] MEDS: Apixaban 5 MG Tab PO SCH (21:48)
[2021-05-09] MEDS: Bumetanide 1 MG Tab PO SCH (21:48)
[2021-05-09] MEDS: Insulin Lispro 100 Units/ML 3 ML Vial SUBCUT SCH (21:48)
[2021-05-09] MEDS: Gabapentin 300 MG Cap PO SCH (21:48)
[2021-05-09] MEDS: atorvaSTATin 10 MG Tab PO SCH (21:48)
[2021-05-09] MEDS: Nicotine 21 MG/24 Hr Patch TRDERM SCH (23:33)
[2021-05-10] MEDS: Piperacillin/Tazobactam 3.375 GM in Sodium Chloride 0.9% 100 ML IV SCH ×4 (01:34→18:34)
[2021-05-10] MEDS: Omeprazole 20 MG Cap.CR PO SCH (05:55)
[2021-05-10] MEDS: Budesonide 0.5 MG/2 ML Neb Susp NEB SCH ×2 (08:18→19:12)
[2021-05-10] MEDS: Nicotine 21 MG/24 Hr Patch TRDERM SCH (08:53)
[2021-05-10] MEDS: Venlafaxine 150 MG CAP.ER PO SCH (08:56)
[2021-05-10] MEDS: Bumetanide 1 MG Tab PO SCH ×2 (08:57→21:18)
[2021-05-10] MEDS: Apixaban 5 MG Tab PO SCH ×2 (08:57→21:17)
[2021-05-10] MEDS: Potassium Chloride 10 MEQ Tab.ER PO SCH (08:57)
[2021-05-10] MEDS: Metolazone 2.5 MG Tab PO SCH ×2 (08:57→21:17)
[2021-05-10] MEDS: Gabapentin 300 MG Cap PO SCH ×3 (08:57→21:17)
[2021-05-10] MEDS: Aspirin 81 MG Tab.EC PO SCH (08:57)
[2021-05-10] MEDS ORDERED: Furosemide 80 MG Tab PO SCH (09:00)
[2021-05-10] MEDS ORDERED: Enoxaparin 40 MG/0.4 ML Syringe SUBCUT SCH (09:00)
[2021-05-10] MEDS ORDERED: Permethrin 59 ML Bottle TOP ONE (09:02)
[2021-05-10] MEDS ORDERED: Bacitracin Oint 1 GM U/D Packet TOP SCH (11:00)
[2021-05-10] MEDS: Insulin Lispro 100 Units/ML 3 ML Vial SUBCUT SCH ×3 (11:03→17:26)
[2021-05-10] MEDS: Carvedilol 6.25 MG Tab PO SCH ×2 (11:08→17:20)
[2021-05-10] MEDS: predniSONE 20 MG Tab PO SCH (11:08)
[2021-05-10] MEDS: Carvedilol 25 MG Tab PO SCH ×2 (11:08→17:19)
[2021-05-10] MEDS: Acetaminophen 325 MG Tab PO PRN (11:09)
[2021-05-10] MEDS: Losartan 25 MG Tab PO SCH (11:10)
[2021-05-10] MEDS: Insulin Glarg,Human.Rec.Analog 100 Unit/ML SUBCUT SCH (11:36)
[2021-05-10] MEDS ORDERED: Acetaminophen/HYDROcodone 325-10 MG Tab PO PRN (12:03)
[2021-05-10] MEDS: Bacitracin Oint 28.35 GM Tube TOP SCH (12:27)
[2021-05-10] MEDS: atorvaSTATin 10 MG Tab PO SCH (21:17)
[2021-05-10] MEDS: ALOGLIPTIN 12.5 MG PO SCH (21:48)
[2021-05-10] MEDS: SEVELAMER CARBONATE 800 MG PO SCH ×2 (21:48)
[2021-05-11] MEDS: Piperacillin/Tazobactam 3.375 GM in Sodium Chloride 0.9% 100 ML IV SCH ×4 (01:39→19:50)
[2021-05-11] MEDS: diphenhydrAMINE 25 MG Tab PO PRN ×3 (02:01→17:52)
[2021-05-11] MEDS: Acetaminophen 325 MG Tab PO PRN ×2 (02:01→05:53)
[2021-05-11] MEDS: Omeprazole 20 MG Cap.CR PO SCH (05:53)
[2021-05-11] MEDS: Budesonide 0.5 MG/2 ML Neb Susp NEB SCH ×3 (05:56→18:27)
[2021-05-11] MEDS ORDERED: predniSONE 20 MG Tab PO SCH (08:00)
[2021-05-11] MEDS: ALOGLIPTIN 12.5 MG PO SCH (10:10)
[2021-05-11] MEDS: SEVELAMER CARBONATE 800 MG PO SCH ×3 (10:10→17:53)
[2021-05-11] MEDS: Metolazone 2.5 MG Tab PO SCH ×2 (10:11→20:32)
[2021-05-11] MEDS: Venlafaxine 150 MG CAP.ER PO SCH (10:11)
[2021-05-11] MEDS: Carvedilol 6.25 MG Tab PO SCH ×2 (10:11→17:52)
[2021-05-11] MEDS: Bumetanide 1 MG Tab PO SCH ×2 (10:11→20:33)
[2021-05-11] MEDS: Carvedilol 25 MG Tab PO SCH ×2 (10:12→17:52)
[2021-05-11] MEDS: Gabapentin 300 MG Cap PO SCH ×3 (10:12→20:32)
[2021-05-11] MEDS: Aspirin 81 MG Tab.EC PO SCH (10:13)
[2021-05-11] MEDS: predniSONE 20 MG Tab PO SCH (10:13)
[2021-05-11] MEDS: Bacitracin Oint 28.35 GM Tube TOP SCH ×2 (10:13→22:09)
[2021-05-11] MEDS: Apixaban 5 MG Tab PO SCH ×2 (10:13→20:32)
[2021-05-11] MEDS: Potassium Chloride 10 MEQ Tab.ER PO SCH (10:13)
[2021-05-11] MEDS: Losartan 25 MG Tab PO SCH (10:14)
[2021-05-11] MEDS: Insulin Lispro 100 Units/ML 3 ML Vial SUBCUT SCH ×3 (10:15→17:55)
[2021-05-11] MEDS: Insulin Glarg,Human.Rec.Analog 100 Unit/ML SUBCUT SCH (10:18)
[2021-05-11] MEDS: Nicotine 21 MG/24 Hr Patch TRDERM SCH (10:19)
[2021-05-11] MEDS ORDERED: guaiFENesin/Dextromethorphan 100-10 MG/5 ML Soln 5 ML Cup PO PRN (11:01)
[2021-05-11] MEDS: atorvaSTATin 10 MG Tab PO SCH (20:32)
[2021-05-12] MEDS: Piperacillin/Tazobactam 3.375 GM in Sodium Chloride 0.9% 100 ML IV SCH ×4 (00:29→19:47)
[2021-05-12] MEDS: diphenhydrAMINE 25 MG Tab PO PRN ×2 (00:29→20:53)
[2021-05-12] MEDS: Omeprazole 20 MG Cap.CR PO SCH (05:38)
[2021-05-12] MEDS ORDERED: Potassium Chloride 10 MEQ Tab.ER PO ONE (07:45)
[2021-05-12] MEDS: Budesonide 0.5 MG/2 ML Neb Susp NEB SCH ×2 (08:03→19:02)
[2021-05-12] MEDS: Gabapentin 300 MG Cap PO SCH ×3 (08:22→20:53)
[2021-05-12] MEDS: predniSONE 20 MG Tab PO SCH (08:22)
[2021-05-12] MEDS: Apixaban 5 MG Tab PO SCH ×2 (08:22→20:53)
[2021-05-12] MEDS: Carvedilol 6.25 MG Tab PO SCH (08:24)
[2021-05-12] MEDS: Bumetanide 1 MG Tab PO SCH ×2 (08:24→20:53)
[2021-05-12] MEDS: Venlafaxine 150 MG CAP.ER PO SCH (08:24)
[2021-05-12] MEDS: Carvedilol 25 MG Tab PO SCH ×2 (08:25→18:21)
[2021-05-12] MEDS: Aspirin 81 MG Tab.EC PO SCH (08:26)
[2021-05-12] MEDS: Nicotine 21 MG/24 Hr Patch TRDERM SCH (08:27)
[2021-05-12] MEDS: Insulin Lispro 100 Units/ML 3 ML Vial SUBCUT SCH ×3 (08:34→18:22)
[2021-05-12] MEDS: Potassium Chloride 10 MEQ Tab.ER PO SCH (08:36)
[2021-05-12] MEDS: ALOGLIPTIN 12.5 MG PO SCH (08:37)
[2021-05-12] MEDS: Insulin Glarg,Human.Rec.Analog 100 Unit/ML SUBCUT SCH (08:38)
[2021-05-12] MEDS ORDERED: Permethrin 59 ML Bottle TOP ONE (09:30)
[2021-05-12] MEDS: Bacitracin Oint 28.35 GM Tube TOP SCH ×2 (12:25→20:54)
[2021-05-12] MEDS: Docusate Sodium 100 MG Cap PO PRN (19:51)
[2021-05-12] MEDS: atorvaSTATin 10 MG Tab PO SCH (20:53)
[2021-05-13] MEDS ORDERED: Sodium Chloride 0.9% 10 ML Syringe FLUSH PRN (01:29)
[2021-05-13] MEDS: Piperacillin/Tazobactam 3.375 GM in Sodium Chloride 0.9% 100 ML IV SCH ×3 (01:30→12:47)
[2021-05-13] MEDS: Omeprazole 20 MG Cap.CR PO SCH (05:33)
[2021-05-13] MEDS ORDERED: Potassium Chloride 10 MEQ Tab.ER PO SCH (08:00)
[2021-05-13] MEDS: Budesonide 0.5 MG/2 ML Neb Susp NEB SCH (08:17)
[2021-05-13] MEDS: Gabapentin 300 MG Cap PO SCH ×2 (08:45→14:14)
[2021-05-13] MEDS: Docusate Sodium 100 MG Cap PO PRN (08:45)
[2021-05-13] MEDS: Bisacodyl 5 MG Tab PO PRN (08:46)
[2021-05-13] MEDS: Venlafaxine 150 MG CAP.ER PO SCH (08:46)
[2021-05-13] MEDS: Apixaban 5 MG Tab PO SCH (08:46)
[2021-05-13] MEDS: Aspirin 81 MG Tab.EC PO SCH (08:46)
[2021-05-13] MEDS: Carvedilol 25 MG Tab PO SCH (08:46)
[2021-05-13] MEDS: predniSONE 20 MG Tab PO SCH (08:47)
[2021-05-13] MEDS: Potassium Chloride 10 MEQ Tab.ER PO SCH (08:47)
[2021-05-13] MEDS: Bumetanide 1 MG Tab PO SCH (08:47)
[2021-05-13] MEDS: ALOGLIPTIN 12.5 MG PO SCH (08:48)
[2021-05-13] MEDS: Nicotine 21 MG/24 Hr Patch TRDERM SCH (08:49)
[2021-05-13] MEDS: Bacitracin Oint 28.35 GM Tube TOP SCH (08:51)
[2021-05-13] MEDS: Insulin Lispro 100 Units/ML 3 ML Vial SUBCUT SCH ×2 (08:54→12:48)
[2021-05-13] MEDS: Insulin Glarg,Human.Rec.Analog 100 Unit/ML SUBCUT SCH (08:55)
[2021-05-13 12:14] VITALS: BP 140/79; PULSE 98
== END 2021-05-13 14:35 | disposition home or self-care (01) | DRG 603 ==
LOC: DL.ED 04:04 → DL.MS 11:23
PROVIDERS: ADMIT Internal Medicine; ATTEND Internal Medicine
DX: L03.90 Cellulitis, unspecified (principal); S41.101A Unspecified open wound of right upper arm, initial encounter; E87.6 Hypokalemia; E83.42 Hypomagnesemia; L03.114 Cellulitis of left upper limb; R52 Pain, unspecified; L03.115 Cellulitis of right lower limb; I50.42 Chronic combined systolic (congestive) and diastolic (congestive) heart failure; N17.9 Acute kidney failure, unspecified; I13.0 Hypertensive heart and chronic kidney disease with heart failure and stage 1 through stage 4 chronic kidney disease, or unspecified chronic kidney disease; I50.9 Heart failure, unspecified; F17.210 Nicotine dependence, cigarettes, uncomplicated; I25.10 Atherosclerotic heart disease of native coronary artery without angina pectoris; I48.91 Unspecified atrial fibrillation; J44.9 Chronic obstructive pulmonary disease, unspecified; I48.0 Paroxysmal atrial fibrillation; E11.9 Type 2 diabetes mellitus without complications; K21.9 Gastro-esophageal reflux disease without esophagitis; F32.A Depression, unspecified; E11.40 Type 2 diabetes mellitus with diabetic neuropathy, unspecified; N18.30 Chronic kidney disease, stage 3 unspecified; H54.7 Unspecified visual loss; E78.00 Pure hypercholesterolemia, unspecified; E11.21 Type 2 diabetes mellitus with diabetic nephropathy; M19.90 Unspecified osteoarthritis, unspecified site; M54.9 Dorsalgia, unspecified; G89.29 Other chronic pain; E11.42 Type 2 diabetes mellitus with diabetic polyneuropathy; Z86.73 Personal history of transient ischemic attack (TIA), and cerebral infarction without residual deficits; F41.9 Anxiety disorder, unspecified; E66.9 Obesity, unspecified; Z90.89 Acquired absence of other organs; Z79.01 Long term (current) use of anticoagulants; Z95.0 Presence of cardiac pacemaker; Z86.14 Personal history of Methicillin resistant Staphylococcus aureus infection; I25.2 Old myocardial infarction; Z88.1 Allergy status to other antibiotic agents; Z79.82 Long term (current) use of aspirin; Z79.4 Long term (current) use of insulin; Z79.51 Long term (current) use of inhaled steroids; Z79.899 Other long term (current) drug therapy; Z95.2 Presence of prosthetic heart valve; Z95.1 Presence of aortocoronary bypass graft; Z90.49 Acquired absence of other specified parts of digestive tract; Z90.710 Acquired absence of both cervix and uterus; Z20.822 Contact with and (suspected) exposure to COVID-19
CPT/HCPCS: 0240U; 36415; 71045; 80048; 80053; 80305-QW; 81001; 82150; 82947; 83605; 83690; 83735; 83880; 85025; 85027; 85610; 87040; 87086; 90686; 94640; 96365; 96366; 96367; 96368; 96375; 96376; 99284-25; A9270-GY; G0008; J1815-GY; J2543; J3010; J3475; J3480; J7040; J7512; J7606

== ENCOUNTER 2021-06-28 04:44 | Emergency (ER) | payer MEDICARE, MEDICAID ==
[2021-06-28 05:14] VITALS: BP 121/63; PULSE 84
[2021-06-28] MEDS: Sodium Chloride 0.9% 10 ML Syringe FLUSH PRN (05:32)
[2021-06-28] MEDS: Butorphanol 2 MG/ML SDV IM ONE (05:32)
[2021-06-28] MEDS: Sodium Chloride 0.9% 1,000 ML IV ONE (05:32)
[2021-06-28 06:01] LABS: CHLORIDE,CL 91 mmol/L (98-107); ESTIMATED GFR 26; SODIUM,NA 129 mmol/L (136-145)
== END 2021-06-28 07:25 | disposition home or self-care (01) ==
LOC: DL.ED 04:44
DX: G89.29 Other chronic pain (principal); I48.91 Unspecified atrial fibrillation; E11.21 Type 2 diabetes mellitus with diabetic nephropathy; E11.22 Type 2 diabetes mellitus with diabetic chronic kidney disease; I12.9 Hypertensive chronic kidney disease with stage 1 through stage 4 chronic kidney disease, or unspecified chronic kidney disease; N18.30 Chronic kidney disease, stage 3 unspecified; I25.2 Old myocardial infarction; I25.10 Atherosclerotic heart disease of native coronary artery without angina pectoris; J44.9 Chronic obstructive pulmonary disease, unspecified; K21.9 Gastro-esophageal reflux disease without esophagitis; E11.40 Type 2 diabetes mellitus with diabetic neuropathy, unspecified; E66.9 Obesity, unspecified; Z72.0 Tobacco use; Z68.30 Body mass index [BMI] 30.0-30.9, adult; Z95.0 Presence of cardiac pacemaker; Z88.1 Allergy status to other antibiotic agents; Z79.01 Long term (current) use of anticoagulants; Z79.82 Long term (current) use of aspirin; Z79.899 Other long term (current) drug therapy; Z79.4 Long term (current) use of insulin; Z86.73 Personal history of transient ischemic attack (TIA), and cerebral infarction without residual deficits
CPT/HCPCS: 36415; 80053; 85025; 85651; 86140; 96372; 99283; 99284; J0595; J3490; J7030

== ENCOUNTER 2021-09-14 22:56 | Emergency (ER) | payer MEDICARE, MEDICAID ==
[2021-09-14 22:59] VITALS: PULSE 68
[2021-09-14 23:43] LABS: ANION GAP 11.1 mEq/L (7-13); CHLORIDE,CL 99 mmol/L (98-107); SODIUM,NA 137 mmol/L (136-145)
[2021-09-15] MEDS ORDERED: D5 1/2 NS w/ 20 mEq/L KCl 1,000 ML IV SCH (01:00)
[2021-09-15 02:40] LABS: AMPHETAMINES,URINE NEGATIVE (NEGATIVE); BARBITURATES,URINE NEGATIVE (NEGATIVE); BENZODIAZEPINE,URINE NEGATIVE (NEGATIVE); MDMA (ECSTASY), URINE NEGATIVE (NEGATIVE); METHADONE,URINE NEGATIVE (NEGATIVE); METHAMPHETAMINES,URINE NEGATIVE (NEGATIVE); OPIATES,URINE NEGATIVE (NEGATIVE); OXYCODONE,URINE NEGATIVE (NEGATIVE); PHENCYCLIDINE,URINE POSITIVE (NEGATIVE); TCA,URINE NEGATIVE (NEGATIVE)
[2021-09-15 02:43] VITALS: BP 155/81
== END 2021-09-15 06:40 | disposition home or self-care (01) ==
LOC: DL.ED 22:56
DX: E11.649 Type 2 diabetes mellitus with hypoglycemia without coma (principal); E87.6 Hypokalemia; E11.22 Type 2 diabetes mellitus with diabetic chronic kidney disease; E11.40 Type 2 diabetes mellitus with diabetic neuropathy, unspecified; E78.00 Pure hypercholesterolemia, unspecified; I12.9 Hypertensive chronic kidney disease with stage 1 through stage 4 chronic kidney disease, or unspecified chronic kidney disease; N18.30 Chronic kidney disease, stage 3 unspecified; I25.2 Old myocardial infarction; J44.9 Chronic obstructive pulmonary disease, unspecified; Z95.0 Presence of cardiac pacemaker; Z88.1 Allergy status to other antibiotic agents; Z79.01 Long term (current) use of anticoagulants; Z79.82 Long term (current) use of aspirin; Z79.4 Long term (current) use of insulin; Z79.899 Other long term (current) drug therapy
CPT/HCPCS: 36415; 80053; 80305; 81001; 82947; 83735; 85025; 96365; 96366; 99284; J3480

== ENCOUNTER 2021-11-12 16:55 | Inpatient (IN) | payer MEDICARE, MEDICAID ==
[2021-11-12 17:40] LABS: ANION GAP 15.9 mEq/L (7-13)
[2021-11-12 18:11] LABS: CORONAVIRUS COVID-19 NAA NEGATIVE (NEGATIVE)
[2021-11-12] MEDS ORDERED: Furosemide 40 MG/4 ML VIAL IVPUSH ONE (19:09)
[2021-11-12] MEDS ORDERED: Albuterol/Ipratropium 3.0-0.5 MG/3 ML Neb Soln NEB ONE (19:10)
[2021-11-12 19:13] LABS: AMPHETAMINES,URINE NEGATIVE (NEGATIVE); BARBITURATES,URINE NEGATIVE (NEGATIVE); BENZODIAZEPINE,URINE NEGATIVE (NEGATIVE); MDMA (ECSTASY), URINE NEGATIVE (NEGATIVE); METHADONE,URINE NEGATIVE (NEGATIVE); METHAMPHETAMINES,URINE NEGATIVE (NEGATIVE); OPIATES,URINE NEGATIVE (NEGATIVE); OXYCODONE,URINE NEGATIVE (NEGATIVE); PHENCYCLIDINE,URINE NEGATIVE (NEGATIVE); TCA,URINE NEGATIVE (NEGATIVE)
[2021-11-12 19:52] LABS: O2 DELIVERY DEVICE NASAL CANNULA
[2021-11-12 19:53] LABS: ALLEN TEST PERFORMED; BICARBONATE,ARTERIAL 24.1 mmol/L (22-26); O2 FLOW RATE 3; O2 SATURATION ARTERIAL 98 % (95-100); PCO2 ARTERIAL 41 mmHg (35-45); PO2 ARTERIAL 100 mmHg (70-100)
[2021-11-12] MEDS ORDERED: Bisacodyl 5 MG Tab PO PRN (21:51)
[2021-11-12] MEDS ORDERED: Polyethylene Glycol 3350 Powder 17 GM Packet PO PRN (21:51)
[2021-11-12] MEDS ORDERED: Docusate Sodium 100 MG Cap PO PRN (21:51)
[2021-11-12] MEDS ORDERED: Ondansetron 4 MG/2 ML SDV IVPUSH PRN (21:51)
[2021-11-12] MEDS ORDERED: Metoprolol Tartrate 5 MG/5 ML SDV IVPUSH PRN (22:05)
[2021-11-12] MEDS ORDERED: hydrALAZINE 20 MG/ML SDV IVPUSH PRN (22:05)
[2021-11-12] MEDS ORDERED: guaiFENesin/Dextromethorphan 100-10 MG/5 ML Soln 5 ML Cup PO PRN (22:05)
[2021-11-12] MEDS ORDERED: Sodium Chloride 0.9% 1,000 ML IV SCH (22:15)
[2021-11-12] MEDS ORDERED: 50% Dextrose in Water 50 ML Syringe IVPUSH PRN (22:27)
[2021-11-12] MEDS ORDERED: Glucagon,Human Recombinant 1 MG Vial IM PRN (22:27)
[2021-11-12] MEDS ORDERED: Albuterol/Ipratropium 3.0-0.5 MG/3 ML Neb Soln NEB PRN (23:00)
[2021-11-12] MEDS: methylPREDNISolone Sodium Succinate 125 MG/2 ML SDV IVPUSH SCH (23:24)
[2021-11-12] MEDS: Azithromycin 500 MG in Sodium Chloride 0.9% 250 ML IV SCH (23:34)
[2021-11-13] MEDS ORDERED: Piperacillin/Tazobactam 4.5 GM in Sodium Chloride 0.9% 100 ML IV SCH ×2
[2021-11-13] MEDS ORDERED: Sodium Chloride 0.9% 100 ML ONE (00:18)
[2021-11-13] MEDS: Acetaminophen 325 MG Tab PO PRN ×2 (00:26→21:29)
[2021-11-13] MEDS: Piperacillin/Tazobactam 3.375 GM in Sodium Chloride 0.9% 100 ML IV SCH ×4 (00:35→17:49)
[2021-11-13] MEDS ORDERED: HYDROmorphone 1 MG/ML Syringe IVPUSH ONE (00:53)
[2021-11-13] MEDS: Magnesium Hydroxide 400 MG/5 ML Susp 30 ML Cup PO PRN (01:22)
[2021-11-13] MEDS: methylPREDNISolone Sodium Succinate 125 MG/2 ML SDV IVPUSH SCH ×3 (05:43→23:04)
[2021-11-13 07:06] LABS: ANION GAP 16.8 mEq/L (7-13)
[2021-11-13] MEDS: Insulin Lispro 100 Units/ML 3 ML Vial SUBCUT SCH ×4 (07:47→17:50)
[2021-11-13] MEDS ORDERED: Nicotine 21 MG/24 Hr Patch TRDERM SCH (09:00)
[2021-11-13] MEDS ORDERED: Pantoprazole 40 MG Vial IVPUSH SCH (09:00)
[2021-11-13] MEDS: Apixaban 5 MG Tab PO SCH ×2 (09:08→21:28)
[2021-11-13] MEDS: Aspirin 81 MG Tab.EC PO SCH (09:08)
[2021-11-13] MEDS: Saccharomyces Boulardii (Probiotic) 250 MG Cap PO SCH ×2 (09:08→21:27)
[2021-11-13] MEDS: Nicotine 21 MG/24 Hr Patch TRDERM SCH (09:11)
[2021-11-13] MEDS ORDERED: Bisacodyl 10 MG Supp RECTAL PRN (09:22)
[2021-11-13] MEDS ORDERED: Morphine 2 MG/ML SYRINGE IVPUSH PRN (13:12)
[2021-11-13] MEDS: Gabapentin 300 MG Cap PO SCH ×2 (13:44→21:29)
[2021-11-13] MEDS: Acetaminophen/HYDROcodone 325-5 MG Tab PO PRN (14:57)
[2021-11-13] MEDS: Bacitracin Oint 28.35 GM Tube TOP SCH ×2 (15:02→21:30)
[2021-11-13] MEDS: HYDROmorphone 0.5 MG/0.5 ML Syringe IVPUSH PRN (16:40)
[2021-11-13] MEDS: Budesonide 0.5 MG/2 ML Neb Susp NEB SCH (17:07)
[2021-11-13] MEDS: Carvedilol 6.25 MG Tab PO SCH (17:49)
[2021-11-13] MEDS: Azithromycin 500 MG in Sodium Chloride 0.9% 250 ML IV SCH (21:23)
[2021-11-13] MEDS: Cyclobenzaprine 10 MG Tab PO SCH (21:28)
[2021-11-13 22:13] LABS: ANION GAP 16.6 mEq/L (7-13)
[2021-11-14] MEDS: Piperacillin/Tazobactam 3.375 GM in Sodium Chloride 0.9% 100 ML IV SCH ×4 (00:23→17:50)
[2021-11-14] MEDS: Omeprazole 20 MG Cap.CR PO SCH (05:29)
[2021-11-14] MEDS: methylPREDNISolone Sodium Succinate 125 MG/2 ML SDV IVPUSH SCH ×2 (05:33→16:49)
[2021-11-14 07:13] LABS: ANION GAP 16.9 mEq/L (7-13)
[2021-11-14] MEDS: Cholecalciferol (Vitamin D3) 25 MCG Tab PO SCH (07:59)
[2021-11-14] MEDS: Saccharomyces Boulardii (Probiotic) 250 MG Cap PO SCH ×2 (07:59→20:39)
[2021-11-14] MEDS: Pravastatin 20 MG Tab PO SCH (07:59)
[2021-11-14] MEDS: Cyclobenzaprine 10 MG Tab PO SCH (07:59)
[2021-11-14] MEDS: Venlafaxine 150 MG Cap.ER PO SCH (07:59)
[2021-11-14] MEDS: Aspirin 81 MG Tab.EC PO SCH (08:00)
[2021-11-14] MEDS: Carvedilol 6.25 MG Tab PO SCH ×2 (08:00→16:59)
[2021-11-14] MEDS: Gabapentin 300 MG Cap PO SCH (08:00)
[2021-11-14] MEDS: Nicotine 21 MG/24 Hr Patch TRDERM SCH (08:01)
[2021-11-14] MEDS: Apixaban 5 MG Tab PO SCH ×2 (08:01→20:39)
[2021-11-14] MEDS: Insulin Lispro 100 Units/ML 3 ML Vial SUBCUT SCH ×3 (08:08→17:45)
[2021-11-14] MEDS: Bacitracin Oint 28.35 GM Tube TOP SCH ×2 (08:11→20:39)
[2021-11-14] MEDS: Insulin Glarg,Human.Rec.Analog 100 Unit/ML SUBCUT SCH (08:14)
[2021-11-14] MEDS: Budesonide 0.5 MG/2 ML Neb Susp NEB SCH ×2 (09:32→18:30)
[2021-11-14] MEDS ORDERED: Cyclobenzaprine 10 MG Tab PO PRN (10:43)
[2021-11-14] MEDS ORDERED: Hydrocortisone 1% Crm 30 GM Tube TOP PRN (10:50)
[2021-11-14] MEDS: SEVELAMER CARBONATE 800 MG PO SCH ×2 (12:08→17:44)
[2021-11-14 17:25] LABS: ANION GAP 15.6 mEq/L (7-13)
[2021-11-14] MEDS: Gabapentin 100 MG Cap PO SCH (20:39)
[2021-11-14] MEDS: Azithromycin 250 MG Tab PO SCH (20:39)
[2021-11-14] MEDS: HYDROmorphone 0.5 MG/0.5 ML Syringe IVPUSH PRN (21:00)
[2021-11-14] MEDS ORDERED: Insulin Glarg,Human.Rec.Analog 100 Unit/ML SUBCUT SCH (21:00)
[2021-11-14] MEDS ORDERED: Azithromycin 500 MG in Sodium Chloride 0.9% 250 ML IV SCH (22:00)
[2021-11-14] MEDS ORDERED: Amiodarone 200 MG Tab PO ONE (23:30)
[2021-11-15] MEDS: methylPREDNISolone Sodium Succinate 125 MG/2 ML SDV IVPUSH SCH ×3 (00:18→20:54)
[2021-11-15] MEDS: Piperacillin/Tazobactam 3.375 GM in Sodium Chloride 0.9% 100 ML IV SCH ×5 (00:18→23:38)
[2021-11-15] MEDS: Omeprazole 20 MG Cap.CR PO SCH (06:05)
[2021-11-15] MEDS: Budesonide 0.5 MG/2 ML Neb Susp NEB SCH ×2 (07:54→17:51)
[2021-11-15] MEDS: Insulin Lispro 100 Units/ML 3 ML Vial SUBCUT SCH ×3 (08:57→17:02)
[2021-11-15] MEDS: Saccharomyces Boulardii (Probiotic) 250 MG Cap PO SCH ×2 (08:58→20:57)
[2021-11-15] MEDS: SEVELAMER CARBONATE 800 MG PO SCH ×3 (09:01→17:58)
[2021-11-15] MEDS: Insulin Glarg,Human.Rec.Analog 100 Unit/ML SUBCUT SCH (09:05)
[2021-11-15] MEDS: Cholecalciferol (Vitamin D3) 25 MCG Tab PO SCH (09:06)
[2021-11-15] MEDS: Aspirin 81 MG Tab.EC PO SCH (09:06)
[2021-11-15] MEDS: Pravastatin 20 MG Tab PO SCH (09:06)
[2021-11-15] MEDS: Gabapentin 100 MG Cap PO SCH ×2 (09:07→20:57)
[2021-11-15] MEDS: Apixaban 5 MG Tab PO SCH ×2 (09:07→20:57)
[2021-11-15] MEDS: Venlafaxine 150 MG Cap.ER PO SCH (09:08)
[2021-11-15] MEDS: Carvedilol 6.25 MG Tab PO SCH (10:36)
[2021-11-15] MEDS: Magnesium Hydroxide 400 MG/5 ML Susp 30 ML Cup PO PRN (10:55)
[2021-11-15] MEDS: Amiodarone 200 MG Tab PO SCH ×2 (10:56→20:59)
[2021-11-15] MEDS ORDERED: Bumetanide 1 MG Tab PO ONE (11:23)
[2021-11-15] MEDS: Bacitracin Oint 28.35 GM Tube TOP SCH ×2 (11:28→22:20)
[2021-11-15] MEDS: Nicotine 21 MG/24 Hr Patch TRDERM SCH (11:29)
[2021-11-15] MEDS: Metolazone 2.5 MG Tab PO SCH (11:55)
[2021-11-15] MEDS: Acetaminophen/HYDROcodone 325-5 MG Tab PO PRN ×2 (11:58→21:16)
[2021-11-15] MEDS: Bumetanide 1 MG Tab PO SCH (13:37)
[2021-11-15] MEDS: Azithromycin 250 MG Tab PO SCH (20:57)
[2021-11-15] MEDS ORDERED: Insulin Glarg,Human.Rec.Analog 100 Unit/ML SUBCUT SCH (21:00)
[2021-11-15] MEDS ORDERED: Acetaminophen/HYDROcodone 325-5 MG Tab PO ONE (22:29)
[2021-11-16] MEDS: Piperacillin/Tazobactam 3.375 GM in Sodium Chloride 0.9% 100 ML IV SCH ×3 (05:19→17:27)
[2021-11-16] MEDS: Omeprazole 20 MG Cap.CR PO SCH (05:19)
[2021-11-16 07:21] LABS: ANION GAP 17.8 mEq/L (7-13)
[2021-11-16] MEDS: Budesonide 0.5 MG/2 ML Neb Susp NEB SCH ×2 (07:39→18:32)
[2021-11-16] MEDS: Insulin Glarg,Human.Rec.Analog 100 Unit/ML SUBCUT SCH (08:51)
[2021-11-16] MEDS: Insulin Lispro 100 Units/ML 3 ML Vial SUBCUT SCH ×3 (08:53→17:24)
[2021-11-16] MEDS: SEVELAMER CARBONATE 800 MG PO SCH ×3 (08:54→17:14)
[2021-11-16] MEDS: Bumetanide 1 MG Tab PO SCH (08:57)
[2021-11-16] MEDS: Amiodarone 200 MG Tab PO SCH ×2 (08:57→21:00)
[2021-11-16] MEDS: Aspirin 81 MG Tab.EC PO SCH (08:59)
[2021-11-16] MEDS: Cholecalciferol (Vitamin D3) 25 MCG Tab PO SCH (08:59)
[2021-11-16] MEDS: Gabapentin 100 MG Cap PO SCH ×2 (09:00→21:00)
[2021-11-16] MEDS: Apixaban 5 MG Tab PO SCH ×2 (09:00→21:00)
[2021-11-16] MEDS ORDERED: Losartan 25 MG Tab PO SCH (09:00)
[2021-11-16] MEDS: Pravastatin 20 MG Tab PO SCH (09:00)
[2021-11-16] MEDS: Venlafaxine 150 MG Cap.ER PO SCH (09:01)
[2021-11-16] MEDS: Saccharomyces Boulardii (Probiotic) 250 MG Cap PO SCH ×2 (09:01→21:00)
[2021-11-16] MEDS: methylPREDNISolone Sodium Succinate 125 MG/2 ML SDV IVPUSH SCH ×2 (09:05→20:22)
[2021-11-16] MEDS: Nicotine 21 MG/24 Hr Patch TRDERM SCH (09:10)
[2021-11-16] MEDS ORDERED: Amiodarone In Dextrose,Iso-Osm 150 MG in Premix Bag 1 BAG IV ONE ×2 (09:15)
[2021-11-16] MEDS: Bacitracin Oint 28.35 GM Tube TOP SCH ×2 (09:15→21:00)
[2021-11-16] MEDS: Metolazone 2.5 MG Tab PO SCH (12:28)
[2021-11-16] MEDS ORDERED: Naloxone 2 MG/2 ML Syringe IVPUSH ONE (19:21)
[2021-11-16 20:12] LABS: BASE EXCESS ARTERIAL -1 mmol/L ((-2)-(+3)); BICARBONATE,ARTERIAL 23.3 mmol/L (22-26); O2 DELIVERY DEVICE CPAP; O2 FLOW RATE 0; O2 SATURATION ARTERIAL 99 % (95-100); PCO2 ARTERIAL 42 mmHg (35-45); PO2 ARTERIAL 127 mmHg (70-100)
[2021-11-16 20:13] LABS: ALLEN TEST PERFORMED
[2021-11-16 20:16] VITALS: BP 133/82; PULSE 85
[2021-11-16] MEDS ORDERED: Insulin Glarg,Human.Rec.Analog 100 Unit/ML SUBCUT SCH (21:00)
== END 2021-11-16 21:48 | DRG 177 ==
LOC: DL.ED 16:55 → DL.MS 20:54
PROVIDERS: ADMIT Internal Medicine; ATTEND Internal Medicine
DX: J69.0 Pneumonitis due to inhalation of food and vomit (principal); G92.8 Other toxic encephalopathy; I50.23 Acute on chronic systolic (congestive) heart failure; J96.01 Acute respiratory failure with hypoxia; J44.1 Chronic obstructive pulmonary disease with (acute) exacerbation; I13.0 Hypertensive heart and chronic kidney disease with heart failure and stage 1 through stage 4 chronic kidney disease, or unspecified chronic kidney disease; N18.4 Chronic kidney disease, stage 4 (severe); I48.20 Chronic atrial fibrillation, unspecified; N17.9 Acute kidney failure, unspecified; E78.5 Hyperlipidemia, unspecified; I50.9 Heart failure, unspecified; R53.1 Weakness; D50.9 Iron deficiency anemia, unspecified; F17.210 Nicotine dependence, cigarettes, uncomplicated; G56.00 Carpal tunnel syndrome, unspecified upper limb; R06.00 Dyspnea, unspecified; E66.9 Obesity, unspecified; E11.65 Type 2 diabetes mellitus with hyperglycemia; L89.319 Pressure ulcer of right buttock, unspecified stage; L29.9 Pruritus, unspecified; E83.39 Other disorders of phosphorus metabolism; R74.8 Abnormal levels of other serum enzymes; R79.1 Abnormal coagulation profile; I48.0 Paroxysmal atrial fibrillation; Z95.2 Presence of prosthetic heart valve; E78.00 Pure hypercholesterolemia, unspecified; I25.2 Old myocardial infarction; Z95.0 Presence of cardiac pacemaker; I49.5 Sick sinus syndrome; J44.9 Chronic obstructive pulmonary disease, unspecified; K21.9 Gastro-esophageal reflux disease without esophagitis; I25.10 Atherosclerotic heart disease of native coronary artery without angina pectoris; N18.30 Chronic kidney disease, stage 3 unspecified; M19.90 Unspecified osteoarthritis, unspecified site; E11.40 Type 2 diabetes mellitus with diabetic neuropathy, unspecified; E11.22 Type 2 diabetes mellitus with diabetic chronic kidney disease; Z86.73 Personal history of transient ischemic attack (TIA), and cerebral infarction without residual deficits; G89.4 Chronic pain syndrome; F32.A Depression, unspecified; F41.9 Anxiety disorder, unspecified; Z88.1 Allergy status to other antibiotic agents; Z79.01 Long term (current) use of anticoagulants; Z79.82 Long term (current) use of aspirin; Z79.4 Long term (current) use of insulin; Z79.51 Long term (current) use of inhaled steroids; Z79.899 Other long term (current) drug therapy; Z20.822 Contact with and (suspected) exposure to COVID-19
CPT/HCPCS: 0240U; 36415; 36600; 51702; 71045; 80048; 80053; 80305; 81001; 82803; 82947; 83605; 83735; 83880; 84100; 84439; 84443; 84484; 85025; 85379; 85651; 86140; 87040; 87086; 87088; 87186; 93005; 93306; 94060; 94640; 94660; 94762; 97161; 97166; 93010; 96374; 99233; 99238; 99285; 99285-25; A9270-GY; C9113; J0282; J0456; J1170; J1815-GY; J1940; J2270; J2310; J2543; J2930; J7030; J7050; J7606; J7620-GY